=== PATIENT | female | born 1945 | race Caucasian/White ===

== ENCOUNTER → 2019-07-01 | Outpatient (CLI) | payer MEDICARE, OTHER ==
--- NOTE | 2019-07-01 11:23 | Diagnostic Imaging Report ---
INDICATION: Injury to the left foot. TIME OF EXAM: 11:07 a.m. FINDINGS: Three views of the left foot were obtained. There is generalized demineralization noted. There are findings suspicious for fractures involving the distal second and third metatarsals. Clinical correlation to pain at this location is recommended. No displacement is seen. The phalanges appear to be intact. Midfoot and hindfoot are unremarkable. IMPRESSION: Generalized demineralization. There are questionable fractures involving the distal second and third metatarsals. Clinical correlation of pain at this location is recommended. No other abnormality is seen. Dictated by: Dictated on workstation # [id number]
== END ==
LOC: RAD FS 11:00
PROVIDERS: ATTEND Family Medicine
DX: M81.0 Age-related osteoporosis without current pathological fracture (principal); M79.672 Pain in left foot
CPT/HCPCS: 73630

== ENCOUNTER 2019-07-21 12:18 | Outpatient (CLI) | payer MEDICARE, OTHER ==
[~2019-07-21] VITALS: Ht 149.9 cm; Wt 61.9 kg
[2019-07-21 12:31] VITALS: BP 118/66
[2019-07-21] MEDS ORDERED: FEXO-46 PO (13:29)
[2019-07-21] MEDS ORDERED: BUME2TAB7 PO (13:29)
[2019-07-21] MEDS ORDERED: OMEP40CA36 PO (13:29)
[2019-07-21] MEDS ORDERED: CYAN25008 SL (13:29)
[2019-07-21] MEDS ORDERED: ALEN70TA5 PO (13:29)
[2019-07-21] MEDS ORDERED: CHOL4PAC16 PO (13:29)
[2019-07-21] MEDS ORDERED: POTA-51 PO (13:29)
[2019-07-21] MEDS ORDERED: GABA-488 PO (13:29)
[2019-07-21] MEDS ORDERED: ASPI-586 PO (13:29)
[2019-07-21] MEDS ORDERED: CHOL200014 PO (13:29)
[2019-07-21] MEDS ORDERED: SIMV10TA3 PO (13:29)
[2019-07-21] MEDS ORDERED: CHOL500049 PO (13:29)
[2019-07-22] MEDS ORDERED: HYDR-3816 PO (13:21)
== END 2019-07-21 12:45 | disposition home or self-care (01) ==
LOC: PREOP 12:18
PROVIDERS: ATTEND Orthopaedic Surgery
DX: Z01.818 Encounter for other preprocedural examination (principal)
CPT/HCPCS: 87081

== ENCOUNTER 2019-07-22 08:10 | Day surgery (SDC) | payer MEDICARE, OTHER ==
--- NOTE | 2019-07-21 07:38 | HISTORY AND PHYSICAL ---
DATE OF SERVICE: 07/22/2019 This will be for outpatient surgery on 07/22/2019 for open reduction and internal fixation of the left distal radius. HISTORY OF PRESENT ILLNESS: The patient is a 74-year-old female, who tripped 3 days ago landing on her left upper extremity. She was found to have a comminuted intraarticular displaced left distal radius fracture. She denies any antecedent pain. Radiographs reveal an intra-articular shortened displaced distal radius fracture. REVIEW OF SYSTEMS: No chest pain, no shortness of breath, no dysuria. PAST MEDICAL HISTORY: Right hip fracture, vitamin D deficiency, anemia, allergic rhinitis, neuralgia, osteoarthritis, hyperlipidemia, osteoporosis. PAST SURGICAL HISTORY: Right total hip arthroplasty, colonoscopy, tonsillectomy, cholecystectomy. FAMILY HISTORY: Noncontributory. PRIMARY CARE PROVIDER: Dr. Edwards. MEDICATIONS: Fosamax, aspirin, Bumex, calcium, vitamin D, Deborah, gabapentin, omeprazole, Zocor, Lomotil, alendronate, Aleve, Deborah, Neurontin, Questran, vitamin D. ALLERGIES: PENICILLIN, SULFA, ADHESIVE TAPE, STREPTOMYCIN, SULFADIAZINE, SOCIAL HISTORY: The patient denies alcohol and tobacco use. PHYSICAL EXAMINATION: GENERAL: The patient is well developed, well nourished, in no acute distress. HEENT: Normocephalic, atraumatic. Pupils are equal, round, reactive to light. Lateral pharynx is clear. NECK: Supple, no lymphadenopathy. LUNGS: Clear to auscultation bilaterally. HEART: Regular rate and rhythm. ABDOMEN: Soft, nontender, nondistended. EXTREMITIES: The left wrist demonstrates mild swelling. There is tenderness over distal radius. She has intact sensation in radial, ulnar and median distribution. She has intact MCP extension, finger abduction, thumb IP flexion and extension. IMPRESSION: Intra-articular displaced left distal radius fracture. PLAN: Open reduction and internal fixation, left distal radius. The risks, benefits, options, ramifications and recovery were discussed at length with the patient. She understands and wishes to proceed. Job ID: [id number] DocumentID: [id number] Dictated Date: 07/16/2019 14:28:19 Pin Or Clip Fastener Date: 07/16/2019 14:43:34 Dictated By: JORGE HERNANDEZ MD
[~2019-07-22] VITALS: Ht 148 cm; Wt 61.9 kg
[2019-07-22] VITALS (11 sets, daily range): BP systolic 108–129; BP diastolic 51–83
[~2019-07-22 08:10] MED LIST: ALEN70TA5 PO; ASPI-586 PO; BUME2TAB7 PO; CHOL200014 PO; CHOL4PAC16 PO; CHOL500049 PO; CYAN25008 SL; FEXO-46 PO; GABA-488 PO; OMEP40CA36 PO; POTA-51 PO; SIMV10TA3 PO
[2019-07-22] MEDS ORDERED: LACTATED RINGERS 1,000 ML IV PRN (08:19)
[2019-07-22] MEDS ORDERED: ceFAZolin INJECTION 1,000 MG in WATER (STERILE) FOR INJECTION 10 ML IV ONE (08:30)
--- NOTE | 2019-07-22 09:17 | Progress Note-Pre Operative ---
Pre-Operative Progress Note H&P Reviewed The H&P was reviewed, patient examined and no changes noted. Date Seen by Provider: Jul 22, 2019 Time Seen by Provider: 09:15 Date H&P Reviewed: Jul 22, 2019 Time H&P Reviewed: 09:15 Pre-Operative Diagnosis: left distal radius fracture closed, displaced JORGE HERNANDEZ MD Jul 22, 2019 09:17 POS
--- NOTE | 2019-07-22 09:18 | Progress Note-Post Operative ---
Post-Operative Progess Note Surgeon (s)/Printing Plate Maker (s) Surgeon JORGE HERNANDEZ MD Printing Plate Maker: Graeme Alcala Pre-Operative Diagnosis left distal radius fracture closed, displaced Post-Operative Diagnosis left distal radius fracture closed, displaced Procedure & Operative Findings Date of Procedure 07/22/19 Procedure Performed/Findings open reduction and internal fixation of the left distal radius Anesthesia Type GETA Estimated Blood Loss Estimated blood loss (mL): minimal Specimens/Packing Specimens Removed none Packing: none JORGE HERNANDEZ MD Jul 22, 2019 09:18 POS
[2019-07-22] MEDS ORDERED: fentaNYL INJECTION 100 MCG/2 ML AMP ONE (10:22)
[2019-07-22] MEDS ORDERED: ONDANSETRON 4 MG/2 ML (SDV) Z0FRAN ONE (10:22)
[2019-07-22] MEDS ORDERED: SEVOFLURANE (ULTANE) 15 ML INHAL SOLN ONE ×3 (10:22→12:01)
[2019-07-22] MEDS ORDERED: DEXAMETHASONE 10 MG/ML (DECADRON) 1 ML VIAL ONE (10:22)
[2019-07-22] MEDS ORDERED: LIDOCAINE PF 2% 5 ML (XYLOCAINE) VIAL ONE (10:22)
[2019-07-22] MEDS ORDERED: proPOfol 200 MG/20 ML (DIPRIVAN) VIAL IV ONE (10:22)
[2019-07-22] MEDS ORDERED: GLYCOPYRROLATE 0.2 MG/ML (ROBINUL) 2 ML VIAL ONE (12:00)
[2019-07-22] MEDS ORDERED: BUPIVACAINE 0.5% 30 ML (SENSORCAINE) VIAL ONE ×2 (12:00→12:02)
[2019-07-22] MEDS ORDERED: ONDANSETRON 4 MG/2 ML (SDV) Z0FRAN IVP PRN (12:30)
[2019-07-22] MEDS ORDERED: fentaNYL INJECTION 100 MCG/2 ML AMP IVP ONE (12:30)
[2019-07-22] MEDS ORDERED: HYDROcodone/APAP 7.5 MG/325 MG (LORTAB, LORCET PLUS) TABLET PO PRN (12:30)
--- NOTE | 2019-07-22 13:06 | Diagnostic Imaging Report ---
INDICATION: Distal radius ORIF. COMPARISON: None. TOTAL FLUOROSCOPY TIME: 30.2 seconds. TOTAL NUMBER OF FLUOROSCOPIC IMAGES SAVED: 2 FINDINGS: Multiple intraoperative image intensifier views of the left wrist were obtained during ORIF. Images provided show presence of orthopedic side plate and screws along the distal ventral portions of the radius. Fracture of the distal radius is noted, but suboptimally evaluated on these fluoroscopic images. Please note, interpreting radiologist was not present during the procedure. IMPRESSION: 1. Fluoroscopic guidance provided during wrist ORIF. Dictated by: Dictated on workstation # [id number]
[2019-07-22] MEDS ORDERED: HYDR-3816 PO (13:21)
--- NOTE | 2019-07-22 13:47 | Anesthesia-General Post-Op ---
General Patient Condition Mental Status/LOC: Same as Preop Cardiovascular: Satisfactory Nausea/Vomiting: Absent Respiratory: Satisfactory Pain: Controlled Complications: Absent Post Op Complications Complications None Follow Up Care/Instructions Patient Instructions None needed. Anesthesia/Patient Condition Patient Condition Patient is doing well, no complaints, stable vital signs, no apparent adverse anesthesia problems. No complications reported per nursing. BELÉN KRAFT CRNA Jul 22, 2019 13:47 POS
--- NOTE | 2019-07-22 15:46 | OPERATIVE REPORT ---
DATE OF SERVICE: 07/22/2019 PREOPERATIVE DIAGNOSIS: Closed displaced left distal radius fracture (Colles type). POSTOPERATIVE DIAGNOSIS: Closed displaced left distal radius fracture (Colles type). PROCEDURE: Open reduction and internal fixation, left distal radius. SURGEON: Bernard Hernandez MD MANAGER PEOPLE: ARIANA Hernadez, who assisted throughout the procedure and closed the incision. ANESTHESIA: General endotracheal by Rossy Jones CRNA. TOURNIQUET TIME: 32 minutes at 250 mmHg. ESTIMATED BLOOD LOSS: Minimal. DRAINS: None. COMPLICATIONS: None. POSTOPERATIVE PLAN: Immobilization for four to six weeks. The patient was transferred to the recovery room awake and in stable condition. STATEMENT OF MEDICAL NECESSITY: The patient is a 74-year-old right hand dominant female who fell on her left hip fell on her outstretched left upper extremity. She was found to have a closed displaced left distal radius fracture. The patient has very poor bone quality and was counseled that this could collapse even with operative fixation. She understood this. DESCRIPTION OF PROCEDURE: After risks and benefits of procedure were discussed and questions were answered, informed consent was signed and placed on chart, the operative site was confirmed in the preoperative holding area initialed by the surgeon. The patient was transferred to the operating room. After adequate levels of general endotracheal anesthetic were obtained, a timeout was called, confirming the operative site. Left upper extremity was prepped and draped in the usual sterile fashion with arm elevated, tourniquet was inflated to 250 mmHg. Longitudinal incision was made over the flexor carpi radialis. Flexor carpi radialis sheath was then incised and the tendon was retracted ulnarly. Subperiosteal dissection was then carried out on the distal radius. Retractors were placed directly on the bony surface. A Synthes distal radius plate was placed. The glide screw was placed in the shaft and fluoroscopy revealed well reduced fracture. A 4 distal locking screws were placed, all with good purchase. The proximal most screw and the plate was placed as well with good purchase. Fluoroscopy in AP, lateral and oblique planes revealed well reduced fracture. Live time fluoroscopy revealed the fracture was stable. The plate and screws were felt to be in good position. The wound was copiously irrigated. The tourniquet was deflated for a total time of 32 minutes. Pressure was used for hemostasis, 4-0 Vicryl was used to reapproximate subcutaneous tissue and skin was closed with 4-0 nylon vertical mattress interrupted fashion. Incision was infiltrated with plain Marcaine. A soft dressing and a volar splint were applied. The patient was transferred to the recovery room awake and in stable condition. Job ID: [id number] DocumentID: [id number] Dictated Date: 07/22/2019 12:10:29 Freight Brakeman Date: 07/22/2019 15:45:18 Dictated By: BERNARD HERNANDEZ MD
== END 2019-07-22 14:45 | disposition home or self-care (01) ==
LOC: SDC 08:10
PROVIDERS: ATTEND Orthopaedic Surgery
DX: S52.532A Colles' fracture of left radius, initial encounter for closed fracture (principal); M19.90 Unspecified osteoarthritis, unspecified site; E55.9 Vitamin D deficiency, unspecified; E78.5 Hyperlipidemia, unspecified; M81.0 Age-related osteoporosis without current pathological fracture; J30.9 Allergic rhinitis, unspecified; K21.9 Gastro-esophageal reflux disease without esophagitis; W01.0XXA Fall on same level from slipping, tripping and stumbling without subsequent striking against object, initial encounter; Z88.1 Allergy status to other antibiotic agents; Z88.0 Allergy status to penicillin; Z88.2 Allergy status to sulfonamides; Z91.018 Allergy to other foods; Z90.89 Acquired absence of other organs; Z90.49 Acquired absence of other specified parts of digestive tract; Z96.641 Presence of right artificial hip joint; Z91.048 Other nonmedicinal substance allergy status; Z79.891 Long term (current) use of opiate analgesic

== ENCOUNTER → 2019-07-27 | Outpatient (CLI) | payer MEDICARE, OTHER ==
[~2019-07-27] MED LIST changes: +HYDR-3816 PO
--- NOTE | 2019-07-27 13:09 | Diagnostic Imaging Report ---
INDICATION: Fracture follow-up. COMPARISON: 07/01/2019. FINDINGS: Three views of the left foot were obtained and again show generalized advanced demineralization. There has been interval development of sclerosis involving the distal portions of the second and third metatarsals. Findings are likely on the basis of partial interval healing of previously described fractures. There is some extraosseous calcification as well, suggestive of callus formation. No new acute fracture or dislocation of the left foot is identified. Joint spaces are maintained. No unexpected radiopaque foreign bodies are seen. IMPRESSION: 1. Findings consistent with healing fractures of the second and third metatarsals as described above. 2. Redemonstration of generalized demineralization of the left foot. Correlation with DEXA scan is recommended. Dictated by: Dictated on workstation # [id number]
== END ==
LOC: RAD FS 12:49
PROVIDERS: ATTEND Nurse Practitioner
DX: S92.335D Nondisplaced fracture of third metatarsal bone, left foot, subsequent encounter for fracture with routine healing (principal)
CPT/HCPCS: 73630

== ENCOUNTER → 2019-07-31 | Outpatient (CLI) | payer MEDICARE, OTHER ==
--- NOTE | 2019-07-31 13:43 | Diagnostic Imaging Report ---
Patient History: COUGH. Technique: Two views of the chest. Comparison: None. FINDINGS: The lung volumes are normal. No focal consolidation is seen. No large pleural effusion or pneumothorax is seen. The cardiomediastinal silhouette is normal in size and contour. No acute osseous abnormality is seen. IMPRESSION: No acute pulmonary abnormality seen. Dictated by: Dictated on workstation # [id number]
== END ==
LOC: RAD FS 13:21
PROVIDERS: ATTEND Nurse Practitioner
DX: R05 Cough (principal)
CPT/HCPCS: 71046

== ENCOUNTER → 2019-08-18 | Outpatient (CLI) | payer MEDICARE, OTHER ==
--- NOTE | 2019-08-18 14:34 | Diagnostic Imaging Report ---
INDICATION: Follow-up left third metatarsal fracture. TIME OF EXAM: 12:57 p.m. COMPARISON: Comparison is made with prior radiographs from 07/27/2019. FINDINGS: Healing fractures of distal second and third metatarsals are again noted. Fracture lines remain partly visible. There is some callus formation. There is also sclerosis at the fourth and fifth metatarsal heads, which may represent some healing fractures. There is generalized demineralization. Midfoot and hindfoot are unremarkable. IMPRESSION: Healing metatarsal fractures, as described. Fracture lines remain partly visible. Dictated by: Dictated on workstation # [id number]
== END ==
LOC: RAD FS 12:51
PROVIDERS: ATTEND Nurse Practitioner
DX: S92.335D Nondisplaced fracture of third metatarsal bone, left foot, subsequent encounter for fracture with routine healing (principal)
CPT/HCPCS: 73630

== ENCOUNTER → 2020-06-07 | Outpatient (CLI) | payer MEDICARE, OTHER ==
[~2020-06-07] MED LIST changes: +HYDR-34 PO; -HYDR-3816 PO; +OMEP40CA27 PO; -OMEP40CA36 PO; +SIMV10TA26 PO; -SIMV10TA3 PO
--- NOTE | 2020-06-07 17:59 | Diagnostic Imaging Report ---
EXAMINATION: Right wrist radiographs, 3 views. Left wrist radiographs, 3 views. COMPARISON: None. HISTORY: 74-year-old female, fall. Bilateral wrist pain. FINDINGS: There are vascular calcifications. There is mild triscaphe degenerative change on the right. There is no identified chondrocalcinosis. There is a healed remote prior fracture of the distal radial metaphysis on the right. There is sideplate and screw fixation hardware at the level of the left distal radius. The hardware appears intact. There is no identified residual fracture line of the left distal radius. There is a well-corticated ossification in the region of the ulnar styloid on the left most likely relating to sequela of remote prior fracture of the ulnar styloid on the left. There is no identified acute fracture. There is no identified radiopaque foreign body. The bones appear potentially demineralized. IMPRESSION: 1. No identified acute bony abnormality of the right or left wrist. 2. Healed remote prior fracture deformity of the right distal radial metaphysis. 3. Intact sideplate and screw fixation hardware at the level of the left distal radius with healed remote prior left distal radius fracture. 4. Remote prior fracture of the left ulnar styloid. 5. The bones appear potentially demineralized. Dictated by: Dictated on workstation # [id number]
== END ==
LOC: RAD FS 13:49
PROVIDERS: ATTEND Nurse Practitioner
DX: M19.041 Primary osteoarthritis, right hand (principal); M25.532 Pain in left wrist; Z87.81 Personal history of (healed) traumatic fracture; W19.XXXD Unspecified fall, subsequent encounter

== ENCOUNTER → 2020-07-07 | Outpatient (CLI) | payer OTHER | LOC: LABNPT 12:31 | PROVIDERS: ATTEND Nurse Practitioner Family | DX: Z20.828 Contact with and (suspected) exposure to other viral communicable diseases (principal) | CPT/HCPCS: 87635 ==

== ENCOUNTER 2020-08-26 05:34 | Outpatient (RCR) | payer MEDICARE, OTHER ==
[~2020-08-26] VITALS: Ht 149 cm; Wt 61.8 kg
[~2020-08-26 05:34] MED LIST changes: -ALEN70TA5 PO; +ALEN70TA69 PO; +ASPI-999 PO; +ERGO400C PO; +FERR-84 PO; +GABA300C PO; +NAPR220T66 PO
== END 2020-08-26 09:32 | disposition home or self-care (01) ==
LOC: PREOP 05:34
PROVIDERS: ATTEND Surgery
DX: Z01.812 Encounter for preprocedural laboratory examination (principal); D64.9 Anemia, unspecified; K29.70 Gastritis, unspecified, without bleeding; K44.9 Diaphragmatic hernia without obstruction or gangrene; R13.10 Dysphagia, unspecified; Z20.828 Contact with and (suspected) exposure to other viral communicable diseases
CPT/HCPCS: 87635

== ENCOUNTER 2020-08-29 07:44 | Day surgery (SDC) | payer MEDICARE, OTHER ==
[~2020-08-29] VITALS: Ht 149.9 cm; Wt 59.0 kg
[2020-08-29] MEDS ORDERED: LACTATED RINGERS 1,000 ML IV ONE (07:50)
[2020-08-29] MEDS ORDERED: LACTATED RINGERS 1,000 ML IV STA (08:09)
[2020-08-29 08:29] VITALS: BP 121/87
[2020-08-29] MEDS ORDERED: proPOfol 200 MG/20 ML (DIPRIVAN) VIAL IV ONE (10:13)
--- NOTE | 2020-08-29 10:20 | Progress Note-Pre Operative ---
Pre-Operative Progress Note H&P Reviewed The H&P was reviewed, patient examined and no changes noted. Time Seen by Provider: 10:17 Date H&P Reviewed: Aug 29, 2020 Time H&P Reviewed: 10:14 Pre-Operative Diagnosis: Dysphagia and Gastritis KEVIN FELICIANO DO Aug 29, 2020 10:20
[2020-08-29 11:05] VITALS: BP 101/54
--- NOTE | 2020-08-29 11:05 | Progress Note-Post Operative ---
Post-Operative Progess Note Surgeon (s)/Shipsmith (s) Surgeon KEVIN FELICIANO DO Shipsmith: none Pre-Operative Diagnosis Dysphagia and Gastritis Post-Operative Diagnosis Gastric Ulcers Hiatal hernia Esophagitis Procedure & Operative Findings Date of Procedure 08/29/20 Procedure Performed/Findings EGD with bx Anesthesia Type IV sedation by JUNIOR PHP DEVELOPER Estimated Blood Loss Estimated blood loss (mL): scant Specimens/Packing Specimens Removed antral bx body of stomach bx GE jxn bx KEVIN FELICIANO DO Aug 29, 2020 11:05
[2020-08-29] MEDS ORDERED: SUCR1TAB36 PO (11:06)
--- NOTE | 2020-08-29 11:06 | Endoscopy Discharge Instruct ---
Endo Procedure/Findings Findings 1.: Gastric Ulcer 2.: Hiatal Hernia Discharge Instructions - Activity: You might feel a little sleepy until tomorrow. This is due to the medicine you received to relax you. Until tomorrow, you should: NOT drive a car, operate machinery or power tools. NOT drink any alcoholic beverages. NOT make any important decisions or sign importortant papers. Do not return to work until tomorrow, unless otherwise instructed. Resume previous activities tomorrow. Diet: Start by taking liquids. If you tolerate liquids, advance to solid food. 1.: EGD in 6-8 weeks Notify Physician - If you experience excessive bleeding, unusual abdominal pain, fever, or chest pain, contact your doctor immediately. KEVIN FELICIANO DO Aug 29, 2020 11:06
[2020-08-29 11:10] VITALS: BP 96/55
[2020-08-29 11:35] VITALS: BP 112/62
--- NOTE | 2020-08-29 12:34 | Anesthesia-General Post-Op ---
MAC Patient Condition Mental Status/LOC: Same as Preop Cardiovascular: Satisfactory Nausea/Vomiting: Absent Respiratory: Satisfactory Pain: Controlled Complications: Absent Post Op Complications Complications None Follow Up Care/Instructions Patient Instructions None needed. Anesthesiology Discharge Order Discharge Order Patient is doing well, no complaints, stable vital signs, no apparent adverse anesthesia problems. No complications reported per nursing. RYAN WARE CRNA Aug 29, 2020 12:34
[2020-08-29 13:32] VITALS: BP 112/62
--- NOTE | 2020-08-29 22:30 | OPERATIVE REPORT ---
DATE OF SERVICE: 08/29/2020 PREOPERATIVE DIAGNOSES: Dysphagia, gastritis. POSTOPERATIVE DIAGNOSES: Gastric ulcer, esophagitis, hiatal hernia. PROCEDURE: EGD with biopsy. SURGEON: Rock Reddy DO PROPERTY CLAIMS ADJUSTER: None. ANESTHESIA: IV sedation by the FORGING DIES FINAL FINISHER. SPECIMEN: Biopsy from the antrum, biopsy of body of stomach, biopsy from the GE junction. BLOOD LOSS: Scant. FLUIDS: Per anesthesia. POSTOPERATIVE CONDITION: Stable. INDICATION FOR PROCEDURE: The patient is a 75-year-old female who has been complaining of dysphagia, felt like it was getting stuck in her stomach and gastritis with GERD symptoms, needed a workup. FINDINGS: The patient had a normal esophagus, but she did appear to have small gastric ulcers all healed. nothing bleeding in the stomach. She had some mild esophagitis and she had a small hiatal hernia, may be 1 cm from the scope. PROCEDURE NOTE: After informed consent was obtained, the patient was brought to the endoscopy suite, placed in bed in left lateral decubitus position. She was administered IV sedation by the FORGING DIES FINAL FINISHER who then monitored her vitals the entire time, heart rate, blood pressure and pulse ox. Inserted the scope down the mouth through the esophagus on the way down through the esophagus, took pictures. It looked fine. There are no strictures, took a picture of the GE junction, then pushed in past the stomach, into the duodenum, took a picture, duodenum looked fine. Pulled back and noted some mild inflammation of the antrum, took a picture. Retroflexed the scope, saw small hiatal hernia and then while retroflexing, noted little ulcers, did a biopsy of one of these ulcers. Pulled the scope into the GE junction and did a biopsy of the GE junction, then pushed the scope back into the stomach, took some more pictures of ulcers and then suctioned all the air out of the stomach and then pulled the scope up the esophagus and out the mouth. The patient tolerated the procedure. She was recovered in endoscopy suite. Job ID: [id number] DocumentID: [id number] Dictated Date: 08/29/2020 15:48:35 Opener Verifier Packer [employer] Date: 08/29/2020 22:28:55 Dictated By: ROCK REDDY DO
== END 2020-08-29 11:47 | disposition home or self-care (01) ==
LOC: ENDO 07:44
PROVIDERS: ATTEND Surgery
DX: K44.9 Diaphragmatic hernia without obstruction or gangrene (principal); K29.50 Unspecified chronic gastritis without bleeding; K25.9 Gastric ulcer, unspecified as acute or chronic, without hemorrhage or perforation; D64.9 Anemia, unspecified; J45.909 Unspecified asthma, uncomplicated; K21.00 Gastro-esophageal reflux disease with esophagitis, without bleeding; M19.90 Unspecified osteoarthritis, unspecified site; Z79.899 Other long term (current) drug therapy; Z79.82 Long term (current) use of aspirin; Z88.0 Allergy status to penicillin; Z88.2 Allergy status to sulfonamides; Z91.018 Allergy to other foods; Z91.048 Other nonmedicinal substance allergy status; Z80.9 Family history of malignant neoplasm, unspecified
CPT/HCPCS: 88305; 88342

== ENCOUNTER 2020-10-21 05:30 | Outpatient (RCR) | payer MEDICARE, OTHER ==
[~2020-10-21] VITALS: Ht 149.9 cm; Wt 59.0 kg
[~2020-10-21 05:30] MED LIST changes: -ALEN70TA69 PO; +ALEN70TA80 PO; +GBPN600T PO; +SUCR1TAB36 PO
== END 2020-10-21 13:35 | disposition home or self-care (01) ==
LOC: PREOP 05:30
PROVIDERS: ATTEND Surgery
DX: Z01.812 Encounter for preprocedural laboratory examination (principal); K29.70 Gastritis, unspecified, without bleeding; K25.9 Gastric ulcer, unspecified as acute or chronic, without hemorrhage or perforation; Z20.822 Contact with and (suspected) exposure to COVID-19
CPT/HCPCS: 87635

== ENCOUNTER 2020-10-24 06:31 | Day surgery (SDC) | payer MEDICARE, OTHER ==
[~2020-10-24] VITALS: Ht 149.9 cm; Wt 59.0 kg
[2020-10-24] MEDS ORDERED: LACTATED RINGERS 1,000 ML IV STA (07:10)
[2020-10-24] MEDS ORDERED: HURRICAINE EXT TUBE (BENZOCAINE) XX PRN (07:15)
[2020-10-24] MEDS ORDERED: LACTATED RINGERS 1,000 ML IV ONE (07:17)
[2020-10-24] MEDS ORDERED: PROPOFOL INJECTION 50 ML IV ONE (07:19)
[2020-10-24 07:28] VITALS: BP 129/77
[2020-10-24] MEDS ORDERED: HURRICAINE EXT TUBE (BENZOCAINE) ONE (08:01)
--- NOTE | 2020-10-24 08:31 | Progress Note-Pre Operative ---
Pre-Operative Progress Note H&P Reviewed The H&P was reviewed, patient examined and no changes noted. Time Seen by Provider: 08:21 Date H&P Reviewed: Oct 24, 2020 Time H&P Reviewed: 08:22 Pre-Operative Diagnosis: Gastric Ulcer, Gastritis KEVIN FELICIANO DO Oct 24, 2020 08:31
[2020-10-24 08:40] VITALS: BP 98/52
[2020-10-24 08:45] VITALS: BP 92/58
[2020-10-24 08:50] VITALS: BP_SYST 105; BP_SYST 106; BP_DIAS 64
[2020-10-24 09:15] VITALS: BP 119/72
--- NOTE | 2020-10-24 09:39 | Progress Note-Post Operative ---
Post-Operative Progess Note Surgeon (s)/Clip Loading Machine Feeder (s) Surgeon KEVIN FELICIANO DO Clip Loading Machine Feeder: none Pre-Operative Diagnosis Gastric Ulcer, Gastritis Post-Operative Diagnosis Gastritis ?ulcer Hiatal Hernia Procedure & Operative Findings Date of Procedure 10/24/20 Procedure Performed/Findings EGD with bx Anesthesia Type IV sedation by BUNDLE PACKER Estimated Blood Loss Estimated blood loss (mL): scant Specimens/Packing Specimens Removed antral bx cardia bx GE jxn bx KEVIN FELICIANO DO Oct 24, 2020 09:39
--- NOTE | 2020-10-24 09:40 | Anesthesia-General Post-Op ---
MAC Patient Condition Mental Status/LOC: Same as Preop Cardiovascular: Satisfactory Nausea/Vomiting: Absent Respiratory: Satisfactory Pain: Controlled Complications: Absent Post Op Complications Complications None Follow Up Care/Instructions Patient Instructions None needed. Anesthesiology Discharge Order Discharge Order Patient is doing well, no complaints, stable vital signs, no apparent adverse anesthesia problems. No complications reported per nursing. ALFRED LLAMAS CRNA Oct 24, 2020 09:40
--- NOTE | 2020-10-24 09:40 | Endoscopy Discharge Instruct ---
Endo Procedure/Findings Findings 1.: Gastric Ulcer 2.: Gastritis 3.: Hiatal Hernia Discharge Instructions - Activity: You might feel a little sleepy until tomorrow. This is due to the medicine you received to relax you. Until tomorrow, you should: NOT drive a car, operate machinery or power tools. NOT drink any alcoholic beverages. NOT make any important decisions or sign importortant papers. Do not return to work until tomorrow, unless otherwise instructed. Resume previous activities tomorrow. Diet: Start by taking liquids. If you tolerate liquids, advance to solid food. 1.: EGD in 1 year Notify Physician - If you experience excessive bleeding, unusual abdominal pain, fever, or chest pain, contact your doctor immediately. KEVIN FELICIANO DO Oct 24, 2020 09:40
[2020-10-24 09:50] VITALS: BP 119/72
--- NOTE | 2020-10-24 19:38 | OPERATIVE REPORT ---
DATE OF SERVICE: 10/24/2020 PREOPERATIVE DIAGNOSES: History of chronic gastritis and gastric ulcer. POSTOPERATIVE DIAGNOSES: Gastritis, questionable ulcer and hiatal hernia. PROCEDURE: EGD with biopsy. SURGEON: Rock Reddy DO SALES CLERK FOOD: None. ANESTHESIA: IV sedation by the FOOT CASTER. SPECIMEN: Biopsy of the antrum, biopsy of the cardia of the stomach, biopsy of the GE junction. BLOOD LOSS: Scant. FLUIDS: Per anesthesia. POSTOPERATIVE CONDITION: Stable. INDICATION FOR PROCEDURE: The patient is a 75-year-old female who has a history of gastric ulcer and needed a repeat EGD. FINDINGS: The patient had what looked like possibly a healed ulcer up in the cardia, she had some mild gastritis and she had a hiatal hernia. PROCEDURE NOTE: After informed consent was obtained, the patient was brought to the endoscopy suite, placed in bed in left lateral decubitus position. She was administered IV sedation by the FOOT CASTER who then monitored her vitals the entire time, heart rate, blood pressure and pulse ox. The scope was inserted down the mouth through the esophagus into the stomach. In the antrum, saw what looked like some erythema and gastritis, took a picture and then did a biopsy here, pushed into the duodenum. Duodenum looked fine. Pulled back, retroflexed the scope, saw small hiatal hernia, took a picture of this and then up in the cardia, saw what looked like possibly an old ulcer, did a biopsy of this and then pulled the scope into the GE junction and did a biopsy here, then pushed the scope back into the stomach, suctioned all the air out of the stomach and then pulled the scope up the esophagus, out of the mouth. The patient tolerated the procedure, recovered in endoscopy suite. Job ID: [id number] DocumentID: [id number] Dictated Date: 10/24/2020 16:15:54 Cover Seamer Date: 10/24/2020 19:38:09 Dictated By: ROCK REDDY DO
== END 2020-10-24 09:50 | disposition home or self-care (01) ==
LOC: ENDO 06:31
PROVIDERS: ATTEND Surgery
DX: K20.90 Esophagitis, unspecified without bleeding (principal); K44.9 Diaphragmatic hernia without obstruction or gangrene; K21.9 Gastro-esophageal reflux disease without esophagitis; D64.9 Anemia, unspecified; M19.90 Unspecified osteoarthritis, unspecified site; Z79.899 Other long term (current) drug therapy; Z79.82 Long term (current) use of aspirin; Z88.0 Allergy status to penicillin; Z91.018 Allergy to other foods; Z88.2 Allergy status to sulfonamides; Z91.048 Other nonmedicinal substance allergy status; Z80.9 Family history of malignant neoplasm, unspecified
CPT/HCPCS: 88305; 88342

== ENCOUNTER → 2020-11-17 | Outpatient (CLI) | payer MEDICARE, OTHER ==
--- NOTE | 2020-11-17 15:15 | Diagnostic Imaging Report ---
Indication: Left knee pain. Comparison: None. Findings: 3 views of the left knee demonstrate diffuse osteopenia. There is no fracture or dislocation. Mild degenerative changes are present. There is no joint effusion. Impression: Degenerative joint disease, osteopenia. No fracture or dislocation. Dictated by: Dictated on workstation # [id number]
== END ==
LOC: RAD FS 14:29
PROVIDERS: ATTEND Nurse Practitioner
DX: M17.12 Unilateral primary osteoarthritis, left knee (principal); M85.88 Other specified disorders of bone density and structure, other site
CPT/HCPCS: 73562

== ENCOUNTER 2021-01-21 14:29 | Emergency (ER) | payer MEDICARE, OTHER ==
--- NOTE | 2021-01-21 14:56 | ED General ---
General Chief Complaint: Trauma-Non Activation Stated Complaint: FALL BACK/CHEST INJ History of Present Illness Date Seen by Provider: January 21, 2021 Time Seen by Provider: 14:45 Initial Comments 75-year-old female presents with right sided chest and rib pain. States she was sitting in a chair yesterday afternoon outdoors and she fell out of bed landing on the ground on her right chest. Since then having pain with movement, pain with breathing. Denies any extremity pain, head neck or vertebral pain. Admits to breaking multiple ribs over in the past. Allergies and Home Medications Allergies Coded Allergies: Penicillins (Verified Allergy, Mild, Hives, 08/24/20) Sulfa (Sulfonamide Antibiotics) (Verified Allergy, Mild, Hives, 08/24/20) adhesive tape (Verified Allergy, Mild, Hives, 08/24/20) barley (Verified Allergy, Unknown, 08/24/20) gluten (Verified Allergy, Unknown, 08/24/20) oats (Verified Allergy, Unknown, 08/24/20) streptomycin (Verified Allergy, Unknown, non effective, 08/24/20) sulfadiazine (Verified Allergy, Unknown, non effective, 08/24/20) wheat (Verified Allergy, Unknown, 08/24/20) Home Medications Alendronate Sodium 70 Mg Tablet, 70 MG PO WEEK, (Reported) Bumetanide 2 Mg Tablet, 2 MG PO DAILY, (Reported) Cholecalciferol (Vitamin D3) 10 Mcg Capsule, 10 MCG PO DAILY, (Reported) Ferrous Sulfate 325 Mg Tablet, 325 MG PO DAILY, (Reported) Fexofenadine HCl 180 Mg Tablet, 180 MG PO DAILY, (Reported) Gabapentin 600 Mg Tablet, 600 MG PO TID, (Reported) Hydrocodone/Acetaminophen 1 Each Tablet, 1 EACH PO Q4H Prescribed by: ANNIA PERSON on 01/21/21 1538 Naproxen Sodium 220 Mg Tablet, 220 MG PO PRN, (Reported) Omeprazole 40 Mg Capsule.dr, 40 MG PO DAILY, (Reported) Simvastatin 10 Mg Tablet, 10 MG PO HS, (Reported) Sucralfate 1 Gm Tablet, 1 GM PO QID Prescribed by: KEVIN FELICIANO on 08/29/20 1106 Patient Home Medication List Home Medication List Reviewed: Yes Review of Systems Review of Systems Constitutional: No fever, No malaise, No weakness EENTM: no symptoms reported Respiratory: No cough, No hemoptysis, No short of breath, No stridor, No wheezing; other (pain w breathing deep) Cardiovascular: see HPI, chest pain (R sided chest wall- 2 to fall); No palpitations, No syncope Gastrointestinal: No abdominal pain, No nausea, No vomiting Musculoskeletal: back pain (Right upper back ? rib); No muscle pain, No muscle stiffness, No neck pain Past Lyopetj-Baveav-Mfigyj Hx Past Med/Social Hx: Reviewed Nursing Past Med/Soc Hx Patient Social History Alcohol Use: Denies Use Smoking Status: Never a Smoker 2nd Hand Smoke Exposure: No Recent Hopitalizations: No (JUL 07-L FX HIP) Immunizations Up To Date Tetanus Booster (TDap): Unknown Date of Pneumonia Vaccine: Jul 21, 2018 Date of Influenza Vaccine: Jul 07, 2020 Seasonal Allergies Seasonal Allergies: Yes Past Medical History Surgeries: Yes (R total hip, hiatal hernia, L HIP FX, WRIST FX, CTR) Gallbladder, Tonsillectomy Respiratory: Yes (allergy induced asthma) Currently Using CPAP: No Currently Using BIPAP: No Cardiac: Yes High Cholesterol Neurological: No Sexually Transmitted Disease: No HIV/AIDS: No Genitourinary: No Gastrointestinal: Yes (gluten allergy) Gastroesophageal Reflux Musculoskeletal: Yes Osteoporosis, Arthritis, Fractures Endocrine: No HEENT: Yes (cataracts removed, dentures) Cataract Cancer: No Psychosocial: No Integumentary: No Blood Disorders: Yes (anemia-PT STATES SHE IS "ALLERIGIC") Adverse Reaction/Blood Tranf: Yes (ELEVATED TEMP, CARDIAC ARREST) Physical Exam Vital Signs Vital Signs - First Documented 01/21/21 14:30 Temp 36.8 Pulse 76 Resp 17 B/P (MAP) 125/70 (88) Pulse Ox 97 O2 Delivery Room Air Capillary Refill : Height, Weight, BMI Height: '" Weight: lbs. oz. kg; 26.25 BMI Method: General Appearance: No Apparent Distress, WD/WN Neck: Full Range of Motion, Non Tender Respiratory: Lungs Clear, Normal Breath Sounds, No Accessory Muscle Use, No Respiratory Distress, Other (TTP along ribs (4-6) on R, from ant to Post) Cardiovascular: Regular Rate, Rhythm, No JVD Gastrointestinal: Non Tender, Soft Back: Normal Inspection, No CVA Tenderness Extremity: Non Tender, Swelling (LE depend edema) Neurologic/Psychiatric: Alert, Oriented x3, No Motor/Sensory Deficits Skin: Normal Color, Warm/Dry Progress/Results/Core Measures Suspected Sepsis SIRS Temperature: Pulse: Respiratory Rate: Blood Pressure / Mean: Results/Orders My Orders Orders - ANNIA PERSON DO Ribs 2-3 View Right (01/21/21 14:49) Hydrocodone/Apap 5/325 Tablet (Lortab 5 (01/21/21 15:45) Medications Given in ED Current Medications Medications Dose Ordered Sig/Lucas Route Start Time Stop Time Status Last Admin Dose Admin Acetaminophen/ Hydrocodone Bitart 1 ea ONCE ONCE PO 01/21/21 15:45 01/21/21 15:46 DC 01/21/21 16:07 1 EA Vital Signs/I&O 01/21/21 01/21/21 14:30 16:07 Temp 36.8 36.8 Pulse 76 76 Resp 17 17 B/P (MAP) 125/70 (88) 125/70 (88) Pulse Ox 97 97 O2 Delivery Room Air Capillary Refill : Progress Note : Progress Note Clinical exam and history consistent with rib fracture. No significant radiologic evidence for this, however suspect occult fracture. Patient treated accordingly, explained bruised ribs hurt as bad as broken ribs. Discussed analgesia and patient in agreement with pain medication. Will follow up with her PCP in 1 week, sooner if worse. She does have incentive spirometry at home from prior rib injury and this was discussed that she use it every 2 hours during the day. Diagnostic Imaging Diagonstic Imaging: Xray Plain Films/CT/US/NM/MRI: chest Comments Date of Exam:01/21/21 RIBS 2-3 VIEW RIGHT CLINICAL HISTORY: Fall. Right-sided rib pain. COMPARISON: 07/31/2019. TECHNIQUE: 3 views of the right ribs. FINDINGS: No acute displaced right-sided rib fracture is seen. No pleural effusion or pneumothorax. IMPRESSION: No acute displaced right-sided rib fracture. Dictated by: Dictated on workstation # [id number] Dict: 01/21/21 1529 Trans: 01/21/21 1530 [facility] [id number] Interpreted by: SOURAV KENNEDY DO Electronically signed by: SOURAV KENNEDY DO 01/21/21 1530 Departure Impression Primary Impression: Rib fracture Qualified Codes: S22.31XA - Fracture of one rib, right side, initial encounter for closed fracture Disposition: 01 HOME, SELF-CARE Condition: Stable Departure-Patient Inst. Decision time for Depature: 15:36 Referrals: LÓPEZ SPRAGUE MD (PCP/Family) Primary Care Physician Patient Instructions: Rib Fracture or Bruised Rib ED Scripts Hydrocodone/Acetaminophen (Hydrocodone-Acetamin 5-325 mg) 1 Each Tablet 1 EACH PO Q4H for Abdominal Pain, #30 TAB Prov: ANNIA PERSON DO 01/21/21 ANNIA PERSON DO January 21, 2021 14:56
--- NOTE | 2021-01-21 15:32 | Diagnostic Imaging Report ---
CLINICAL HISTORY: Fall. Right-sided rib pain. COMPARISON: 07/31/2019. TECHNIQUE: 3 views of the right ribs. FINDINGS: No acute displaced right-sided rib fracture is seen. No pleural effusion or pneumothorax. IMPRESSION: No acute displaced right-sided rib fracture. Dictated by: Dictated on workstation # [id number]
[2021-01-21] MEDS ORDERED: ACHD5005 PO (15:37)
[2021-01-21] MEDS ORDERED: HYDROcodone/APAP 5 MG/325 MG (LORTAB) TAB PO ONE (15:45)
[2021-01-21 16:07] VITALS: BP 125/70
== END 2021-01-21 16:07 | disposition home or self-care (01) ==
LOC: EDUNIT# 14:29 → ER FS 14:31
DX: S22.31XA Fracture of one rib, right side, initial encounter for closed fracture (principal); E78.00 Pure hypercholesterolemia, unspecified; K21.9 Gastro-esophageal reflux disease without esophagitis; Z88.0 Allergy status to penicillin; Z88.2 Allergy status to sulfonamides; Z88.8 Allergy status to other drugs, medicaments and biological substances; Z79.899 Other long term (current) drug therapy; W06.XXXA Fall from bed, initial encounter
CPT/HCPCS: 71100

== ENCOUNTER → 2021-02-08 | Outpatient (CLI) | payer MEDICARE, OTHER ==
[~2021-02-08] MED LIST changes: +ACHD5005 PO
--- NOTE | 2021-02-08 13:19 | Diagnostic Imaging Report ---
INDICATION: Foot pain. Fall. COMPARISON: None. FINDINGS: 3 views of the right foot demonstrate no acute fracture or dislocation. There are no focal osseous lesions. There is no soft tissue swelling. Joint spaces are well maintained. No radiopaque foreign bodies are seen. Note is made of generalized diminished bone mineral density. IMPRESSION: 1. No acute fractures or dislocations of the right foot. 2. Generalized diminished bone mineral density. Correlation with DEXA scan is recommended. Dictated by: Dictated on workstation # [id number]
== END ==
LOC: RAD FS 11:34
PROVIDERS: ATTEND Family Medicine
DX: M79.671 Pain in right foot (principal); W19.XXXA Unspecified fall, initial encounter
CPT/HCPCS: 73630

== ENCOUNTER 2021-04-17 08:06 | Emergency (ER) | payer MEDICARE, OTHER ==
[~2021-04-17] VITALS: Ht 149.9 cm; Wt 58.5 kg
[~2021-04-17 08:06] MED LIST changes: -OMEP40CA27 PO; +OMEP40CA6 PO
[2021-04-17 08:10] VITALS: BP 98/70
--- NOTE | 2021-04-17 08:14 | ED Neurological Problem ---
General Stated Complaint: POSS. STROKE History of Present Illness Date Seen by Provider: Apr 17, 2021 Time Seen by Provider: 08:09 Initial Comments 75-year-old female presents with some right sided weakness. Patient reports that she "cannot move her right side" that started around 7 AM this morning. However patient's able to move her right arm with no difficulty, does have some mild right lower extremity weakness. She denies any confusion. Patient reports that she had a similar episode of this back in November after receiving her second Covid shot. Patient was not seen at that time. Patient denies any fevers chills nausea or vomiting. Allergies and Home Medications Allergies Coded Allergies: Penicillins (Verified Allergy, Mild, Hives, 08/24/20) Sulfa (Sulfonamide Antibiotics) (Verified Allergy, Mild, Hives, 08/24/20) adhesive tape (Verified Allergy, Mild, Hives, 08/24/20) barley (Verified Allergy, Unknown, 08/24/20) gluten (Verified Allergy, Unknown, 08/24/20) oats (Verified Allergy, Unknown, 08/24/20) streptomycin (Verified Allergy, Unknown, non effective, 08/24/20) sulfadiazine (Verified Allergy, Unknown, non effective, 08/24/20) wheat (Verified Allergy, Unknown, 08/24/20) Home Medications Alendronate Sodium 70 Mg Tablet, 70 MG PO WEEK, (Reported) Bumetanide 2 Mg Tablet, 2 MG PO DAILY, (Reported) Cholecalciferol (Vitamin D3) 10 Mcg Capsule, 10 MCG PO DAILY, (Reported) Ferrous Sulfate 325 Mg Tablet, 325 MG PO DAILY, (Reported) Fexofenadine HCl 180 Mg Tablet, 180 MG PO DAILY, (Reported) Gabapentin 600 Mg Tablet, 600 MG PO TID, (Reported) Hydrocodone/Acetaminophen 1 Each Tablet, 1 EACH PO Q4H Prescribed by: ANNIA PERSON on 01/21/21 1538 Naproxen Sodium 220 Mg Tablet, 220 MG PO PRN, (Reported) Omeprazole 40 Mg Capsule.dr, 40 MG PO DAILY, (Reported) Simvastatin 10 Mg Tablet, 10 MG PO HS, (Reported) Sucralfate 1 Gm Tablet, 1 GM PO QID Prescribed by: KEVIN FELICIANO on 08/29/20 1106 Patient Home Medication List Home Medication List Reviewed: Yes Review of Systems Review of Systems Constitutional: No chills, No fever Respiratory: no symptoms reported; No cough, No short of breath Cardiovascular: No chest pain, No palpitations Gastrointestinal: No abdominal pain, No nausea, No vomiting Musculoskeletal: no symptoms reported Skin: no symptoms reported Psychiatric/Neurological: See HPI Endocrine: No Symptoms Reported Hematologic/Lymphatic: No Symptoms Reported Past Xvriutx-Elzwkr-Xisrqi Hx Immunizations Up To Date Tetanus Booster (TDap): Unknown Seasonal Allergies Seasonal Allergies: Yes Past Medical History Surgeries: Yes (R total hip, hiatal hernia, L HIP FX, WRIST FX, CTR) Gallbladder, Tonsillectomy Respiratory: Yes (allergy induced asthma) Currently Using CPAP: No Currently Using BIPAP: No Cardiac: Yes High Cholesterol Neurological: No Sexually Transmitted Disease: No HIV/AIDS: No Genitourinary: No Gastrointestinal: Yes (gluten allergy) Gastroesophageal Reflux Musculoskeletal: Yes Osteoporosis, Arthritis, Fractures Endocrine: No HEENT: Yes (cataracts removed, dentures) Cataract Cancer: No Psychosocial: No Integumentary: No Blood Disorders: Yes (anemia-PT STATES SHE IS "ALLERIGIC") Adverse Reaction/Blood Tranf: Yes (ELEVATED TEMP, CARDIAC ARREST) Physical Exam Vital Signs Vital Signs - First Documented Capillary Refill : Height, Weight, BMI Height: '" Weight: lbs. oz. kg; 26.25 BMI Method: General Appearance: no apparent distress HEENT: PERRL/EOMI, normal ENT inspection Neck: full range of motion, supple Respiratory: lungs clear, normal breath sounds Cardiovascular: normal peripheral pulses, regular rate, rhythm Gastrointestinal: normal bowel sounds, non tender Back: normal inspection Extremities: normal capillary refill, other (mild decreased strength right lower leg) Neurologic/Psychiatric: alert, normal mood/affect, oriented x 3, other Crainal Nerves: normal hearing, normal speech, PERRL, facial droop (Mild right- sided) Motor/Sensory: weak motor strength RLE Skin: normal color, warm/dry Stroke Onset of Symptoms Date of Onset of Symptoms: Apr 17, 2021 Time of Symptom Onset: 07:00 Onset of Symptoms: Yes NIH Stroke Scale Assessment Select: Initial Level of Consciousness: 0=Alert (0), Level of Consciousness- Questions: 0=Answers both month/age (0), LOC Commands: 0=Performs both tasks (0), Gaze: Normal (0), Visual Chow: 0=No visual loss (0), Facial Movement (Facial Paresis): 1=Minor paralysis (1), Motor Function-Arms Right: 0=No drift (0), Motor Function-Arms Left: 0=No drift (0), Motor Function-Legs Right: 2=Some effort/gravity (2), Motor Function-Legs Left: 0=No drift (0), Limb Ataxia: 0=Absent (0), Sensory: 0=Normal:no loss (0), Best Language: 0=No aphasia (0), Dysarthria: 0=Normal (0), Extinction & Inattention: 0=No abnormality (0), Total: 3 Progress/Results/Core Measures Results/Orders Lab Results Laboratory Tests Test 04/17/21 08:14 04/17/21 08:16 04/17/21 08:45 04/17/21 09:10 Range/Units Prothrombin Time 20.5 H 12.2-14.7 SEC INR Comment 1.7 H 0.8-1.4 Activated Partial Thromboplast Time 34 24-35 SEC D-Dimer 0.64 H 0.00-0.49 UG/ML Sodium Level 135 135-145 MMOL/L Potassium Level 3.8 3.6-5.0 MMOL/L Chloride Level 104 98-107 MMOL/L Carbon Dioxide Level 21 21-32 MMOL/L Anion Gap 10 5-14 MMOL/L Blood Urea Nitrogen 13 7-18 MG/DL Creatinine 0.62 0.60-1.30 MG/DL Estimat Glomerular Filtration Rate 94 BUN/Creatinine Ratio 21 Glucose Level 91 70-105 MG/DL Calcium Level 7.1 L 8.5-10.1 MG/DL Corrected Calcium 8.8 8.5-10.1 MG/DL Total Bilirubin 0.2 0.1-1.0 MG/DL Aspartate Amino Transf (AST/SGOT) 54 H 5-34 U/L Alanine Aminotransferase (ALT/SGPT) 38 0-55 U/L Alkaline Phosphatase 138 H 40-136 U/L Troponin I < 0.30 <0.30 NG/ML Total Protein 5.6 L 6.4-8.2 GM/DL Albumin 1.9 L 3.2-4.5 GM/DL SARS-CoV-2 RNA (RT-PCR) Not Detected Not Detecte Glucometer 53 *L 70-110 MG/DL Urine Color PALE YELLOW Urine Clarity CLEAR Urine pH 5.0 5-9 Urine Specific [place] 1.010 L 1.016-1.022 Urine Protein NEGATIVE NEGATIVE Urine Glucose (UA) NEGATIVE NEGATIVE Urine Ketones NEGATIVE NEGATIVE Urine Nitrite NEGATIVE NEGATIVE Urine Bilirubin NEGATIVE NEGATIVE Urine Urobilinogen 0.2 < = 1.0 MG/DL Urine Leukocyte Esterase NEGATIVE NEGATIVE Urine RBC (Auto) NEGATIVE NEGATIVE Urine RBC NONE /HPF Urine WBC 2-5 /HPF Urine Squamous Epithelial Cells NONE /HPF Urine Crystals NONE /LPF Urine Bacteria TRACE /HPF Urine Casts NONE /LPF Urine Mucus NEGATIVE /LPF Urine Culture Indicated NO Test 04/17/21 10:21 Range/Units White Blood Count 8.7 4.3-11.0 10^3/uL Red Blood Count 3.89 L 4.35-5.85 10^6/uL Hemoglobin 12.9 11.5-16.0 G/DL Hematocrit 37 35-52 % Mean Corpuscular Volume 96 80-99 FL Mean Corpuscular Hemoglobin 33 25-34 PG Mean Corpuscular Hemoglobin Concent 35 32-36 G/DL Red Cell Distribution Width 14.3 10.0-14.5 % Platelet Count 375 130-400 10^3/uL Mean Platelet Volume 10.2 7.4-10.4 FL Immature Granulocyte % (Auto) 0 % Neutrophils (%) (Auto) 57 42-75 % Lymphocytes (%) (Auto) 28 12-44 % Monocytes (%) (Auto) 9 0-12 % Eosinophils (%) (Auto) 5 0-10 % Basophils (%) (Auto) 1 0-10 % Neutrophils # (Auto) 5.0 1.8-7.8 X 10^3 Lymphocytes # (Auto) 2.4 1.0-4.0 X 10^3 Monocytes # (Auto) 0.8 0.0-1.0 X 10^3 Eosinophils # (Auto) 0.4 H 0.0-0.3 10^3/uL Basophils # (Auto) 0.1 0.0-0.1 10^3/uL Immature Granulocyte # (Auto) 0.0 0.0-0.1 10^3/uL My Orders Orders - BRADFORD,CHRISTOPHE L DO Cbc With Automated Diff (04/17/21 08:14) Protime With Inr (04/17/21 08:14) Partial Thromboplastin Time (04/17/21 08:14) Comprehensive Metabolic Panel (04/17/21 08:14) Fibrin Degradation Products (04/17/21 08:14) Troponin I Fs (04/17/21 08:14) Ua Culture If Indicated (04/17/21 08:14) Chest 1 View Ap/Pa Only (04/17/21 08:14) Ekg Tracing (04/17/21 08:14) Nothing By Mouth (04/17/21 Breakfast) Accucheck Stat ONCE (04/17/21 08:14) Ed Iv/Invasive Line Start (04/17/21 08:14) Vital Signs Stroke Patient Q15M (04/17/21 08:14) Ct Head Wo-R/O Stroke (04/17/21 08:14) O2 (04/17/21 08:14) Intake & Output 06,14,22 (04/17/21 08:14) Monitor-Rhythm Ecg Trace Only (04/17/21 08:14) Dysphagia Screening Tool (04/17/21 08:14) Covid 19 Inhouse Test (04/17/21 08:14) Vital Signs/I&O 04/17/21 04/17/21 04/17/21 08:10 08:10 11:50 Temp 36.3 Pulse 83 83 70 Resp 15 15 16 B/P (MAP) 98/70 (79) 98/70 96/56 Pulse Ox 96 96 98 O2 Delivery Room Air Room Air Progress Progress Note : Progress Note Patient symptoms had rapidly resolved prior to arrival. Patient with some minimal leg weakness but still able to ambulate. Patient with a likely TIA. Discussed hospitalization versus outpatient follow-up. Due to very limited bed availability in our area and patient able to have follow-up at 2 PM tomorrow it was decided that she would follow-up with Dr. Edwards tomorrow for further outpatient evaluation, MRI and medication management. She should return to the ER if symptoms return. Patient was stable upon discharge Initial ECG Impression Date: Apr 17, 2021 Initial ECG Impression Time: 08:50 Initial ECG Rate: 77 Initial ECG Rhythm: Normal Sinus Initial ECG Intervals nonspecific changes Initial ECG Impression: Nonspecific Changes Comment no acute changes, non specific ekg changes, sinus rhythm Diagnostic Imaging Diagonstic Imaging: CT Plain Films/CT/US/NM/MRI: head Comments CT HEAD WO-R/O STROKE PROCEDURE: CT head wo r/o stroke. TECHNIQUE: Multiple contiguous axial images were obtained through the brain without the use of intravenous contrast. Auto Exposure Controls were utilized during the CT exam to meet ALARA standards for radiation dose reduction. INDICATION: Stroke alert. Right-sided weakness. COMPARISON: None available. FINDINGS: BRAIN: There is no parenchymal hemorrhage, midline shift, or mass effect. There is ill-defined low attenuation in the monico (image 8 series 3). Saeed-white matter differentiation is otherwise adequately preserved. Mild prominence of the ventricles and sulci is compatible with cortical and cerebellar parenchymal volume loss, commensurate with age. EXTRA-AXIAL SPACES: No subdural or epidural collections. ORBITS AND PARANASAL SINUSES: Visualized orbits and globes are intact. Visualized paranasal sinuses and mastoid air cells are clear. CALVARIUM AND SOFT TISSUES: The calvarium is intact. No fractures or suspicious bony lesions. The extracranial soft tissues are unremarkable. IMPRESSION: There is low attenuation in the monico, a nonspecific finding which is age indeterminate without priors for comparison. Although this may be a chronic finding or artifactual in nature secondary to beam hardening artifact related to the base of the skull, other etiologies such as pontine infarct or osmotic demyelination syndrome are also considerations for this finding. Brain MRI would be helpful in more definitive characterization. The above findings were discussed with Dr. Bradford on 04/17/2021 0845 hours. Reviewed: Reviewed by Me, Reviewed/Discussed Diagonstic Imaging: Xray Plain Films/CT/US/NM/MRI: chest Comments Date of Exam:04/17/21 CHEST 1 VIEW AP/PA ONLY EXAM: CHEST, 1 VIEW AP/PA ONLY. INDICATION: Right-sided weakness. COMPARISON: None. FINDINGS: Normal heart size and central pulmonary vascularity. Low lung volumes. No focal pulmonary opacity. No pleural effusion or pneumothorax. No acute osseous findings. IMPRESSION: No acute cardiopulmonary findings. Reviewed: Reviewed by Me, Reviewed/Discussed Departure Impression Primary Impression: TIA (transient ischemic attack) Disposition: 01 HOME, SELF-CARE Condition: Stable Departure-Patient Inst. Referrals: LÓPEZ EDWARDS MD (PCP/Family) Primary Care Physician Patient Instructions: Medicines After an Ischemic Stroke, Transient Ischemic Attack Add. Discharge Instructions: Follow-up with Dr. Edwards tomorrow at 2 PM Return to the ER as needed or if symptoms return CHRISTOPHE BRADFORD DO Apr 17, 2021 08:14
--- NOTE | 2021-04-17 08:47 | Diagnostic Imaging Report ---
EXAM: CHEST, 1 VIEW AP/PA ONLY. INDICATION: Right-sided weakness. COMPARISON: None. FINDINGS: Normal heart size and central pulmonary vascularity. Low lung volumes. No focal pulmonary opacity. No pleural effusion or pneumothorax. No acute osseous findings. IMPRESSION: No acute cardiopulmonary findings. Dictated by: Dictated on workstation # [id number]
--- NOTE | 2021-04-17 08:48 | Diagnostic Imaging Report ---
PROCEDURE: CT head wo r/o stroke. TECHNIQUE: Multiple contiguous axial images were obtained through the brain without the use of intravenous contrast. Auto Exposure Controls were utilized during the CT exam to meet ALARA standards for radiation dose reduction. INDICATION: Stroke alert. Right-sided weakness. COMPARISON: None available. FINDINGS: BRAIN: There is no parenchymal hemorrhage, midline shift, or mass effect. There is ill-defined low attenuation in the monico (image 8 series 3). Saeed-white matter differentiation is otherwise adequately preserved. Mild prominence of the ventricles and sulci is compatible with cortical and cerebellar parenchymal volume loss, commensurate with age. The basilar cisterns are patent. EXTRA-AXIAL SPACES: No subdural or epidural collections. ORBITS AND PARANASAL SINUSES: Visualized orbits and globes are intact. Visualized paranasal sinuses and mastoid air cells are clear. CALVARIUM AND SOFT TISSUES: The calvarium is intact. No fractures or suspicious bony lesions. The extracranial soft tissues are unremarkable. IMPRESSION: There is low attenuation in the monico, a nonspecific finding which is age indeterminate without priors for comparison. Although this may be a chronic finding or artifactual in nature secondary to beam hardening artifact related to the base of the skull, other etiologies such as pontine infarct or osmotic demyelination syndrome are also considerations for this finding. Brain MRI would be helpful in more definitive characterization, as clinically indicated. The above findings were discussed with Dr. Bradford on 04/17/2021 0845 hours. Dictated by: Dictated on workstation # [id number]
[2021-04-17 10:36] LABS: CLARITY,URINE CLEAR; COLOR,URINE PALE YELLOW
[2021-04-17 10:37] LABS: BACTERIA,URINE TRACE /HPF; BILIRUBIN,URINE NEGATIVE (NEGATIVE); GLUCOSE, URINE (UA) NEGATIVE (NEGATIVE); KETONES,URINE NEGATIVE (NEGATIVE); LEUKOCYTE ESTERASE ,URINE NEGATIVE (NEGATIVE); NITRITE,URINE NEGATIVE (NEGATIVE); PROTEIN,URINE NEGATIVE (NEGATIVE)
[2021-04-17 10:41] LABS: HEMATOCRIT 37 % (35-52); HEMOGLOBIN 12.9 G/DL (11.5-16.0); MEAN CORPUSCULAR HEMOGLOBIN 33 PG (25-34); WHITE BLOOD COUNT 8.7 10^3/uL (4.3-11.0)
[2021-04-17 10:42] LABS: BASOPHILS % (AUTO) 1 % (0-10); EOSINOPHILS # (AUTO) 0.4 10^3/uL (0.0-0.3); EOSINOPHILS % (AUTO) 5 % (0-10); LYMPHOCYTES # (AUTO) 2.4 X 10^3 (1.0-4.0); LYMPHOCYTES % (AUTO) 28 % (12-44); MEAN CORPUSCULAR HGB CONC 35 G/DL (32-36); MEAN CORPUSCULAR VOLUME 96 FL (80-99); MEAN PLATELET VOLUME 10.2 FL (7.4-10.4); MONOCYTES # (AUTO) 0.8 X 10^3 (0.0-1.0); MONOCYTES % (AUTO) 9 % (0-12); NEUTROPHILS % (AUTO) 57 % (42-75); PLATELET COUNT 375 10^3/uL (130-400)
[2021-04-17 10:43] LABS: BASOPHILS # (AUTO) 0.1 10^3/uL (0.0-0.1)
[2021-04-17 11:23] LABS: ALANINE AMINOTRANSFERASE 38 U/L (0-55); BILIRUBIN,TOTAL 0.2 MG/DL (0.1-1.0); BUN/CREATININE RATIO 21; CALCIUM 7.1 MG/DL (8.5-10.1); CARBON DIOXIDE 21 MMOL/L (21-32); CHLORIDE 104 MMOL/L (98-107); CREATININE SERUM 0.62 MG/DL (0.60-1.30); GFR ESTIMATED 94; GLUCOSE 91 MG/DL (70-105); POTASSIUM 3.8 MMOL/L (3.6-5.0); SODIUM 135 MMOL/L (135-145); TOTAL PROTEIN 5.6 GM/DL (6.4-8.2)
[2021-04-17 11:24] LABS: ALBUMIN 1.9 GM/DL (3.2-4.5); INR 1.7 (0.8-1.4); PROTHROMBIN TIME PATIENT 20.5 SEC (12.2-14.7)
[2021-04-17 11:25] LABS: FIBRIN DEGRADATION PRODUCTS 0.64 UG/ML (0.00-0.49)
[2021-04-17 11:28] LABS: ALKALINE PHOSPHATASE 138 U/L (40-136)
[2021-04-17 11:50] VITALS: BP 96/56
== END 2021-04-17 11:46 | disposition home or self-care (01) ==
LOC: EDUNIT# 08:06 → ER FS 08:07
DX: G45.9 Transient cerebral ischemic attack, unspecified (principal); E78.00 Pure hypercholesterolemia, unspecified; K21.9 Gastro-esophageal reflux disease without esophagitis; Z20.822 Contact with and (suspected) exposure to COVID-19; Z79.899 Other long term (current) drug therapy
CPT/HCPCS: 36415; 70450; 71045; 80053; 81000; 82947; 84484; 85025; 85379; 85610; 85730; 87636; 93005; 93041

== ENCOUNTER → 2021-04-21 | Outpatient (CLI) | payer MEDICARE, OTHER ==
--- NOTE | 2021-04-21 14:16 | Diagnostic Imaging Report ---
PROCEDURE: US carotid duplex, bilateral. TECHNIQUE: Multiple real-time grayscale images were obtained over the carotid arteries in various projections, bilaterally. Additional spectral analysis and color Doppler duplex images were also obtained. INDICATION: TIA, weakness Grayscale images show atherosclerotic plaque. The velocities and waveforms appear normal. Both vertebral arteries are patent with antegrade flow. IMPRESSION: Negative carotid Doppler Parameters based on the consensus panel Saeed-Scale and Doppler ultrasound criteria published July 2003, Radiology, Volume 229. DOPPLER (peak systolic velocity M/S Right Left CCA .45 .48 ICA Proximal .20 .41 ICA Mid .17 .63 ICA Distal .23 .58 RATIO .49 1.3 ECA .49 .43 VERT .59 .40 Dictated by: Dictated on workstation # [id number]
== END ==
LOC: RAD 12:30
PROVIDERS: ATTEND Family Medicine
DX: G45.9 Transient cerebral ischemic attack, unspecified (principal); E78.2 Mixed hyperlipidemia
CPT/HCPCS: 93306; 93880

== ENCOUNTER → 2021-06-26 | Outpatient (CLI) | payer MEDICARE, OTHER | LOC: WOUNDCARE 09:10 | PROVIDERS: ATTEND Surgery | DX: I89.0 Lymphedema, not elsewhere classified (principal); I70.242 Atherosclerosis of native arteries of left leg with ulceration of calf; L97.222 Non-pressure chronic ulcer of left calf with fat layer exposed; L03.116 Cellulitis of left lower limb | CPT/HCPCS: A6260; G0463; 99214 ==

== ENCOUNTER 2021-07-05 14:03 | Emergency (ER) | payer MEDICARE, OTHER ==
[~2021-07-05] VITALS: Ht 149.8 cm; Wt 57.7 kg
--- OUTSIDE RECORDS SUMMARY | 2021-07-05 14:11 | XMS REPORT | Encounter Summary ---
Author Author [facility] Organization [facility] Address Unknown Phone Unavailable Care Team Providers Care Lithographer Apprentice Name Role Phone Jerry, Tomasz BREEN PCP Reason for Visit * Reason Onset Date Comments General Question 05/31/2021 Encounter Details Care Team Description Date Type Department Eber العلي MD [address] [place] [address] General Question 05/31/2021 Telephone Orthopedics and Spo rts Medicine: [facility], [address] [place] [address] Social History Date Tobacco Use Types Packs/Day Years Used Never Smoker Smokeless Tobacco: Never Used Comments Alcohol Use Standard Drinks/Week Not Currently 0 (1 standard drink = 0.6 o z pure alcohol) Sex Assigned at Date Recorded Not on file Date Recorded COVID-19 Exposure Response 05/31/2021 8:52 AM CDT In the last month, have you been in contact with No / Unsure someone who was confirmed or suspected to have Coronavirus / COVID-19? documented as of this encounter Functional Status Date of Assessment Functional Status Response 05/11/2021 Does the patient have a hearing impairment: No 05/11/2021 Does the patient have a visual impairment: Yes 05/11/2021 Does the patient have impaired ambulation: Yes 05/11/2021 Does the patient have an activity of daily living Ye s (ADL) impairment: 05/11/2021 Does the patient have an instrumental activity of Ye s daily living (IADL) impairment: Date of Assessment Cognitive Status Response 05/11/2021 Does the patient have a cognitive impairment: No documented as of this encounter Miscellaneous Notes * Telephone Encounter - Jada Cody RN - 05/31/2021 3:33 PM CDT I received VM from WANDA Buck at [facility] requesting call back. I have returned her call and have confirmed WB status and upcoming appt. All questions are answered and she verbalized understanding. documented in this encounter Plan of Treatment Not on filedocumented as of this encounter Goals Goal Patient Associated Recent Progress Patient-Stat Aut hor Goal Type Problems ed? GOAL General On track (05/08/2021 No Flores coleman, 11:29 AM CDT) WANDA Dunaway Note: Get well documented as of this encounter Visit Diagnoses Not on filedocumented in this encounter Additional Health Concerns Assessment Noted Time A fall risk assessment has been completed for the pat ient 05/11/2021 8:22 AM CDT documented as of this encounter
--- OUTSIDE RECORDS SUMMARY | 2021-07-05 14:11 | XMS REPORT | Encounter Summary ---
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 * Auth/Cert Referred By Contact Referred To Contact Status Reason Specialty Diagnoses / Procedures Diagnoses Trauma fall Encounter Details Care Team Description Date Type Department Eber العلي MD [address] [place] [address] OPEN TREATMENT SUPRACONDYLAR/ TRANSCONDY LAR FEMORAL FRACTURE WITH INTERNAL FIXATION 05/06/2021 Surgery Operating Room: [facility], [address] [place] [address] Surgery Details Trauma Case? Date/Time Status Location OR Service Patient Class Case Class Case Type 05/06/21 Posted 2 OR OR 36 Orthopedic Inpatient Urgent - 3:45 PM s Life or limb threatenin g if interventi on does not occur within 8 hrs or IP LOS will be prolonged Panel 1 Procedure LRB Anes Op Region Wound Class Com ments OPEN TREATMENT Right Defer to Leg Upper Clean SUPRACONDYLAR/ Anesthesia TRANSCONDYLAR FEMORAL FRACTURE WITH INTERNAL FIXATION Panel Surgeon Surgeon Role Service 1 Feliberto Bianchi MD Resident - Assisting Orthopedics 1 Eber العلي MD Primary Orthopedics 1 Rashid Jo MD Resident - Assisting Orthopedics Social History Date Tobacco Use Types Packs/Day Years Used Never Smoker Smokeless Tobacco: Never Used Comments Alcohol Use Standard Drinks/Week Not Currently 0 (1 standard drink = 0.6 o z pure alcohol) Sex Assigned at Date Recorded Not on file Date Recorded COVID-19 Exposure Response 05/05/2021 4:07 PM CDT In the last month, have you been in contact with Navya ble to assess someone who was confirmed or suspected to have Coronavirus / COVID-19? documented as of this encounter Last Filed Vital Signs Reading Time Taken Comments Vital Sign 121/83 05/06/2021 7:00 PM CDT Blood Pressure 80 05/06/2021 7:00 PM CDT Pulse 36.7 C (98.1 F) 05/06/2021 7:00 PM CDT Temperature - - Respiratory Rate 97% 05/06/2021 7:00 PM CDT Oxygen Saturation - - Inhaled Oxygen Concentration 60.9 kg (134 lb 4.2 oz) 05/05/2021 10:26 PM CDT Weight 149.9 cm (4' 11") 05/05/2021 10:26 PM CDT Height 27.12 05/05/2021 10:26 PM CDT Body Mass Index documented in this encounter Functional Status Date of Assessment [...] impairment: No documented as of this encounter Discharge Summaries * December - 05/11/2021 7:38 AM CDT Physician Discharge Summary Name: Tere Sahu Date Of : 1945 Age: 75 years Admit date: 05/05/2021 Discharge date: 05/11/2021 9:27 AM Attending Physician: Sudhakar Hawkins MD Service: Surgery-Trauma Physician Summary completed by: SHITAL Sapp Reason for hospitalization: fall; Trauma Significant PMH: Medical History: Diagnosis Date GERD (gastroesophageal reflux disease) Hyperlipidemia Hypertension Osteoporosis TIA (transient ischemic attack) Allergies: Barley, Oat flour, Pcn [penicillins], and Wheat flour Admission Physical Exam notable for: Primary survey: Airway patent to voice, trachea midline Breath sounds equal bilaterally, equal chest rise Carotid, femoral palpable bilaterally, heart sounds clear GCS 15, 5/5 strength/sensation in bilateral upper and lower extremities Fast scan negative X 4 quadrants Secondary survey: HEENT: PERRLA at 3mm bilat, no skull/maxillofacial bony deformities or TTP, no s calp lacs/abrasions, no otorrhea/rhinorrhea CHEST: no clavicular, sternal or thoracic TTP/bony deformities, bilateral axilla e clear ABD: s/nt/nd BACK: no C,T,L,S spine TTP or step-off deformities, bilateral flanks clear PELVIS: no obvious instability, perineum clear, normal rectal tone with no gross blood EXT: no obvious long bone deformities, abrasions or lacs to bilateral upper and lower extremities, palpable radial/pedal pulses Admission Lab/Radiology studies notable for: US DOPPLER VENOUS W EXTRM LEFT Final Result No deep vein thrombus in the left upper extremity. By my electronic signature, I attest that I have personally reviewed the images for this examination and formulated the interpretations and opinions expressed i n this report Finalized by Farida Maher M.D. on 05/08/2021 4:33 PM. Dictated by Pk Rahman M.D. on 05/08/2021 4:19 PM. FLUORO MOBILE IN OR Final Result KNEE 1 OR 2 VIEWS RIGHT Final Result 1. Comminuted fracture of the distal femur. There is a transverse fracture of t he metadiaphysis with posterior displacement of the femoral condyles. There is a longitudinal fracture of the distal diaphysis and metadiaphysis extending to th e medial condyle. There is an oblique fracture line from the medial condyle to t he intra-articular notch with offset of the medial femoral condyle cortex. Addit ional disruption of the lateral femoral condyle cortex. This is better demonstra alyssa on CT scan. 2. There is soft tissue swelling. Finalized by Abelardo Brock M.D. on 05/06/2021 8:39 AM. Dictated by Maura Ahumada on 05/06/2021 8:[address] LOWER EXTREM WO CONT RIGHT Final Result 1. Comminuted distal femoral fracture as described with mild displacement, intra -articular extension, mild impaction, and mild posterior angulation and posterio r displacement of the distal fracture fragments containing the femoral condyles. 2. Mild infiltrating hemorrhage and mild deep soft tissue edema adjacent to the distal femur. Additional moderate subcutaneous edema about the visualized lower extremity. 3. Marked diffuse bony demineralization. Finalized by Carlos Abraham M.D. on 05/05/2021 8:47 PM. Dictated by Carlos smart M.D. on 05/05/2021 8:[address] CHEST WO CONTRAST Final Result Abnormal Addendum 1 of 1 Finalized by Carlos Abraham M.D. on 05/05/2021 7:43 PM. Dictated by Storm Taylor D.O. on 05/05/2021 7:05 PM.Addendum: Final CHEST: 1. No acute traumatic injury of the chest. 2. Subacute, healing right anterolateral rib fractures and several old left ant erolateral rib fractures. 3. Very mild areas of bilateral atelectasis and scarring. 4. Mild coronary artery calcifications. ABDOMEN AND PELVIS: 1. No major acute injury of the abdomen or pelvis. 2. Small hiatal hernia without bowel obstruction, inflammatory mass, ascites, o r free air. 3. Mild to moderate body wall edema. 4. Diffuse hepatic steatosis. By my electronic signature, I attest that I have personally reviewed the images for this examination and formulated the interpretations and opinions expressed i n this report Additional CT chest impression: 5. Tiny 2 mm nodule at the lateral right middle lobe. This is most likely a sarah gn etiology such as a noncalcified granuloma given the presence of a calcified g ranuloma. A malignant nodule is felt unlikely and this requires no further follo w-up per Fleischner Society guidelines in a low risk patient. If the patient is considered high risk for malignancy, a follow-up CT chest in one year would be o ptional per Fleischner Society guidelines. #FOLLOW Finalized by Carlos Abraham M.D. on 05/05/2021 8:10 PM. Dictated by Carlos smart M.D. on 05/05/2021 8:[address] ABD/PELV WO CONTRAST Final Result Abnormal Addendum 1 of 1 Finalized by Carlos Abraham M.D. on 05/05/2021 7:43 PM. Dictated by Storm Taylor D.O. on 05/05/2021 7:05 PM.Addendum: Final CHEST: 1. No acute traumatic injury of the chest. 2. Subacute, healing right anterolateral rib fractures and several old left ant erolateral rib fractures. 3. Very mild areas of bilateral atelectasis and scarring. 4. Mild coronary artery calcifications. ABDOMEN AND PELVIS: 1. No major acute injury of the abdomen or pelvis. 2. Small hiatal hernia without bowel obstruction, inflammatory mass, ascites, o r free air. 3. Mild to moderate body wall edema. 4. Diffuse hepatic steatosis. By my electronic signature, I attest that I have personally reviewed the images for this examination and formulated the interpretations and opinions expressed i n this report Additional CT chest impression: 5. Tiny 2 mm nodule at the lateral right middle lobe. This is most likely a sarah gn etiology such as a noncalcified granuloma given the presence of a calcified g ranuloma. A malignant nodule is felt unlikely and this requires no further follo w-up per Fleischner Society guidelines in a low risk patient. If the patient is considered high risk for malignancy, a follow-up CT chest in one year would be o ptional per Fleischner Society guidelines. #FOLLOW Finalized by Carlos Abraham M.D. on 05/05/2021 8:10 PM. Dictated by Carlos smart M.D. on 05/05/2021 8:[address] HEAD WO CONTRAST Final Result Head: 1. No acute intracranial hemorrhage or calvarial fracture. 2. Mild cerebral volume loss and nonspecific white matter disease, likely secon moisés to chronic microvascular ischemia. Maxillofacial: 1. Linear lucency along the nasal bridge and subtle depression of the nasal bon es and frontal processes of the maxilla, more pronounced on the left, without as sociated fracture lines. No significant paranasal soft tissue swelling. These fi ndings are suggestive of age-indeterminate fracture deformities, although, appar ent depression of the frontal processes could also be in part developmental. Cor relate for point tenderness. 2. No evidence of additional acute facial fracture or orbital hemorrhage. Cervical Spine: 1. No evidence of acute cervical spine fracture or traumatic subluxation. Trace anterolisthesis at C5-C6 and C6-C7 is likely degenerative. 2. Cervical spondylosis as described. 3. Mild interlobular septal thickening in the lung apices which can be seen wit h mild interstitial edema. Refer to CT chest for further discussion of thoracic findings. By my electronic signature, I attest that I have personally reviewed the images for this examination and formulated the interpretations and opinions expressed i n this report Finalized by German Downey M.D. on 05/05/2021 7:22 PM. Dictated by Storm Taylor D.O. on 05/05/2021 6:[address] MAXIFACIAL/SINUS WO CONTRAST Final Result Head: 1. No acute intracranial hemorrhage or calvarial fracture. 2. Mild cerebral volume loss and nonspecific white matter disease, likely secon moisés to chronic microvascular ischemia. Maxillofacial: 1. Linear lucency along the nasal bridge and subtle depression of the nasal bon es and frontal processes of the maxilla, more pronounced on the left, without as sociated fracture lines. No significant paranasal soft tissue swelling. These fi ndings are suggestive of age-indeterminate fracture deformities, although, appar ent depression of the frontal processes could also be in part developmental. Cor relate for point tenderness. 2. No evidence of additional acute facial fracture or orbital hemorrhage. Cervical Spine: 1. No evidence of acute cervical spine fracture or traumatic subluxation. Trace anterolisthesis at C5-C6 and C6-C7 is likely degenerative. 2. Cervical spondylosis as described. 3. Mild interlobular septal thickening in the lung apices which can be seen wit h mild interstitial edema. Refer to CT chest for further discussion of thoracic findings. By my electronic signature, I attest that I have personally reviewed the images for this examination and formulated the interpretations and opinions expressed i n this report Finalized by German Downey M.D. on 05/05/2021 7:22 PM. Dictated by Storm Taylor D.O. on 05/05/2021 6:[address] SPINE CERVICAL WO CONTRAST Final Result Head: 1. No acute intracranial hemorrhage or calvarial fracture. 2. Mild cerebral volume loss and nonspecific white matter disease, likely secon moisés to chronic microvascular ischemia. Maxillofacial: 1. Linear lucency along the nasal bridge and subtle depression of the nasal bon es and frontal processes of the maxilla, more pronounced on the left, without as sociated fracture lines. No significant paranasal soft tissue swelling. These fi ndings are suggestive of age-indeterminate fracture deformities, although, appar ent depression of the frontal processes could also be in part developmental. Cor relate for point tenderness. 2. No evidence of additional acute facial fracture or orbital hemorrhage. Cervical Spine: 1. No evidence of acute cervical spine fracture or traumatic subluxation. Trace anterolisthesis at C5-C6 and C6-C7 is likely degenerative. 2. Cervical spondylosis as described. 3. Mild interlobular septal thickening in the lung apices which can be seen wit h mild interstitial edema. Refer to CT chest for further discussion of thoracic findings. By my electronic signature, I attest that I have personally reviewed the images for this examination and formulated the interpretations and opinions expressed i n this report Finalized by German Downey M.D. on 05/05/2021 7:22 PM. Dictated by Storm Taylor D.O. on 05/05/2021 6:54 PM. CHEST SINGLE VIEW Final Result No acute cardiopulmonary abnormality. Finalized by Arnaldo Najera M.D. on 05/05/2021 8:11 PM. Dictated by Gianna Skaggs on 05/05/2021 8:10 PM. GENERAL RAD CHEST EXTERNAL IMAGING Final Result GENERAL RAD LOWER EXT EXTERNAL IMAGING Final Result GENERAL RAD LOWER EXT EXTERNAL IMAGING Final Result GENERAL RAD LOWER EXT EXTERNAL IMAGING Final Result POC TRAUMA ACTIVATION FAST EXAM (Results Pending) Brief Hospital Course: The patient was admitted and the following issues were a ddressed during this hospitalization: (with pertinent details). Tere Sahu is a 75 y.o. 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 Pt reports she tripped over the door frame and fell la nding on her right knee. Denies any presyncopal sx. + head strike, no LOC. Denie s blood thinner use. Pt found to have a R distal femur fx; ortho consulted and t ook pt to the OR on 05/06 for ORIF. IM was consulted in the setting of geriatric trauma. PT and OT was initiated and she was restarted on a diet and any indicated home m edications. Oral pain medicine that was titrated to her needs. Labs were routine ly followed and electrolytes were replaced as indicated. Prior to discharge she was cleared by PT/OT, had adequate pain control, and return of bowel function. A ppropriate follow-up was scheduled. Discussed hospital visit with patient, answered all questions, and reviewed the plan for discharge to home and to follow up as an outpatient. The patient was ve rbally instructed to return to the ED immediately for further evaluation if ther e are any new or concerning symptoms, or worsening of current symptoms. The zuleika ent acknowledged understanding of these instructions. Written discharge instruct ions were also given to supplement this information. Condition at Discharge: Stable Discharge Diagnoses: Hospital Problems Active Problems * (Principal) Fall Trauma Acute pain due to trauma Osteoporosis Closed fracture of right distal femur (HCC) Impaired mobility and ADLs Acute blood loss anemia Hypocalcemia Hypomagnesemia Hyponatremia Surgical Procedures: Procedure(s) (LRB): OPEN TREATMENT SUPRACONDYLAR/ TRANSCONDYLAR FEMORAL FRACTURE WITH INTERNAL FIXAT ION (Right) Significant Diagnostic Studies and Procedures: noted in brief hospital course Consults: CONSULT ORTHOPEDIC SURGERY PHYSICIAN CONSULT INTERNAL MEDICINE PHYSICIAN CONSULT WOUND/OSTOMY TEAM NURSE Patient Disposition: [facility]sp Facility Patient instructions/medications: Scheduled appointments: Recommend follow up with your PCP within 1-2 weeks following hospital discharge . Closely monitor sodium, phosphorus and magnesium levels. All 3 electrolytes we re replenished during hospitalization. The following incidental finding was noted on your trauma imaging: tiny 2 mm nod ule at the lateral right middle lobe. This is most likely a benign etiology such as a noncalcified granuloma given the presence of a calcified granuloma. A harshad gnant nodule is felt unlikely and this requires no further follow-up per Fleisch ner Society guidelines in a low risk patient. If the patient is considered high risk for malignancy, a follow-up CT chest in one year would be optional. Regular Diet You have no dietary restriction. Please continue with a healthy balanced diet. Fluid Restrictions Limit the amount of your daily water to 1000ml (milliliters). This is equal to about 4 cups a day.. If you have questions about your diet after you go home, you can call a dietitia n at [phone]. Report These Signs and Symptoms Please contact your doctor if you have any of the following symptoms: temperatu re higher than 100.4 degrees F, uncontrolled pain, persistent nausea and/or vomi ting, difficulty breathing, chest pain, severe abdominal pain, headache, unable to urinate, unable to have bowel movement, or drainage with a foul odor Questions About Your Stay For questions or concerns regarding your hospital stay, call [phone]. Discharging attending physician: SUDHAKAR HAWKINS [[id number]] Activity as Tolerated It is important to keep increasing your activity level after you leave the hosp ital. Moving around can help prevent blood clots, lung infection (pneumonia) an d other problems. Gradually increasing the number of times you are up moving ar ound will help you return to your normal activity level more quickly. Continue to increase the number of times you are up to the chair and walking daily to ret urn to your normal activity level. Begin to work toward your normal activity lev el at discharge Driving Restrictions No driving while taking pain medication and until physician approval at follow- up appointment. Return Appointment You may follow-up in the Trauma Surgery Clinic on an as needed basis. Please chava lepe if you would like to schedule an appointment or with any quest ions or concerns. Provider TRAUMA, SURGERY [[id number]] Location Surgery Clinic Opioid (Narcotic) Safety Information OPIOID (NARCOTIC) PAIN MEDICATION SAFETY We care about your comfort, and believe you need opioid medications at this time to treat your pain. An opioid is a strong pain medication. It is only availab le by prescription for moderate to severe pain. Usually these medications are u sed for only a short time to treat pain, but sometimes will be prescribed for lo nger. Talk with your doctor or nurse about how long they expect you to need thi s medication. When used the right way, opioids are safe and effective medications to treat you r pain, even when used for a long time. Yet, when used in the wrong way, opioid s can be dangerous for you or others. Opioids do not work for everyone. Most p atients do not get full relief of their pain from opioid medication; full relief of your pain may not be possible. For your safety, we ask you to follow these instructions: *Only take your opioid medication as prescribed. If your pain is not controlled with the prescribed dose, or the medication is not lasting long enough, call yo ur doctor. *Do not break or crush your opioid medication unless your doctor or pharmacist s ays you can. With certain medications, this can be dangerous, and may cause teresa th. *Never share your medications with others, even if they appear to have a good re ason. Never take someone else's pain medication-this is dangerous, and illegal (a crime). Overdoses and deaths have occurred. *Keep your opioid medications safe, as you would with ambrocio, in a lock box or sim ilar container. *Make sure your opioids are going to be secure, especially if you are around chi ldren or teens. *Talk with your doctor or pharmacist before you take other medications. *Avoid driving, operating machinery, or drinking alcohol while taking opioid ronaldo n medication. This may be unsafe. Pain medications can cause constipation. Constipation is bowel movements that ar e less often than normal. Stools often become very hard and difficult to pass. T his may lead to stomach pain and bloating. It may also cause pain when trying to use the bathroom. Constipation may be treated with suppositories, laxatives or stool softeners. A diet high in fiber with plenty of fluids helps to maintain re gular, soft bowel movements. Naloxone Nasal [place] Instructions Naloxone nasal spray Brand Name: Olamide What is this medicine? NALOXONE (nal OX one) is a narcotic marta. It is used to treat narcotic drug o verdose. What are the signs of narcotic drug overdose? The person does not wake up after shaking their shoulders, shouting their name o r firmly rubbing the middle of their chest; very slow breathing or no breaths at all; center black part of the eye (pupil) is very small or pinpoint. How should I use this medicine? This medicine is for use in the nose. Lay the person on their back. Support thei r neck with your hand and allow the head to tilt back before giving the medicine . The nasal spray should be given into 1 nostril. After giving the medicine, mov e the person onto their side. Do not remove or test the nasal spray until ready to use. If the person is not awake after 2-3 minutes, give a second dose in the other nostril. Get emergency medical help right away after giving the first dose of this medici ne, even if the person wakes up. You should be familiar with how to recognize th e signs and symptoms of a narcotic overdose. Talk to your stem maker regarding the use of this medicine in children. While this drug may be prescribed for chi ldren as young as newborns for selected conditions, precautions do apply. What side effects may I notice from receiving this medicine? Side effects that you should report to your doctor or health career development associate a s soon as possible: allergic reactions like skin rash, itching or hives, swelling of the face, li ps, or tongue breathing problems fast, irregular heartbeat high blood pressure pain that was controlled by narcotic pain medicine seizures Side effects that usually do not require medical attention (report to your docto r or health career development associate if they continue or are bothersome): anxious chills diarrhea fever headache muscle pain nausea, vomiting nose irritation like dryness, congestion, and swelling sweating What may interact with this medicine? This medicine is only used during an emergency. No interactions are expected dur ing emergency use. What if I miss a dose? This does not apply. Where should I keep my medicine? Keep out of the reach of children. Store between 4 and 40 degrees C (39 and 104 degrees F). Do not freeze. Throw aw ay any unused medicine after the expiration date. Keep in original box until jesus dy to use. What should I tell my health care provider before I take this medicine? They need to know if you have any of these conditions: drug abuse or addiction heart disease an unusual or allergic reaction to naloxone, other medicines, foods, dyes, or preservatives or trying to get breast-feeding What should I watch for while using this medicine? Keep this medicine ready for use in the case of a narcotic overdose. Make sure t hat you have the phone number of your doctor or health career development associate and loc al hospital ready. You may need to have additional doses of this medicine. Each nasal spray contains a single dose. Some emergencies may require additional dose s. After use, bring the treated person to the nearest hospital or call 911. Make brush re the treating health career development associate knows that the person has received an i njection of this medicine. You will receive additional instructions on what to d o during and after use of this medicine before an emergency occurs. NOTE:This sheet is a summary. It may not cover all possible information. If you have questions about this medicine, talk to your doctor, pharmacist, or health c are provider. Additional Discharge Instructions Please routinely follow patient's BMP and Mag given low levels of Ca, Mag and N a while hospitalized. Recommend biweekly lab draws and adjust free water restric tion as needed based on sodium levels. Incision Care Keep your surgical dressings clean, dry, intact until follow up. If soiled or s aturated remove and replace with dry gauze, tape, daylin for swelling. Report drain age, redness, fevers, or increased pain to our office. Restrictions for Right Leg Non-weight bearing: Keep leg completely off the ground at all times. Do not pl daylin any weight on your leg. Continue these restrictions until follow up appointment. Return Appointment You will need to follow up with Dr العلي in 2-3 weeks. Please call [phone] to schedule that follow up appointment or [phone] upon discharge.Should you have a question or concern regarding your orthopedic care or injuries please ca ll our nurse's line at [phone]. Our clinic is located on the 2nd floor of the Orthopedic Building on [facility], across from the [employer]. T he clinic address is [address] [place] [address] Provider EBER العلي T [[id number]] Location Orthopedic Clinic Complete if patient is going to a [facility] Facility PT/OT/GAS ADJUSTER eval and treat. I certify that the patient requires skilled care Yes The patient's stay is expected to be less than 30 days Yes I will be in charge of patient in [facility] No Current Discharge Medication List CONTINUE these medications which have NOT CHANGED Details acetaminophen (TYLENOL) 325 mg tablet Take 325 mg by mouth every 4 hours as need ed for Pain. PRESCRIPTION TYPE: Historical Med alendronate (FOSAMAX) 70 mg tablet Take 70 mg by mouth every 7 days. Take at sar[address] st 30 minutes before breakfast with plain water. Do not lie down for 30 minutes. PRESCRIPTION TYPE: Historical Med aspirin 81 mg chewable tablet Chew 81 mg by mouth daily. Take with food. PRESCRIPTION TYPE: Historical Med bumetanide (BUMEX) 2 mg tablet Take 2 mg by mouth daily. PRESCRIPTION TYPE: Historical Med calcium carbonate/vitamin D-3 (OSCAL-500+D) 1250 mg/200 unit tablet Take 1 table t by mouth daily. Calcium Carb 1250mg delivers 500mg elemental Ca PRESCRIPTION TYPE: Historical Med cholecalciferol (VITAMIN D-3) 1,000 units tablet Take 1,000 Units by mouth daily . PRESCRIPTION TYPE: Historical Med !! gabapentin (NEURONTIN) 100 mg capsule Take 200 mg by mouth at bedtime daily. PRESCRIPTION TYPE: Historical Med !! gabapentin (NEURONTIN) 100 mg capsule Take 1 capsule by mouth every morning a nd 1 in the afternoon then take 2 capsules at bedtime. PRESCRIPTION TYPE: Historical Med omeprazole DR (PRILOSEC) 40 mg capsule Take 40 mg by mouth twice daily. PRESCRIPTION TYPE: Historical Med pantoprazole DR (PROTONIX) 40 mg tablet Take 40 mg by mouth daily. PRESCRIPTION TYPE: Historical Med potassium chloride SR (K-DUR) 20 mEq tablet Take 1 tablet by mouth daily. Take w ith a meal and a full glass of water. PRESCRIPTION TYPE: Historical Med simvastatin (ZOCOR) 10 mg tablet Take 10 mg by mouth at bedtime daily. PRESCRIPTION TYPE: Historical Med vitamins, multi w/minerals 9 mg iron-400 mcg tab Take 1 tablet by mouth daily. PRESCRIPTION TYPE: Historical Med !! - Potential duplicate medications found. Please discuss with provider. Pending items needing follow up: None Signed: SHITAL Sapp 05/11/2021 cc: Primary Care Physician: Tomasz Edwards Referring physicians: Additional provider(s): documented in this encounter Discharge Instructions * Appointments* Charis Santos APRN-NP - 05/10/2021 4:30 PM CDT Recommend follow up with your PCP within 1-2 weeks following hospital discharge. Closely monitor sodium, phosphorus and magnesium levels. All 3 electrolytes wer e replenished during hospitalization. The following incidental finding was noted on your trauma imaging: tiny 2 mm nod ule at the lateral right middle lobe. This is most likely a benign etiology such as a noncalcified granuloma given the presence of a calcified granuloma. A harshad gnant nodule is felt unlikely and this requires no further follow-up per Fleisch ner Society guidelines in a low risk patient. If the patient is considered high risk for malignancy, a follow-up CT chest in one year would be optional. documented in this encounter Medications at Time of Discharge Start Date End Date Medication Sig Dispensed Refills 05/11/2021 acetaminophen (TYLENOL Take two 0 EXTRA STRENGTH) 500 mg tablets by tablet mouth every 6 hours as needed for Pain. Max of 4,000 mg of acetaminophen in 24 hours. alendronate (FOSAMAX) 70 Take 70 mg by 0 mg tablet mouth every 7 days. Take at least 30 minutes before breakfast with plain water. Do not lie down for 30 minutes. bumetanide (BUMEX) 2 mg Take 2 mg by 0 tablet mouth daily. calcium carbonate/vitamin Take 1 tablet 0 D-3 (OSCAL-500+D) 1250 by mouth mg/200 unit tablet daily. Calcium Carb 1250mg delivers 500mg elemental Ca 05/11/2021 calcium citrate Take two 100 tablet 0 (CALCITRATE) 950 mg tablets by tablet mouth every morning. 05/11/2021 celecoxib (CELEBREX) 200 Take one 90 capsule 0 mg capsuleIndications: capsule by postoperative acute pain mouth daily. Indications: acute pain following an operation cholecalciferol (VITAMIN Take 1,000 0 D-3) 1,000 units tablet Units by mouth daily. gabapentin (NEURONTIN) Take 1 0 100 mg capsule capsule by mouth every morning and 1 in the afternoon then take 2 capsules at bedtime. 05/11/2021 magnesium oxide (MAGOX) Take one 180 tablet 0 400 mg (241.3 mg tablet by magnesium) tablet mouth twice daily. 05/11/2021 methocarbamoL (ROBAXIN) Take one 0 500 mg tablet tablet by mouth twice daily. 05/11/2021 naloxone (NARCAN) 4 Insert one 2 each 0 mg/actuation nasal spray spray into nose as directed as Needed. 05/11/2021 oxyCODONE (ROXICODONE) 5 Take one 30 tablet 0 mg tablet tablet to three tablets by mouth every 4 hours as needed pantoprazole DR Take 40 mg by 0 (PROTONIX) 40 mg tablet mouth daily. 05/11/2021 polyethylene glycol 3350 Take two 12 each 0 (MIRALAX) 17 g packet packets by mouth daily. potassium chloride SR Take 1 tablet 0 (K-DUR) 20 mEq tablet by mouth daily. Take with a meal and a full glass of water. 05/11/2021 senna/docusate Take two 90 tablet 0 (SENOKOT-S) 8.6/50 mg tablets by tablet mouth twice daily. simvastatin (ZOCOR) 10 mg Take 10 mg by 0 tablet mouth at bedtime daily. vitamins, multi Take 1 tablet 0 w/minerals 9 mg iron-400 by mouth mcg tab daily. 05/11/2021 06/08/2021 aspirin EC 81 mg tablet Take one 90 tablet 0 tablet by mouth twice daily for 28 days. Take with food. documented as of this encounter Ordered Prescriptions Start Date End Date Prescription Sig Dispensed Refills 05/11/2021 naloxone (NARCAN) 4 Insert one 2 each 0 mg/actuation nasal spray spray into nose as directed as Needed. 05/11/2021 senna/docusate Take two 90 tablet 0 (SENOKOT-S) 8.6/50 mg tablets by tablet mouth twice daily. 05/11/2021 polyethylene glycol 3350 Take two 12 each 0 (MIRALAX) 17 g packet packets by mouth daily. 05/11/2021 oxyCODONE (ROXICODONE) 5 Take one 30 tablet 0 mg tablet tablet to three tablets by mouth every 4 hours as needed 05/11/2021 methocarbamoL (ROBAXIN) Take one 0 500 mg tablet tablet by mouth twice daily. 05/11/2021 magnesium oxide (MAGOX) Take one 180 tablet 0 400 mg (241.3 mg tablet by magnesium) tablet mouth twice daily. 05/11/2021 celecoxib (CELEBREX) 200 Take one 90 capsule 0 mg capsuleIndications: capsule by postoperative acute pain mouth daily. Indications: acute pain following an operation 05/11/2021 calcium citrate Take two 100 tablet 0 (CALCITRATE) 950 mg tablets by tablet mouth every morning. 05/11/2021 acetaminophen (TYLENOL Take two 0 EXTRA STRENGTH) 500 mg tablets by tablet mouth every 6 hours as needed for Pain. Max of 4,000 mg of acetaminophen in 24 hours. 05/11/2021 06/08/2021 aspirin EC 81 mg tablet Take one 90 tablet 0 tablet by mouth twice daily for 28 days. Take with food. documented in this encounter Discharge Disposition Code Departure Means Destination Disposition Ambulance [facility] Facility documented in this encounter Progress Notes * Africa Obregon RN - 05/11/2021 8:16 AM CDT Tere Adelina discharged on 05/11/2021. Equipment Removed: Telepack. Discharge instructions reviewed with patient. Valuables returned: Personal Items / Valuables: Valuables/Belongings sent home with family/friends Denture Type: Full upper, Full lower Where Are Valuables Stored?: with pt in room. Home medications: . Functional assessment at discharge complete: Yes . 0816: RN gave report to WANDA Salazar at [facility]. Scheduled transport at 0900. Skin: R hip surgical incision - clean, dry and intact. Xerogorm, gauze, softroll intac t. Surrounding skin has trace edema but otherwise CDI. Stage 1 on coccyx is open to air. Placed barrier cream. Skin is warm and pink. N o drainage. R arm skin tear. [place] and moist. Surrounding skin is dry and intact. Wound adhes kermit bandage placed. Bandage is CDI. Groin MASD. [place] and moist. Placed barrier cream. Surrounding skin is CDI. * Amparo Matias RN - 05/11/2021 4:13 AM CDT I have reviewed the notes, assessment, and/or procedures performed by Edith riley RN and concur with her/his documentation unless otherwise noted. * Therese De - 05/10/2021 10:44 AM CDT PHYSICAL THERAPY PROGRESS NOTE Name: Tere Sahu : 1945 Age: 75 y.o. Admission Date: 05/05/2021 LOS: 5 days Mobility Patient Turn/Position: Supine Progressive Mobility Level: Sit on edge of bed Level of Assistance: Assist X2 Assistive Device: Hand Held Time Tolerated: 11-30 minutes Activity Limited By: Weakness;Patient request to stop Subjective Significant hospital events: Pt fell at home. R distal femur fracture s/p ORIF 05/06. 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 Mental / Cognitive Status: Alert;Cooperative;Follows Commands Persons Present: RehabTechnician;Nursing Staff Pain: Patient complains of pain;Patient does not rate pain Pain Location: Right;Leg Pain Interventions: Patient agrees to participate in therapy;Patient pre-medicat ed;Patient assisted into position of comfort;Treatment altered to patient's pain tolerance;Elevation of extremity R LE Precautions: RLE Non-Weight Bearing Ambulation Assist: Independent Mobility at Household Level with Device;Primary W heelchair User Patient Owned Equipment: Roller Walker;Single Point Cane;Manual Wheelchair;Hospi stefanie Bed Home Situation: Lives with Family Type of Home: House Entry Stairs: Ramp Bed Mobility/Transfer Bed Mobility: Supine to Sit: Maximum Assist;x2 People;Assist with Trunk;Assist w ith B LE;Head of Bed Elevated;Use of Rail;Verbal Cues;Requires Extra Time Bed Mobility: Sit to Supine: Dependent Assist;x2 People;Assist with Trunk;Assist with B LE End Of Activity Status: In Bed;Nursing Notified;Instructed Patient to Request As sist with Mobility;Instructed Patient to Use Call Light Comments: Messaged Ortho service to see if pt is ok to use a brijesh lift with dis stefanie femur fx. I have not heard back yet. Activity/Exercise Sit Edge Of Bed: 3 minutes Sit Edge Of Bed Assist: Variable;Minimal Assist;Stand By Assist Exercise: Supine;RLE;Assisted ROM Exercise Repetitions: 6 Assessment/Progress Impaired Mobility Due To: Pain;Decreased Strength;Post Surgical Changes;Medical Status Limitation;Post Surgical Precautions AM-PAC 6 Clicks Basic Mobility Inpatient Turning from your back to your side while in a flat bed without using bed rails: Total Moving from lying on your back to sitting on the side of a flatbed without using bedrails : Total Moving to and from a bed to a chair (including a wheelchair): Total Standing up from a chair using your arms (e.g. wheelchair, or bedside chair): To stefanie To walk in hospital room: Total Climbing 3-5 steps with a railing: Total Raw Score: 6 Standardized (T-scale) Score: 16.59 Basic Mobility CMS 0-100%: 100 CMS G Code Modifier for Basic Mobility: CN Goals Goal Formulation: With Patient Time For Goal Achievement: 7 days Patient Will Go Supine To/From Sit: w/ Minimal Assist Patient Will Transfer Bed/Chair: w/ Moderate Assist Patient Will Sit Edge Of Bed: 6-10 Minutes, w/ Stand By Assist Patient Will Propel Wheelchair: 10-50 Feet, w/ Stand By Assist Plan Treatment Interventions: Mobility Training Plan Frequency: 3-5 Days per Week PT Plan for Next Visit: Progress RLE ROM, bed mobility, sitting balance. Follow up with Ortho to see if pt is ok to use a brijesh lift with distal femur fx. If not, pt may benefit from a cardiac chair to progress OOB. PT Discharge Recommendations Recommendation: Inpatient setting Patient Currently Requires Physical Assist With: All mobility Therapist: Therese De Date: 05/10/2021 * Patricia Alfaro APRN-NP - 05/10/2021 9:28 AM CDT Orthopedic Ortho Trauma Progress Note A: Tere Sahu is a 75 y.o. female R distal femur fracture s/p ORIF 05/06. P: - PT/OT - WB status: NWB RLE, ROMAT - Abx: ancef 24 hrs post op - Pain control per primary team - Keep your surgical dressings clean, dry, intact until follow up. If soiled or saturated remove and replace with dry gauze, tape, daylin for swelling. Report drjesse nage, redness, fevers, or increased pain to our office. - Call ortho with questions - Recommend endocrine consult-for further osteoporosis management and optimizati on of her bone health in order to optimize healing. - DVT Ppx: recommend lovenox inpatient, asa 81 mg bid x28 days upon discharge - No current future plans for OR. Will continue to follow while inpatient - Patient needs to follow up with Dr العلي in 2-3 weeks. Should you have a questi on or concern regarding your orthopedic care or injuries please call our nurse's line at [phone]. Our clinic is located on the 2nd floor of the Orthopedic Building on [facility], across from the [employer] [address]. The clinic addr ess is [address] [facility] [place] [address] She needs to call [phone] to schedule that follow up appointment or [phone] upon discharge. DISPO: per primary Patricia Alfaro APRN-TIFFANIE Orthopedic Surgery [id number] S: No acute events. Pain controlled. Tolerating diet. Denies fevers, chills, n ausea, vomiting. O: Blood pressure 101/60, pulse 66, temperature 36.5 C (97.7 F), height 149.9 c m (59"), weight 60.9 kg (134 lb 4.2 oz), last menstrual period 09/16/1984, SpO2 97 %. Body mass index is 27.12 kg/m. Overweight (25 to <30) Exam: GEN: Alert. NAD CV: Normal rate, regular rhythm PULM: Non-labored ABD: Soft, non-distended Pressure Injury: No pressure injury EXTREM: Extremities: right lower extremity compartments soft, wiggles toes , + ankle pf df, SILT, distal cap refill < 2 sec Dressings: Dressings soiled with urine proximally, removed, HV removed, dry gauz e tegaderm applied, existing xeroform left in place as is clean and dry, sof rol and daylin from toes to proximal thigh. Active Wounds Wounds 08/20/21 2148 Abrasion Left Eye (Active) 05/05/212147 Eye Wound Type: Abrasion Pressure Injury Stages: Pressure Injury Present On Inpatient Admission: Wound/Pressure Injury Orientation: Left Wound Location Comments: Wound Description (Comments): Wound Type:: Wound Dressing Status Open to air 05/09/212099 Wound Drainage Amount None 05/09/212099 Wound Base Assessment Clean;Dry;Intact 05/09/212099 Surrounding Skin Assessment Bruised;Dry;Intact 05/09/212099 Wound Site Closure Open to Air 05/09/212099 Number of days: 5 Wounds 05/06/21 1754 Surgical incision Leg (Active) 05/06/21 1754 Leg Wound Type: Surgical incision Pressure Injury Stages: Pressure Injury Present On Inpatient Admission: Wound/Pressure Injury Orientation: Wound Location Comments: Wound Description (Comments): Wound Type:: Agree With My Assessment? Yes 05/06/211825 Wound Dressing Status Intact 05/09/212099 Wound Dressing and / or Treatment Xeroform gauze;Gauze;Soft roll 05/09/212099 Wound Securement / Protective Device Daylin wrap 05/09/212099 Wound Drainage Amount None 05/09/212099 Wound Base Assessment Dressing intact, base not assessed 05/09/212099 Surrounding Skin Assessment Dry;Intact 05/09/212099 Wound Site Closure Wound Adhesive Bandage 05/09/212099 Number of days: 4 Wounds 05/06/21 1903 Pressure injury Coccyx (Active) 05/06/21 190 Coccyx Wound Type: Pressure injury Pressure Injury Stages: Stage 1 Pressure Injury Present On Inpatient Admission: N Wound/Pressure Injury Orientation: Wound Location Comments: Wound Description (Comments): Wound Type:: Wound Dressing Status Open to air 05/09/212099 Wound Dressing and / or Treatment Barrier cream 05/09/212099 Wound Drainage Description Serous 05/09/21 0930 Wound Drainage Amount None 05/09/212099 Wound Base Assessment Clean;Dry;Red 05/09/212099 Surrounding Skin Assessment Dry;Flaky;[place];Excoriated 05/09/212099 Wound Site Closure Open to Air 05/09/212099 Number of days: 4 Wounds 05/07/21 0237 Skin tear Right Arm (Active) 05/07/21 0237 Arm Wound Type: Skin tear Pressure Injury Stages: Pressure Injury Present On Inpatient Admission: Wound/Pressure Injury Orientation: Right Wound Location Comments: Wound Description (Comments): Wound Type:: Wound Dressing Status Intact 05/09/212099 Wound Dressing and / or Treatment [place] 05/09/212099 Wound Drainage Description Serosanguineous 05/08/21 1001 Wound Drainage Amount None 05/09/212099 Wound Base Assessment Dressing intact, base not assessed 05/09/212099 Surrounding Skin Assessment Dry;Intact 05/09/212099 Wound Site Closure Wound Adhesive Bandage 05/09/212099 Number of days: 3 Wounds 05/09/21 1450 Moisture associated skin damage Left;Right Groin (Active) 05/09/21 1450 Groin Wound Type: Moisture associated skin damage Pressure Injury Stages: Pressure Injury Present On Inpatient Admission: Wound/Pressure Injury Orientation: Left;Right Wound Location Comments: groin skin folds/creases Wound Description (Comments): Wound Type:: Wound Dressing Status Intact 05/09/212099 Wound Dressing and / or Treatment Zinc oxide cream 05/09/212099 Wound Drainage Amount None 05/09/212099 Wound Base Assessment Clean;Moist;[place] 05/09/212099 Surrounding Skin Assessment Intact;[place];Red 05/09/212099 Wound Site Closure None 05/09/212099 Wound Status (Wound Team Only) Being Treated 05/09/21 1450 Number of days: 1 Resulted Micro Last 72 Hrs No results found Output by Drain (mL) 05/05/21 0701 - 05/05/21 1900 05/05/21 1901 - 05/06/21 0700 05/06/21 0701 - 05/06/21 1900 05/06/21 1901 - 05/07/21 0700 05/07/21 0701 - 0750 Hemovac Drain 05/06/21 1803 Right Leg 160 Procedure: Drain Removal The drain was removed with gentle traction and inspected and found to be intact. The site was covered with dry gauze tegaderm. Drain Location: right distal thigh Removal date: 05/10/2021 Complications: none Removal Reason: Clinically Indicated Complete Blood Counts Recent Labs 05/08/21 0655 05/09/21 1143 05/10/21 0633 HGB 8.6* 8.8* 8.2* HCT 25.3* 24.7* 24.5* WBC 7.6 6.4 6.0 PLTCT 243 320 292 Chemistry Panel Recent Labs 05/08/21 0655 05/09/21 0613 05/10/21 0633 NA 128* 130* 129* K 5.0 4.5 4.3 CL 105 104 103 CO2 21 21 22 BUN 14 20 21 CR 0.97 0.90 0.89 GLU 87 69* 68* MG 2.0 2.1 2.0 CA 6.4* 6.7* 6.5* PO4 3.1 3.1 3.1 Coagulation Studies No results for input(s): PTT, INR in the last 72 hours. Renal Function: Normal Electrolyte Abnormalities: Potassium: Normal Sodium: Hyponatremia present Anemia: acute blood loss Patient Active Problem List Diagnosis (Hosp) Fall (Hosp) Acute pain due to trauma (Hosp) Osteoporosis (Hosp) Closed fracture of right distal femur (HCC) (Hosp) Impaired mobility and ADLs (Hosp) Acute blood loss anemia (Hosp) Hypocalcemia (Hosp) Hypomagnesemia (Hosp) Hyponatremia (Hosp) Trauma * Charis Santos APRN-NP - 05/10/2021 8:03 AM CDT Trauma Surgery Progress Note Today's Date: 05/10/2021 Hospital Day: Hospital Day: 6 History of Present Illness: Tere Sahu is a 75 y.o. 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 Pt reports she tripped over the door frame and fell priscila ding on her right knee. Denies any presyncopal sx. + head strike, no LOC. Denies blood thinner use. Pt found to have a R distal femur fx; ortho consulted and to ok pt to the OR on 05/06 for ORIF. IM was consulted in the setting of geriatric t rauma. Assessment & Plan: Method of injury: GLF Patient Active Problem List Diagnosis Date Noted Acute pain due to trauma 05/07/2021 Osteoporosis 05/07/2021 Closed fracture of right distal femur (HCC) 05/07/2021 Impaired mobility and ADLs 05/07/2021 Acute blood loss anemia 05/07/2021 Hypocalcemia 05/07/2021 Hypomagnesemia 05/07/2021 Hyponatremia 05/07/2021 Fall 05/05/2021 Trauma 05/05/2021 Neurologic Acute pain due to trauma, chronic neuropathy --Tylenol 1gm q6hr --robaxin 500mg BID --oxycodone 5-15mg q4hr PRN --INGOT HEADER Celebrex --INGOT HEADER gabapentin 100mg BID; 200mg QHS Cardiovascular HTN, HLD --INGOT HEADER simvastatin --holding INGOT HEADER bumex Hemodynamically stable See vital signs summary below Continue to monitor Pulmonary Stable on RA Pulmonary hygiene as needed Encourage use of IS Gastrointestinal / Fluids / Electrolytes / Nutrition Hypomagnesemia --2.0 (2.1) --Mag oxide daily Hypocalcemia --6.5 (6.7) --calcium citrate daily --1g calcium gluconate IV today Hyponatremia --129 (130) --FWR 1000cc/24hr; decreased from 1500cc Bowel regimen ordered Last bowel movement: 05/09 Regular diet IV saline lock in place Zofran PRN nausea Monitor and replace electrolytes PRN Genitourinary Voiding without difficultly Adequate UOP Creatinine stable Hematology / Infectious Disease Acute blood loss anemia --Hgb 8.2 (8.8); no clinical signs of overt bleeding. Continue to trend serially . Optimize fluid balance. Monitor stools for signs of occult GI bleeding. --WBC 6.0(6.4); afebrile Endocrine Osteoporosis --INGOT HEADER Fosamax states she takes on Wednesdays Musculoskelatal R distal femur fx s/p ORIF 05/06 --ortho following --NWB RLE --HV removed today --Recommend endocrine consult --Recommend lovenox inpatient, asa 81 mg bid x28 days upon discharge --f/u w/ Dr العلي in 2-3 weeks Impaired mobility and activities of daily living --PT/OT consulted Prophylaxis VTE: Pharmacological prophylaxis; Enoxaparin and Mechanical prophylaxis; Sequent ial compression device Disposition Continue floor care; PT/OT and pain control. Medically stable for placement. SW/ CM following for discharge planning needs; anticipate d/c tomorrow. Patient discussed with Dr. Hawkins during rounds. Incidental finding on chest CT: tiny 2 mm nodule at the lateral right middle lob e. This is most likely a benign etiology such as a noncalcified granuloma given the presence of a calcified granuloma. A malignant nodule is felt unlikely and t his requires no further follow-up per Fleischner Society guidelines in a low ris k patient. If the patient is considered high risk for malignancy, a follow-up CT chest in one year would be optional. Subjective Overnight Events: No acute events reported overnight. Patient resting comfortably in bed doing a w ord search. Overall, in good spirits. No complaints or concerns today. Anxious f or d/c. Endorses tolerating diet and slept well overnight; pain controlled on cu rrent regimen. Patient denies headache, dizziness, chest pain, shortness of prasanna th, abdominal pain, nausea, vomiting, diarrhea, constipation. Treatment plan and goals of care discussed with pt; v/u and in agreement. Questions answered. Objective Physical Exam: General Appearance: In no apparent distress. Alert. Pleasant and cooperative. Fr ail elderly Head/Ears/Eyes/Nose/Throat: Pupils equal round and reactive to light. EOMs gross ly intact. Atraumatic. Respiratory: Lung sounds clear and equal to auscultation bilaterally. Respiratio ns even and unlabored. Cardiovascular: Regular rate and rhythm. Abdomen: Soft, round, non-tender, non-distended, bowel sounds present x 4. Extremities: Warm and well perfused; RLE DAYLIN in place, c/d/i, SILT/wiggles toes/ pulses intact/compartments soft. Moves LLE and BUE spontaneously and without com plication Neuro: Oriented to time, place, self, situation. No focal deficits. Skin: Warm, dry, intact. Scattered ecchymosis to BUE Musculoskelatal: Active range of motion and appropriate bilateral strength excep t RLE d/t injury Vital Signs (24 hours) BP: (89-111)/(45-72) Temp: [36.4 C (97.6 F)-36.8 C (98.3 F)] Pulse: [65-78] Respirations: [16 PER MINUTE-18 PER MINUTE] SpO2: [94 %-98 %] Medications Scheduled Meds:acetaminophen (TYLENOL EXTRA STRENGTH) tablet 1,000 mg, 1,000 mg, Oral, Q6H* alendronate (FOSAMAX) tablet 70 mg, 70 mg, Oral, Q7 Days calcium citrate (CALCITRATE) tablet 1,900 mg, 1,900 mg, Oral, QAM8 celecoxib (CeleBREX) capsule 200 mg, 200 mg, Oral, QDAY enoxaparin (LOVENOX) syringe 30 mg, 30 mg, Subcutaneous, BID gabapentin (NEURONTIN) capsule 100 mg, 100 mg, Oral, BID gabapentin (NEURONTIN) capsule 200 mg, 200 mg, Oral, QHS magnesium oxide (MAGOX) tablet 400 mg, 400 mg, Oral, BID methocarbamoL (ROBAXIN) tablet 500 mg, 500 mg, Oral, BID pantoprazole DR (PROTONIX) tablet 40 mg, 40 mg, Oral, QDAY(21) polyethylene glycol 3350 (MIRALAX) packet 34 g, 2 packet, Oral, QDAY senna/docusate (SENOKOT-S) tablet 2 tablet, 2 tablet, Oral, BID simvastatin (ZOCOR) tablet 10 mg, 10 mg, Oral, QHS Continuous Infusions: PRN and Respiratory Meds:ondansetron (ZOFRAN) IV Q6H PRN, oxyCODONE Q4H PRN I have reviewed pertinent labs, medications, radiology, and diagnostic procedure s including: active problem list, medication list, allergies, family history, so cial history, health maintenance, notes from last encounter, lab results, abhijit Santos APRN-TIFFANIE Trauma Team Pager: [phone] * Tl Rhoades - 05/09/2021 12:49 PM CDT 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 Sahu stated she is looking forward to getting well and getting out of the hospital, but don't want to leave until her body is ready. Worries/Concerns/Struggles: Mrs. Sahu was concerned with getting an IV because she is a hard stick. Mrs. Sahu is concerned with having to leave the hospital before she is well en ough to leave. Method(s) of Coping: Mrs. Sahu stated she is coping by taking things one day a t a time. And she is praying and trusting in the Man up there. Support System: Mrs. Sahu is supported by her family. Interventions/Plan: I was able to manager icu to Mrs. Sahu by being present and l istening to her share about her health, being afraid to get an IV, and her karthik rns with leaving the hospital to soon. I shared words of encouragement and praye d for Mrs. Sahu and the IV team. The spiritual care team is available as needed, 08/04, through the [facility] [facility] ([phone]). For a response within 24 hours, please submit an order in O2 fo r a plate preparer consult. * Edyta Francis RN - 05/09/2021 11:47 AM CDT IVT to bedside for ultrasound lab attempt in right AC, arterial only. Bedside RN to correct requisition to reflect ABG draw. Labeled at bedside. * Marlyn Holcomb OT - 05/09/2021 11:36 AM CDT OCCUPATIONAL THERAPY NOTE Name: Tere Sahu : 1945 Age: 75 y.o. Admission Date: 05/05/2021 LOS: 4 days Attempted to see patient at scheduled time with director of rehabilitation. Patient with another discipline for extended period of time and IV team arrives to room. OT will con tinue to follow. Therapist: VALENTINE Jackson/Miri [id number] Date: 05/09/2021 * Demario Eason PA-C - 05/09/2021 7:18 AM CDT Trauma Surgery Progress Note Today's Date: 05/09/2021 Hospital Day: Hospital Day: 5 History of Present Illness: Tere Sahu is a 75 y.o. 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 Pt reports she tripped over the door frame and fell priscila ding on her right knee. Denies any presyncopal sx. + head strike, no LOC. Denies blood thinner use. Pt found to have a R distal femur fx; ortho consulted and to ok pt to the OR on 05/06 for ORIF. IM was consulted in the setting of geriatric t rauma. Assessment & Plan: Method of injury: GLF Patient Active Problem List Diagnosis Date Noted Acute pain due to trauma 05/07/2021 Osteoporosis 05/07/2021 Closed fracture of right distal femur (HCC) 05/07/2021 Impaired mobility and ADLs 05/07/2021 Acute blood loss anemia 05/07/2021 Hypocalcemia 05/07/2021 Hypomagnesemia 05/07/2021 Hyponatremia 05/07/2021 Fall 05/05/2021 Trauma 05/05/2021 Neurologic Acute pain due to trauma, chronic neuropathy --Tylenol 1gm q6hr --robaxin 500mg BID --oxycodone 5-15mg q4hr PRN --INGOT HEADER Celebrex --INGOT HEADER gabapentin 100mg BID; 200mg QHS Cardiovascular HTN, HLD --INGOT HEADER simvastatin --holding INGOT HEADER bumex Hemodynamically stable See vital signs summary below Continue to monitor Pulmonary Stable on RA Pulmonary hygiene as needed Encourage use of IS Gastrointestinal / Fluids / Electrolytes / Nutrition Hypomagnesemia --2.1(2.0) --Mag oxide daily Hypocalcemia --6.7(6.4) --calcium citrate daily Bowel regimen ordered Last bowel movement: 05/07 Regular diet IV saline lock in place Zofran PRN nausea Monitor and replace electrolytes PRN Genitourinary Spontaneous UOP Creatinine 0.90(0.97) Hematology / Infectious Disease Acute blood loss anemia --Hgb 8.8(8.6); no clinical signs of overt bleeding. Continue to trend serially. Optimize fluid balance. Monitor stools for signs of occult GI bleeding. --WBC 6.4(7.6); afebrile. No signs of infection Endocrine Osteoporosis --INGOT HEADER Fosamax states she takes on Wednesdays Hyperglycemia; likely reactive (Decadron given in OR) -- 69(87); monitor Hyponatremia -Na 130(128)-FWR 1.5L/day Musculoskelatal R distal femur fx s/p ORIF 05/06 --ortho following --NWB RLE --maintain HV; output 160cc/24hr --Recommend endocrine consult --Recommend lovenox inpatient, asa 81 mg bid x28 days upon discharge -- f/u w/ Dr العلي in 2-3 weeks Impaired mobility and activities of daily living --PT/OT consulted Prophylaxis VTE: Pharmacological prophylaxis; Enoxaparin and Mechanical prophylaxis; Sequent ial compression device Disposition Continue floor care; PT/OT and pain control. Medically stable. SW/CM following f or discharge planning needs; anticipate placement needs at time of discharge. Patient discussed with Dr. Hawkins during rounds. Incidental finding on chest CT: tiny 2 mm nodule at the lateral right middle lob e. This is most likely a benign etiology such as a noncalcified granuloma given the presence of a calcified granuloma. A malignant nodule is felt unlikely and t his requires no further follow-up per Fleischner Society guidelines in a low ris k patient. If the patient is considered high risk for malignancy, a follow-up CT chest in one year would be optional. Subjective Overnight Events: No acute events overnight. States hasn't worked with PT today yet. Eager to get well. I discussed with her that the US of her L arm was neg for DVT yesterday. D enies SOB, CP, N/V/D, abdominal pain, or fever. Objective Physical Exam: General Appearance: In no apparent distress. Alert. Pleasant and cooperative. Fr ail Head/Ears/Eyes/Nose/Throat: Pupils equal round and reactive to light. EOMs gross ly intact. Atraumatic. Respiratory: Lung sounds clear and equal to auscultation bilaterally. Respiratio ns even and unlabored. Cardiovascular: Regular rate and rhythm. Abdomen: Soft, round, non-tender, non-distended, bowel sounds present x 4. Extremities: Warm and well perfused; RLE DAYLIN in place, c/d/i, SILT/wiggles toes/ pulses intact/compartments soft. Moves LLE and BUE spontaneously and without com plication. Hemovac in place Neuro: Oriented to time, place, self, situation. No focal deficits. Skin: Warm, dry, intact. Scattered ecchymosis to BUE Musculoskelatal: Active range of motion and appropriate bilateral strength excep t RLE d/t injury Vital Signs (24 hours) BP: (90-128)/(43-73) Temp: [36.3 C (97.3 F)-36.9 C (98.5 F)] Pulse: [67-84] Respirations: [16 PER MINUTE-18 PER MINUTE] SpO2: [93 %-98 %] Medications Scheduled Meds:acetaminophen (TYLENOL EXTRA STRENGTH) tablet 1,000 mg, 1,000 mg, Oral, Q6H* [START ON 05/10/2021] alendronate (FOSAMAX) tablet 70 mg, 70 mg, Oral, Q7 Days calcium citrate (CALCITRATE) tablet 1,900 mg, 1,900 mg, Oral, QAM8 celecoxib (CeleBREX) capsule 200 mg, 200 mg, Oral, QDAY enoxaparin (LOVENOX) syringe 30 mg, 30 mg, Subcutaneous, BID gabapentin (NEURONTIN) capsule 100 mg, 100 mg, Oral, BID gabapentin (NEURONTIN) capsule 200 mg, 200 mg, Oral, QHS magnesium oxide (MAGOX) tablet 400 mg, 400 mg, Oral, BID methocarbamoL (ROBAXIN) tablet 500 mg, 500 mg, Oral, BID pantoprazole DR (PROTONIX) tablet 40 mg, 40 mg, Oral, QDAY(21) polyethylene glycol 3350 (MIRALAX) packet 34 g, 2 packet, Oral, QDAY senna/docusate (SENOKOT-S) tablet 2 tablet, 2 tablet, Oral, BID simvastatin (ZOCOR) tablet 10 mg, 10 mg, Oral, QHS Continuous Infusions: PRN and Respiratory Meds:ondansetron (ZOFRAN) IV Q6H PRN, oxyCODONE Q4H PRN I have reviewed pertinent labs, medications, radiology, and diagnostic procedure s including: active problem list, medication list, allergies, family history, so cial history, health maintenance, notes from last encounter, lab results, abhijit Eason PA-C [id number] Trauma Team Pager: [phone] * Karen Winkler, PT - 05/08/2021 11:31 AM CDT PHYSICAL THERAPY PROGRESS NOTE Name: Tere Sahu : 1945 Age: 75 y.o. Admission Date: 05/05/2021 LOS: 3 days Mobility Patient Turn/Position: Right Progressive Mobility Level: Sit on edge of bed Level of Assistance: Assist X2 Assistive Device: None Time Tolerated: 11-30 minutes Activity Limited By: Pain;Weakness Subjective Significant hospital events: R distal femur fracture s/p ORIF 05/06. 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 Mental / Cognitive Status: Alert;Cooperative;Follows Commands Persons Present: Occupational Therapist Pain: Patient complains of pain;During activity;Patient does not rate pain Pain Location: Right;Leg Pain Description: Aching Pain Interventions: Patient agrees to participate in therapy;Patient pre-medicat ed;Patient assisted into position of comfort Comments: Hemovac drain R LE Precautions: RLE Non-Weight Bearing Comments: Per Ortho-surgery, patient ok to brijesh Ambulation Assist: Independent Mobility at Household Level with Device;Primary W heelchair User Patient Owned Equipment: Roller Walker;Single Point Cane;Manual Wheelchair;Hospi stefanie Bed Home Situation: Lives with Family Type of Home: House Entry Stairs: Ramp Bed Mobility/Transfer Bed Mobility: Supine to Sit: Maximum Assist;x2 People;Requires Extra Time;Safety Considerations;Assist with Trunk;Assist with R LE Bed Mobility: Sit to Supine: Maximum Assist;x2 People;Requires Extra Time;Safety Considerations;Assist with R LE;Assist with Trunk Comments: Attempted to scoot EOB. Patient unable to scoot. End Of Activity Status: In Bed;Nursing Notified;Instructed Patient to Request As sist with Mobility;Instructed Patient to Use Call Light Balance Sitting Balance: Static Sitting Balance;No UE Support;Standby Assist Activity/Exercise Sit Edge Of Bed: 5 minutes Sit Edge Of Bed Assist: Stand By Assist Assessment/Progress Impaired Mobility Due To: Pain;Decreased Strength;Post Surgical Changes;Medical Status Limitation;Post Surgical Precautions Assessment/Progress: Should Improve w/ Continued PT Comments: Patient with improved pain this date and tolerates EOB. AM-PAC 6 Clicks Basic Mobility Inpatient Turning from your back to your side while in a flat bed without using bed rails: Total Moving from lying on your back to sitting on the side of a flatbed without using bedrails : Total Moving to and from a bed to a chair (including a wheelchair): Total Standing up from a chair using your arms (e.g. wheelchair, or bedside chair): To stefanie To walk in hospital room: Total Climbing 3-5 steps with a railing: Total Raw Score: 6 Standardized (T-scale) Score: 16.59 Basic Mobility CMS 0-100%: 100 CMS G Code Modifier for Basic Mobility: CN Goals Goal Formulation: With Patient Time For Goal Achievement: 7 days Patient Will Go Supine To/From Sit: w/ Minimal Assist Patient Will Transfer Bed/Chair: w/ Moderate Assist Patient Will Sit Edge Of Bed: 6-10 Minutes, w/ Stand By Assist Patient Will Propel Wheelchair: 10-50 Feet, w/ Stand By Assist Plan Treatment Interventions: Mobility Training Plan Frequency: 3-5 Days per Week PT Plan for Next Visit: progress EOB, brijesh to chair PT Discharge Recommendations Recommendation: Inpatient setting Patient Currently Requires Physical Assist With: All mobility Therapist: Karen Winkler, PT Date: 05/08/2021 * Marlyn Holcomb, OT - 05/08/2021 11:30 AM CDT OCCUPATIONAL THERAPY PROGRESS NOTE Name: Tere Sahu : 1945 Age: 75 y.o. Admission Date: 05/05/2021 LOS: 3 days Mobility Patient Turn/Position: Right Progressive Mobility Level: Sit on edge of bed Level of Assistance: Assist X2 Assistive Device: None Time Tolerated: 11-30 minutes Activity Limited By: Pain;Weakness Subjective Pertinent Dx per Physician: 75 y.o. female R distal femur fracture s/p ORIF 05/06 . Precautions: Falls R LE Precautions: RLE Non-Weight Bearing Pain / Complaints: Patient agrees to participate in therapy;Patient premedicated Pain Location: Right;Leg Comments: OK to Brijesh per ortho (05/08) Objective Psychosocial Status: Willing and Cooperative to Participate Persons Present: Physical Therapist Home Living Type of Home: House Home Layout: One Level;Ramped Entrance Bathroom Toilet: Standard Home Equipment: Walker;Wheelchair-manual (hospital bed) Prior Function Level Of Hemph[place]: Independent with ADLs and functional transfers;Independen t with homemaking w/ ambulation Lives With: Spouse Other Function Comments: Patient somewhat of a poor historian. Reports she is ma inly wheelchair bound but does some walking, does not clarify how much. She repo rts she has to do everything herself, including all the housework, and spouse do es not help. She has been spongebathing in her wheelchair at the sink. Vision Current Vision: Wears Glasses All of the Time ADL's Where Assessed: Edge of Bed Eating Assist: Independent Eating Deficits: No Assist Needed LE Dressing Assist: Total Assist LE Dressing Deficits: Don/Doff R Sock;Don/Doff L Sock Comment: Sits EOB ~5 minutes. Educated on scooting techniques, pt hesitant about leaning forward and unable to progress hips along bed. ADL Mobility Bed Mobility: Supine to Sit: Maximum assist;x2 people Bed Mobility: Sit to Supine: Maximum assist;x2 people End of Activity Status: In bed;Instructed patient to request assist with mobilit y;Instructed patient to use call light;Nursing notified Sitting Balance: Standby assist;No UE support Activity Tolerance Endurance: 2/5 Tolerates 10-20 Minutes Exercise w/Multiple Rests Cognition Overall Cognitive Status: WFL to Adequately Complete Self Care Tasks Safely UE Strength / Tone Comment: generalized weakness Assessment Assessment: Decreased ADL Status;Decreased Endurance;Decreased Self-Care Trans;D ecreased High-Level ADLs Prognosis: Good;w/Cont OT s/p Acute Discharge Goal Formulation: Patient AM-PAC 6 Clicks Daily Activity Inpatient Putting on and taking off regular lower body clothes?: Total Bathing (Including washing, rinsing, drying): Total Toileting, which includes using toilet, bedpan, or urinal: Total Putting on and taking off regular upper body clothing: A Lot Taking care of personal grooming such as brushing teeth: A Lot Eating meals?: A Lot Daily Activity Raw Score: 9 Standardized (t-scale) score: 25.33 CMS 0-100% Score: 79.59 CMS G Code Modifier: CL Plan OT Frequency: 2-3x/week OT Plan for Next Visit: brijesh to chair for grooming/meals; scooting EOB ADL Goals Patient Will Perform Grooming: at Edge of Bed;in Chair;w/ Stand By Assist Patient Will Perform Toileting: w/ Maximum Assist;w/ Bedside Commode Functional Transfer Goals Pt Will Transfer To Bedside Commode: w/ Maximum Assist OT Discharge Recommendations Recommendation: Inpatient setting Therapist: VALENTINE Jackson/Miri [id number] Date: 05/08/2021 * Patricia Alfaro APRN-NP - 05/08/2021 9:31 AM CDT OT inquiring if brijesh is ok. Brijesh is fine from an orthopedic perspective. T Dominic INSTRUMENT ADJUSTER-C [facility] * Dana Tineo RT - 05/08/2021 9:17 AM CDT RT Adult Assessment Note NAME:Tere Sahu :1945 AGE: 75 y.o. ADMISSION DATE: 05/05/2021 DAYS ADMITTED: LOS: 3 days RT Treatment Plan: Protocol Plan: Procedures PAP: Place a nursing order for "IS Q1h While Awake" for any of Lung Expansion in dicators Additional Comments: Impressions of the patient: Alert, oriented, stable on RA sats 93% Intervention(s)/outcome(s): Completed Adult RT re-evaluation protocol Patient education that was completed: N/A Recommendations to the care team: N/A Vital Signs: Pulse: 75 RR: 16 PER MINUTE SpO2: 93 % O2 Device: Standby Liter Flow: O2%: Breath Sounds: Clear (Implies normal);Decreased Respiratory Effort: Non-Labored * Demario Eason PA-C - 05/08/2021 8:08 AM CDT Trauma Surgery Progress Note Today's Date: 05/08/2021 Hospital Day: Hospital Day: 4 History of Present Illness: Tere Sahu is a 75 y.o. 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 Pt reports she tripped over the door frame and fell priscila ding on her right knee. Denies any presyncopal sx. + head strike, no LOC. Denies blood thinner use. Pt found to have a R distal femur fx; ortho consulted and to ok pt to the OR on 05/06 for ORIF. IM was consulted in the setting of geriatric t rauma. Assessment & Plan: Method of injury: GLF Patient Active Problem List Diagnosis Date Noted Acute pain due to trauma 05/07/2021 Osteoporosis 05/07/2021 Closed fracture of right distal femur (HCC) 05/07/2021 Impaired mobility and ADLs 05/07/2021 Acute blood loss anemia 05/07/2021 Hypocalcemia 05/07/2021 Hypomagnesemia 05/07/2021 Hyponatremia 05/07/2021 Fall 05/05/2021 Trauma 05/05/2021 Neurologic Acute pain due to trauma, chronic neuropathy --Tylenol 1gm q6hr --robaxin 500mg BID --oxycodone 5-15mg q4hr PRN --INGOT HEADER Celebrex --INGOT HEADER gabapentin 100mg BID; 200mg QHS Cardiovascular HTN, HLD --INGOT HEADER simvastatin --holding INGOT HEADER bumex Hemodynamically stable See vital signs summary below Continue to monitor Pulmonary Stable on RA Pulmonary hygiene as needed Encourage use of IS Gastrointestinal / Fluids / Electrolytes / Nutrition Hypomagnesemia --2.0 (2.0) --Mag oxide daily Hypocalcemia --6.4(6.7) --calcium citrate daily Bowel regimen ordered Last bowel movement: 05/07 Regular diet IV saline lock in place Zofran PRN nausea Monitor and replace electrolytes PRN Genitourinary Longoria removed 05/07 Spontaneous UOP Creatinine 0.97 (0.67) Hematology / Infectious Disease Acute blood loss anemia --Hgb 8.6(9.0); no clinical signs of overt bleeding. Continue to trend serially. Optimize fluid balance. Monitor stools for signs of occult GI bleeding. --WBC 7.6(8.2); afebrile. No signs of infection Endocrine Osteoporosis --INGOT HEADER Fosamax states she takes on Wednesdays Hyperglycemia; likely reactive (Decadron given in OR) -- 87(151); monitor Hyponatremia -Na128 (135)-IVF and FWR 1.5L/day Musculoskelatal R distal femur fx s/p ORIF 05/06 --ortho following --NWB RLE --maintain HV; output 160cc/24hr --Recommend endocrine consult --Recommend lovenox inpatient, asa 81 mg bid x28 days upon discharge -- f/u w/ Dr العلي in 2-3 weeks Impaired mobility and activities of daily living --PT/OT consulted Prophylaxis VTE: Pharmacological prophylaxis; Enoxaparin and Mechanical prophylaxis; Sequent ial compression device Disposition Continue floor care; PT/OT and pain control. Medically stable. SW/CM following f or discharge planning needs; anticipate placement needs at time of discharge. Patient discussed with Dr. Hawkins during rounds. Incidental finding on chest CT: tiny 2 mm nodule at the lateral right middle lob e. This is most likely a benign etiology such as a noncalcified granuloma given the presence of a calcified granuloma. A malignant nodule is felt unlikely and t his requires no further follow-up per Fleischner Society guidelines in a low ris k patient. If the patient is considered high risk for malignancy, a follow-up CT chest in one year would be optional. Subjective Overnight Events: No acute events overnight. States doing well and pain well controlled. Pt son in room during interview. Resting comfortably in bed. I discussed her Na being low and that we will attempt to correct it with a fluid restriction. Denies SOB, CP, N/V/D, abdominal pain, or fever. Objective Physical Exam: General Appearance: In no apparent distress. Alert. Pleasant and cooperative. Fr ail Head/Ears/Eyes/Nose/Throat: Pupils equal round and reactive to light. EOMs gross ly intact. Atraumatic. Respiratory: Lung sounds clear and equal to auscultation bilaterally. Respiratio ns even and unlabored. Cardiovascular: Regular rate and rhythm. Abdomen: Soft, round, non-tender, non-distended, bowel sounds present x 4. Extremities: Warm and well perfused; RLE DAYLIN in place, c/d/i, SILT/wiggles toes/ pulses intact/compartments soft. Moves LLE and BUE spontaneously and without com plication. Hemovac in place Neuro: Oriented to time, place, self, situation. No focal deficits. Skin: Warm, dry, intact. Scattered ecchymosis to BUE Musculoskelatal: Active range of motion and appropriate bilateral strength excep t RLE d/t injury Vital Signs (24 hours) BP: (79-93)/(42-55) Temp: [36.4 C (97.5 F)-36.8 C (98.3 F)] Pulse: [78-97] Respirations: [16 PER MINUTE-17 PER MINUTE] SpO2: [92 %-95 %] Medications Scheduled Meds:acetaminophen (TYLENOL EXTRA STRENGTH) tablet 1,000 mg, 1,000 mg, Oral, Q6H* [START ON 05/10/2021] alendronate (FOSAMAX) tablet 70 mg, 70 mg, Oral, Q7 Days calcium citrate (CALCITRATE) tablet 1,900 mg, 1,900 mg, Oral, QAM8 celecoxib (CeleBREX) capsule 200 mg, 200 mg, Oral, QDAY enoxaparin (LOVENOX) syringe 30 mg, 30 mg, Subcutaneous, BID gabapentin (NEURONTIN) capsule 100 mg, 100 mg, Oral, BID gabapentin (NEURONTIN) capsule 200 mg, 200 mg, Oral, QHS magnesium oxide (MAGOX) tablet 400 mg, 400 mg, Oral, BID methocarbamoL (ROBAXIN) tablet 500 mg, 500 mg, Oral, BID pantoprazole DR (PROTONIX) tablet 40 mg, 40 mg, Oral, QDAY(21) polyethylene glycol 3350 (MIRALAX) packet 34 g, 2 packet, Oral, QDAY senna/docusate (SENOKOT-S) tablet 2 tablet, 2 tablet, Oral, BID simvastatin (ZOCOR) tablet 10 mg, 10 mg, Oral, QHS Continuous Infusions: lactated ringers infusion 1,000 mL (05/08/21 0427) PRN and Respiratory Meds:ondansetron (ZOFRAN) IV Q6H PRN, oxyCODONE Q4H PRN I have reviewed pertinent labs, medications, radiology, and diagnostic procedure s including: active problem list, medication list, allergies, family history, so cial history, health maintenance, notes from last encounter, lab results, abhijit Eason PA-C [id number] Trauma Team Pager: [phone] * Annemarie Francis, PT - 05/07/2021 10:36 AM CDT PHYSICAL THERAPY ASSESSMENT Name: Tree Sahu : 1945 Age: 75 y.o. Admission Date: 05/05/2021 LOS: 2 days Mobility Patient Turn/Position: Supine Progressive Mobility Level: Active bed level mobility Level of Assistance: Assist X2 Assistive Device: None Time Tolerated: 11-30 minutes Activity Limited By: Pain (incontinence) Subjective Significant hospital events: R distal femur fracture s/p ORIF 05/06. Mental / Cognitive Status: Alert;Cooperative;Inconsistent with Command Following Persons Present: Occupational Therapist;Nursing Staff Pain: Patient complains of pain;During activity;Patient does not rate pain Pain Location: Right;Leg Pain Description: Aching Pain Interventions: Patient pre-medicated;Patient agrees to participate in thera py with modifications to session;Treatment altered to patient's pain tolerance;P atient assisted into position of comfort Comments: 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 Comments: Hemovac drain R LE Precautions: RLE Non-Weight Bearing Ambulation Assist: Independent Mobility at Household Level with Device;Primary W heelchair User Patient Owned Equipment: Roller Walker;Single Point Cane;Manual Wheelchair;Hospi stefanie Bed Home Situation: Lives with Family Type of Home: House Entry Stairs: Ramp Comments: Patient somewhat of a poor historian. Reports she is mainly wheelchair bound but does some walking, does not clarify how much. She reports she has to do everything herself, including all the housework, and spouse does not help. S he has been spongebathing in her wheelchair at the sink. ROM LE ROM: Bilateral;Limited Strength Overall Strength: Generalized Weakness Bed Mobility/Transfer Bed Mobility: Rolling: Maximum Assist;x2 People Comments: Pt incontinent at start of session, rolls with maximal assist to roll for clean up. Pt does not tolerate rolling well, likely could have assisted more but did not partipate. Commode ordered per pt request, however do not anticipate she could safely transfer at this time. Defers sitting EOB after clean up. Daylin wrapping significantly soiled, RN aware. End Of Activity Status: In Bed;Nursing Notified;Instructed Patient to Request As sist with Mobility;Instructed Patient to Use Call Light Education Persons Educated: Patient Patient Barriers To Learning: Cognitive Deficits;Pain Interventions: Repetition of Instructions Teaching Methods: Verbal Instruction;Demonstration Patient Response: Verbalized Understanding;More Instruction Required Topics: Plan/Goals of PT Interventions;Safety Awareness;Up with Assist Only;Impo rtance of Increasing Activity Assessment/Progress Impaired Mobility Due To: Pain;Decreased Strength;Post Surgical Changes;Medical Status Limitation;Post Surgical Precautions Assessment/Progress: Should Improve w/ Continued PT Comments: Patient limited by pain and incontinence this date. Patient resistive to mobility. AM-PAC 6 Clicks Basic Mobility Inpatient Turning from your back to your side while in a flat bed without using bed rails: Total Moving from lying on your back to sitting on the side of a flatbed without using bedrails : Total Moving to and from a bed to a chair (including a wheelchair): Total Standing up from a chair using your arms (e.g. wheelchair, or bedside chair): To stefanie To walk in hospital room: Total Climbing 3-5 steps with a railing: Total Raw Score: 6 Standardized (T-scale) Score: 16.59 Basic Mobility CMS 0-100%: 100 CMS G Code Modifier for Basic Mobility: CN Goals Goal Formulation: With Patient Time For Goal Achievement: 7 days Patient Will Go Supine To/From Sit: w/ Minimal Assist Patient Will Transfer Bed/Chair: w/ Moderate Assist Patient Will Sit Edge Of Bed: 6-10 Minutes, w/ Stand By Assist Patient Will Propel Wheelchair: 10-50 Feet, w/ Stand By Assist Plan Treatment Interventions: Mobility Training Plan Frequency: 5 Days per Week PT Plan for Next Visit: trial edge of bed, clarify brijesh clearance, trial stand as able. PT Discharge Recommendations Recommendation: Inpatient setting Patient Currently Requires Physical Assist With: All mobility Therapist Annemarie Francis, PT Date 05/07/2021 * Marlyn Holcomb, OT - 05/07/2021 10:09 AM CDT OCCUPATIONAL THERAPY ASSESSMENT NOTE Name: Tere Sahu : 1945 Age: 75 y.o. Admission Date: 05/05/2021 LOS: 2 days Mobility Patient Turn/Position: Right Progressive Mobility Level: Active bed level mobility Level of Assistance: Assist X2 Assistive Device: None Time Tolerated: 11-30 minutes Activity Limited By: Pain (incontinence) Subjective Pertinent Dx per Physician: 75 y.o. female R distal femur fracture s/p ORIF 05/06 . Precautions: Falls R LE Precautions: RLE Non-Weight Bearing Pain / Complaints: Patient agrees to participate in therapy;Patient premedicated Pain Location: Right;Leg Pain Level Current: 10 Worst possible pain Objective Psychosocial Status: Participates in Therapy with Encouragement Persons Present: Physical Therapist Home Living Type of Home: House Home Layout: One Level;Ramped Entrance Bathroom Toilet: Standard Home Equipment: Walker;Wheelchair-manual (hospital bed) Prior Function Level Of [place]: Independent with ADLs and functional transfers;Independen t with homemaking w/ ambulation Lives With: Spouse Other Function Comments: Patient somewhat of a poor historian. Reports she is ma inly wheelchair bound but does some walking, does not clarify how much. She repo rts she has to do everything herself, including all the housework, and spouse do es not help. She has been spongebathing in her wheelchair at the sink. ADL's Where Assessed: Supine, Bed LE Dressing Assist: Total Assist LE Dressing Deficits: Don/Doff R Sock;Don/Doff L Sock Toileting Assist: Total Assist Toileting Deficits: Perineal Hygiene Comment: Pt incontinent at start of session, rolls with maximal assist to roll f or clean up. Pt does not tolerate rolling well, likely could have assisted more but did not partipate. Commode ordered per pt request, however do not anticipate she could safely transfer at this time. Defers sitting EOB after clean up. Daylin wrapping significantly soiled, RN aware. ADL Mobility Bed Mobility Comments: Maximal assist for rolling. Pt requires encouragement to assist with her upper body. End of Activity Status: In bed;Instructed patient to request assist with mobilit y;Instructed patient to use call light;Nursing notified Activity Tolerance Endurance: 2/5 Tolerates 10-20 Minutes Exercise w/Multiple Rests Cognition Overall Cognitive Status: WFL to Adequately Complete Self Care Tasks Safely UE Strength / Tone Overall Strength / Tone: WFL Able to Perform ADL Tasks Education Persons Educated: Patient Topics: Role of OT, Goals for Therapy Assessment Assessment: Decreased ADL Status;Decreased Endurance;Decreased Self-Care Trans;D ecreased High-Level ADLs Prognosis: Good;w/Cont OT s/p Acute Discharge Goal Formulation: Patient AM-PAC 6 Clicks Daily Activity Inpatient Putting on and taking off regular lower body clothes?: Total Bathing (Including washing, rinsing, drying): Total Toileting, which includes using toilet, bedpan, or urinal: Total Putting on and taking off regular upper body clothing: A Lot Taking care of personal grooming such as brushing teeth: A Lot Eating meals?: A Lot Daily Activity Raw Score: 9 Standardized (t-scale) score: 25.33 CMS 0-100% Score: 79.59 CMS G Code Modifier: CL Plan OT Frequency: 5x/week OT Plan for Next Visit: ADLs EOB, will likely be slideboard transfer; reduce alea quency if tolerance doesn't improve ADL Goals Patient Will Perform Grooming: at Edge of Bed;w/ Stand By Assist Patient Will Perform Toileting: w/ Maximum Assist;w/ Bedside Commode Functional Transfer Goals Pt Will Transfer To Bedside Commode: w/ Maximum Assist OT Discharge Recommendations Recommendation: Inpatient setting Therapist: VALENTINE Jackson/Miri [id number] Date: 05/07/2021 * Lon Calderón MD - 05/07/2021 8:34 AM CDT General Progress Note Name: Tere Sahu Today's Date: 05/07/2021 Admission Date: 05/05/2021 LOS: 2 days Assessment/Plan: Principal Problem: Fall Active Problems: Trauma Acute pain due to trauma Osteoporosis Closed fracture of right distal femur (HCC) Impaired mobility and ADLs Acute blood loss anemia Hypocalcemia Hypomagnesemia Hyponatremia 75yoF w/ PMH of HLD, HTN, GERD, 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 Changes made to today's assessment and plan are indicated in bold. R femoral fracture - ortho has been consulted and pt is now s/p ORIF - NWB RLE per ortho - Vit D in process - pain control per primary - PT and OT consults Chronic neuropathy - cont INGOT HEADER gabapentin HLD - cont INGOT HEADER simvastatin Noted hyperglycemia this am - likely a result of the 4mg of decadron given in the OR yesterday, but if it pe rsists would check an A1c and treat accordingly FEN: no IVF, replace lytes PRN, regular diet Ppx: lovenox Code: Full Dispo: medicine consults will sign off at this time, but please feel free to con tact us with any questions or concerns. Subjective Tere Sahu is a 75 y.o. female. Patient w/o acute events overnight. She de nies pain. She does report feeling short of breath since being upset early toda y. Her breakfast tray arrived w/ bread and she states she can't eat bread, barl ey, or oats. She remains upset about this. ROS: neg for fevers, chills, chest pain, N/V; + for dyspnea Medications Scheduled Meds:acetaminophen (TYLENOL EXTRA STRENGTH) tablet 1,000 mg, 1,000 mg, Oral, Q6H* [START ON 05/08/2021] alendronate (FOSAMAX) tablet 70 mg, 70 mg, Oral, Q7 Days calcium citrate (CALCITRATE) tablet 1,900 mg, 1,900 mg, Oral, QAM8 calcium gluconate 1 g in sodium chloride 0.9% (NS) 110 mL IVPB (MB+), 1 g, Intra venous, ONCE ceFAZolin (ANCEF) IVP 2 g, 2 g, Intravenous, Q8H* celecoxib (CeleBREX) capsule 200 mg, 200 mg, Oral, QDAY enoxaparin (LOVENOX) syringe 30 mg, 30 mg, Subcutaneous, BID gabapentin (NEURONTIN) capsule 100 mg, 100 mg, Oral, BID gabapentin (NEURONTIN) capsule 200 mg, 200 mg, Oral, QHS magnesium oxide (MAGOX) tablet 400 mg, 400 mg, Oral, BID methocarbamoL (ROBAXIN) tablet 500 mg, 500 mg, Oral, BID pantoprazole DR (PROTONIX) tablet 40 mg, 40 mg, Oral, QDAY(21) polyethylene glycol 3350 (MIRALAX) packet 17 g, 17 g, Oral, QDAY senna/docusate (SENOKOT-S) tablet 1 tablet, 1 tablet, Oral, BID simvastatin (ZOCOR) tablet 10 mg, 10 mg, Oral, QHS Continuous Infusions: lactated ringers infusion 20 mL/hr at 05/06/21 1335 lactated ringers infusion 75 mL/hr at 05/06/21 1209 PRN and Respiratory Meds:ondansetron (ZOFRAN) IV Q6H PRN, oxyCODONE Q4H PRN Objective Vital Signs: Last Filed Vital Signs: 24 [place] r Range BP: 99/56 (05/07 07) Temp: 36.4 C (97.6 F) (05/07 07) Pulse: 80 (05/06 1900) Respirations: 17 PER MINUTE (05/07 07) SpO2: 95 % (05/07 07) SpO2 Pulse: 69 (05/06 1826) BP: (86-121)/(52-83) Temp: [36.4 C (97.6 F)-37 C (98.6 F)] Pulse: [67-92] Respirations: [10 PER MINUTE-21 PER MINUTE] SpO2: [92 %-98 %] Intensity Pain Scale (Self Report): 9 (05/06/21 1335) Vitals: 05/05/21 2226 Weight: 60.9 kg (134 lb 4.2 oz) Intake/Output Summary: (Last 24 hours) Intake/Output Summary (Last 24 hours) at 05/07/2021 0834 Last data filed at 05/07/2021 0510 Gross per 24 hour Intake 1350 ml Output 800 ml Net 550 ml Stool Occurrence: 0 Physical Exam General: Alert, cooperative, no distress, appears stated age. Psych: normal mood and affect Head: Normocephalic, without obvious abnormality, atraumatic. Neck: - JVD Eyes: Conjunctivae/corneas clear. Lungs: CTAB, no rales, no wheezing. Heart: Regular rate and rhythm, no MRG. Abdomen: Soft, non-tender. Bowel sounds normal. Extremities: No cyanosis, clubbing, nor edema. RLE in DAYLIN. Pulses: 2+ radial pulses b/l Skin: Skin color, texture, turgor normal. No rashes or lesions. Lab Review Hematology: Lab Results Component Value Date HGB 9.0 05/07/2021 HCT 26.3 05/07/2021 PLTCT 255 05/07/2021 WBC 8.2 05/07/2021 MCV 97.8 05/07/2021 MCHC 34.4 05/07/2021 MPV 8.1 05/07/2021 RDW 13.9 05/07/2021 , Coagulation: No results found for: PT, PTT, INR, General Chemistry: Lab Results Component Value Date NA 135 05/07/2021 K 4.4 05/07/2021 CL 105 05/07/2021 GAP 7 05/07/2021 BUN 9 05/07/2021 CR 0.67 05/07/2021 GLU 151 05/07/2021 CA 6.7 05/07/2021 MG 2.0 05/07/2021 and Enzymes: No results found for: AST, ALT, ALKPHOS Point of Care Testing (Last 24 hours) Glucose: (!) 151 (05/07/21 0336) Radiology and other Diagnostics Review: No new radiology. Lon Calderón MD, FACP Clinical Assistant Grocery Store Manager Internal Medicine, [facility] Medicine Pager: [phone] * Ignacio Aguilar MD - 05/07/2021 7:50 AM CDT Orthopedic Ortho Trauma Progress Note A: Tere Sahu is a 75 y.o. female R distal femur fracture s/p ORIF 05/06. P: - PT/OT - WB status: NWB RLE - Abx: ancef 24 hrs post op - Pain control per primary team - Ortho to maintain dressings - Call ortho with questions - Recommend endocrine consult - DVT Ppx: recommend lovenox inpatient, asa 81 mg bid x28 days upon discharge - No current future plans for OR. Will continue to follow while inpatient - Patient needs to follow up with Dr العلي in 2-3 weeks. She needs to call to schedule that follow up appointment upon discharge. DISPO: Continue inpatient. Ignacio Aguilar MD [id number] S: No acute events. Pain controlled. Tolerating diet. Denies fevers, chills, n ausea, vomiting. O: Blood pressure 99/56, pulse 80, temperature 36.4 C (97.6 F), height 149.9 cm (59"), weight 60.9 kg (134 lb 4.2 oz), last menstrual period 09/16/1984, SpO2 95 %. Body mass index is 27.12 kg/m. Overweight (25 to <30) Exam: GEN: Alert. NAD CV: Normal rate, regular rhythm PULM: Non-labored ABD: Soft, non-distended Pressure Injury: No pressure injury EXTREM: Extremities: right lower extremity compartments soft, wiggles toes , + ankle pf df, SILT, distal cap refill < 2 sec Dressings: Dressings clean, dry, and intact. Active Wounds Wounds 05/05/212147 Abrasion Left Eye (Active) 05/05/212147 Eye Wound Type: Abrasion Pressure Injury Stages: Pressure Injury Present On Inpatient Admission: Wound/Pressure Injury Orientation: Left Wound Location Comments: Wound Description (Comments): Wound Type:: Wound Dressing Status None;Open to air 05/06/212199 Wound Drainage Amount None 05/06/212199 Wound Base Assessment Clean;Dry;Intact;Purple;Red 05/06/212199 Surrounding Skin Assessment Bruised;Dry;Intact 05/06/212199 Wound Site Closure Open to Air 05/06/212199 Number of days: 2 Wounds 05/06/211753 Surgical incision Leg (Active) 05/06/211753 Leg Wound Type: Surgical incision Pressure Injury Stages: Pressure Injury Present On Inpatient Admission: Wound/Pressure Injury Orientation: Wound Location Comments: Wound Description (Comments): Wound Type:: Agree With My Assessment? Yes 05/06/211825 Wound Dressing Status Intact 05/06/212199 Wound Dressing and / or Treatment Xeroform gauze;Gauze;Transparent (i.e. Tegader m);Soft roll 05/06/212199 Wound Securement / Protective Device Daylin wrap;Tape 05/06/212199 Wound Drainage Amount None 05/06/212199 Wound Base Assessment Dressing intact, base not assessed 05/06/212199 Surrounding Skin Assessment Dry;Intact 05/06/212199 Wound Site Closure Wound Adhesive Bandage 05/06/212199 Number of days: 1 Wounds 05/06/211902 Pressure injury Coccyx (Active) 05/06/211902 Coccyx Wound Type: Pressure injury Pressure Injury Stages: Stage 1 Pressure Injury Present On Inpatient Admission: N Wound/Pressure Injury Orientation: Wound Location Comments: Wound Description (Comments): Wound Type:: Wound Dressing Status Open to air 05/06/212199 Wound Dressing and / or Treatment Barrier cream 05/06/212199 Wound Drainage Amount None 05/06/212199 Wound Base Assessment Clean;Dry;Intact;[place] 05/06/212199 Surrounding Skin Assessment Dry;Intact 05/06/212199 Number of days: 1 Wounds 05/07/21236 Skin tear Right Arm (Active) 05/07/21236 Arm Wound Type: Skin tear Pressure Injury Stages: Pressure Injury Present On Inpatient Admission: Wound/Pressure Injury Orientation: Right Wound Location Comments: Wound Description (Comments): Wound Type:: Wound Dressing Status Changed;Intact 05/06/212199 Wound Dressing and / or Treatment [place] 05/06/212199 Wound Drainage Description Serosanguineous 05/06/212199 Wound Drainage Amount Scant 05/06/212199 Wound Base Assessment Bleeding;Clean;Dry;[place] 05/06/212199 Surrounding Skin Assessment Dry;Intact 05/06/212199 Wound Site Closure Wound Adhesive Bandage 05/06/212199 Number of days: 0 Resulted Micro Last 72 Hrs No results found Output by Drain (mL) 05/05/21 0701 - 05/05/21 1900 05/05/21 1901 - 05/06/21 0700 05/06/21 0701 - 05/06/21 1900 05/06/21 1901 - 05/07/21 0700 05/07/21 0701 - 0750 Hemovac Drain 05/06/21 1803 Right Leg 160 Complete Blood Counts Recent Labs 05/05/21 1826 05/06/21 0654 05/07/21 0336 HGB 11.8* 10.2* 9.0* HCT 35.1* 29.5* 26.3* WBC 11.5* 7.4 8.2 PLTCT 351 302 255 Chemistry Panel Recent Labs 05/06/21 0654 05/07/21 0336 NA 134* 135* K 3.6 4.4 CL 104 105 CO2 23 23 BUN 9 9 CR 0.57 0.67 GLU 75 151* MG 0.9* 2.0 CA 5.7* 6.7* PO4 3.7 4.2 Coagulation Studies No results for input(s): PTT, INR in the last 72 hours. Renal Function: Normal Electrolyte Abnormalities: Potassium: Normal Sodium: Normal Malnutrition Details: Anemia: acute blood loss Patient Active Problem List Diagnosis (Hosp) Fall (Hosp) Acute pain due to trauma (Hosp) Osteoporosis (Hosp) Closed fracture of right distal femur (HCC) (Hosp) Impaired mobility and ADLs (Hosp) Acute blood loss anemia (Hosp) Hypocalcemia (Hosp) Hypomagnesemia (Hosp) Hyponatremia (Hosp) Trauma * Danielle Charis Maura, INSPECTOR AND CLERK-INSTRUMENT ADJUSTER - 05/07/2021 7:18 AM CDT Trauma Surgery Progress Note Today's Date: 05/07/2021 Hospital Day: Hospital Day: 3 History of Present Illness: Tere Sahu is a 75 y.o. 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 Pt reports she tripped over the door frame and fell priscila ding on her right knee. Denies any presyncopal sx. + head strike, no LOC. Denies blood thinner use. Pt found to have a R distal femur fx; ortho consulted and to ok pt to the OR on 05/06 for ORIF. IM was consulted in the setting of geriatric t rauma. Assessment & Plan: Method of injury: GLF Patient Active Problem List Diagnosis Date Noted Acute pain due to trauma 05/07/2021 Osteoporosis 05/07/2021 Closed fracture of right distal femur (HCC) 05/07/2021 Impaired mobility and ADLs 05/07/2021 Acute blood loss anemia 05/07/2021 Hypocalcemia 05/07/2021 Hypomagnesemia 05/07/2021 Hyponatremia 05/07/2021 Fall 05/05/2021 Trauma 05/05/2021 Neurologic Acute pain due to trauma, chronic neuropathy --Tylenol 1gm q6hr --robaxin 500mg BID --oxycodone 5-15mg q4hr PRN --INGOT HEADER Celebrex --INGOT HEADER gabapentin 100mg BID; 200mg QHS Cardiovascular HTN, HLD --INGOT HEADER simvastatin --holding INGOT HEADER bumex Hemodynamically stable See vital signs summary below Continue to monitor Pulmonary Stable on RA Pulmonary hygiene as needed Encourage use of IS Gastrointestinal / Fluids / Electrolytes / Nutrition Hypomagnesemia --2.0 (0.9) --Mag oxide daily Hypocalcemia --6.7 (5.7) --1g calcium gluconate IVPB today --calcium citrate daily Hyponatremia --135 (134); monitor Bowel regimen ordered Last bowel movement: 05/07 Regular diet IV saline lock in place Zofran PRN nausea Monitor and replace electrolytes PRN Genitourinary [place] removed 05/07 Urine Output 440mL/24hr Creatinine stable Hematology / Infectious Disease Acute blood loss anemia --Hgb 9.0 (10.2); no clinical signs of overt bleeding. Continue to trend seriall y. Optimize fluid balance. Monitor stools for signs of occult GI bleeding. --WBC 8.2; afebrile. No signs of infection Endocrine Osteoporosis --INGOT HEADER Fosamax states she takes on Wednesdays Hyperglycemia; likely reactive (Decadron given in OR) -- 151 (75); monitor Musculoskelatal R distal femur fx s/p ORIF 05/06 --ortho following --NWB RLE --maintain HV; output 160cc/24hr --Recommend endocrine consult --Recommend lovenox inpatient, asa 81 mg bid x28 days upon discharge -- f/u w/ Dr العلي in 2-3 weeks Impaired mobility and activities of daily living --PT/OT consulted Prophylaxis VTE: Pharmacological prophylaxis; Enoxaparin and Mechanical prophylaxis; Sequent ial compression device Disposition Continue floor care; PT/OT and pain control. Medically stable. SW/CM following f or discharge planning needs; anticipate placement needs at time of discharge. Patient discussed with Dr. Barragan during rounds. Incidental finding on chest CT: tiny 2 mm nodule at the lateral right middle lob e. This is most likely a benign etiology such as a noncalcified granuloma given the presence of a calcified granuloma. A malignant nodule is felt unlikely and t his requires no further follow-up per Fleischner Society guidelines in a low ris k patient. If the patient is considered high risk for malignancy, a follow-up CT chest in one year would be optional. Subjective Overnight Events: No acute events reported overnight. Patient resting comfortably in bed talking o n phone to her son. States she feels good today and has no complaints or concern s. Endorses tolerating diet and slept well overnight; pain controlled on current regimen. Patient denies headache, dizziness, chest pain, shortness of breath, a bdominal pain, nausea, vomiting, diarrhea, constipation. Treatment plan and goal s of care discussed with pt; v/u and in agreement. Questions answered. Objective Physical Exam: General Appearance: In no apparent distress. Alert. Pleasant and cooperative Head/Ears/Eyes/Nose/Throat: Pupils equal round and reactive to light. EOMs gross ly intact. Atraumatic. Respiratory: Lung sounds clear and equal to auscultation bilaterally. Respiratio ns even and unlabored. Cardiovascular: Regular rate and rhythm. Abdomen: Soft, round, non-tender, non-distended, bowel sounds present x 4. Extremities: Warm and well perfused; RLE DAYLIN in place, c/d/i, SILT/wiggles toes/ pulses intact/compartments soft. Moves LLE and BUE spontaneously and without com plication Neuro: Oriented to time, place, self, situation. No focal deficits. Skin: Warm, dry, intact. Scattered ecchymosis to BUE Musculoskelatal: Active range of motion and appropriate bilateral strength excep t RLE d/t injury Vital Signs (24 hours) BP: (86-121)/(52-83) Temp: [36.4 C (97.6 F)-37 C (98.6 F)] Pulse: [67-92] Respirations: [10 PER MINUTE-21 PER MINUTE] SpO2: [92 %-98 %] Medications Scheduled Meds:acetaminophen (TYLENOL EXTRA STRENGTH) tablet 1,000 mg, 1,000 mg, Oral, Q6H* calcium citrate (CALCITRATE) tablet 1,900 mg, 1,900 mg, Oral, QAM8 calcium gluconate 1 g in sodium chloride 0.9% (NS) 110 mL IVPB (MB+), 1 g, Intra venous, ONCE ceFAZolin (ANCEF) IVP 2 g, 2 g, Intravenous, Q8H* celecoxib (CeleBREX) capsule 200 mg, 200 mg, Oral, QDAY enoxaparin (LOVENOX) syringe 30 mg, 30 mg, Subcutaneous, BID gabapentin (NEURONTIN) capsule 100 mg, 100 mg, Oral, BID gabapentin (NEURONTIN) capsule 200 mg, 200 mg, Oral, QHS magnesium oxide (MAGOX) tablet 400 mg, 400 mg, Oral, BID methocarbamoL (ROBAXIN) tablet 500 mg, 500 mg, Oral, BID pantoprazole DR (PROTONIX) tablet 40 mg, 40 mg, Oral, QDAY(21) polyethylene glycol 3350 (MIRALAX) packet 17 g, 17 g, Oral, QDAY senna/docusate (SENOKOT-S) tablet 1 tablet, 1 tablet, Oral, BID Continuous Infusions: lactated ringers infusion 20 mL/hr at 05/06/21 1335 lactated ringers infusion 75 mL/hr at 05/06/21 1209 PRN and Respiratory Meds:ondansetron (ZOFRAN) IV Q6H PRN, oxyCODONE Q4H PRN I have reviewed pertinent labs, medications, radiology, and diagnostic procedure s including: active problem list, medication list, allergies, family history, so cial history, health maintenance, notes from last encounter, lab results, abhijit Santos APRN, [facility]- [id number] Trauma Team Pager: [phone] * Feliberto Bianchi MD - 05/06/2021 5:52 PM CDT Ortho Update Note: Post-Op Recommendations - PT/OT - WB status: NWB RLE - Abx: ancef 24 hrs post op - Pain control per primary team - Ortho to maintain dressings - Call ortho with questions - Recommend endocrine consult - DVT Ppx: recommend lovenox inpatient, asa 81 mg bid x28 days upon discharge - No current future plans for OR. Will continue to follow while inpatient - Patient needs to follow up with Dr العلي in 2-3 weeks. She needs to call to schedule that follow up appointment upon discharge. Feliberto Bianchi MD #[id number] * Charis Santos APRN-INSTRUMENT ADJUSTER - 05/06/2021 8:56 AM CDT Trauma Surgery Progress Note Today's Date: 05/06/2021 Hospital Day: Hospital Day: 2 History of Present Illness: Tere Sahu is a 75 y.o. female with a PMHx of osteoporosis and recent stroke who was a trauma transfer s/p mechanical, GLF while cooking dinner. Pt reports she tripped over the door frame and fell landing on her right knee. Denies any p resyncopal sx. + head strike, no LOC. Denies blood thinner use. Pt found to have a R distal femur fx; ortho consulted and took pt to the OR on 05/06 for definiti ve fixation. Subjective Overnight Events: No acute events reported overnight. Patient resting comfortably in bed; notes in creased muscle spasms in RLE but otherwise pain is controlled. Slept okay overni ght, has been NPO since admission for OR. No further complaints or concerns toda y. Patient denies headache, dizziness, chest pain, shortness of breath, abdomina l pain, nausea, vomiting, diarrhea, constipation. Reports pain is well controll ed. Objective: Physical Exam: General Appearance: In no apparent distress. Alert. Pleasant and cooperative Head/Ears/Eyes/Nose/Throat: Pupils equal round and reactive to light. EOMs gross ly intact. Atraumatic. Respiratory: Lung sounds clear and equal to auscultation bilaterally. Respiratio ns even and unlabored. Cardiovascular: Regular rate and rhythm. Abdomen: Soft, round, non-tender, non-distended, bowel sounds present x 4. Extremities: Warm and well perfused; RLE w/ knee immobilizer in place, c/d/i, SI LT/wiggles toes/pulses intact/compartments soft w/ moderate edema to R knee. Mov es LLE and BUE spontaneously and without complication Neuro: Oriented to time, place, self, situation. No focal deficits. Skin: Warm, dry, intact. Musculoskelatal: Active range of motion and appropriate bilateral strength excep t RLE d/t injury Assessment & Plan: --Pain control --DVT PPX --Bowel regimen --Monitor electrolytes/creat/ WBC/ HGB; calcium and magnesium replinished today --Monitor I/O --continue tele --Regular diet --PT/OT post operatively Disposition: Continue floor care; PT/OT and pain control post operatively. SW and CM followin g for discharge planning needs; anticipate placement needs at time of d/c. Patient discussed with Dr. Swenson during rounds. I have reviewed pertinent labs, medications, radiology, and diagnostic procedure s including: active problem list, medication list, allergies, family history, so cial history, health maintenance, notes from last encounter, lab results, abhijit Santos APRN-INSTRUMENT ADJUSTER Trauma Team Pager: [phone] * Carmelita Cordova, PT - 05/06/2021 7:25 AM CDT PHYSICAL THERAPY NOTE Name: Tere Sahu : 1945 Age: 75 y.o. Admission Date: 05/05/2021 LOS: 1 day PT/OT orders received, chart reviewed. Patient to OR this date with orthopedics; will follow-up post-operatively to evaluate/treat as indicated. Therapist: Carmelita Cordova, PT Date: 05/06/2021 * Raul Francis - 05/06/2021 7:12 AM CDT Vascular Access Team consulted to obtain lab specimen. Ultrasound Used: Yes How Many Attempts: 1 Location of Unsuccessful Attempts: na At 0654 approximately 7 ml of blood obtained from Right AC. Patient tolerated t he procedure well. Specimen labeled and sent to lab. * Ignacio Aguilar MD - 05/06/2021 6:21 AM CDT Brief Ortho Note OR today for surgical stabilization of right femur. Please keep NPO Posted, needs consent Ignacio Aguilar MD P [id number] * Jessica Banegas RT - 05/05/2021 10:27 PM CDT RT Adult Assessment Note NAME:Tere Sahu :1945 AGE: 75 y.o. ADMISSION DATE: 05/05/2021 DAYS ADMITTED: LOS: 0 days RT Treatment Plan: Protocol Plan: Procedures PAP: Place a nursing order for "IS Q1h While Awake" for any of Lung Expansion in dicators Additional Comments: Impressions of the patient: resting comfortably Intervention(s)/outcome(s): see above Patient education that was completed: none Recommendations to the care team: none Vital Signs: Pulse: 67 RR: 18 PER MINUTE SpO2: 100 % O2 Device: Liter Flow: O2%: Breath Sounds: Clear (Implies normal) Respiratory Effort: Non-Labored * Ivelisse Heck RN - 05/05/2021 7:51 PM CDT came to room and Iv already started * Liat Young MD - 05/05/2021 7:44 PM CDT Cervical Spine Clearance Radiology reviewed personally. Patient alert, oriented, and cooperative No gross motor or sensory deficits in bilateral upper and lower extremities No cervical spine tenderness to palpation Collar removed, and there was no cervical spine pain with active range of motion C-spine cleared clinically Liat Young MD Pager: [phone] * Kelsey Richardson - 05/05/2021 7:07 PM CDT Trauma Activation Type: Ad. Type 2 Trauma - Fall Patient's Name: Tere Sahu Date of (): 1945 Patient/Family Encounter: Observed patient while she was in the [facility] [place]. Quaker Preference: Unknown. Intervention/Plan: Observed patient but did not have opportunity to speak with h er directly. ED staff will contact for Molding Machine Tender support when family arrives if t hey require pastoral care. The spiritual care team is available as needed, 08/04, through the [facility] [place] ([phone]). For a response within 24 hours, please submit an order in O2 fo r a plate preparer consult. documented in this encounter H&P Notes * Charis Santos APRN-INSTRUMENT ADJUSTER - 05/07/2021 4:13 PM CDT Tertiary Trauma Survey (TTS) Date of TTS: 05/07/2021 Admission Date: 05/05/2021 Trauma Activation Type: HPI: Tere Sahu is a 75 y.o. 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 Pt reports she tripped over the door frame and fe ll landing on her right knee. Denies any presyncopal sx. + head strike, no LOC. Denies blood thinner use. Pt found to have a R distal femur fx; ortho consulted and took pt to the OR on 05/06 for ORIF. IM was consulted in the setting of geria tric trauma. PMHx: Medical History: Diagnosis Date GERD (gastroesophageal reflux disease) Hyperlipidemia Hypertension Osteoporosis TIA (transient ischemic attack) PSHx: No past surgical history on file. Social Hx: Social History Socioeconomic History Marital status: Life Partner Spouse name: Not on file Number of children: Not on file Years of education: Not on file Highest education level: Not on file Occupational History Not on file Tobacco Use Smoking status: Never Smoker Smokeless tobacco: Never Used Vaping Use Vaping Use: Never used Substance and Sexual Activity Alcohol use: Not Currently Drug use: Never Sexual activity: Not on file Other Topics Concern Not on file Social History Narrative Not on file Allergies: Allergies Allergen Reactions Pcn [Penicillins] UNKNOWN PHYSICAL ASSESSMENT General Appearance:In no apparent distress. Alert. Pleasant and cooperative Head/Ears/Eyes/Nose/Throat: Pupils equal round and reactive to light. EOMs gross ly intact. Atraumatic. Respiratory: Lung sounds clear and equal to auscultation bilaterally. Respiratio ns even and unlabored. Cardiovascular:Regular rate and rhythm. Abdomen:Soft, round, non-tender, non-distended, bowel sounds present x 4. Extremities:Warm and well perfused; RLE DAYLIN in place, c/d/i, SILT/wiggles toes /pulses intact/compartments soft. Moves LLE and BUE spontaneously and without co mplication Neuro:Oriented to time, place, self, situation. No focal deficits. Skin:Warm, dry, intact. Scattered ecchymosis to BUE Musculoskelatal:Active range of motion and appropriate bilateral strength exce pt RLE d/t injury List Injuries Identified to Date: R distal femur fx LIST OPERATIVE & Interventional RADIOLOGICAL Procedures: Procedure(s) (LRB): OPEN TREATMENT SUPRACONDYLAR/ TRANSCONDYLAR FEMORAL FRACTURE WITH INTERNAL FIXAT ION (Right) FLUORO MOBILE IN OR Final Result KNEE 1 OR 2 VIEWS RIGHT Final Result 1. Comminuted fracture of the distal femur. There is a transverse fracture of t he metadiaphysis with posterior displacement of the femoral condyles. There is a longitudinal fracture of the distal diaphysis and metadiaphysis extending to th e medial condyle. There is an oblique fracture line from the medial condyle to t he intra-articular notch with offset of the medial femoral condyle cortex. Addit ional disruption of the lateral femoral condyle cortex. This is better demonstra alyssa on CT scan. 2. There is soft tissue swelling. Finalized by Abelardo Brock M.D. on 05/06/2021 8:39 AM. Dictated by Maura Ahumada on 05/06/2021 8:[address] LOWER EXTREM WO CONT RIGHT Final Result 1. Comminuted distal femoral fracture as described with mild displacement, intra -articular extension, mild impaction, and mild posterior angulation and posterio r displacement of the distal fracture fragments containing the femoral condyles. 2. Mild infiltrating hemorrhage and mild deep soft tissue edema adjacent to the distal femur. Additional moderate subcutaneous edema about the visualized lower extremity. 3. Marked diffuse bony demineralization. Finalized by Carlos Abraham M.D. on 05/05/2021 8:47 PM. Dictated by Carlos smart M.D. on 05/05/2021 8:[address] CHEST WO CONTRAST Final Result Abnormal Addendum 1 of 1 Finalized by Carlos Abraham M.D. on 05/05/2021 7:43 PM. Dictated by Storm Taylor D.O. on 05/05/2021 7:05 PM.Addendum: Final CHEST: 1. No acute traumatic injury of the chest. 2. Subacute, healing right anterolateral rib fractures and several old left ant erolateral rib fractures. 3. Very mild areas of bilateral atelectasis and scarring. 4. Mild coronary artery calcifications. ABDOMEN AND PELVIS: 1. No major acute injury of the abdomen or pelvis. 2. Small hiatal hernia without bowel obstruction, inflammatory mass, ascites, o r free air. 3. Mild to moderate body wall edema. 4. Diffuse hepatic steatosis. By my electronic signature, I attest that I have personally reviewed the images for this examination and formulated the interpretations and opinions expressed i n this report Additional CT chest impression: 5. Tiny 2 mm nodule at the lateral right middle lobe. This is most likely a sarah gn etiology such as a noncalcified granuloma given the presence of a calcified g ranuloma. A malignant nodule is felt unlikely and this requires no further follo w-up per Fleischner Society guidelines in a low risk patient. If the patient is considered high risk for malignancy, a follow-up CT chest in one year would be o ptional per Fleischner Society guidelines. #FOLLOW Finalized by Carlos Abraham M.D. on 05/05/2021 8:10 PM. Dictated by Carlos smart M.D. on 05/05/2021 8:[address] ABD/PELV WO CONTRAST Final Result Abnormal Addendum 1 of 1 Finalized by Carlos Abraham M.D. on 05/05/2021 7:43 PM. Dictated by Storm Taylor D.O. on 05/05/2021 7:05 PM.Addendum: Final CHEST: 1. No acute traumatic injury of the chest. 2. Subacute, healing right anterolateral rib fractures and several old left ant erolateral rib fractures. 3. Very mild areas of bilateral atelectasis and scarring. 4. Mild coronary artery calcifications. ABDOMEN AND PELVIS: 1. No major acute injury of the abdomen or pelvis. 2. Small hiatal hernia without bowel obstruction, inflammatory mass, ascites, o r free air. 3. Mild to moderate body wall edema. 4. Diffuse hepatic steatosis. By my electronic signature, I attest that I have personally reviewed the images for this examination and formulated the interpretations and opinions expressed i n this report Additional CT chest impression: 5. Tiny 2 mm nodule at the lateral right middle lobe. This is most likely a sarah gn etiology such as a noncalcified granuloma given the presence of a calcified g ranuloma. A malignant nodule is felt unlikely and this requires no further follo w-up per Fleischner Society guidelines in a low risk patient. If the patient is considered high risk for malignancy, a follow-up CT chest in one year would be o ptional per Fleischner Society guidelines. #FOLLOW Finalized by Carlos Abraham M.D. on 05/05/2021 8:10 PM. Dictated by Carlos smart M.D. on 05/05/2021 8:[address] HEAD WO CONTRAST Final Result Head: 1. No acute intracranial hemorrhage or calvarial fracture. 2. Mild cerebral volume loss and nonspecific white matter disease, likely secon mois[place] to chronic microvascular ischemia. Maxillofacial: 1. Linear lucency along the nasal bridge and subtle depression of the nasal bon es and frontal processes of the maxilla, more pronounced on the left, without as sociated fracture lines. No significant paranasal soft tissue swelling. These fi ndings are suggestive of age-indeterminate fracture deformities, although, appar ent depression of the frontal processes could also be in part developmental. Cor relate for point tenderness. 2. No evidence of additional acute facial fracture or orbital hemorrhage. Cervical Spine: 1. No evidence of acute cervical spine fracture or traumatic subluxation. Trace anterolisthesis at C5-C6 and C6-C7 is likely degenerative. 2. Cervical spondylosis as described. 3. Mild interlobular septal thickening in the lung apices which can be seen wit h mild interstitial edema. Refer to CT chest for further discussion of thoracic findings. By my electronic signature, I attest that I have personally reviewed the images for this examination and formulated the interpretations and opinions expressed i n this report Finalized by German Downey M.D. on 05/05/2021 7:22 PM. Dictated by Storm Taylor D.O. on 05/05/2021 6:[address] MAXIFACIAL/SINUS WO CONTRAST Final Result Head: 1. No acute intracranial hemorrhage or calvarial fracture. 2. Mild cerebral volume loss and nonspecific white matter disease, likely secon mois[place] to chronic microvascular ischemia. Maxillofacial: 1. Linear lucency along the nasal bridge and subtle depression of the nasal bon es and frontal processes of the maxilla, more pronounced on the left, without as sociated fracture lines. No significant paranasal soft tissue swelling. These fi ndings are suggestive of age-indeterminate fracture deformities, although, appar ent depression of the frontal processes could also be in part developmental. Cor relate for point tenderness. 2. No evidence of additional acute facial fracture or orbital hemorrhage. Cervical Spine: 1. No evidence of acute cervical spine fracture or traumatic subluxation. Trace anterolisthesis at C5-C6 and C6-C7 is likely degenerative. 2. Cervical spondylosis as described. 3. Mild interlobular septal thickening in the lung apices which can be seen wit h mild interstitial edema. Refer to CT chest for further discussion of thoracic findings. By my electronic signature, I attest that I have personally reviewed the images for this examination and formulated the interpretations and opinions expressed i n this report Finalized by German Downey M.D. on 05/05/2021 7:22 PM. Dictated by Storm Taylor D.O. on 05/05/2021 6:[address] SPINE CERVICAL WO CONTRAST Final Result Head: 1. No acute intracranial hemorrhage or calvarial fracture. 2. Mild cerebral volume loss and nonspecific white matter disease, likely secon mois[place] to chronic microvascular ischemia. Maxillofacial: 1. Linear lucency along the nasal bridge and subtle depression of the nasal bon es and frontal processes of the maxilla, more pronounced on the left, without as sociated fracture lines. No significant paranasal soft tissue swelling. These fi ndings are suggestive of age-indeterminate fracture deformities, although, appar ent depression of the frontal processes could also be in part developmental. Cor relate for point tenderness. 2. No evidence of additional acute facial fracture or orbital hemorrhage. Cervical Spine: 1. No evidence of acute cervical spine fracture or traumatic subluxation. Trace anterolisthesis at C5-C6 and C6-C7 is likely degenerative. 2. Cervical spondylosis as described. 3. Mild interlobular septal thickening in the lung apices which can be seen wit h mild interstitial edema. Refer to CT chest for further discussion of thoracic findings. By my electronic signature, I attest that I have personally reviewed the images for this examination and formulated the interpretations and opinions expressed i n this report Finalized by German Downey M.D. on 05/05/2021 7:22 PM. Dictated by Storm Taylor D.O. on 05/05/2021 6:54 PM. CHEST SINGLE VIEW Final Result No acute cardiopulmonary abnormality. Finalized by Arnaldo Najera M.D. on 05/05/2021 8:11 PM. Dictated by Gianna Skaggs on 05/05/2021 8:10 PM. GENERAL RAD CHEST EXTERNAL IMAGING Final Result GENERAL RAD LOWER EXT EXTERNAL IMAGING Final Result GENERAL RAD LOWER EXT EXTERNAL IMAGING Final Result GENERAL RAD LOWER EXT EXTERNAL IMAGING Final Result POC TRAUMA ACTIVATION FAST EXAM (Results Pending) TTS completed and radiology reviewed. No additional injuries or concerns noted. Incidental finding on chest CT: tiny 2 mm nodule at the lateral right middle lob e. This is most likely a benign etiology such as a noncalcified granuloma given the presence of a calcified granuloma. A malignant nodule is felt unlikely and t his requires no further follow-up per Fleischner Society guidelines in a low ris k patient. If the patient is considered high risk for malignancy, a follow-up CT chest in one year would be optional. Charis Santos APRN-INSTRUMENT ADJUSTER * Meghan Lopez MD - 05/05/2021 6:49 PM CDT Trauma History and Physical Examination 05/05/2021 Tere Sahu [id number] Admission Date: 05/05/2021 __ HPI: Tere Sahu is a 75 y.o. year old female activated as a Type [address] sustaining a mechanical fall onto her head earlier today. She was initially evaluated at a hospital in [place], [place] where she received CXR and plain films of her R tib-fib, hip, and pelvis and was found to have a R distal femoral fract ure. She was neurologically intact and is not taking anticoagulants. Her RLE was placed in an DAYLIN wrap and she was transferred to for higher level of care. H er initial vitals were normal and were normal en route per EMS. She was trauma a ctivated upon arrival to ED for further evaluation of other injuries. PMH: HLD, Osteoporosis, GERD, peripheral edema. PSH: R hip arthroplasty; ORIF left hip; cholecystectomy Meds: --Vitamin D Qdaily --Lomotil Q8hr PRN --Aspirin 81mg Qdaily --Deborah 180mg Qdaily PRN --Aleve arthritis 220mg BID PRN --Alendronate Sod 70mg weekly --Zocor 10mg at bedtime --Omeprazole 40mg Qdaily --Gabapentin 200mg at bedtime --Gabapentin 100mg BID --Bumetanide 2mg Qdaily --Plysacc Iron 150mg Qdily Allergies: --Penicillin --streptomycin SH: Lives at home with . Does not smoke tobacco, drink alcohol or use recreat ional drugs. FH: Reviewed, non contributory ROS: A comprehensive 12 point ROS was obtained and was negative except for as st ated in HPI Objective: There were no vitals taken for this visit. No results for input(s): HGB, HCT, WBC, PLTCT, NA, K, CL, CO2, BUN, CR, GFR, GLU , CA, MG, PO4, ALBUMIN, TOTPROT, TOTBILI, AST, ALT, ALKPHOS, INR, PT, PTT, CRP, ALCOHOL in the last 72 hours. PE: Primary survey: Airway patent to voice, trachea midline Breath sounds equal bilaterally, equal chest rise Carotid, femoral palpable bilaterally, heart sounds clear GCS 15, 5/5 strength/sensation in bilateral upper and lower extremities Fast scan negative X 4 quadrants Secondary survey: HEENT: PERRLA at 3mm bilat, no skull/maxillofacial bony deformities or TTP, no s calp lacs/abrasions, no otorrhea/rhinorrhea CHEST: no clavicular, sternal or thoracic TTP/bony deformities, bilateral axilla e clear ABD: s/nt/nd BACK: no C,T,L,S spine TTP or step-off deformities, bilateral flanks clear PELVIS: no obvious instability, perineum clear, normal rectal tone with no gross blood EXT: no obvious long bone deformities, abrasions or lacs to bilateral upper and lower extremities, palpable radial/pedal pulses A/P: Tere Sahu is a 75 y.o. year old female activated as a Type [address] sustaining a mechanical fall onto her head earlier today, found to have a R distal femoral fracture on OSH imaging. -Obtain labs -Xray Chest -CT Head, C-Spine, Chest, Abdomen, Pelvis -Dispo pending imaging -Trauma Attending On-Call, Dr. Paige, present during the care of this patient . Meghan Lopez MD Pager: [phone] Associated attestation - Demond Paige MD - 05/05/2021 9:37 PM CDT ATTESTATION I personally performed the ram portions of the E/M visit, discussed case with re sident and concur with resident documentation of history, physical exam, assessm ent, and treatment plan unless otherwise noted. Right femur fracture - admit, orthopedics consultation, pain control, periop PT/ OT. Staff name: Demond Paige MD Date: 05/05/2021 documented in this encounter Consult Notes * Aleksandra Ponce RN - 05/09/2021 2:52 PM CDT Associated Order(s): CONSULT WOUND/OSTOMY TEAM NURSE Wound Ostomy Nursing Consult Service NAME:Tere Sahu :1945 AGE: 75 y.o. ADMISSION DATE: 05/05/2021 DAYS ADMITTED: LOS: 4 days Reason for Consult: wound not pressure - order entered by bedside RN "perineal a jesus - Skin is opening in creases of hips on the front. Pt is continent and uses the bedpan" Assessment/Plan: Principal Problem: Fall Active Problems: Trauma Acute pain due to trauma Osteoporosis Closed fracture of right distal femur (HCC) Impaired mobility and ADLs Acute blood loss anemia Hypocalcemia Hypomagnesemia Hyponatremia Per primary team notes: PMHx of osteoporosis, HTN, HLD, chronic neuropathy 2/2 p rior VZV infection who was a trauma transfers/p mechanical, GLF while cooking dinner. Pt reports she tripped over the door frame and fell landing on her right knee. Denies any presyncopal sx. + head strike, no LOC. Denies blood thinner us e. Pt found to have a R distal femur fx; ortho consulted and took pt to the OR o n 05/06 for ORIF. Pt resting in bed; RLE with surgical dressing and DAYLIN wrap. Bilateral lower extr emities with edema, right > left. Bilateral groin creases with pink/red blanchable discoloration with areas of superficial tissue loss r/t moisture trapping within skin fold. Pt is able to move left lower extremity to create space between legs. Nursing staff reports pt is continent and uses bedpan; pt reports hx of urine incontinence and wears brief and/or incontinence pad for management at home. PT notes indicate goals for therapy currently are to progress to edge of bed wit h brijesh lifts to chair. Discussed treatment plan - see below. Pt's RN not available; charge nurse notifi ed of recommendations. PLAN: Bilateral groin creases and perineum + gluteal cleft/buttocks - - Gently wash with warm soapy water and washcloth. Dry skin folds well. Apply th in layer of Z-paste barrier cream to skin fold 2x/day. If incontinence episode o ccurs, clean soiled layer of ointment, however, wiping skin completely bare of o intment is before applying new layer is not necessary. This actually can lead to further skin breakdown due to friction of wiping and defeats purpose of barrier ointment itself. - Given pt's limited mobility due to recent RLE surgery and reports of redness o n coccyx/sacrum, recommend upgrading pt's mattress to Envision surface. - Apply barrier cream 3x/day and more often if needed to protect skin from urine /stool. Additional layer is not necessary if residue from last application is st ill visible. - Promote air flow to groin/perineum by limiting linens and helping pt position left leg to increase distance from right leg. - Implement q2 hr turning schedule with yellow foam wedge support x 2; place one wedge at lower back/upper buttocks, second wedge at lower buttocks/upper thighs to "cradle" coccyx and offload from mattress surface - Avoid briefs when possible. Use only one underpad at a time underneath patient (do not stack/layer pads) to prevent heat/moisture trapping against skin. - Head of bed no greater than 30 degrees, unless contraindicated, to reduce fric tion/shear over sacrum/coccyx --Wound care and maintenance orders placed per skin integrity protocol. Bedside RN is responsible for wound care with patient. Supplies, if not already on unit supply cart, can be requested from [employer] [id number].-- Wounds 05/09/21 145 Moisture associated skin damage Left;Right Groin (Active) 05/09/211449 Groin Wound Type: Moisture associated skin damage Pressure Injury Stages: Pressure Injury Present On Inpatient Admission: Wound/Pressure Injury Orientation: Left;Right Wound Location Comments: groin skin folds/creases Wound Description (Comments): Wound Type:: Wound Dressing Status Removed for assessment;Changed 05/09/211449 Wound Dressing and / or Treatment Zinc oxide cream 05/09/211449 Wound Drainage Amount None 05/09/211449 Wound Base Assessment Moist;[place] 05/09/211449 Surrounding Skin Assessment Intact;[place];Red 05/09/211449 Wound Site Closure None 05/09/211449 Wound Status (Wound Team Only) Being Treated 05/09/211449 Number of days: 0 Our service will sign off at this time. 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 R femoral fracture - ortho has been consulted - will check Vit D (ordered) - she carries a 0.4% risk of RI or cardiac arrest intraop and post op per the [employer] canal boat captain perioperative risk calculator - EKG ordered - pain control per primary - PT and OT Chronic neuropathy - would cont INGOT HEADER gabapentin HLD - would resume INGOT HEADER statin Hypocalcemia, hypomag - replacement ordered by primary History of Present Illness: Tere Sahu is a 75 y.o. female who presents afte r having a fall yesterday at home. Fell in the kitchen and hit her head. Went to the local hospital where she was found to have R femoral fracture. Pt report s she has a WC, 2 walkers, and a cane. She primarily uses the cane for ambulati on which she admits she was using yesterday, but should have been using her walk er. She is able to do light yard work, but denies the ability to walk a flight of stairs. Of note she reports being seen in her local ED 1 week ago d/t R sided weakness. She reports CT and MRI head being negative and that her "vessels" were checked and were found to be normal. Medical History: Diagnosis Date Hyperlipidemia No past surgical history on file. Social History Socioeconomic History Marital status: Not on file Spouse name: Not on file Number of children: Not on file Years of education: Not on file Highest education level: Not on file Occupational History Not on file Tobacco Use Smoking status: Never Smoker Smokeless tobacco: Never Used Vaping Use Vaping Use: Never used Substance and Sexual Activity Alcohol use: Not Currently Drug use: Never Sexual activity: Not on file Other Topics Concern Not on file Social History Narrative Not on file Social Determinants of Health Financial Resource Strain: Difficulty of Paying Living Expenses: Food Insecurity: Worried About Running Out of Food in the Last Year: Ran Out of Food in the Last Year: Transportation Needs: Lack of Transportation (Medical): Lack of Transportation (Non-Medical): Physical Activity: Days of Exercise per Week: Minutes of Exercise per Session: Stress: Feeling of Stress : Social Connections: Frequency of Communication with Friends and Family: Frequency of Social Gatherings with Friends and Family: Attends [employer] Services: Active Member of Clubs or Organizations: Attends Club or Organization Meetings: Marital Status: Intimate Partner Violence: Fear of Current or Ex-Partner: Emotionally Abused: Physically Abused: Sexually Abused: Vaping/E-liquid Use Vaping Use Never User CBD Product Type Oil No family history on file. Allergies: Pcn [penicillins] Scheduled Meds:calcium carbonate (OS-RANDAL) tablet 1,250 mg, 1,250 mg, Oral, QDAY celecoxib (CeleBREX) capsule 200 mg, 200 mg, Oral, QDAY enoxaparin (LOVENOX) syringe 30 mg, 30 mg, Subcutaneous, BID gabapentin (NEURONTIN) capsule 100 mg, 100 mg, Oral, BID gabapentin (NEURONTIN) capsule 200 mg, 200 mg, Oral, QHS magnesium oxide (MAGOX) tablet 400 mg, 400 mg, Oral, BID magnesium sulfate 1 g/D5W 100 mL IVPB, 1 g, Intravenous, Q4H* Followed by magnesium sulfate 1 g/D5W 100 mL IVPB, 1 g, Intravenous, Q4H* Followed by magnesium sulfate 1 g/D5W 100 mL IVPB, 1 g, Intravenous, Q4H* Followed by magnesium sulfate 1 g/D5W 100 mL IVPB, 1 g, Intravenous, Q4H* pantoprazole DR (PROTONIX) tablet 40 mg, 40 mg, Oral, QDAY(21) polyethylene glycol 3350 (MIRALAX) packet 17 g, 17 g, Oral, QDAY potassium chloride SR (K-DUR) tablet 40 mEq, 40 mEq, Oral, ONCE senna/docusate (SENOKOT-S) tablet 1 tablet, 1 tablet, Oral, BID Continuous Infusions: lactated ringers infusion 75 mL/hr at 05/05/21 2301 PRN and Respiratory Meds:acetaminophen Q4H PRN, fentaNYL citrate PF Q1H PRN, ond ansetron (ZOFRAN) IV Q6H PRN, oxyCODONE Q4H PRN Review of Systems: A comprehensive 14 point review of systems was negative except for which is kaity alyssa below: Musculoskeletal:positive for bone pain Vital Signs: Last Filed in 24 hours Vital Signs: 24 hour Range BP: 96/58 (05/06 518) Temp: 36.7 C (98.1 F) (05/06 518) Pulse: 79 (05/06 518) Respirations: 18 PER MINUTE (05/06 518) SpO2: 97 % (05/06 518) SpO2 Pulse: 79 (05/05 2000) Height: 149.9 cm (59") (05/05 2226) BP: (96-106)/(54-64) Temp: [36.4 C (97.5 F)-36.7 C (98.1 F)] Pulse: [59-79] Respirations: [18 PER MINUTE] SpO2: [96 %-100 %] Physical Exam: General: Alert, cooperative, no distress, appears stated age Head: Bruising on left forehead Eyes: Conjunctivae/corneas clear. Nose: Nares normal. Septum midline. Mucosa normal. No sinus drainage. Throat: Lips, mucosa and tongue normal. Teeth and gums normal Neck: Supple, symmetrical, trachea midline, and no JVD Lungs: Clear to auscultation bilaterally Heart: Regular rate and rhythm, S1, S2 normal, no murmur, click rub or gallop Abdomen: Soft, non-tender. Bowel sounds normal. No masses. No organomegaly. Extremities: Extremities normal, atraumatic, no cyanosis or edema. RLE in brace Pulses: 2+ and symmetric in b/l radials Skin: Skin color, texture, turgor normal. No rashes or lesions Neurologic: CNII - XII grossly intact. Lab/Radiology/Other Diagnostic Tests: 24-hour labs: Results for orders placed or performed during the hospital encounter of 05/05/21 (from the past 24 hour(s)) CBC Collection Time: 05/05/21 6:26 PM Result Value Ref Range White Blood Cells 11.5 (H) 4.5 - 11.0 K/UL RBC 3.55 (L) 4.0 - 5.0 M/UL Hemoglobin 11.8 (L) 12.0 - 15.0 GM/DL Hematocrit 35.1 (L) 36 - 45 % MCV 98.9 80 - 100 FL MCH 33.2 26 - 34 PG MCHC 33.5 32.0 - 36.0 G/DL RDW 13.7 11 - 15 % Platelet Count 351 150 - 400 K/UL MPV 8.5 7 - 11 FL TYPE & CROSSMATCH Collection Time: 05/05/21 6:26 PM Result Value Ref Range Units Ordered 2 Crossmatch Expires 05/08/2021,2359 Record Check 2ND TYPE REQUIRED ABO/RH(D) A POS Antibody Screen NEG CBC Collection Time: 05/06/21 6:54 AM Result Value Ref Range White Blood Cells 7.4 4.5 - 11.0 K/UL RBC 3.08 (L) 4.0 - 5.0 M/UL Hemoglobin 10.2 (L) 12.0 - 15.0 GM/DL Hematocrit 29.5 (L) 36 - 45 % MCV 95.8 80 - 100 FL MCH 33.2 26 - 34 PG MCHC 34.6 32.0 - 36.0 G/DL RDW 13.7 11 - 15 % Platelet Count 302 150 - 400 K/UL MPV 8.5 7 - 11 FL BASIC METABOLIC PANEL Collection Time: 05/06/21 6:54 AM Result Value Ref Range Sodium 134 (L) 137 - 147 MMOL/L Potassium 3.6 3.5 - 5.1 MMOL/L Chloride 104 98 - 110 MMOL/L CO2 23 21 - 30 MMOL/L Anion Gap 7 3 - 12 Glucose 75 70 - 100 MG/DL Blood Urea Nitrogen 9 7 - 25 MG/DL Creatinine 0.57 0.4 - 1.00 MG/DL Calcium 5.7 (LL) 8.5 - 10.6 MG/DL eGFR Non >60 >60 mL/min eGFR >60 >60 mL/min ALCOHOL LEVEL Collection Time: 05/06/21 6:54 AM Result Value Ref Range Alcohol <10 MG/DL BETA-HCG Collection Time: 05/06/21 6:54 AM Result Value Ref Range Beta-HCG,Serum 2 <5 U/L CREATINE KINASE-CPK Collection Time: 05/06/21 6:54 AM Result Value Ref Range Creatine Kinase 115 21 - 215 U/L MAGNESIUM Collection Time: 05/06/21 6:54 AM Result Value Ref Range Magnesium 0.9 (LL) 1.6 - 2.6 mg/dL PHOSPHORUS Collection Time: 05/06/21 6:54 AM Result Value Ref Range Phosphorus 3.7 2.0 - 4.5 MG/DL Pertinent radiology reviewed. Lon Calderón MD Pager * Hiren Rodriguez MD - 05/05/2021 9:08 PM CDT Associated Order(s): CONSULT ORTHOPEDIC SURGERY PHYSICIAN Orthopedic Consult Note Admission Date: 05/05/2021 Chief Complaint/Reason for Consult: R distal femur fracture Assessment/Plan Tere Sahu is a 75 y.o. female with a R distal femur fracture after a ground level fall -Surgical intervention: Plan to proceed to OR tomorrow 05/06 for surgical stabili zation of R femur. Posted, will obtain consent -WB Status - NWB RLE, in knee immobilizer -Agree with medicine consult for evaluation of medical co-morbidities -2uPRBC held for OR -Diet: Okay for diet now from orthopedic perspective. Please keep NPO midnight -Pain control/medical management per primary -Imaging: RLE CT scan and knee films ordered Patient discussed with staff surgeon Dr. العلي who directed plan of care. During normal business hours, please contact Patricia Alfaro, Yuridia Aparicio or Maura Bianchi . At all other times, contact the orthopedic surgery resident partition notcher for any questions or concerns. Hiren Rodriguez MD [id number] History of Present Illness: Tere Sahu is a 75 y.o. female with a past medic al history significant for osteoporosis and recent stroke who was transferred to as a trauma transfer after sustaining a ground-level fall while cooking dinn er this evening. The patient states that she tripped over the door frame and fe ll landing on her right knee. She endorses hitting her head and giving herself a bloody nose. She reports multiple previous fractures including of her right h ip in 2018 for which she underwent hemiarthroplasty. Currently she endorses sev ere right knee pain. She denies pain elsewhere and denies any changes in sensat ion. The patient does not think she is currently taking blood thinners and stat es she is being treated for osteoporosis, however this history is a bit unreliab le. Medical History: Diagnosis Date Hyperlipidemia No past surgical history on file. Social History Tobacco Use Smoking status: Never Smoker Smokeless tobacco: Never Used Substance Use Topics Alcohol use: Not Currently Drug use: Never Family Hx: Reviewed and non-contributory Allergies: Pcn [penicillins] No current outpatient medications on file as of 05/05/2021. Review of Systems: Positive: R knee pain Negative: numbness, tingling in RLE Otherwise, 10 point ROS was negative except the pertinent information included i n the HPI Vital Signs: Last Filed in 24 hours BP: 105/64 (05/05 2000) Pulse: 77 (05/05 2000) Respirations: 18 PER MINUTE (05/05 2000) SpO2 Pulse: 79 (05/05 2000) Physical Exam: Constitutional: A&O, NAD HEENT: EOMI, normocephalic. Ecchymosis present above the L orbit Respiratory: Unlabored respirations Cardiovascular: Regular rate Skin: No open fractures, rashes, lacerations about the RLE. Swelling present abo ut the R knee/distal thigh Musculoskeletal: right lower extremity: TTP about the distal thigh. TA/EHL/FHL/P T function intact, states SILT throughout foot. Foot warm, well perfused with b risk cap refill, palpable DP pulses bilaterally. Edema present below the knee bi laterally. Lab/Radiology/Other Diagnostic Tests: Radiology: Reviewed CBC w/Diff Lab Results Component Value Date/Time WBC 11.5 (H) 05/05/2021 06:26 PM HGB 11.8 (L) 05/05/2021 06:26 PM HCT 35.1 (L) 05/05/2021 06:26 PM PLTCT 351 05/05/2021 06:26 PM Basic Metabolic Profile No results found for: NA, K, CL, CO2, GAP, BUN, CR, GLU Coagulation Studies No results found for: PT, PTT, INR Associated attestation - Eber العلي MD - 05/08/2021 10:52 PM CDT I saw and evaluated the patient. Discussed with resident and agree with zacharyn t's findings and plan as documented in the resident's note. Eber العلي MD Orthopaedic Trauma Attending documented in this encounter ED Notes * Aris Sullivan, - 05/05/2021 6:51 PM CDT Tere Sahu is a 75 y.o. female. Chief Complaint: Chief Complaint Patient presents with Fall transfer from [facility]. History of Present Illness: This is a 75-year-old female presenting as a type II trauma activation transfer from outside facility with report of fall, tibial fracture. Trauma activation t rauma activation per trauma service. Patient arrived, GCS = 15, in minimal dist ress. Review of Systems: Review of Systems Constitutional: Positive for fatigue. Negative for chills and fever. HENT: Negative for sore throat. Eyes: Negative for visual disturbance. Respiratory: Negative for shortness of breath. Cardiovascular: Negative for chest pain. Gastrointestinal: Negative for abdominal pain. Genitourinary: Negative for dysuria. Musculoskeletal: Positive for arthralgias. Negative for back pain. Skin: Positive for wound. Negative for rash. Neurological: Positive for weakness. Negative for dizziness, numbness and headac hes. Psychiatric/Behavioral: Negative for agitation and confusion. Allergies: Pcn [penicillins] Past Medical History: Medical History: Diagnosis Date Hyperlipidemia Past Surgical History: No past surgical history on file. Pertinent medical and surgical history reviewed Social History: Social History Tobacco Use Smoking status: Never Smoker Smokeless tobacco: Never Used Vaping Use Vaping Use: Never used Substance Use Topics Alcohol use: Not Currently Drug use: Never Social History Substance and Sexual Activity Drug Use Never CBD Product Type Oil Family History: No family history on file. Vitals: ED Vitals Date and Time T BP P RR SPO2P SPO2 User 05/05/211999 -- 105/64 77 18 PER MINUTE 79 -- SB Physical Exam: Physical Exam Vitals and nursing note reviewed. Constitutional: Appearance: Normal appearance. She is normal weight. She is not ill-appearing or diaphoretic. HENT: Head: Normocephalic. Comments: Abrasion of the left eye/forehead. Nose: Nose normal. No congestion. Mouth/Throat: Mouth: Mucous membranes are moist. Pharynx: Oropharynx is clear. Eyes: General: No scleral icterus. Extraocular Movements: Extraocular movements intact. Conjunctiva/sclera: Conjunctivae normal. Cardiovascular: Rate and Rhythm: Normal rate and regular rhythm. Pulses: Normal pulses. Heart sounds: Normal heart sounds. No murmur heard. Pulmonary: Effort: Pulmonary effort is normal. Breath sounds: Normal breath sounds. No wheezing, rhonchi or rales. Chest: Chest wall: No tenderness. Abdominal: General: Bowel sounds are normal. There is no distension. Palpations: Abdomen is soft. Tenderness: There is no abdominal tenderness. There is no guarding or rebound . Musculoskeletal: General: Tenderness, deformity and signs of injury present. Normal range of m otion. Cervical back: Neck supple. Right lower leg: No edema. Left lower leg: No edema. Comments: injury to the right lower extremity Skin: General: Skin is warm and dry. Capillary Refill: Capillary refill takes less than 2 seconds. Neurological: Mental Status: She is oriented to person, place, and time. Psychiatric: Mood and Affect: Mood normal. Behavior: Behavior normal. Laboratory Results: Labs Reviewed CBC - Abnormal Result Value Ref Range Status White Blood Cells 11.5 (*) 4.5 - 11.0 K/UL Final RBC 3.55 (*) 4.0 - 5.0 M/UL Final Hemoglobin 11.8 (*) 12.0 - 15.0 GM/DL Final Hematocrit 35.1 (*) 36 - 45 % Final MCV 98.9 80 - 100 FL Final MCH 33.2 26 - 34 PG Final MCHC 33.5 32.0 - 36.0 G/DL Final RDW 13.7 11 - 15 % Final Platelet Count 351 150 - 400 K/UL Final MPV 8.5 7 - 11 FL Final LACTIC ACID (BG - RAPID LACTATE) ALCOHOL LEVEL BETA-HCG BASIC METABOLIC PANEL CREATINE KINASE-CPK POC URINE DIPSTICK BLOOD TYPE & CROSSMATCH Units Ordered 2 Final Crossmatch Expires 05/08/2021,2359 Final Record Check 2ND TYPE REQUIRED Final ABO/RH(D) A POS Final Antibody Screen NEG Final BLOOD TYPE CONFIRMATION - ORDER ONLY IF REQUESTED BY LAB BLOOD TYPE CONFIRMATION - ORDER ONLY IF REQUESTED BY LAB PREPARE RBC'S Radiology Interpretation: KNEE 1 OR 2 VIEWS RIGHT Final Result 1. Comminuted fracture of the distal femur. There is a transverse fracture of t he metadiaphysis with posterior displacement of the femoral condyles. There is a longitudinal fracture of the distal diaphysis and metadiaphysis extending to th e medial condyle. There is an oblique fracture line from the medial condyle to t he intra-articular notch with offset of the medial femoral condyle cortex. Addit ional disruption of the lateral femoral condyle cortex. This is better demonstra alyssa on CT scan. 2. There is soft tissue swelling. Finalized by Abelardo Brock M.D. on 05/06/2021 8:39 AM. Dictated by Maura Ahumada on 05/06/2021 8:[address] LOWER EXTREM WO CONT RIGHT Final Result 1. Comminuted distal femoral fracture as described with mild displacement, intra -articular extension, mild impaction, and mild posterior angulation and posterio r displacement of the distal fracture fragments containing the femoral condyles. 2. Mild infiltrating hemorrhage and mild deep soft tissue edema adjacent to the distal femur. Additional moderate subcutaneous edema about the visualized lower extremity. 3. Marked diffuse bony demineralization. Finalized by Carlos Abraham M.D. on 05/05/2021 8:47 PM. Dictated by Carlos smart M.D. on 05/05/2021 8:[address] CHEST WO CONTRAST Final Result Abnormal Addendum 1 of 1 Finalized by Carlos Abraham M.D. on 05/05/2021 7:43 PM. Dictated by Storm Taylor D.O. on 05/05/2021 7:05 PM.Addendum: Final CHEST: 1. No acute traumatic injury of the chest. 2. Subacute, healing right anterolateral rib fractures and several old left ant erolateral rib fractures. 3. Very mild areas of bilateral atelectasis and scarring. 4. Mild coronary artery calcifications. ABDOMEN AND PELVIS: 1. No major acute injury of the abdomen or pelvis. 2. Small hiatal hernia without bowel obstruction, inflammatory mass, ascites, o r free air. 3. Mild to moderate body wall edema. 4. Diffuse hepatic steatosis. By my electronic signature, I attest that I have personally reviewed the images for this examination and formulated the interpretations and opinions expressed i n this report Additional CT chest impression: 5. Tiny 2 mm nodule at the lateral right middle lobe. This is most likely a sarah gn etiology such as a noncalcified granuloma given the presence of a calcified g ranuloma. A malignant nodule is felt unlikely and this requires no further follo w-up per Fleischner Society guidelines in a low risk patient. If the patient is considered high risk for malignancy, a follow-up CT chest in one year would be o ptional per Fleischner Society guidelines. #FOLLOW Finalized by Carlos Abraham M.D. on 05/05/2021 8:10 PM. Dictated by Carlos smart M.D. on 05/05/2021 8:[address] ABD/PELV WO CONTRAST Final Result Abnormal Addendum 1 of 1 Finalized by Carlos Abraham M.D. on 05/05/2021 7:43 PM. Dictated by Storm Taylor D.O. on 05/05/2021 7:05 PM.Addendum: Final CHEST: 1. No acute traumatic injury of the chest. 2. Subacute, healing right anterolateral rib fractures and several old left ant erolateral rib fractures. 3. Very mild areas of bilateral atelectasis and scarring. 4. Mild coronary artery calcifications. ABDOMEN AND PELVIS: 1. No major acute injury of the abdomen or pelvis. 2. Small hiatal hernia without bowel obstruction, inflammatory mass, ascites, o r free air. 3. Mild to moderate body wall edema. 4. Diffuse hepatic steatosis. By my electronic signature, I attest that I have personally reviewed the images for this examination and formulated the interpretations and opinions expressed i n this report Additional CT chest impression: 5. Tiny 2 mm nodule at the lateral right middle lobe. This is most likely a sarah gn etiology such as a noncalcified granuloma given the presence of a calcified g ranuloma. A malignant nodule is felt unlikely and this requires no further follo w-up per Fleischner Society guidelines in a low risk patient. If the patient is considered high risk for malignancy, a follow-up CT chest in one year would be o ptional per Fleischner Society guidelines. #FOLLOW Finalized by Carlos Abraham M.D. on 05/05/2021 8:10 PM. Dictated by Carlos smart M.D. on 05/05/2021 8:[address] HEAD WO CONTRAST Final Result Head: 1. No acute intracranial hemorrhage or calvarial fracture. 2. Mild cerebral volume loss and nonspecific white matter disease, likely secon moisés to chronic microvascular ischemia. Maxillofacial: 1. Linear lucency along the nasal bridge and subtle depression of the nasal bon es and frontal processes of the maxilla, more pronounced on the left, without as sociated fracture lines. No significant paranasal soft tissue swelling. These fi ndings are suggestive of age-indeterminate fracture deformities, although, appar ent depression of the frontal processes could also be in part developmental. Cor relate for point tenderness. 2. No evidence of additional acute facial fracture or orbital hemorrhage. Cervical Spine: 1. No evidence of acute cervical spine fracture or traumatic subluxation. Trace anterolisthesis at C5-C6 and C6-C7 is likely degenerative. 2. Cervical spondylosis as described. 3. Mild interlobular septal thickening in the lung apices which can be seen wit h mild interstitial edema. Refer to CT chest for further discussion of thoracic findings. By my electronic signature, I attest that I have personally reviewed the images for this examination and formulated the interpretations and opinions expressed i n this report Finalized by German Downey M.D. on 05/05/2021 7:22 PM. Dictated by Storm Taylor D.O. on 05/05/2021 6:[address] MAXIFACIAL/SINUS WO CONTRAST Final Result Head: 1. No acute intracranial hemorrhage or calvarial fracture. 2. Mild cerebral volume loss and nonspecific white matter disease, likely secon moiéss to chronic microvascular ischemia. Maxillofacial: 1. Linear lucency along the nasal bridge and subtle depression of the nasal bon es and frontal processes of the maxilla, more pronounced on the left, without as sociated fracture lines. No significant paranasal soft tissue swelling. These fi ndings are suggestive of age-indeterminate fracture deformities, although, appar ent depression of the frontal processes could also be in part developmental. Cor relate for point tenderness. 2. No evidence of additional acute facial fracture or orbital hemorrhage. Cervical Spine: 1. No evidence of acute cervical spine fracture or traumatic subluxation. Trace anterolisthesis at C5-C6 and C6-C7 is likely degenerative. 2. Cervical spondylosis as described. 3. Mild interlobular septal thickening in the lung apices which can be seen wit h mild interstitial edema. Refer to CT chest for further discussion of thoracic findings. By my electronic signature, I attest that I have personally reviewed the images for this examination and formulated the interpretations and opinions expressed i n this report Finalized by German Downey M.D. on 05/05/2021 7:22 PM. Dictated by Storm Taylor D.O. on 05/05/2021 6:[address] SPINE CERVICAL WO CONTRAST Final Result Head: 1. No acute intracranial hemorrhage or calvarial fracture. 2. Mild cerebral volume loss and nonspecific white matter disease, likely secon moisés to chronic microvascular ischemia. Maxillofacial: 1. Linear lucency along the nasal bridge and subtle depression of the nasal bon es and frontal processes of the maxilla, more pronounced on the left, without as sociated fracture lines. No significant paranasal soft tissue swelling. These fi ndings are suggestive of age-indeterminate fracture deformities, although, appar ent depression of the frontal processes could also be in part developmental. Cor relate for point tenderness. 2. No evidence of additional acute facial fracture or orbital hemorrhage. Cervical Spine: 1. No evidence of acute cervical spine fracture or traumatic subluxation. Trace anterolisthesis at C5-C6 and C6-C7 is likely degenerative. 2. Cervical spondylosis as described. 3. Mild interlobular septal thickening in the lung apices which can be seen wit h mild interstitial edema. Refer to CT chest for further discussion of thoracic findings. By my electronic signature, I attest that I have personally reviewed the images for this examination and formulated the interpretations and opinions expressed i n this report Finalized by German Downey M.D. on 05/05/2021 7:22 PM. Dictated by Storm Taylor D.O. on 05/05/2021 6:54 PM. CHEST SINGLE VIEW Final Result No acute cardiopulmonary abnormality. Finalized by Arnaldo Najera M.D. on 05/05/2021 8:11 PM. Dictated by Gianna Skaggs on 05/05/2021 8:10 PM. POC TRAUMA ACTIVATION FAST EXAM (Results Pending) ED Course: Pt seen and evaluated immediately upon arrival as a Trauma Activation. ATLS protocol followed. IV access was established. Pt placed on oxygen prn. Pt placed on cardiac and pulse oximetry monitors. Initial labs and imaging tests were ordered by nursing via protocol/order set. Emergency medicine team available to evaluate the airway and to address any acut e airway needs/issues. None required C-collar exchanged by EM resident and staff physician. Available labs and imaging reviewed and noted as above. Pt care discussed with the trauma team. Labs and imaging ordered by the trauma team and to be followed by the trauma tea m. Unless otherwise noted, all further labs, radiology orders, interventions, proce dures, consultations and disposition decisions were done at the discretion of [facility] trauma team/attending. Pt care transferred to the trauma team and attending upon leaving the trauma bay . Disposition per the trauma team. ED Scoring: MDM Reviewed: previous chart, nursing note and vitals Reviewed previous: ECG and labs Interpretation: labs, ECG and x-ray Consults: Admitting Provider and Trauma Facility Administered Meds: Medications gabapentin (NEURONTIN) capsule 200 mg (has no administration in time range) gabapentin (NEURONTIN) capsule 100 mg (has no administration in time range) pantoprazole DR (PROTONIX) tablet 40 mg (has no administration in time range) fentaNYL citrate PF (SUBLIMAZE) injection 25-50 mcg (50 mcg Intravenous Given 2106) fentaNYL citrate PF (SUBLIMAZE) injection 50 mcg (50 mcg Intravenous Given 1945) Clinical Impression: Clinical Impression Trauma Disposition/Follow up ED Disposition None No follow-up provider specified. Medications: Current Discharge Medication List Procedure Notes: Procedures Attestation / Supervision: Momo Blackmon MD Department of Emergency Medicine Voalte preferred | Callback [phone] ATTESTATION I personally observed the resident performing the E/M, discussed case with resid ent, and concur with resident documentation of history, physical assessment and treatment plan unless otherwise noted. Staff name: Aris Sullivan DO Date: 05/06/2021 documented in this encounter Miscellaneous Notes * Case Mgmt DC Plan - Farida Lindo - 05/11/2021 9:10 AM CDT Case Management Progress Note NAME:Tere Sahu :[birth year] AGE: 75 y.o. ADMISSION DATE: 05/05/2021 DAYS ADMITTED: LOS: 6 days Todays Date: 05/11/2021 Plan Dc to [facility] at 9am Interventions Support Info or Referral Discharge Planning Discharge Planning: [facility] SWATI confirmed pt is stable for dc. SWATI faxed dc orders to [facility]. Medication Needs Financial Legal Other Disposition Expected Discharge Date 05/11/2021 12:00 PM Transportation Does the Patient Need Case Management to Arrange Discharge Transport? (ex: faci lity, ambulance, wheelchair/stretcher, Medicaid, cab, other): Yes Type of Transport: Stretcher van Will the Patient Use Family Transport?: No Next Level of Care (Acute Psych discharges only) Discharge Disposition Selected Continued Care - Admitted Since 05/05/2021 Destination Coordination complete. Service Provider Selected Services Address Phone Fax Patient Preferred [facility] [facility] [address] [facility] [phone] * Care Plan - Kelvin Seymour RN - 05/10/2021 2:10 PM CDT Problem: Discharge Planning Goal: Participation in plan of care Outcome: Goal Ongoing Goal: Knowledge regarding plan of care Outcome: Goal Ongoing Goal: Prepared for discharge Outcome: Goal Ongoing Problem: Infection, Risk of, Urinary Catheter-Associated Urinary Tract Infection Goal: Absence of urinary catheter-associated infection Outcome: Goal Ongoing Problem: Respiratory Impairment (Non-Ventilated Patient) Goal: Effective gas exchange Outcome: Goal Ongoing Problem: Skin Integrity Goal: Skin integrity intact Outcome: Goal Ongoing Goal: Healing of skin (Wound & Incision) Outcome: Goal Ongoing Problem: High Fall Risk Goal: High Fall Risk Outcome: Goal Ongoing Problem: Pain Goal: Management of pain Outcome: Goal Ongoing Goal: Knowledge of pain management Outcome: Goal Ongoing Goal: Progress Toward Pain Management Goals Outcome: Goal Ongoing Problem: Self-Care Deficit Goal: Maximize ADL functioning Outcome: Goal Ongoing Problem: Mobility/Activity Intolerance Goal: Maximize functional ADL's and mobility outcomes Outcome: Goal Ongoing * Case Mgmt DC Plan - Mayra Roman - 05/10/2021 11:42 AM CDT MANAGER COMBINATION Note: Arranged stretcher transport with [facility] for pt to DC to [facility] on 05/11 at 9am per the request from MIRACLE Saucedo. [place] to pay. Notified Nurse and [facility]. Mayra Roman Architectural Associate For additional assistance please contact [facility] *[phone] * Case Mgmt DC Plan - Farida Lindo - 05/10/2021 9:34 AM CDT Case Management Progress Note NAME:Tere Sahu :[birth year] AGE: 75 y.o. ADMISSION DATE: 05/05/2021 DAYS ADMITTED: LOS: 5 days Todays Date: 05/10/2021 Plan Dc to [facility] at 9am tomorrow via [employer]. Interventions Support Info or Referral Discharge Planning Discharge Planning: [facility] SW reached out to [facility], they confirmed having pt's referral and are curre ntly checking pt's financials. UPDATE SW updated by [facility], they are able to accept pt and can have pt transfer t omorrow. SW tasked MANAGER COMBINATION to arrange transport (stretcher). SW updated medical team and pt's SO ([place]). Pt is not safe to ride in a personal vehicle and unable to sit safely in a wheel chair. Facility is unable to transport pt due to distance and family is unable t o afford transport. To avoid a delay in dc, SW had transport arranged. Medication Needs Financial Legal Other Disposition Expected Discharge Date 05/09/2021 12:00 PM Transportation Does the Patient Need Case Management to Arrange Discharge Transport? (ex: faci lity, ambulance, wheelchair/stretcher, Medicaid, cab, other): Yes Type of Transport: Stretcher van Will the Patient Use Family Transport?: No Next Level of Care (Acute Psych discharges only) Discharge Disposition Selected Continued Care - Admitted Since 05/05/2021 No services have been selected for the patient. * Care Plan - Teodora Luque RN - 05/10/2021 2:49 AM CDT Problem: Discharge Planning Goal: Participation in plan of care Outcome: Goal Ongoing Participation in Plan of Care: Involve patient/caregiver in care planning zaidi on making Goal: Knowledge regarding plan of care Outcome: Goal Ongoing Knowledge regarding plan of care: Provide admission education to parent/caregiver Provide fall prevention education Provide plan of care education Provide infection prevention education Provide medication management education Provide procedural and treatment education Goal: Prepared for discharge Outcome: Goal Ongoing Prepared for discharge: Complete ADL ability assessment Provide safe use medical equipment education Provide discharge activity restrictions education Collaborate with multidisciplinary team for hospital discharge coordination Provide discharge materials appropriate to patient condition Provide diet and oral health education Problem: Skin Integrity Goal: Skin integrity intact Outcome: Goal Ongoing Skin integrity intact: Assess nutrition Promote nutrition Assure position change Monitor skin integrity Reduce skin shear, friction and tissue load Consider consult for skin integrity Provide skin self-assessment education Provide incontinence management interventions Provide skin care interventions Goal: Healing of skin (Wound & Incision) Outcome: Goal Ongoing Healing of wound (wounds and Incisions): Assess for signs and symptoms of wound infection Assess wound site healing Implement wound/incision care as ordered Provide wound/incision care as ordered Problem: High Fall Risk Goal: High Fall Risk Outcome: Goal Ongoing High Fall Risk: All patients will receive: High fall risk sign, yellow wristband, yellow socks, gait belt, and shower shoes Stay with the patient while toileting/showering Move patient near RN station if confused (if possible) Maximize bed functionality (optimize bed height, firm/flat surface) Assess need for bedside commode with drop arm to be available in room Assess need for: quick release belt, PSM (video monitoring), assist x2 using cl inical staff/equipment Use safe patient handling equipment as appropriate PT/OT consult for fall prevention assessment if scoring in Unsteady Gait or Vis ual or Auditory impairment Educate patient to use call-light if tethered Remove excess equipment/supplies Engage bed alarm - middle setting Engage chair alarm Use shower shoes Problem: Pain Goal: Management of pain Outcome: Goal Ongoing Management of pain: Complete pain assessment scale according to age, condition and ability to under stand. Assess opioid analgesia side-effects. In the patient who can fully report pain, assess pain characteristics. Manage pain. Assess pain control barriers. Goal: Knowledge of pain management Outcome: Goal Ongoing Knowledge of pain management: Provide pain scale education Provide pain management methods education Provide pharmacological pain management education Goal: Progress Toward Pain Management Goals Outcome: Goal Ongoing Progress toward pain management goals: Progress toward pain management goals Assess progress toward pain management goals Problem: Self-Care Deficit Goal: Maximize ADL functioning Outcome: Goal Ongoing Problem: Mobility/Activity Intolerance Goal: Maximize functional ADL's and mobility outcomes Outcome: Goal Ongoing Maximize functional ADLs and mobility outcomes: Administer oxygen to maintain SpO2 at approprate levels Manage environmental safety Manage energy conservation for mobility/activity intolerance Maintain body position Consider consult for mobility/activity intolerance Physical thrapy evaluation and treatment * Case Mgmt DC Plan - Janina Abbott - 05/09/2021 5:21 PM CDT MANAGER COMBINATION Note: Delivered a Medicare SNF list to Pt, explained the list. Pt looked at list and r equested that I send a referral to the facility listed below., updated [facility], Lisa kyle Cleary that referral was sent [facility] [address], [place] [address] Janina Abbott Architectural Associate * Case Mgmt DC Plan - Mayra Roman - 05/09/2021 10:28 AM CDT MANAGER COMBINATION Note: Called [facility] in [place], [place] to follow up on the SNF referral per the reque st from MIRACLE Dobbs. MANAGER COMBINATION spoke to Do and was informed that she spoke t o [facility] this morning stating that they will have to decline the referral due t o transportation issues due to pt needing several follow up appts in and not enough staff to provide the transportation. Mayra Roman Architectural Associate * Case Mgmt DC Raul - Fay Cleary LMSW - 05/09/2021 9:32 AM CDT Case Management Progress Note NAME:Tere Sahu :[birth year] AGE: 75 y.o. ADMISSION DATE: 05/05/2021 DAYS ADMITTED: LOS: 4 days Todays Date: 05/09/2021 Plan Discharge to inpatient setting pending facility acceptance. Interventions Support Info or Referral Discharge Planning Discharge Planning: [facility] SW tasked MANAGER COMBINATION to follow up on SNF referral with [facility] in [place], [place]. MANAGER COMBINATION reports [facility] is not able to accept due to pt needing follow up ap pointments in [place] and not being able to provide transportation to [facility] this. SWATI spoke with pt to provide update. She is agreeable to reviewing list of add itional facilities. SW tasked MANAGER COMBINATION to deliver SNF list from Medicare with quality measure ratings. SW will plan to follow up with pt tomorrow morning and will send out additional referrals. Medication Needs Financial Legal Other Disposition Expected Discharge Date 05/09/2021 12:00 PM Transportation Does the Patient Need Case Management to Arrange Discharge Transport? (ex: faci lity, ambulance, wheelchair/stretcher, Medicaid, cab, other): Yes Type of Transport: Stretcher van Will the Patient Use Family Transport?: No Next Level of Care (Acute Psych discharges only) Discharge Disposition Selected Continued Care - Admitted Since 05/05/2021 No services have been selected for the patient. Fay Cleary LMSW [facility] General Manager Desk: [phone] Pager: [phone] * Care Plan - Teodora Luque RN - 05/08/2021 11:53 PM CDT Problem: Discharge Planning Goal: Participation in plan of care Outcome: Goal Ongoing Participation in Plan of Care: Involve patient/caregiver in care planning decisi on making Goal: Knowledge regarding plan of care Outcome: Goal Ongoing Knowledge regarding plan of care: Provide admission education to parent/caregiver Provide fall prevention education Provide plan of care education Provide infection prevention education Provide medication management education Provide procedural and treatment education Goal: Prepared for discharge Outcome: Goal Ongoing Prepared for discharge: Complete ADL ability assessment Provide safe use medical equipment education Provide discharge activity restrictions education Collaborate with multidisciplinary team for hospital discharge coordination Provide discharge materials appropriate to patient condition Provide diet and oral health education Problem: Respiratory Impairment (Non-Ventilated Patient) Goal: Effective gas exchange Outcome: Goal Ongoing Effective Gas Exchange: Promote incentive spirometry Assess oxygen/gas administration Monitor pulse oximetry Administer pharmacological therapies as ordered Problem: Skin Integrity Goal: Skin integrity intact Outcome: Goal Ongoing Skin integrity intact: Assess nutrition Promote nutrition Assure position change Monitor skin integrity Reduce skin shear, friction and tissue load Consider consult for skin integrity Provide skin self-assessment education Provide incontinence management interventions Provide skin care interventions Goal: Healing of skin (Wound & Incision) Outcome: Goal Ongoing Healing of wound (wounds and Incisions): Assess for signs and symptoms of wound infection Assess wound site healing Implement wound/incision care as ordered Provide wound/incision care as ordered Problem: High Fall Risk Goal: High Fall Risk Outcome: Goal Ongoing High Fall Risk: All patients will receive: High fall risk sign, yellow wristband, yellow socks, gait belt, and shower shoes Stay with the patient while toileting/showering Move patient near RN station if confused (if possible) Maximize bed functionality (optimize bed height, firm/flat surface) Assess need for bedside commode with drop arm to be available in room Assess need for: quick release belt, PSM (video monitoring), assist x2 using cl inical staff/equipment Use safe patient handling equipment as appropriate PT/OT consult for fall prevention assessment if scoring in Unsteady Gait or Vis ual or Auditory impairment Educate patient to use call-light if tethered Remove excess equipment/supplies Engage bed alarm - middle setting Engage chair alarm Use shower shoes Problem: Pain Goal: Management of pain Outcome: Goal Ongoing Management of pain: Complete pain assessment scale according to age, condition and ability to under stand. Assess opioid analgesia side-effects. In the patient who can fully report pain, assess pain characteristics. Manage pain. Assess pain control barriers. Goal: Knowledge of pain management Outcome: Goal Ongoing Knowledge of pain management: Provide pain scale education Provide pain management methods education Provide pharmacological pain management education Goal: Progress Toward Pain Management Goals Outcome: Goal Ongoing Progress toward pain management goals: Progress toward pain management goals Assess progress toward pain management goals Problem: Self-Care Deficit Goal: Maximize ADL functioning Outcome: Goal Ongoing Problem: Mobility/Activity Intolerance Goal: Maximize functional ADL's and mobility outcomes Outcome: Goal Ongoing Maximize functional ADLs and mobility outcomes: Administer oxygen to maintain SpO2 at approprate levels Manage environmental safety Manage energy conservation for mobility/activity intolerance Maintain body position Consider consult for mobility/activity intolerance Physical thrapy evaluation and treatment * Case Mgmt DC Raul - Mayra Roman - 05/08/2021 1:34 PM CDT MANAGER COMBINATION Note: Faxed pt's initial SNF referral to [facility] in [facility] per the request fro maura Cleary LMSW. Mayra Roman Architectural Associate * Case Mgmt DC Plan - Fay Cleary LMSW - 05/08/2021 10:59 AM CDT Case Management Progress Note NAME:Tere Sahu :[birth year] AGE: 75 y.o. ADMISSION DATE: 05/05/2021 DAYS ADMITTED: LOS: 3 days Todays Date: 05/08/2021 Plan Discharge to inpatient setting pending facility acceptance. Interventions Support Info or Referral Discharge Planning Discharge Planning: [facility] SW reviewed EMR. Pt requiring AX2 for transfers. PT/OT recommending inpatient setting. Per EMR pt has had prior stay at [facility] ([place], [place]). SW tasked MANAGER COMBINATION to send initial referral to SNF. SW appreciates MANAGER COMBINATION assistance. Medication Needs Financial Legal Other Disposition Expected Discharge Date 05/12/2021 Transportation Does the Patient Need Case Management to Arrange Discharge Transport? (ex: faci lity, ambulance, wheelchair/stretcher, Medicaid, cab, other): Yes Type of Transport: Stretcher van Will the Patient Use Family Transport?: No Next Level of Care (Acute Psych discharges only) Discharge Disposition Selected Continued Care - Admitted Since 05/05/2021 No services have been selected for the patient. Fay Cleary LMSW [facility] General Manager Desk: [phone] Pager: [phone] * Care Plan - Teodora Luque RN - 05/08/2021 1:03 AM CDT Problem: Discharge Planning Goal: Participation in plan of care Outcome: Goal Ongoing Participation in Plan of Care: Involve patient/caregiver in care planning decisi on making Goal: Knowledge regarding plan of care Outcome: Goal Ongoing Knowledge regarding plan of care: Provide admission education to parent/caregiver Provide fall prevention education Provide plan of care education Provide infection prevention education Provide medication management education Provide procedural and treatment education Goal: Prepared for discharge Outcome: Goal Ongoing Prepared for discharge: Complete ADL ability assessment Provide safe use medical equipment education Provide discharge activity restrictions education Collaborate with multidisciplinary team for hospital discharge coordination Provide discharge materials appropriate to patient condition Provide diet and oral health education Problem: Infection, Risk of, Urinary Catheter-Associated Urinary Tract Infection Goal: Absence of urinary catheter-associated infection Outcome: Goal Ongoing Absence of urinary catheter-associated infections: Manage urinary catheter Collect urinne specimens appropriately Provide patient/family education on CAUTI prevention Provide urinary catheter home care education Assess for signs and sypmtoms of catheter-associated urinary tract infection Problem: Respiratory Impairment (Non-Ventilated Patient) Goal: Effective gas exchange Outcome: Goal Ongoing Effective Gas Exchange: Promote incentive spirometry Assess oxygen/gas administration Monitor pulse oximetry Administer pharmacological therapies as ordered Problem: Skin Integrity Goal: Skin integrity intact Outcome: Goal Ongoing Skin integrity intact: Assess nutrition Promote nutrition Assure position change Monitor skin integrity Reduce skin shear, friction and tissue load Consider consult for skin integrity Provide skin self-assessment education Provide incontinence management interventions Provide skin care interventions Goal: Healing of skin (Wound & Incision) Outcome: Goal Ongoing Healing of wound (wounds and Incisions): Assess for signs and symptoms of wound infection Assess wound site healing Implement wound/incision care as ordered Provide wound/incision care as ordered Problem: High Fall Risk Goal: High Fall Risk Outcome: Goal Ongoing High Fall Risk: All patients will receive: High fall risk sign, yellow wristband, yellow socks, gait belt, and shower shoes Stay with the patient while toileting/showering Move patient near RN station if confused (if possible) Maximize bed functionality (optimize bed height, firm/flat surface) Assess need for bedside commode with drop arm to be available in room Assess need for: quick release belt, PSM (video monitoring), assist x2 using cl inical staff/equipment Use safe patient handling equipment as appropriate PT/OT consult for fall prevention assessment if scoring in Unsteady Gait or Vis ual or Auditory impairment Educate patient to use call-light if tethered Remove excess equipment/supplies Engage bed alarm - middle setting Engage chair alarm Use shower shoes Problem: Pain Goal: Management of pain Outcome: Goal Ongoing Management of pain: Complete pain assessment scale according to age, condition and ability to under stand. Assess opioid analgesia side-effects. In the patient who can fully report pain, assess pain characteristics. Manage pain. Assess pain control barriers. Goal: Knowledge of pain management Outcome: Goal Ongoing Knowledge of pain management: Provide pain scale education Provide pain management methods education Provide pharmacological pain management education Goal: Progress Toward Pain Management Goals Outcome: Goal Ongoing Progress toward pain management goals: Progress toward pain management goals Assess progress toward pain management goals Problem: Self-Care Deficit Goal: Maximize ADL functioning Outcome: Goal Ongoing Problem: Mobility/Activity Intolerance Goal: Maximize functional ADL's and mobility outcomes Outcome: Goal Ongoing Maximize functional ADLs and mobility outcomes: Administer oxygen to maintain SpO2 at approprate levels Manage environmental safety Manage energy conservation for mobility/activity intolerance Maintain body position Consider consult for mobility/activity intolerance Physical thrapy evaluation and treatment * Procedures (Immed Post or Bedside) - Feliberto Bianchi MD - 05/06/2021 5:51 PM CDT Brief Operative Note Name: Tere Sahu is a 75 y.o. female : 1945 MRN#: [id number] DATE OF OPERATION: 05/06/2021 Date: 05/06/2021 Preoperative Dx: Trauma [T14.90XA] Post-op Diagnosis * Trauma [T14.90XA] Procedure(s) (LRB): OPEN TREATMENT SUPRACONDYLAR/ TRANSCONDYLAR FEMORAL FRACTURE WITH INTERNAL FIXAT ION (Right) Surgeon(s) and Role: * Eber العلي MD - Primary * Rashid Jo MD - Resident - Assisting * Feliberto Bianchi MD - Resident - Assisting Findings: Right distal femur fracture Estimated Blood Loss: No blood loss documented. Specimen(s) Removed/Disposition: * No specimens in log * Complications: None Implants: Implant Name Type Inv. Item Serial No. Operations And Maintenance Specialist Lot No. [id number] No. Used Action PLATE CURVE 301MM STAINLESS ST 4.5MM SCR 14 HL RT - [id number] PLATE CURVE [address] 4.5MM SCR 14 HL RT DEPUY SYNTHES CO X Right 1 Implant ed SCREW BONE 5MM 10MM LCP STAINLESS STEEL T25 CONDYLE VARIABLE - [id number] SCRE W BONE 5MM 10MM LCP STAINLESS STEEL T25 CONDYLE VARIABLE 02.010 DEPUY SYNTHE S CO X Right 2 Implanted SCREW BONE 5MM 12MM LCP STAINLESS STEEL T25 CONDYLE VARIABLE - [id number] SCRE W BONE 5MM 12MM LCP STAINLESS STEEL T25 CONDYLE VARIABLE 02.231.012 DEPUY SYNTHE S CO X Right 1 Implanted SCREW BONE 5MM 60MM VA-LCP STAINLESS STEEL 3.5MM [place] - [id number] SCREW HATTIE NE 5MM 60MM VA-LCP STAINLESS STEEL 3.5MM [place] 02.231.660 DEPUY SYNTHES CO X R ight 2 Implanted SCREW BONE 5MM 3.5MM 65MM LCP STAINLESS STEEL CONDYLAR - [id number] SCREW BONE 5MM 3.5MM 65MM LCP STAINLESS STEEL CONDYLAR 02.231.665 DEPUY SYNTHES CO X Right 3 Implanted SCREW BONE 5MM 3.5MM 70MM LCP STAINLESS STEEL CONDYLAR - [id number] SCREW BONE 5MM 3.5MM 70MM LCP STAINLESS STEEL CONDYLAR 02.231.670 DEPUY SYNTHES CO X Right 1 Implanted SCREW BONE 4.5MM 8MM 30MM LCP STAINLESS STEEL PERIARTICULAR - [id number] SCREW HATTIE NE 4.5MM 8MM 30MM LCP STAINLESS STEEL PERIARTICULAR 214.830 DEPUY SYNTHES CO X R ight 3 Implanted SCREW BONE 4.5MM 8MM 36MM LCP STAINLESS STEEL PERIARTICULAR - [id number] SCREW HATTIE NE 4.5MM 8MM 36MM LCP STAINLESS STEEL PERIARTICULAR 214.836 DEPUY SYNTHES CO X R ight 1 Implanted Drains: 1 HV drain Disposition: PACU - stable Feliberto Bianchi MD Pager [phone] Associated attestation - Eber العلي MD - 05/08/2021 10:49 PM CDT I saw and evaluated the patient. Discussed with resident and agree with darshana t's findings and plan as documented in the resident's note. Eber العلي MD Orthopaedic Trauma Attending * Care Plan - Humberto Guillen RN - 05/06/2021 4:24 PM CDT Problem: Discharge Planning Goal: Participation in plan of care Outcome: Goal Ongoing Goal: Knowledge regarding plan of care Outcome: Goal Ongoing Goal: Prepared for discharge Outcome: Goal Ongoing Problem: Infection, Risk of, Urinary Catheter-Associated Urinary Tract Infection Goal: Absence of urinary catheter-associated infection Outcome: Goal Ongoing Flowsheets (Taken 05/06/2021 1623) Absence of urinary catheter-associated infections: Manage urinary catheter Collect urinne specimens appropriately Provide patient/family education on CAUTI prevention Provide urinary catheter home care education Assess for signs and sypmtoms of catheter-associated urinary tract infection Problem: Respiratory Impairment (Non-Ventilated Patient) Goal: Effective gas exchange Outcome: Goal Ongoing Problem: Skin Integrity Goal: Skin integrity intact Outcome: Goal Ongoing Flowsheets (Taken 05/06/2021 1623) Skin integrity intact: Assess nutrition Promote nutrition Assure position change Monitor skin integrity Reduce skin shear, friction and tissue load Consider consult for skin integrity Provide skin self-assessment education Provide incontinence management interventions Provide skin care interventions Goal: Healing of skin (Wound & Incision) Outcome: Goal Ongoing Goal: Healing of skin (Pressure Injury) Outcome: Goal Achieved Problem: High Fall Risk Goal: High Fall Risk Outcome: Goal Ongoing High Fall Risk: All patients will receive: High fall risk sign, yellow wristband, yellow socks, gait belt, and shower shoes Stay with the patient while toileting/showering Move patient near RN station if confused (if possible) Maximize bed functionality (optimize bed height, firm/flat surface) Assess need for bedside commode with drop arm to be available in room Assess need for: quick release belt, PSM (video monitoring), assist x2 using cl inical staff/equipment Use safe patient handling equipment as appropriate PT/OT consult for fall prevention assessment if scoring in Unsteady Gait or Vis ual or Auditory impairment Educate patient to use call-light if tethered Remove excess equipment/supplies Engage bed alarm - middle setting Engage chair alarm Use shower shoes Problem: Pain Goal: Management of pain Outcome: Goal Ongoing Flowsheets (Taken 05/06/2021 1623) Management of pain: Complete pain assessment scale according to age, condition and ability to under stand. Assess opioid analgesia side-effects. In the patient who can fully report pain, assess pain characteristics. Manage pain. Assess pain control barriers. Goal: Knowledge of pain management Outcome: Goal Ongoing Flowsheets (Taken 05/06/2021 1623) Knowledge of pain management: Provide pain scale education Provide pain management methods education Provide pharmacological pain management education Goal: Progress Toward Pain Management Goals Outcome: Goal Ongoing Flowsheets (Taken 05/06/2021 1623) Progress toward pain management goals: Progress toward pain management goals Assess progress toward pain management goals * Operative Report (Direct Entry) - Eber العلي MD - 05/06/2021 4:04 PM CDT OPERATIVE REPORT PATIENT: Tere Sahu SEX: Female : 1945 AGE: 75 y.o. SERVICE: ORTHOPEDICS DATE OF PROCEDURE: 05/06/21 * * * * * * * * * * * * * * * * * * * * * * * * * * * * * * * * DATE OF PROCEDURE: 05/06/21 PREOPERATIVE DIAGNOSIS: 1. Left supraacondylar distal femur fracture with intercondylar extension 2. Osteoporosis POSTOPERATIVE DIAGNOSES: 1. Left supraacondylar distal femur fracture with intercondylar extension 2. Osteoporosis OPERATIVE PROCEDURE: 1. Open reduction and internal fixation of supraacondylar distal femur fracture without intercondylar extension CPT: 21534 ATTENDING SURGEON: Eber العلي MD RESIDENT SURGEON: Rashid Jo ESTIMATED BLOOD LOSS: 100 mL. DRAINS: hemovac REPLACEMENT: IV fluids, see anesthesia log, crystalloid only. SPECIMENS: None. IMPLANT: Synthes INDICATIONS: This is a 75 y.o. patient who who previously had a right hip hemia rthroplasty and now sustained a ground-level fall resulting in a anterior articu lar distal femoral fracture. Given this she was indicated for the above procedu res when she was cleared from an overall trauma and medical perspective. The ri sk benefits alternatives of the procedure were discussed at length with the zuleika ent and informed consent was obtained. No guarantees were given. TECHNIQUE: The patient was brought to the operating room where general anesthes ia was induced. Following induction the patient was placed supine on a radioluc ent fracture table. The right lower extremity was prepped and draped in a stand joshua fashion. An appropriate timeout was conducted in accordance with establishe d protocol. The patient received 2 g Ancef within 1 hour of the incision and ap propriate radiographs were displayed. We began the procedure vice versa positioning the right lower extremity over a r adiolucent triangle with a well-positioned bump in order to help further our red uction of the distal femoral fracture. We did place a proximal tibial traction pin utilizing a 2.0 mm K wire placed just distal to the tibial tubercle in a bic ortical fashion in the proximal tibia. To this we attached approximately 20 la nds of weight which we hung off the end of the bed in order to help pull the fra cture out to length and 8 oh reduction. Following this we made an approximately 10 cm incision along the distal lateral aspect of the thigh curving towards the tibial tubercle. We came down sharply through the skin and subcutaneous tissue . We then made a lateral parapatellar arthrotomy and extended this deep dissect ion proximally in line with the fibers of the IT band. We elevated the vastus l ateralis off the lateral aspect of the femur ensuring that we ligated any perfor ating vessels. We excised the infrapatellar fat pad and some periarticular fat in order to fully visualize the articular surface of the distal femur. With ful l visualization of the distal femur intercondylar fracture I we removed any inte rposing soft tissue or hematoma. We then reduced the intra-articular fracture u tilizing manual manipulation and bone reduction clamps. Once the fracture was r educed anatomically and clamped we provisionally placed K wires across the fract ure. At this point we then further manipulated the distal metaphyseal fracture in order to get the appropriate length alignment and rotation. We provisionally held the overall reduction with 2 3.2 mm guidewires placed medially and lateral ly across the fracture into the femoral shaft in order to hold the reduction. W e then placed a long Synthes 4.5 mm distal femoral locking plate in a submuscula r fashion onto the lateral aspect of the femur. We pinned it into the appropria te position after confirming this with fluoroscopy. We then placed a nonlocking screw proximally through a small stab incision in order to bring the plate down to bone. Once this was done we sequentially placed locking screws across the a rticular surface in order to hold the reduction of the articular surface in the distal segment of the fracture. We then placed 3 more nonlocking screws proxima lly distal to the femoral stem with a hemiarthroplasty in order to secure fixati on of the shaft. We then bypassed the stem for at least 2 cortical diameters an d placed unicortical locking screws adjacent to this in order to bring the plate down to bone and stabilize our fixation. Once this was done we took a final ra diographs confirm appropriate reduction and hardware positioning. We copiously irrigated the wound with normal saline solution. We placed a gram of vancomycin powder deep within the wound. We placed a Hemovac drain deep within the wound. We closed the lateral parapatellar arthrotomy in the IT band with a 0 PDS sutu re. The skin was closed in multiple layers consisting of 2-0 PDS and geovany. Sterile dressings were then applied and the patient was fully awakened from anes thesia having tolerated the procedure well without complication. POSTOPERATIVE PLAN: Should be nonweightbearing on the right lower extremity. S he can range the right lower extremity as tolerated. We will maintain the Hemov ac drain until the output is negligible. She will receive 24 hours of periopera tive antibiotics. Should she she should be on Lovenox for DVT prophylaxis while in house and will be discharged on aspirin 81 mg p.o. twice daily for 1 month. We will obtain an endocrine consult for further osteoporosis management and opt imization of her bone health in order to optimize healing. She will follow-up w hao chun in 2 to 3 weeks for wound check suture removal and further postoperative evaluation management. Eber العلي MD I was present for and participated in the entire procedure. Eber العلي MD ATTENDING * Advanced Care Planning/Resuscitation Status - Charis Santos APRN-NP - 05/06/2021 11:38 AM CDT Advance Care Planning/Resuscitation Status Conversation Individuals present for advance care planning conversation: advanced practice pr ovider and patient Pertinent details of conversation (including direct quotes from patient or surro gate): "I would want them to do everything medically necessary to save my life." Outcome of conversation: Full Code Documents completed as a result of this conversation: None Other documents present, which outline patient/surrogate wishes: None Attestation? I have spent a total of more than 16 minutes in [id number] discus eduardo of patient condition, prognosis, treatment goals, and/or advance care plann ing with the patient and/or surrogate decision makers. SHITAL Sapp * Case Mgmt DC Plan - Nazanin Taylor RN - 05/06/2021 11:01 AM CDT Case Management Admission Assessment NAME:Tere Sahu :1945 AGE: 75 y.o. ADMISSION DATE: 05/05/2021 DAYS ADMITTED: LOS: 1 day Todays Date: 05/06/2021 Source of Information: Patient Chief Complaint: Patient is a 75 y/o female who was a Type II trauma a ctivation / trauma transfer to [facility] after falling at her home. Patient states she was cooking dinner and tripped over the door frame and fell landing on her right knee. Patient reports multiple previous fracture s including of her right hip in 2018 for which she underwent hemiarthroplasty. P resently complaining of significant right knee pain. Patient diagnosed with righ t femur fracture. Presently in knee immobilizer. Ortho consult; patient going to the OR on 05/06/2021 for surgical stabilization of right femur. Pain control. PT/OT. Internal Medicine (geriatric) consult. Enco urage us of IS. Plan: Case Management Assessment, Discharge Planning for Post-Acute Facility, As sist PRN with /NCM Services Patient believes she will likely need to discharge to a facility before returning home. She is interested in [facility] in [place], [place] where she has stayed before. Patient has DME (ramp, wheelchair, walker, ho spital bed). Patient Address/Phone Tere Sahu 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 No Healthcare Directive Healthcare Directive: No, patient does not have a healthcare directive Would patient like to fill out a (a new) Healthcare Directive?: Yes, referral to Social Work Transportation Does the Patient Need Case Management to Arrange Discharge Transport? (ex: facil ity, ambulance, wheelchair/stretcher, Medicaid, cab, other): Yes Will the Patient Use Family Transport?: No Expected Discharge Date 05/09/2021 Living Situation Prior to Admission Living Arrangements Type of Residence: Home, independent Living Arrangements: Spouse/significant other How many levels in the residence?: 1 Can patient live on one level if needed?: Yes Does residence have entry and/or side stairs?: (Ramp in front of home) Assistance needed prior to admit or anticipated on discharge: Yes Who provides assistance or could if needed?: Patient reports her is in p oor health Are they in good health?: No Can support system provide 08/04 care if needed?: No Tub bath which patient states is hard to get in and out of Level of Function Prior level of function: Independent (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 She has one adult child who lives in . She drives mSpokei onally. Ambulates with RW.) Cognitive Abilities Cognitive Abilities: Alert and Oriented, Participates in decision making, Unders tands nature of health condition Financial Resources Coverage Primary Insurance: Medicare (SSN: [id number]) Additional Coverage: RX Source of Income Source Of Income: SSI, Employed Financial Assistance Needed? No Psychosocial Needs Mental Health Mental Health History: No Substance Use History Substance Use History Screen: No Audit C = 0 Cage Aid = 0 Current/Previous Services PCP Tomasz Edwards MD at Pharmacy No Pharmacies Listed Durable Medical Equipment Durable Medical Equipment at home: Hospital Bed, Roller Walker, Wheelchair ([facility]) Home Health Receiving home health: No Hemodialysis or Peritoneal Dialysis Undergoing hemodialysis or peritoneal dialysis: No Tube/Enteral Feeds Receive tube/enteral feeds: No Infusion Receive infusions: No Private Duty Private duty help used: No Home and Community Based Services Home and community based services: No Tenzin White Tenzin White: No Hospice Hospice: No Outpatient Therapy PT: Yes When did patient receive care?: Following hip surgery; facility was in [place], [place] Would patient return for future services?: Yes OT: No GAS ADJUSTER: No [facility]sp Facility/[facility] SNF: Yes When did patient receive care?: 2007 (?) Patient [facility] [place] [place]. Has also stayed at a swing bed in [facility]. Her f irst choice would be to return to [facility] Would patient return for future services?: Yes Inpatient Rehab IPR: Yes When did patient receive care?: Had rehab while at [facility] Would patient return for future services?: Yes Long-Term Acute Care Hospital LTACH: No Acute Hospital Stay Acute Hospital Stay: No Trauma Specific Frailty Index (TSFI) score Comobidities Cancer history Yes 1 No 0 Coronary heart disease Myocardial infarction 1 Coronary Artery bypass grafting 0.75 Percutaneous coronary intervention 0.5 Medication 0.25 No medication 0 Dementia Severe 1 Moderate 0.5 Mild 0.25 None 0 Daily Activities Help with Grooming Yes 1 No 0 Help with Managing Money Yes 1 No 0 Help doing household work Yes 1 No 0 Help toileting Yes 1 No 0 Help walking Wheelchair 1 Walker 0.75 Cane 0.5 None 0 Health attitude Feel less useful Most time 1 Sometimes 0.5 Never 0 Feel sad Most time 1 Sometimes 0.5 Never 0 Feel effort to do everything Most time 1 Sometimes 0.5 Never 0 Falls Most time 1 Sometimes 0.5 Never 0 Feel lonely Most time 1 Sometimes 0.5 Never 0 Function, sexually active Yes 0 No 1 Nutrition, albumin <3 1 >3 0 Total score: .28 (Index score of > 0.27 indicates frailty) Will continue to follow for discharge planning and support, Nazanin Taylor RN, BSN Trauma & Burn Civil Rights Attorney Pager: [phone] * Care Plan - Sammy Stroud RN - 05/06/2021 12:16 AM CDT Problem: Discharge Planning Goal: Participation in plan of care Outcome: Goal Ongoing Goal: Knowledge regarding plan of care Outcome: Goal Ongoing Goal: Prepared for discharge Outcome: Goal Ongoing Problem: Infection, Risk of, Urinary Catheter-Associated Urinary Tract Infection Goal: Absence of urinary catheter-associated infection Outcome: Goal Ongoing Problem: Respiratory Impairment (Non-Ventilated Patient) Goal: Effective gas exchange Outcome: Goal Ongoing Problem: Skin Integrity Goal: Skin integrity intact Outcome: Goal Ongoing Flowsheets (Taken 05/06/2021 0016) Skin integrity intact: Assess nutrition Promote nutrition Assure position change Monitor skin integrity Reduce skin shear, friction and tissue load Provide skin care interventions Provide incontinence management interventions Provide skin self-assessment education Consider consult for skin integrity Goal: Healing of skin (Wound & Incision) Outcome: Goal Ongoing Flowsheets (Taken 05/06/202115) Healing of wound (wounds and Incisions): Assess for signs and symptoms of wound infection Assess wound site healing Implement wound/incision care as ordered Provide wound/incision care as ordered Goal: Healing of skin (Pressure Injury) Outcome: Goal Ongoing Flowsheets (Taken 05/06/202115) Healing of skin (Pressure Injury): Assess for signs and symptoms of pressure injury infection Assess pressure injury Implement pressure injury care as ordered Provide pressure injury care education as ordered Implement pressure relieving device/specialty mattress Use the National Pressure Injury Advisory Panel Staging System for grading pres sure injuries Promote ambulation Problem: High Fall Risk Goal: High Fall Risk Outcome: Goal Ongoing Flowsheets (Taken 05/06/202115) High Fall Risk: All patients will receive: High fall risk sign, yellow wristband, yellow socks, gait belt, and shower shoes Stay with the patient while toileting/showering Move patient near RN station if confused (if possible) Maximize bed functionality (optimize bed height, firm/flat surface) Assess need for bedside commode with drop arm to be available in room Assess need for: quick release belt, PSM (video monitoring), assist x2 using cl inical staff/equipment Use safe patient handling equipment as appropriate PT/OT consult for fall prevention assessment if scoring in Unsteady Gait or Vis ual or Auditory impairment Educate patient to use call-light if tethered Remove excess equipment/supplies Engage bed alarm - middle setting Engage chair alarm Use shower shoes Problem: Pain Goal: Management of pain Outcome: Goal Ongoing Flowsheets (Taken 05/06/202115) Management of pain: Complete pain assessment scale according to age, condition and ability to under stand. Assess opioid analgesia side-effects. Assess pain control barriers. Manage pain. In the patient who can fully report pain, assess pain characteristics. Goal: Knowledge of pain management Outcome: Goal Ongoing Flowsheets (Taken 05/06/202115) Knowledge of pain management: Provide pain scale education Provide pain management methods education Provide pharmacological pain management education Goal: Progress Toward Pain Management Goals Outcome: Goal Ongoing Flowsheets (Taken 05/06/202115) Progress toward pain management goals: Progress toward pain management goals Assess progress toward pain management goals * Advanced Care Planning/Resuscitation Status - Liat Young MD - 05/05/2021 7:44 PM CDT Advance Care Planning/Resuscitation Status Conversation Individuals present for advance care planning conversation: resident/fellow phys ician Pertinent details of conversation (including direct quotes from patient or surro gate): Patient would like all life saving measures preformed if she were to CODE . She states she "is not ready to yet". Outcome of conversation: Full Code Documents completed as a result of this conversation: None Other documents present, which outline patient/surrogate wishes: None Liat Young MD Team Pager: [phone] * Procedures (Immed Post or Bedside) - Meghan Lopez MD - 05/05/2021 7:01 PM CDT 05/05/2021 Tere Sahu [id number] Attending of Record: Dr. Paige Performing Provider: Dr. Patel and Dr. Lopez Procedure: Limited Abdominal Ultrasound (Trauma FAST exam) Areas viewed: Right Lateral window, Left Lateral window, Sub-xyphoid/pericardial window and Pelvic window Indication for Procedure: blunt abdominal trauma Findings: Negative Fast Exam. Plan from Findings: Proceed to CT Scanner. Meghan Lopez MD Associated attestation - Demond Paige MD - 05/05/2021 9:38 PM CDT ATTESTATION I was present during the entire procedure performed by a resident Staff name: Demond Paige MD Date: 05/05/2021 documented in this encounter Plan of Treatment Date/Time Name Type Priority Associated Diag noses 05/05/2021 6:26 PM CDT POC TRAUMA ACTIVATION Imaging STAT FAST EXAM Order Schedule Name Type Priority Associated Diag noses ONE TIME for 1 Occurrences starting 04/17 until 05/06/2021 ECG 12-LEAD ECG Routine documented as of this encounter Goals Goal Patient Associated Recent Progress Patient-Stat Aut hor Goal Type Problems ed? GOAL General On track (05/08/2021 No Flores w, 11:29 AM CDT) WANDA Dunaway Note: Get well documented as of this encounter Procedures Comments Procedure Name Priority Date/Time Associated Diag nosis POC GLUCOSE 05/10/2021 5:30 PM CDT POC GLUCOSE 05/10/2021 11:35 AM CDT HC CBC,AUTOMATED Routine 05/10/2021 6:33 AM CDT HC PHOSPHOROUS, SERUM Routine 05/10/2021 6:33 AM CDT HC MAGNESIUM Routine 05/10/2021 6:33 AM CDT HC BASIC METABOLIC PANEL Routine 05/10/2021 6:33 AM CDT HC CBC,AUTOMATED 05/09/2021 11:43 AM CDT HC BLOOD Routine 05/09/2021 GASES;(CALCULATED 02) 11:43 AM CDT CONSULT IV THERAPY TEAM Routine 05/09/2021 11:27 AM CDT HC PHOSPHOROUS, SERUM Routine 05/09/2021 6:13 AM CDT HC MAGNESIUM Routine 05/09/2021 6:13 AM CDT HC BASIC METABOLIC PANEL Routine 05/09/2021 6:13 AM CDT US DOPPLER VENOUS W EXTRM Routine 05/08/2021 LEFT 4:22 PM CDT HC CBC,AUTOMATED Routine 05/08/2021 6:55 AM CDT HC PHOSPHOROUS, SERUM Routine 05/08/2021 6:55 AM CDT HC MAGNESIUM Routine 05/08/2021 6:55 AM CDT HC BASIC METABOLIC PANEL Routine 05/08/2021 6:55 AM CDT HC CBC,AUTOMATED Routine 05/07/2021 3:36 AM CDT HC PHOSPHOROUS, SERUM Routine 05/07/2021 3:36 AM CDT HC MAGNESIUM Routine 05/07/2021 3:36 AM CDT HC BASIC METABOLIC PANEL Routine 05/07/2021 3:36 AM CDT CONSULT IV THERAPY TEAM Routine 05/07/2021 2:07 AM CDT FLUORO MOBILE IN OR Routine 05/06/2021 5:38 PM CDT OPEN TREATMENT 05/06/2021 Trauma SUPRACONDYLAR/ 3:24 PM CDT TRANSCONDYLAR FEMORAL FRACTURE WITHOUT INTERCONDYLAR EXTENSION WITH/WITHOUT INTERNAL FIXATION HC CBC,AUTOMATED Routine 05/06/2021 6:54 AM CDT HC BETA-HCG; QUANT 05/06/2021 6:54 AM CDT HC PHOSPHOROUS, SERUM 05/06/2021 6:54 AM CDT HC MAGNESIUM 05/06/2021 6:54 AM CDT HC CK(CPK OR CREATINE 05/06/2021 KINASE) 6:54 AM CDT HC ALCOHOL 05/06/2021 6:54 AM CDT HC BASIC METABOLIC PANEL Routine 05/06/2021 6:54 AM CDT CONSULT IV THERAPY TEAM Routine 05/06/2021 6:33 AM CDT KNEE 1 OR 2 VIEWS RIGHT STAT 05/05/2021 10:[address] LOWER EXTREM WO CONT STAT 05/05/2021 RIGHT 8:35 PM CDT CONSULT IV THERAPY TEAM STAT 05/05/2021 7:[address] ABD/PELV WO CONTRAST STAT 05/05/2021 7:[address] CHEST WO CONTRAST STAT 05/05/2021 7:[address] SPINE CERVICAL WO STAT 05/05/2021 CONTRAST 6:[address] HEAD WO CONTRAST STAT 05/05/2021 6:[address] MAXIFACIAL/SINUS WO STAT 05/05/2021 CONTRAST 6:56 PM CDT CHEST SINGLE VIEW STAT 05/05/2021 6:40 PM CDT HC CBC,AUTOMATED STAT 05/05/2021 6:26 PM CDT TYPE & CROSSMATCH STAT 05/05/2021 6:26 PM CDT GENERAL RAD CHEST Routine 05/05/2021 EXTERNAL IMAGING 12:15 AM CDT GENERAL RAD LOWER EXT Routine 05/05/2021 EXTERNAL IMAGING 12:10 AM CDT GENERAL RAD LOWER EXT Routine 05/05/2021 EXTERNAL IMAGING 12:05 AM CDT GENERAL RAD LOWER EXT Routine 05/05/2021 EXTERNAL IMAGING 12:00 AM CDT TELEMETRY STRIPS-SCAN 05/05/2021 12:00 AM CDT TELEMETRY STRIPS-SCAN 05/05/2021 12:00 AM CDT TELEMETRY STRIPS-SCAN 05/05/2021 12:00 AM CDT TELEMETRY STRIPS-SCAN 05/05/2021 12:00 AM CDT TELEMETRY STRIPS-SCAN 05/05/2021 12:00 AM CDT TELEMETRY STRIPS-SCAN 05/05/2021 12:00 AM CDT TELEMETRY STRIPS-SCAN 05/05/2021 12:00 AM CDT TELEMETRY STRIPS-SCAN 05/05/2021 12:00 AM CDT TELEMETRY STRIPS-SCAN 05/05/2021 12:00 AM CDT TELEMETRY STRIPS-SCAN 05/05/2021 12:00 AM CDT TELEMETRY STRIPS-SCAN 05/05/2021 12:00 AM CDT TELEMETRY STRIPS-SCAN 05/05/2021 12:00 AM CDT TELEMETRY STRIPS-SCAN 05/05/2021 12:00 AM CDT TELEMETRY STRIPS-SCAN 05/05/2021 12:00 AM CDT TELEMETRY STRIPS-SCAN 05/05/2021 12:00 AM CDT TELEMETRY STRIPS-SCAN 05/05/2021 12:00 AM CDT TELEMETRY STRIPS-SCAN 05/05/2021 12:00 AM CDT TELEMETRY STRIPS-SCAN 05/05/2021 12:00 AM CDT TELEMETRY STRIPS-SCAN 05/05/2021 12:00 AM CDT TELEMETRY STRIPS-SCAN 05/05/2021 12:00 AM CDT TELEMETRY STRIPS-SCAN 05/05/2021 12:00 AM CDT TELEMETRY STRIPS-SCAN 05/05/2021 12:00 AM CDT documented in this encounter Results * POC GLUCOSE (05/10/2021 5:30 PM CDT) Glucose, POC 90 70 - 100 MG/DL [facility] Specimen Performing Organization Address City/State/ZIP Code P juliet Number MAIN [facility] [address] [place] [address] * POC GLUCOSE (05/10/2021 11:35 AM CDT) Glucose, POC 96 70 - 100 MG/DL [facility] Specimen Performing Organization Address [facility] Code P juliet Number [facility] [address] [id number] * PHOSPHORUS (05/10/2021 6:33 AM CDT) Phosphorus 3.1 2.0 - 4.5 MG/DL [facility] Specimen Blood Performing Organization Address [facility] P juliet Number [facility] [address] [phone] * MAGNESIUM (05/10/2021 6:33 AM CDT) Magnesium 2.0 1.6 - 2.6 mg/dL MAIN LAB Specimen Blood Performing Organization Address [facility] P juliet Number [facility] MAIN [facility] [address] [place] [address] * CBC (05/10/2021 6:33 AM CDT) Pathologist [facility] White Blood 6.0 4.5 - 11.0 K/UL [facility] MAIN [facility] Cells RBC 2.49 (L) 4.0 - 5.0 M/UL [facility] Hemoglobin 8.2 (L) 12.0 - 15.0 GM/DL [facility]IN [facility] Hematocrit 24.5 (L) 36 - 45 % [facility]IN [facility] MCV 98.4 80 - 100 FL MAIN LAB MCH 33.0 26 - 34 PG MAIN LAB MCHC 33.6 32.0 - 36.0 G/DL MAIN LAB RDW 13.8 11 - 15 % [facility] MAIN [facility] Platelet Count 292 150 - 400 K/UL [facility] MPV 7.7 7 - 11 FL [facility] MAIN [facility] Specimen Performing Organization Address [facility] P juliet Number [facility] MAIN [facility] [address] [place] [phone] * BASIC METABOLIC PANEL (05/10/2021 6:33 AM CDT) Pathologist [facility] Sodium 129 (L) 137 - 147 MMOL/L [facility]IN [facility] Potassium 4.3 3.5 - 5.1 MMOL/L [facility] Chloride 103 98 - 110 MMOL/L [facility] CO2 22 21 - 30 MMOL/L [facility] Anion Gap 4 3 - 12 [facility] Glucose 68 (L) 70 - 100 MG/DL [facility] Blood Urea 21 7 - 25 MG/DL [facility] Nitrogen Creatinine 0.89 0.4 - 1.00 MG/DL [facility] Calcium 6.5 (L) 8.5 - 10.6 MG/DL [facility]IN [facility] eGFR Non >60 >60 mL/min [facility] Comment: [place] The eGFR is not validated f or use in drug dosing adjustments. Continue to use estimated creatinine clearance per dosing reference text. Please contact the Clinical Pharmacist for questions. eGFR >60 >60 mL/min [facility] [place] Comment: The eGFR is not validated for use in drug dosing adjustments. Continue to use estimated creatinine clearance per dosing reference text. Please contact the Clinical Pharmacist for questions. Specimen Performing Organization Address City/State/ZIP Code P juliet Number [facility] [address] [place] [address] * BLOOD GASES, ARTERIAL (05/09/2021 11:43 AM CDT) pH-Arterial 7.45 7.35 - 7.45 [facility] MAIN [facility] pCO2-Arterial 33 (L) 35 - 45 MMHG [facility]IN [facility] pO2-Arterial 83 80 - 100 MMHG [facility] Base 0.7 MMOL/L [facility] Deficit-Arteria l O2 Sat-Arterial 94.4 (L) 95 - 99 % [facility] Bicarbonate-ART 23.8 21 - 28 MMOL/L [facility]IN [facility] -Randal Specimen Blood, arterial - Blood Performing Organization Address City/[facility] P juliet Number [facility] [address] [place] [address] * CBC (05/09/2021 11:43 AM CDT) White Blood 6.4 4.5 - 11.0 K/UL [facility] MAIN [facility] Cells RBC 2.59 (L) 4.0 - 5.0 M/UL [facility] Hemoglobin 8.8 (L) 12.0 - 15.0 GM/DL [facility] Hematocrit 24.7 (L) 36 - 45 % [facility] MCV 95.5 80 - 100 FL [facility]IN [facility] MCH 34.0 26 - 34 PG [facility] MAIN [facility] MCHC 35.6 32.0 - 36.0 G/DL [facility]IN [facility] RDW 13.9 11 - 15 % [facility] Platelet Count 320 150 - 400 K/UL [facility] MPV 8.9 7 - 11 FL [facility]IN [facility] Specimen Performing Organization Address City/State/ZIP Code P juliet Number [facility] [address] [place] [address] * PHOSPHORUS (05/09/2021 6:13 AM CDT) Phosphorus 3.1 2.0 - 4.5 MG/DL [facility] MAIN [facility] Specimen Blood Performing Organization Address City/[facility]/ZIP Code P juliet Number [facility] [address] [place] [phone] * MAGNESIUM (05/09/2021 6:13 AM CDT) Magnesium 2.1 1.6 - 2.6 mg/dL [facility]IN [facility] Specimen Blood Performing Organization Address City/[facility] Code P juliet Number [facility] [address] [place] [address] * BASIC METABOLIC PANEL (05/09/2021 6:13 AM CDT) Sodium 130 (L) 137 - 147 MMOL/L [facility] Potassium 4.5 3.5 - 5.1 MMOL/L [facility] Chloride 104 98 - 110 MMOL/L [facility] CO2 21 21 - 30 MMOL/L [facility] Anion Gap 5 3 - 12 [facility] Glucose 69 (L) 70 - 100 MG/DL [facility] Blood Urea 20 7 - 25 MG/DL [facility] Nitrogen Creatinine 0.90 0.4 - 1.00 MG/DL [facility] Calcium 6.7 (L) 8.5 - 10.6 MG/DL [facility] eGFR Non >60 >60 mL/min [facility] Comment: [place] The eGFR is not validated f or use in drug dosing adjustments. Continue to use estimated creatinine clearance per dosing reference text. Please contact the Clinical Pharmacist for questions. eGFR >60 >60 mL/min [facility] [place] Comment: The eGFR is not validated for use in drug dosing adjustments. Continue to use estimated creatinine clearance per dosing reference text. Please contact the Clinical Pharmacist for questions. Specimen Performing Organization Address City/[facility]/ZIP Code P juliet Number [facility] [address] [place] [phone] * US DOPPLER VENOUS W EXTRM LEFT (05/08/2021 4:22 PM CDT) Specimen Left Impressions Performed At No deep vein thrombus in the left upper extremity. K [facility] RAD RESULTS By my electronic signature, I attest th at I have personally reviewed the images for this examination and formulated the interpretations and opinions expressed in this report Finalized by Farida Maher M.D. on 4:33 PM. Dictated by Pk Rahman M.D. on 05/08/2021 4:19 PM. Narrative Performed At LEFT UPPER EXTREMITY VENOUS DOPPLER ULTRASOUND K[facility] RA D RESULTS CLINICAL INDICATION: Left upper extremi ty swelling/erythema TECHNIQUE: Multiple grayscale, color Do ppler and spectral Doppler ultrasound images were obtained of the left upper extremity for evaluation of peripheral veins. COMPARISON: None FINDINGS: The left internal jugular vein is paten t and fully compressible, with normal transmitted cardiac pulsatility. The in nominate and subclavian veins are patent without filling defect. The axillary an d brachial veins are patent and fully compressible without filling defect. The left basilic and cephalic veins are patent and fully compressible. No soft tissue masses or fluid collecti ons are identified in visualized portions of the arm. Procedure Note Interface, Radiant Results - 05/08/2021 4:36 PM CDT LEFT UPPER EXTREMITY VENOUS DOPPLER ULTRASOUND CLINICAL INDICATION: Left upper extremity swelling/erythema TECHNIQUE: Multiple grayscale, color Doppler and spectral Doppler ultrasound images were obtained of the left upper extremity for evaluation of peripheral veins. COMPARISON: None FINDINGS: The left internal jugular vein is patent and fully compressible, with normal transmitted cardiac pulsatility. The innominate and subclavian veins are patent without filling defect. The axillary and brachial veins are patent and fully compressible without filling defect. The left basilic and cephalic veins are patent and fully compressible. No soft tissue masses or fluid collections are identified in visualized portions of the arm. IMPRESSION No deep vein thrombus in the left upper extremity. By my electronic signature, I attest that I have personally reviewed the images for this examination and formulated the interpretations and opinions expressed in this report Finalized by Farida Maher M.D. on 05/08/2021 4:33 PM. Dictated by Pk Rahman M.D. on 05/08/2021 4:19 PM. Performing Organization Address City/State/ZIP Code P juliet Number K[facility] RAD RESULTS * PHOSPHORUS (05/08/2021 6:55 AM CDT) Phosphorus 3.1 2.0 - 4.5 MG/DL [facility] MAIN [facility] Specimen Blood Performing Organization Address City/[facility]/ZIP Code P juliet Number [facility] [address] [place] [address] * MAGNESIUM (05/08/2021 6:55 AM CDT) Magnesium 2.0 1.6 - 2.6 mg/dL [facility] MAIN [facility] Specimen Blood Performing Organization Address City/[facility] Code P juliet Number [facility] [address] [place] [phone] * CBC (05/08/2021 6:55 AM CDT) White Blood 7.6 4.5 - 11.0 K/UL [facility] MAIN [facility] Cells RBC 2.58 (L) 4.0 - 5.0 M/UL [facility] Hemoglobin 8.6 (L) 12.0 - 15.0 GM/DL [facility] Hematocrit 25.3 (L) 36 - 45 % [facility] MCV 97.8 80 - 100 FL [facility]IN [facility] MCH 33.1 26 - 34 PG [facility]IN [facility] MCHC 33.9 32.0 - 36.0 G/DL [facility]IN [facility] RDW 14.0 11 - 15 % [facility] Platelet Count 243 150 - 400 K/UL [facility] MPV 8.3 7 - 11 FL [facility]IN [facility] Specimen Performing Organization Address [facility] P juliet Number [facility] [address] [place] [phone] * BASIC METABOLIC PANEL (05/08/2021 6:55 AM CDT) Sodium 128 (L) 137 - 147 MMOL/L [facility] Potassium 5.0 3.5 - 5.1 MMOL/L [facility] Chloride 105 98 - 110 MMOL/L [facility] CO2 21 21 - 30 MMOL/L [facility] Anion Gap 2 (L) 3 - 12 [facility] Glucose 87 70 - 100 MG/DL [facility] Blood Urea 14 7 - 25 MG/DL [facility] Nitrogen Creatinine 0.97 0.4 - 1.00 MG/DL [facility] Calcium 6.4 (L) 8.5 - 10.6 MG/DL [facility] eGFR Non 56 (L) >60 mL/min [facility] Comment: [place] The eGFR is not validated f or use in drug dosing adjustments. Continue to use estimated creatinine clearance per dosing reference text. Please contact the Clinical Pharmacist for questions. eGFR >60 >60 mL/min [facility] [place] Comment: The eGFR is not validated for use in drug dosing adjustments. Continue to use estimated creatinine clearance per dosing reference text. Please contact the Clinical Pharmacist for questions. Specimen Performing Organization Address City/[facility]/ZIP Code P juliet Number [facility] [address] [place] [address] * PHOSPHORUS (05/07/2021 3:36 AM CDT) Phosphorus 4.2 2.0 - 4.5 MG/DL [facility]IN [facility] Specimen Blood Performing Organization Address City/[facility] Code P juliet Number [facility] [address] [place] [address] * MAGNESIUM (05/07/2021 3:36 AM CDT) Magnesium 2.0 1.6 - 2.6 mg/dL [facility]IN [facility] Specimen Blood Performing Organization Address [facility] P juliet Number [facility] [address] [place] [address] * CBC (05/07/2021 3:36 AM CDT) White Blood 8.2 4.5 - 11.0 K/UL [facility] MAIN [facility] Cells RBC 2.69 (L) 4.0 - 5.0 M/UL [facility] Hemoglobin 9.0 (L) 12.0 - 15.0 GM/DL [facility] Hematocrit 26.3 (L) 36 - 45 % [facility] MCV 97.8 80 - 100 FL [facility]IN [facility] MCH 33.7 26 - 34 PG [facility] MAIN [facility] MCHC 34.4 32.0 - 36.0 G/DL MAIN LAB RDW 13.9 11 - 15 % [facility]IN [facility] Platelet Count 255 150 - 400 K/UL [facility] MPV 8.1 7 - 11 FL [facility] Specimen Performing Organization Address City/[facility] P juliet Number [facility] [address] [place] [address] * BASIC METABOLIC PANEL (05/07/2021 3:36 AM CDT) Sodium 135 (L) 137 - 147 MMOL/L [facility] Potassium 4.4 3.5 - 5.1 MMOL/L [facility] Chloride 105 98 - 110 MMOL/L [facility] CO2 23 21 - 30 MMOL/L [facility] Anion Gap 7 3 - 12 [facility] Glucose 151 (H) 70 - 100 MG/DL [facility] Blood Urea 9 7 - 25 MG/DL [facility] Nitrogen Creatinine 0.67 0.4 - 1.00 MG/DL [facility] Calcium 6.7 (L) 8.5 - 10.6 MG/DL MAIN LAB eGFR Non >60 >60 mL/min [facility] Comment: [place] The eGFR is not validated f or use in drug dosing adjustments. Continue to use estimated creatinine clearance per dosing reference text. Please contact the Clinical Pharmacist for questions. eGFR >60 >60 mL/min [facility] [place] Comment: The eGFR is not validated for use in drug dosing adjustments. Continue to use estimated creatinine clearance per dosing reference text. Please contact the Clinical Pharmacist for questions. Specimen Performing Organization Address City/[facility]/ZIP Code P juliet Number MAIN LAB [address] [place] [phone] * FLUORO MOBILE IN OR (05/06/2021 5:38 PM CDT) Specimen Narrative Performed At This order has been auto finalized and does not conta in a result. DARRIUS PEDERSON Performing Organization Address City/[facility]/ZIP Code P juliet Number DARRIUS RAD * PHOSPHORUS (05/06/2021 6:54 AM CDT) Phosphorus 3.7 2.0 - 4.5 MG/DL MAIN LAB Specimen Performing Organization Address City/[facility]/ZIP Code P juliet Number MAIN LAB [address] [place] [address] * MAGNESIUM (05/06/2021 6:54 AM CDT) Magnesium 0.9 (LL) 1.6 - 2.6 mg/dL MAIN LAB Comment: CRITICAL VALUE CALLED TO AND READ BACK BY/TIME/TECH WANDA GUILLEN at 05/06/2021 08:32:18 by [id number] Specimen Performing Organization Address City/[facility]/ZIP Code P juliet Number MAIN LAB [address] [place] [address] * CREATINE KINASE-CPK (05/06/2021 6:54 AM CDT) Creatine Kinase 115 21 - 215 U/L [facility]IN [facility] Specimen Performing Organization Address [facility] Code P juliet Number [facility] [address] [place] [address] * BETA-HCG (05/06/2021 6:54 AM CDT) Beta-HCG,Serum 2 <5 U/L [facility]IN [facility] Specimen Performing Organization Address [facility] P juliet Number [facility] [address] [place] [address] * ALCOHOL LEVEL (05/06/2021 6:54 AM CDT) Alcohol <10 MG/DL [facility]IN [facility] Specimen Performing Organization Address [facility] P juliet Number [facility] [address] [place] [address] * CBC (05/06/2021 6:54 AM CDT) White Blood 7.4 4.5 - 11.0 K/UL [facility] MAIN [facility] Cells RBC 3.08 (L) 4.0 - 5.0 M/UL [facility] Hemoglobin 10.2 (L) 12.0 - 15.0 GM/DL [facility] MAIN [facility] Hematocrit 29.5 (L) 36 - 45 % [facility] MCV 95.8 80 - 100 FL [facility]IN [facility] MCH 33.2 26 - 34 PG [facility]IN [facility] MCHC 34.6 32.0 - 36.0 G/DL [facility]IN [facility] RDW 13.7 11 - 15 % [facility]IN [facility] Platelet Count 302 150 - 400 K/UL [facility] MPV 8.5 7 - 11 FL [facility]IN [facility] Specimen Performing Organization Address [facility] P juliet Number [facility] [address] [place] [address] * BASIC METABOLIC PANEL (05/06/2021 6:54 AM CDT) Sodium 134 (L) 137 - 147 MMOL/L [facility] Potassium 3.6 3.5 - 5.1 MMOL/L [facility] Chloride 104 98 - 110 MMOL/L [facility] CO2 23 21 - 30 MMOL/L [facility] Anion Gap 7 3 - 12 [facility] Glucose 75 70 - 100 MG/DL [facility] Blood Urea 9 7 - 25 MG/DL [facility] Nitrogen Creatinine 0.57 0.4 - 1.00 MG/DL [facility] Calcium 5.7 (LL) 8.5 - 10.6 MG/DL [facility] Comment: CRITICAL VALUE CALLED TO AND READ BACK BY/TIME/TECH WANDA GUILLEN at 05/06/2021 08:32:18 by [id number] eGFR Non >60 >60 mL/min [facility] Comment: [place] The eGFR is not validated f or use in drug dosing adjustments. Continue to use estimated creatinine clearance per dosing reference text. Please contact the Clinical Pharmacist for questions. eGFR >60 >60 mL/min [facility] [place] Comment: The eGFR is not validated for use in drug dosing adjustments. Continue to use estimated creatinine clearance per dosing reference text. Please contact the Clinical Pharmacist for questions. Specimen Performing Organization Address City/State/ZIP Code P juliet Number [facility] [address] [place] [address] * KNEE 1 OR 2 VIEWS RIGHT (05/05/2021 10:55 PM CDT) Specimen Right Impressions Performed At 1. Comminuted fracture of the distal femur. There is a transverse fracture of [facility] RAD RESULTS the metadiaphysis with posterior displa cement of the femoral condyles. There is a longitudinal fracture of the distal d iaphysis and metadiaphysis extending to the medial condyle. There is an oblique fracture line from the medial condyle to the intra-articular notch with offset o f the medial femoral condyle cortex. Additional disruption of the lateral fe moral condyle cortex. This is better demonstrated on CT scan. 2. There is soft tissue swelling. Finalized by Abelardo Brock M.D. on 2020 8:39 AM. Dictated by Abelardo Brock M.D. on 05/06/2021 8:35 AM. Narrative Performed At Exam: KNEE 1 OR 2 VIEWS RIGHT [facility] RAD RESULTS CLINICAL INDICATION: distal femur fx COMPARISON: CT right knee 05/05/2021. Procedure Note Interface, Radiant Results - 05/06/2021 8:42 AM CDT Exam: KNEE 1 OR 2 VIEWS RIGHT CLINICAL INDICATION: distal femur fx COMPARISON: CT right knee 05/05/2021. IMPRESSION 1. Comminuted fracture of the distal fe mur. There is a transverse fracture of the metadiaphysis with posterior displacement of the femoral condyles. There is a longitudinal fracture of the distal diaphysis and metadiaphysis extending to the medial condyle. There is an oblique fracture line from the medial condyle to the intra-articular notch with offset of the medial femoral condyle cortex. Additional disruption of the lateral femoral condyle cortex. This is better demonstrated on CT scan. 2. There is soft tissue swelling. Finalized by Abelardo Brock M.D. on 05/06/2021 8:39 AM. Dictated by Abelardo Brock M.D. on 05/06/2021 8:35 AM. Performing Organization Address City/State/ZIP Code P juliet Number K[facility] RAD RESULTS * CT LOWER EXTREM WO CONT RIGHT (05/05/2021 8:35 PM CDT) Specimen Right Impressions Performed At 1. Comminuted distal femoral fracture as described wi th mild displacement, [facility] RAD RESULTS intra-articular extension, mild impacti on, and mild posterior angulation and posterior displacement of the distal fr acture fragments containing the femoral condyles. 2. Mild infiltrating hemorrhage and mil d deep soft tissue edema adjacent to the distal femur. Additional moderate subcu taneous edema about the visualized lower extremity. 3. Marked diffuse bony demineralization . Finalized by Carlos Abraham M.D. on 05/05/2021 8:47 PM. Dictated by Carlos Abraham M.D. on 05/05/2021 8:39 PM . Narrative Performed At Exam: CT LOWER EXTREM WO CONT RIGHT [facility] RAD RESULTS Clinical history: distal femur fracture Technique: Multiple contiguous axial im ages were obtained from the level of the distal femoral shaft through the proxim al and mid tibial shaft without the administration of IV contrast. Coronal and sagittal multiplanar reformatted images are created from axial data. Comparison: [None] FINDINGS: Bones are markedly demineralized diffus yuliana. No destructive osseous lesion is seen. There is a comminuted fracture of the d istal femur, with a dominant transverse and mildly obliquely oriented comminute d fracture involving the upper aspect of the medial and lateral femoral condyles , with mild impaction at the supracondylar fracture site as well as mild posterior angulation and posterior displacement of the distal femoral frac ture fragments including the femoral condyles. A mildly displaced lower long itudinal oblique femoral fracture line extends to the intercondylar notch and the lateral aspect of the medial femoral condyle at the patellofemoral articular surface (series 2, image 46). Additional nondisplaced fracture line is noted wit hin the distal femoral shaft. No acute patellar, proximal tibial, pro ximal fibular fracture is identified. Mild lateralization of the patella with out dislocation. No significant knee effusion. There is some mild infiltrating hemorrh age and deep soft tissue edema noted adjacent to the distal femoral fracture . There is some moderate subcutaneous edema noted about the calf, knee and di stal thigh. No dominant measurable hematoma is seen. Mild to moderate calcified plaque withi n the visualized arteries, greatest involving the posterior tibial artery. Procedure Note Interface, Radiant Results - 05/05/2021 8:51 PM CDT Exam: CT LOWER EXTREM WO CONT RIGHT Clinical history: distal femur fracture Technique: Multiple contiguous axial images were obtained from the level of the distal femoral shaft through the proximal and mid tibial shaft without the administration of IV contrast. Coronal and sagittal multiplanar reformatted images are created from axial data. Comparison: [None] FINDINGS: Bones are markedly demineralized diffusely. No destructive osseous lesion is seen. There is a comminuted fracture of the distal femur, with a dominant transverse and mildly obliquely oriented comminuted fracture involving the upper aspect of the medial and lateral femoral condyles, with mild impaction at the supracondylar fracture site as well as mild posterior angulation and posterior displacement of the distal femoral fracture fragments including the femoral condyles. A mildly displaced lower longitudinal oblique femoral fracture line extends to the intercondylar notch and the lateral aspect of the medial femoral condyle at the patellofemoral articular surface (series 2, image 46). Additional nondisplaced fracture line is noted within the distal femoral shaft. No acute patellar, proximal tibial, proximal fibular fracture is identified. Mild lateralization of the patella without dislocation. No significant knee effusion. There is some mild infiltrating hemorrhage and deep soft tissue edema noted adjacent to the distal femoral fracture. There is some moderate subcutaneous edema noted about the calf, knee and distal thigh. No dominant measurable hematoma is seen. Mild to moderate calcified plaque within the visualized arteries, greatest involving the posterior tibial artery. IMPRESSION 1. Comminuted distal femoral fracture as described with mild displacement, intra-articular extension, mild impaction, and mild posterior angulation and posterior displacement of the distal fracture fragments containing the femoral condyles. 2. Mild infiltrating hemorrhage and mild deep soft tissue edema adjacent to the distal femur. Additional moderate subcutaneous edema about the visualized lower extremity. 3. Marked diffuse bony demineralization. Finalized by Carlos Abraham M.D. on 05/05/2021 8:47 PM. Dictated by Carlos Abraham M.D. on 05/05/2021 8:39 PM. Performing Organization Address City/State/ZIP Code P juliet Number K[facility] RAD RESULTS * CT ABD/PELV WO CONTRAST (05/05/2021 7:01 PM CDT) Specimen Addenda Addendum by Carlos Abraham MD on 05/05/2021 8:13 PM Finalized by Carlos Abraham M.D. on 05/05/2021 7:43 PM. Dictated by Storm Taylor D.O. on 05/05/2021 7:05 PM.Addendum: Impressions Performed At CHEST: [facility] RAD RESULTS 1. No acute traumatic injury of the c hest. 2. Subacute, healing right anterolate ral rib fractures and several old left anterolateral rib fractures. 3. Very mild areas of bilateral atele ctasis and scarring. 4. Mild coronary artery calcification s. ABDOMEN AND PELVIS: 1. No major acute injury of the abdom en or pelvis. 2. Small hiatal hernia without bowel obstruction, inflammatory mass, ascites, or free air. 3. Mild to moderate body wall edema. 4. Diffuse hepatic steatosis. By my electronic signature, I attest th at I have personally reviewed the images for this examination and formulated the interpretations and opinions expressed in this report Additional CT chest impression: 5. Tiny 2 mm nodule at the lateral righ t middle lobe. This is most likely a benign etiology such as a noncalcified granuloma given the presence of a calcified granuloma. A malignant nodule is felt unlikely and this requires no further follow-up per [employer] y guidelines in a low risk patient. If the patient is considered high risk for malignancy, a follow-up CT chest in one year would be optional per [employer] guidelines. #FOLLOW Finalized by Carlos Abraham M.D. on 05/05/2021 8:10 PM. Dictated by Carlos Abraham M.D. on 05/05/2021 8:09 PM . Narrative Performed At CT CHEST, ABDOMEN AND PELVIS [facility] RAD RESULTS Clinical Indication: Fall from standing height. Technique: Multiple contiguous axial im ages were obtained through the chest, abdomen and pelvis. Post processing cor onal and sagittal reconstruction images were made from the axial images. Bowel contrast: None Comparison: Outside pelvis, right femur , and right tib-fib radiographs. CHEST FINDINGS: Evaluation of the mediastinum and farzad, including the vasculature and for lymphadenopathy, is limited without the use of IV contrast. Lower Neck: Unremarkable Axilla, Mediastinum and Farzad: No thorac ic lymphadenopathy or mediastinal hematoma. Heart and Great Vessels: Heart size is normal with mild coronary artery calcification. Trace pericardial fluid, likely physiologic. The thoracic aorta and main pulmonary artery are normal ca liber. Mild aortic calcified plaque, greatest at the arch. Airway, Lungs and Pleura: The central a irways are patent. Very mild bilateral dependent atelectasis with mild linear atelectasis and/or pleural parenchymal scarring at the left lung base. No pneu mothorax, hemothorax, or consolidation. Tiny subpleural calcified granuloma pos terior right upper lobe. Tiny subpleural nodule the lateral right middle lobe me asuring 0.2 cm (series 301, image 118). Very mild biapical pleural-parenchymal scarring. Chest Wall and Osseous Structures: Diff use osseous demineralization. Healing right anterolateral third through sixth rib fracture deformities. Several old healed left anterior/anterolateral rib fracture deformities. No acute displaced rib fracture. No sternal fracture. No a cute thoracic spine fracture or subluxation. Mild exaggeration of the n ormal thoracic kyphosis. No destructive osseous lesion. ABDOMEN AND PELVIS FINDINGS: Limited evaluation without the use of I V contrast which includes the viscera and vasculature. Liver and Biliary system: The unopacifi ed liver is normal in size. Diffuse hepatic steatosis. No obvious hepatic l esion or laceration on limited evaluation. No biliary ductal dilation. Cholecystectomy. Spleen: Unremarkable other than some sc attered calcified granulomas. Adrenal Glands and Kidneys: The adrenal glands are unremarkable. No hydronephrosis or nephrolithiasis. Mild bilateral renal atrophy. No obvious renal laceration or perinephric hemorrh age. Pancreas and Retroperitoneum: Mild to m oderate diffuse atrophy of the pancreas, otherwise unremarkable. No retroperiton eal lymphadenopathy or hematoma. Aorta and Major Vessels: Normal caliber abdominal aorta with mild aortoiliac calcific atherosclerosis. Bowel, Mesentery and Peritoneal space: Small hiatal hernia with some linear high density material along the posterior as pect of the hiatal hernia which appears postsurgical. There also appears to be some high density linear postsurgical material noted about the anteromedial a spect of the diaphragmatic guido and the inferior aspect of the hiatal hernia. T he large and small bowel are normal caliber. No focal bowel wall hematoma. No mesenteric lymphadenopathy, ascites, hemoperitoneum, or free air. Pelvis: Limited evaluation of the lower pelvis due to a prior right total hip arthroplasty and metallic hardware with in the proximal left femur. The urinary bladder is decompressed around a Longoria catheter. No pelvic lymphadenopathy. Uterus appears atrophic without a domin ant uterine or adnexal mass appreciated. Abdominal wall and Osseous Structures: Diffuse osseous demineralization. Prior right total hip arthroplasty and plate and partially visualized fixation hardware within the left proximal femur , with mild proximal displacement of the lesser trochanter as part of old fractu re deformity. No acute lumbar fracture or subluxation. No acute pelvic fracture. No destructive osseous lesion. Mild to moderate bilateral body wall edema, gre atest in the lateral pelvis. No definite abdominal wall hematoma. Procedure Note Interface, Radiant Results - 05/05/2021 8:[address] CHEST, ABDOMEN AND PELVIS Clinical Indication: Fall from standing height. Technique: Multiple contiguous axial images were obtained through the chest, abdomen and pelvis. Post processing coronal and sagittal reconstruction images were made from the axial images. Bowel contrast: None Comparison: Outside pelvis, right femur, and right tib-fib radiographs. CHEST FINDINGS: Evaluation of the mediastinum and farzad, including the vasculature and for lymphadenopathy, is limited without the use of IV contrast. Lower Neck: Unremarkable Axilla, Mediastinum and Farzad: No thoracic lymphadenopathy or mediastinal hematoma. Heart and Great Vessels: Heart size is normal with mild coronary artery calcification. Trace pericardial fluid, likely physiologic. The thoracic aorta and main pulmonary artery are normal caliber. Mild aortic calcified plaque, greatest at the arch. Airway, Lungs and Pleura: The central airways are patent. Very mild bilateral dependent atelectasis with mild linear atelectasis and/or pleural parenchymal scarring at the left lung base. No pneumothorax, hemothorax, or consolidation. Tiny subpleural calcified granuloma posterior right upper lobe. Tiny subpleural nodule the lateral right middle lobe measuring 0.2 cm (series 301, image 118). Very mild biapical pleural-parenchymal scarring. Chest Wall and Osseous Structures: Diffuse osseous demineralization. Healing right anterolateral third through sixth rib fracture deformities. Several old healed left anterior/anterolateral rib fracture deformities. No acute displaced rib fracture. No sternal fracture. No acute thoracic spine fracture or subluxation. Mild exaggeration of the normal thoracic kyphosis. No destructive osseous lesion. ABDOMEN AND PELVIS FINDINGS: Limited evaluation without the use of IV contrast which includes the viscera and vasculature. Liver and Biliary system: The unopacified liver is normal in size. Diffuse hepatic steatosis. No obvious hepatic lesion or laceration on limited evaluation. No biliary ductal dilation. Cholecystectomy. Spleen: Unremarkable other than some scattered calcified granulomas. Adrenal Glands and Kidneys: The adrenal glands are unremarkable. No hydronephrosis or nephrolithiasis. Mild bilateral renal atrophy. No obvious renal laceration or perinephric hemorrhage. Pancreas and Retroperitoneum: Mild to moderate diffuse atrophy of the pancreas, otherwise unremarkable. No retroperitoneal lymphadenopathy or hematoma. Aorta and Major Vessels: Normal caliber abdominal aorta with mild aortoiliac calcific atherosclerosis. Bowel, Mesentery and Peritoneal space: Small hiatal hernia with some linear high density material along the posterior aspect of the hiatal hernia which appears postsurgical. There also appears to be some high density linear postsurgical material noted about the anteromedial aspect of the diaphragmatic guido and the inferior aspect of the hiatal hernia. The large and small bowel are normal caliber. No focal bowel wall hematoma. No mesenteric lymphadenopathy, ascites, hemoperitoneum, or free air. Pelvis: Limited evaluation of the lower pelvis due to a prior right total hip arthroplasty and metallic hardware within the proximal left femur. The urinary bladder is decompressed around a Longoria catheter. No pelvic lymphadenopathy. Uterus appears atrophic without a dominant uterine or adnexal mass appreciated. Abdominal wall and Osseous Structures: Diffuse osseous demineralization. Prior right total hip arthroplasty and plate and partially visualized fixation hardware within the left proximal femur, with mild proximal displacement of the lesser trochanter as part of old fracture deformity. No acute lumbar fracture or subluxation. No acute pelvic fracture. No destructive osseous lesion. Mild to moderate bilateral body wall edema, greatest in the lateral pelvis. No definite abdominal wall hematoma. IMPRESSION CHEST: 1. No acute traumatic injury of the [facility]. 2. Subacute, healing right anterolatera l rib fractures and several old left anterolateral rib fractures. 3. Very mild areas of bilateral atelect asis and scarring. 4. Mild coronary artery calcifications. ABDOMEN AND PELVIS: 1. No major acute injury of the abdomen or pelvis. 2. Small hiatal hernia without bowel ob struction, inflammatory mass, ascites, or free air. 3. Mild to moderate body wall edema. 4. Diffuse hepatic steatosis. By my electronic signature, I attest that I have personally reviewed the images for this examination and formulated the interpretations and opinions expressed in this report Additional CT chest impression: 5. Tiny 2 mm nodule at the lateral right middle lobe. This is most likely a benign etiology such as a noncalcified granuloma given the presence of a calcified granuloma. A malignant nodule is felt unlikely and this requires no further follow-up per Fleischner Society guidelines in a low risk patient. If the patient is considered high risk for malignancy, a follow-up CT chest in one year would be optional per Fleischner Society guidelines. #FOLLOW Finalized by Carlos Abraham M.D. on 05/05/2021 8:10 PM. Dictated by Carlos Abraham M.D. on 05/05/2021 8:09 PM. Performing Organization Address City/State/ZIP Code [place] Number [facility] * CT CHEST WO CONTRAST (05/05/2021 7:01 PM CDT) Specimen Addenda Addendum by Carlos Abraham MD on 05/05/2021 8:13 PM Finalized by Carlos Abraham M.D. on 05/05/2021 7:43 PM. Dictated by Storm Taylor D.O. on 05/05/2021 7:05 PM.Addendum: Impressions Performed At CHEST: [facility] 1. No acute traumatic injury of the c [facility]. 2. Subacute, healing right anterolate ral rib fractures and several old left anterolateral rib fractures. 3. Very mild areas of bilateral atele ctasis and scarring. 4. Mild coronary artery calcification s. ABDOMEN AND PELVIS: 1. No major acute injury of the abdom en or pelvis. 2. Small hiatal hernia without bowel obstruction, inflammatory mass, ascites, or free air. 3. Mild to moderate body wall edema. 4. Diffuse hepatic steatosis. By my electronic signature, I attest th at I have personally reviewed the images for this examination and formulated the interpretations and opinions expressed in this report Additional CT chest impression: 5. Tiny 2 mm nodule at the lateral righ t middle lobe. This is most likely a benign etiology such as a noncalcified granuloma given the presence of a calcified granuloma. A malignant nodule is felt unlikely and this requires no further follow-up per Fleischner Societ y guidelines in a low risk patient. If the patient is considered high risk for malignancy, a follow-up CT chest in one year would be optional per [employer] guidelines. #FOLLOW Finalized by Carlos Abraham M.D. on 05/05/2021 8:10 PM. Dictated by Carlos Abraham M.D. on 05/05/2021 8:09 PM . Narrative Performed At CT CHEST, ABDOMEN AND PELVIS [facility] Clinical Indication: Fall from standing height. Technique: Multiple contiguous axial im ages were obtained through the chest, abdomen and pelvis. Post processing cor onal and sagittal reconstruction images were made from the axial images. Bowel contrast: None Comparison: Outside pelvis, right femur , and right tib-fib radiographs. CHEST FINDINGS: Evaluation of the mediastinum and farzad, including the vasculature and for lymphadenopathy, is limited without the use of IV contrast. Lower Neck: Unremarkable Axilla, Mediastinum and Farzad: No thorac ic lymphadenopathy or mediastinal hematoma. Heart and Great Vessels: Heart size is normal with mild coronary artery calcification. Trace pericardial fluid, likely physiologic. The thoracic aorta and main pulmonary artery are normal ca liber. Mild aortic calcified plaque, greatest at the arch. Airway, Lungs and Pleura: The central a irways are patent. Very mild bilateral dependent atelectasis with mild linear atelectasis and/or pleural parenchymal scarring at the left lung base. No pneu mothorax, hemothorax, or consolidation. Tiny subpleural calcified granuloma pos terior right upper lobe. Tiny subpleural nodule the lateral right middle lobe me asuring 0.2 cm (series 301, image 118). Very mild biapical pleural-parenchymal scarring. Chest Wall and Osseous Structures: Diff use osseous demineralization. Healing right anterolateral third through sixth rib fracture deformities. Several old healed left anterior/anterolateral rib fracture deformities. No acute displaced rib fracture. No sternal fracture. No a cute thoracic spine fracture or subluxation. Mild exaggeration of the n ormal thoracic kyphosis. No destructive osseous lesion. ABDOMEN AND PELVIS FINDINGS: Limited evaluation without the use of I V contrast which includes the viscera and vasculature. Liver and Biliary system: The unopacifi ed liver is normal in size. Diffuse hepatic steatosis. No obvious hepatic l esion or laceration on limited evaluation. No biliary ductal dilation. Cholecystectomy. Spleen: Unremarkable other than some sc attered calcified granulomas. Adrenal Glands and Kidneys: The adrenal glands are unremarkable. No hydronephrosis or nephrolithiasis. Mild bilateral renal atrophy. No obvious renal laceration or perinephric hemorrh age. Pancreas and Retroperitoneum: Mild to m oderate diffuse atrophy of the pancreas, otherwise unremarkable. No retroperiton eal lymphadenopathy or hematoma. Aorta and Major Vessels: Normal caliber abdominal aorta with mild aortoiliac calcific atherosclerosis. Bowel, Mesentery and Peritoneal space: Small hiatal hernia with some linear high density material along the posterior as pect of the hiatal hernia which appears postsurgical. There also appears to be some high density linear postsurgical material noted about the anteromedial a spect of the diaphragmatic guido and the inferior aspect of the hiatal hernia. T he large and small bowel are normal caliber. No focal bowel wall hematoma. No mesenteric lymphadenopathy, ascites, hemoperitoneum, or free air. Pelvis: Limited evaluation of the lower pelvis due to a prior right total hip arthroplasty and metallic hardware with in the proximal left femur. The urinary bladder is decompressed around a Longoria catheter. No pelvic lymphadenopathy. Uterus appears atrophic without a domin ant uterine or adnexal mass appreciated. Abdominal wall and Osseous Structures: Diffuse osseous demineralization. Prior right total hip arthroplasty and plate and partially visualized fixation hardware within the left proximal femur , with mild proximal displacement of the lesser trochanter as part of old fractu re deformity. No acute lumbar fracture or subluxation. No acute pelvic fracture. No destructive osseous lesion. Mild to moderate bilateral body wall edema, gre atest in the lateral pelvis. No definite abdominal wall hematoma. Procedure Note Interface, Radiant Results - 05/05/2021 8:[address] CHEST, ABDOMEN AND PELVIS Clinical Indication: Fall from standing height. Technique: Multiple contiguous axial images were obtained through the chest, abdomen and pelvis. Post processing coronal and sagittal reconstruction images were made from the axial images. Bowel contrast: None Comparison: Outside pelvis, right femur, and right tib-fib radiographs. CHEST FINDINGS: Evaluation of the mediastinum and farzad, including the vasculature and for lymphadenopathy, is limited without the use of IV contrast. Lower Neck: Unremarkable Axilla, Mediastinum and Farzad: No thoracic lymphadenopathy or mediastinal hematoma. Heart and Great Vessels: Heart size is normal with mild coronary artery calcification. Trace pericardial fluid, likely physiologic. The thoracic aorta and main pulmonary artery are normal caliber. Mild aortic calcified plaque, greatest at the arch. Airway, Lungs and Pleura: The central airways are patent. Very mild bilateral dependent atelectasis with mild linear atelectasis and/or pleural parenchymal scarring at the left lung base. No pneumothorax, hemothorax, or consolidation. Tiny subpleural calcified granuloma posterior right upper lobe. Tiny subpleural nodule the lateral right middle lobe measuring 0.2 cm (series 301, image 118). Very mild biapical pleural-parenchymal scarring. Chest Wall and Osseous Structures: Diffuse osseous demineralization. Healing right anterolateral third through sixth rib fracture deformities. Several old healed left anterior/anterolateral rib fracture deformities. No acute displaced rib fracture. No sternal fracture. No acute thoracic spine fracture or subluxation. Mild exaggeration of the normal thoracic kyphosis. No destructive osseous lesion. ABDOMEN AND PELVIS FINDINGS: Limited evaluation without the use of IV contrast which includes the viscera and vasculature. Liver and Biliary system: The unopacified liver is normal in size. Diffuse hepatic steatosis. No obvious hepatic lesion or laceration on limited evaluation. No biliary ductal dilation. Cholecystectomy. Spleen: Unremarkable other than some scattered calcified granulomas. Adrenal Glands and Kidneys: The adrenal glands are unremarkable. No hydronephrosis or nephrolithiasis. Mild bilateral renal atrophy. No obvious renal laceration or perinephric hemorrhage. Pancreas and Retroperitoneum: Mild to moderate diffuse atrophy of the pancreas, otherwise unremarkable. No retroperitoneal lymphadenopathy or hematoma. Aorta and Major Vessels: Normal caliber abdominal aorta with mild aortoiliac calcific atherosclerosis. Bowel, Mesentery and Peritoneal space: Small hiatal hernia with some linear high density material along the posterior aspect of the hiatal hernia which appears postsurgical. There also appears to be some high density linear postsurgical material noted about the anteromedial aspect of the diaphragmatic guido and the inferior aspect of the hiatal hernia. The large and small bowel are normal caliber. No focal bowel wall hematoma. No mesenteric lymphadenopathy, ascites, hemoperitoneum, or free air. Pelvis: Limited evaluation of the lower pelvis due to a prior right total hip arthroplasty and metallic hardware within the proximal left femur. The urinary bladder is decompressed around a Longoria catheter. No pelvic lymphadenopathy. Uterus appears atrophic without a dominant uterine or adnexal mass appreciated. Abdominal wall and Osseous Structures: Diffuse osseous demineralization. Prior right total hip arthroplasty and plate and partially visualized fixation hardware within the left proximal femur, with mild proximal displacement of the lesser trochanter as part of old fracture deformity. No acute lumbar fracture or subluxation. No acute pelvic fracture. No destructive osseous lesion. Mild to moderate bilateral body wall edema, greatest in the lateral pelvis. No definite abdominal wall hematoma. IMPRESSION CHEST: 1. No acute traumatic injury of the [facility]. 2. Subacute, healing right anterolatera l rib fractures and several old left anterolateral rib fractures. 3. Very mild areas of bilateral atelect asis and scarring. 4. Mild coronary artery calcifications. ABDOMEN AND PELVIS: 1. No major acute injury of the abdomen or pelvis. 2. Small hiatal hernia without bowel ob struction, inflammatory mass, ascites, or free air. 3. Mild to moderate body wall edema. 4. Diffuse hepatic steatosis. By my electronic signature, I attest that I have personally reviewed the images for this examination and formulated the interpretations and opinions expressed in this report Additional CT chest impression: 5. Tiny 2 mm nodule at the lateral right middle lobe. This is most likely a benign etiology such as a noncalcified granuloma given the presence of a calcified granuloma. A malignant nodule is felt unlikely and this requires no further follow-up per Fleischner Society guidelines in a low risk patient. If the patient is considered high risk for malignancy, a follow-up CT chest in one year would be optional per Fleischner Society guidelines. #FOLLOW Finalized by Carlos Abraham M.D. on 05/05/2021 8:10 PM. Dictated by Carlos Abraham M.D. on 05/05/2021 8:09 PM. Performing Organization Address City/State/ZIP Code [place] Number [facility] * CT SPINE CERVICAL WO CONTRAST (05/05/2021 6:56 PM CDT) Specimen Impressions Performed At Head: [facility] 1. No acute intracranial hemorrhage o r calvarial fracture. 2. Mild cerebral volume loss and nons pecific white matter disease, likely secondary to chronic microvascular isch emia. Maxillofacial: 1. Linear lucency along the nasal charles dge and subtle depression of the nasal bones and frontal processes of the maxi lla, more pronounced on the left, without associated fracture lines. No significa nt paranasal soft tissue swelling. These findings are suggestive of age-indeterm inate fracture deformities, although, apparent depression of the frontal proc esses could also be in part developmental. Correlate for point tend erness. 2. No evidence of additional acute fa cial fracture or orbital hemorrhage. Cervical Spine: 1. No evidence of acute cervical spin e fracture or traumatic subluxation. Trace anterolisthesis at C5-C6 and C6-C 7 is likely degenerative. 2. Cervical spondylosis as described. 3. Mild interlobular septal thickenin g in the lung apices which can be seen with mild interstitial edema. Refer to CT chest for further discussion of thoracic findings. By my electronic signature, I attest th at I have personally reviewed the images for this examination and formulated the interpretations and opinions expressed in this report Finalized by German Downey M.D. on 2020 7:22 PM. Dictated by Storm Taylor D.O. on 05/05/2021 6:54 PM. Narrative Performed At EXAM: CT HEAD, MAXILLOFACIAL AND C-SPINE [facility] HISTORY: Fall from standing height. Str uck face TECHNIQUE: Multiple contiguous axial im ages were obtained of the brain, facial bones, and cervical spine without intra venous contrast. Sagittal and coronal reformations were obtained of the cervi randal spine and facial bones. Comparison: None FINDINGS: Head: Mild generalized cerebral volume loss w ith concordant prominence of the ventricles and subarachnoid spaces. Mil d patchy supratentorial white matter hypodensities. There is no midline shif t or mass effect. The jamil white matter interfaces are maintained. The basal ci sterns are patent. There is no evidence of acute intracranial hemorrhage or ext ra-axial fluid collection. The calvarium is intact. Maxillofacial: Diffuse osteopenia. Subtle linear lucency of the tip of the nasal bridge with subtle depression of the nasal bones and frontal processes o f the maxillae, more pronounced on the left, without associated discrete fract ure lines. No significant paranasal soft tissue swelling. No additional acute fa cial, mandibular, or orbital wall fracture is identified. The mastoid air cells and paranasal sin uses are well-aerated. The globes and orbits are unremarkable apart from bila teral ocular lens replacements without evidence of orbital hemorrhage. The ext raocular muscles are intact. Mild bilateral TMJ arthrosis. The patient is edentulous with dentures in place. C-Spine: Mild exaggeration of cervical lordosis which may be positional or degenerative. Trace anterolisthesis at C5-C6 and C6-C 7, likely degenerative. Otherwise normal cervical alignment. Moderate atlantoden stefanie arthrosis. The craniocervical junction is otherwise intact. The verte bral body heights are maintained. Diffuse osteopenia. No acute cervical spine fra cture or traumatic subluxation is identified. Posterior disc osteophyte complexes and ligamentum flavum thickening result in multilevel central spinal stenosis, gre atest and mild to moderate degree at C5-C6. Uncovertebral and facet hypertro phy result in multilevel neural foraminal stenosis, greatest and of moderate degr ee on the right at C3-C4 and C4-C5. The paraspinous soft tissues are unrema rkable. Mild interlobular septal thickening in the lung apices. Mild cande pical pleural parenchymal scarring. Procedure Note Interface, Radiant Results - 05/05/2021 7:26 PM CDT EXAM: CT HEAD, MAXILLOFACIAL AND C-SPINE HISTORY: Fall from standing height. Struck face TECHNIQUE: Multiple contiguous axial images were obtained of the brain, facial bones, and cervical spine without intravenous contrast. Sagittal and coronal reformations were obtained of the cervical spine and facial bones. Comparison: None FINDINGS: Head: Mild generalized cerebral volume loss with concordant prominence of the ventricles and subarachnoid spaces. Mild patchy supratentorial white matter hypodensities. There is no midline shift or mass effect. The jamil white matter interfaces are maintained. The basal cisterns are patent. There is no evidence of acute intracranial hemorrhage or extra-axial fluid collection. The calvarium is intact. Maxillofacial: Diffuse osteopenia. Subtle linear lucency of the tip of the nasal bridge with subtle depression of the nasal bones and frontal processes of the maxillae, more pronounced on the left, without associated discrete fracture lines. No significant paranasal soft tissue swelling. No additional acute facial, mandibular, or orbital wall fracture is identified. The mastoid air cells and paranasal sinuses are well-aerated. The globes and orbits are unremarkable apart from bilateral ocular lens replacements without evidence of orbital hemorrhage. The extraocular muscles are intact. Mild bilateral TMJ arthrosis. The patient is edentulous with dentures in place. C-Spine: Mild exaggeration of cervical lordosis which may be positional or degenerative. Trace anterolisthesis at C5-C6 and C6-C7, likely degenerative. Otherwise normal cervical alignment. Moderate atlantodental arthrosis. The craniocervical junction is otherwise intact. The vertebral body heights are maintained. Diffuse osteopenia. No acute cervical spine fracture or traumatic subluxation is identified. Posterior disc osteophyte complexes and ligamentum flavum thickening result in multilevel central spinal stenosis, greatest and mild to moderate degree at C5- C6. Uncovertebral and facet hypertrophy result in multilevel neural foraminal stenosis, greatest and of moderate degree on the right at C3-C4 and C4-C5. The paraspinous soft tissues are unremarkable. Mild interlobular septal thickening in the lung apices. Mild biapical pleural parenchymal scarring. IMPRESSION Head: 1. No acute intracranial hemorrhage or calvarial fracture. 2. Mild cerebral volume loss and nonspe cific white matter disease, likely secondary to chronic microvascular ischemia. Maxillofacial: 1. Linear lucency along the nasal bridg e and subtle depression of the nasal bones and frontal processes of the maxilla, more pronounced on the left, without associated fracture lines. No significant paranasal soft tissue swelling. These findings are suggestive of age-indeterminate fracture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 a full glass of water ONLY -Do not let patient lie down for at least 30 mi n after dose is taken 05/11/2021 8:22 AM CDT 1,900 mg calcium citrate (CALCITRATE) tablet Given 1,900 mg 1,900 mg, Oral, EVERY MORNING, First dose on Sat05/06/21 at 1030, Until Discontinued, Each tablet delivers 200m g elemental Calcium 1,900 mg Given 05/10/2021 8:28 AM CDT 1,900 mg Given 05/09/2021 9:30 AM CDT 1,900 mg Given 05/08/2021 10:04 AM CDT 1,900 mg Given 05/07/2021 9:57 AM CDT 1,900 mg Given 05/06/2021 9:43 AM CDT 05/11/2021 8:22 AM CDT 200 mg celecoxib (CeleBREX) capsule 200 mg Given 200 mg, Oral, DAILY, First dose on 05/06/21 at 0900, Until Discontinued 200 mg Given 05/10/2021 8:28 AM CDT 200 mg Given 05/09/2021 9:30 AM CDT 200 mg Given 05/08/2021 10:04 AM CDT 200 mg Given 05/07/2021 9:57 AM CDT 200 mg Given 05/06/2021 9:43 AM CDT 05/11/2021 8:22 AM CDT 30 mg Abdomen: LLQ enoxaparin (LOVENOX) syringe 30 mg Given 30 mg, Subcutaneous, TWICE DAILY, First dose on Sat05/05/21 at 2200, Until Discontinued, For patients undergoing surgery: Consult physician in advance - - enoxaparin is an anticoagulant and may need to be held for 12hr prior to surgery or invasive procedures. NOTE: This is a HIGH ALERT Medication. 30 mg Arm, Right Given 05/10/2021 9:11 PM CDT 30 mg Abdominal Tissue Given 05/10/2021 8:28 AM CDT 30 mg Abdominal Tissue Given 05/09/2021 9:07 PM CDT 30 mg Abdominal Tissue Given 05/08/2021 8:25 PM CDT 30 mg Arm, Right Given 05/08/2021 10:04 AM CDT 30 mg Abdomen:RLQ Given 05/07/2021 8:54 PM CDT 30 mg Abdominal Tissue Given 05/07/2021 9:58 AM CDT 30 mg Abdomen:RLQ Given 05/06/2021 10:47 PM CDT 05/11/2021 8:22 AM CDT 100 mg gabapentin (NEURONTIN) capsule 100 mg Given 100 mg, Oral, TWICE DAILY, First dose o n 05/06/21 at 0800, Until Discontinued 100 mg Given 05/10/2021 11:11 AM CDT 100 mg Given 05/10/2021 8:28 AM CDT 100 mg Given 05/09/2021 2:01 PM CDT 100 mg Given 05/09/2021 9:30 AM CDT 100 mg Given 05/08/2021 2:16 PM CDT 100 mg Given 05/08/2021 10:04 AM CDT 100 mg Given 05/07/2021 1:38 PM CDT 100 mg Given 05/07/2021 9:57 AM CDT 100 mg Given 05/06/2021 9:43 AM CDT 05/10/2021 9:10 PM CDT 200 mg gabapentin (NEURONTIN) capsule 200 mg Given 200 mg, Oral, AT BEDTIME DAILY, First dose on Sat05/05/21 at 2100, Until Discontinued 200 mg Given 05/09/2021 9:06 PM CDT 200 mg Given 05/08/2021 8:24 PM CDT 200 mg Given 05/07/2021 8:55 PM CDT 200 mg Given 05/06/2021 10:45 PM CDT 200 mg Given 05/05/2021 11:01 PM CDT 05/11/2021 8:22 AM CDT 400 mg magnesium oxide (MAGOX) tablet 400 mg Given 400 mg, Oral, TWICE DAILY, First dose o n 05/06/21 at 0945, Until Discontinued , Delivers 241.3mg elemental magnesium pe r tab 400 mg Given 05/10/2021 9:10 PM CDT 400 mg Given 05/10/2021 8:28 AM CDT 400 mg Given 05/09/2021 9:07 PM CDT 400 mg Given 05/09/2021 9:30 AM CDT 400 mg Given 05/08/2021 8:24 PM CDT 400 mg Given 05/08/2021 10:03 AM CDT 400 mg Given 05/07/2021 8:55 PM CDT 400 mg Given 05/07/2021 9:58 AM CDT 400 mg Given 05/06/2021 10:45 PM CDT 400 mg Given 05/06/2021 9:43 AM CDT 05/10/2021 9:11 PM CDT 500 mg methocarbamoL (ROBAXIN) tablet 500 mg Given 500 mg, Oral, TWICE DAILY, First dose o n 05/06/21 at 1245, Until Discontinued 500 mg Given 05/10/2021 8:28 AM CDT 500 mg Given 05/09/2021 9:06 PM CDT 500 mg Given 05/09/2021 9:30 AM CDT 500 mg Given 05/08/2021 8:24 PM CDT 500 mg Given 05/08/2021 10:03 AM CDT 500 mg Given 05/07/2021 8:55 PM CDT 500 mg Given 05/07/2021 9:57 AM CDT 500 mg Given 05/06/2021 10:45 PM CDT 500 mg Given 05/06/2021 1:43 PM CDT 05/10/2021 7:15 PM CDT 4 mg ondansetron (ZOFRAN) injection 4 mg Given 4 mg, Intravenous, EVERY 6 HOURS PRN, Starting on Sat05/09/21 at 1315, Until Sat05/11/21 at 1128, Nausea/Vomiting Injectable 4 mg Given 05/10/2021 11:10 AM CDT 05/11/2021 3:33 AM CDT 10 mg oxyCODONE (ROXICODONE) tablet 5-15 mg Given 5-15 mg, Oral, EVERY 4 HOURS PRN, Starting on Sat05/05/21 at 2146, Until Sat05/11/21 at 1128, Pain PO 15 mg Given 05/10/2021 8:04 AM CDT 15 mg Given 05/09/2021 9:18 PM CDT 5 mg Given 05/09/2021 3:50 PM CDT 10 mg Given 05/09/2021 9:33 AM CDT 10 mg Given 05/08/2021 10:05 AM CDT 10 mg Given 05/07/2021 1:39 PM CDT 10 mg Given 05/07/2021 9:57 AM CDT 10 mg Given 05/06/2021 11:00 PM CDT 15 mg Given 05/06/2021 10:57 AM CDT 15 mg Given 05/06/2021 5:21 AM CDT 15 mg Given 05/05/2021 11:01 PM CDT 05/10/2021 9:11 PM CDT [address] (PROTONIX) tablet 40 mg Given 40 mg, Oral, DAILY, First dose on Sat05/05/21 at 2100, Until Discontinued, Do not crush or chew tablet. 40 mg Given 05/09/2021 9:06 PM CDT 40 mg Given 05/08/2021 8:24 PM CDT 40 mg Given 05/07/2021 8:55 PM CDT 40 mg Given 05/06/2021 10:45 PM CDT 40 mg Given 05/05/2021 11:01 PM CDT 05/10/2021 8:27 AM CDT 34 g polyethylene glycol 3350 (MIRALAX) Given packet 34 g 34 g (2 packet), Oral, DAILY, First dos e (after last modification) on Mon 1 at 0900, Until Discontinued, 8.5 GRAMS = 0.5 PACKET 17 GRAMS = 1 PACKET 34 GRAMS = 2 PACKETS 05/10/2021 9:10 PM CDT 2 tablets senna/docusate (SENOKOT-S) tablet 2 Given tablet 2 tablet, Oral, TWICE DAILY, First dose (after last modification) on Sun at 2100, Until Discontinued, Hold for loose stools 2 tablets Given 05/10/2021 8:28 AM CDT 2 tablets Given 05/09/2021 9:06 PM CDT 2 tablets Given 05/09/2021 9:30 AM CDT 05/10/2021 9:10 PM CDT 10 mg simvastatin (ZOCOR) tablet 10 mg Given 10 mg, Oral, AT BEDTIME DAILY, First dose on 05/07/21 at 2100, Until Discontinued, NURSING: Please educate patient and document: Avoid taking grapefruit juice. 10 mg Given 05/09/2021 9:06 PM CDT 10 mg Given 05/08/2021 8:25 PM CDT 10 mg Given 05/07/2021 8:55 PM CDT 05/06/2021 5:20 PM CDT 1 g Leg, Rig ht vancomycin (VANCOCIN) injection Given INTRA-PROCEDURE MED, Starting on 05/06/21 at 1720, Until 05/06/21 at 1811, Intra-op documented in this encounter Discontinued Medications Start Date End Date Medication Sig Discontinue Reason 05/11/2021 aspirin 81 mg chewable Chew 81 mg tablet by mouth daily. Take with food. 05/11/2021 acetaminophen (TYLENOL) Take 325 mg 325 mg tablet by mouth every 4 hours as needed for Pain. 05/11/[address] (PRILOSEC) Take 40 mg Removed from 40 mg capsule by mouth [facility] Med List twice daily. 05/11/2021 gabapentin (NEURONTIN) Take 200 mg Removed from 100 mg capsule by mouth at [facility] Med List bedtime daily. documented as of this encounter Historical Medications * This list may reflect changes made after this encounter. Start Date End Date Medication Sig Dispensed Refills pantoprazole DR Take 40 mg by 0 (PROTONIX) 40 mg tablet mouth daily. potassium chloride SR Take 1 tablet 0 (K-DUR) 20 mEq tablet by mouth daily. Take with a meal and a full glass of water. vitamins, multi Take 1 tablet 0 w/minerals 9 mg iron-400 by mouth mcg tab daily. calcium carbonate/vitamin Take 1 tablet 0 D-3 (OSCAL-500+D) 1250 by mouth mg/200 unit tablet daily. Calcium Carb 1250mg delivers 500mg elemental Ca cholecalciferol (VITAMIN Take 1,000 0 D-3) 1,000 units tablet Units by mouth daily. bumetanide (BUMEX) 2 mg Take 2 mg by 0 tablet mouth daily. simvastatin (ZOCOR) 10 mg Take 10 mg by 0 tablet mouth at bedtime daily. alendronate (FOSAMAX) 70 Take 70 mg by 0 mg tablet mouth every 7 days. Take at least 30 minutes before breakfast with plain water. Do not lie down for 30 minutes. gabapentin (NEURONTIN) Take 1 0 100 mg capsule capsule by mouth every morning and 1 in the afternoon then take 2 capsules at bedtime. 05/11/2021 acetaminophen (TYLENOL) Take 325 mg 0 325 mg tablet by mouth every 4 hours as needed for Pain. 05/11/[address] (PRILOSEC) Take 40 mg by 0 40 mg capsule mouth twice daily. 05/11/2021 aspirin 81 mg chewable Chew 81 mg by 0 tablet mouth daily. Take with food. 05/11/2021 gabapentin (NEURONTIN) Take 200 mg 0 100 mg capsule by mouth at bedtime daily. added in this encounter Active and Recently Administered Medications Times are shown in CDT. 05/10/2021 05/11/2021 Medication Order 05/09/2021 0147 (Med Not Given - Provider: Teodora sales RN - Reason: Patient sleeping)0635 (Given - Provider: Teodora Luque RN)1308 (Given - Provider: Kelvin Seymour RN)1916 (Given - Provider: Amparo Matias RN) 0101 (Given - Provider: Yoselin Flores RN)0642 (Given - Provider: Yoselin Flores, WANDA) acetaminophen (TYLENOL EXTRA STRENGTH) 0111 (Med Not Given tablet 1,000 mg - Provider: Teodora 1,000 mg, Oral, EVERY 6 HOURS, First Rebel RN - [place] son: dose (after last modification) on Sat Patient 05/06/21 at 1600, Until Discontinued, sleeping)0929 ( Given TOTAL ACETAMINOPHEN DOSE NOT TO EXCEED - Provider: Prateek flores 4GM DAILY WANDA Dunham)1401 (Given - Provider: Carlene Dunham RN)2106 (Given - Provider: Teodora Luque RN) 0635 (Given - Provider: Teodora Luque RN) alendronate (FOSAMAX) tablet 70 mg 70 mg, Oral, EVERY 7 DAYS, First dose (after last modification) on Sat 1 at 0700, Until Discontinued, NURSING: Please educate patient and document: -Give drug 30 min prior to first food, medication, or beverage of the day -Giv e with a full glass of water ONLY -Do not let patient lie down for at least 30 mi n after dose is taken 0828 (Given - Provider: Kelvin Seymour RN) 08 (Given - Provider: Africa Obregon RN) calcium citrate (CALCITRATE) tablet 0930 (Given - 1,900 mg Provider: Carlene 1,900 mg, Oral, EVERY MORNING, First Charla RN) dose on Sat05/06/21 at 1030, Until Discontinued, Each tablet delivers 200m g elemental Calcium 0831 (Given - New Bag - Provider: Kelvin Seymour RN) calcium gluconate 1 g in sodium chlorid e 0.9% (NS) 110 mL IVPB (MB+) (COMPLETED) 1 g, Intravenous, 110 mL, Administer over 10 Minutes, ONCE, 1 dose, On Sat05/10/21 at 0900, Infuse each 1gm over 1 0 minutes -- Please adjust duration accordingly. 0828 (Given - Provider: Kelvin Seymour RN) 0822 (Given - Provider: Africa Obregon , WANDA) celecoxib (CeleBREX) capsule 200 mg 0930 (Given - 200 mg, Oral, DAILY, First dose on Sat Provider: Jordana ochoa 05/06/21 at 0900, Until Discontinued WANDA Dunham) 0828 (Given - Provider: Kelvin Seymour RN)2110 (Given - Provider: Yoselin Flores, WANDA) 08 (Given - Provider: Africa Obregon , RN) enoxaparin (LOVENOX) syringe 30 mg 1213 (Med Not Giv en 30 mg, Subcutaneous, TWICE DAILY, First - Provider: Carlene dose on Sat05/05/21 at 2200, Until WANDA Dunham - Discontinued, For patients undergoing Reason: Med no t surgery: Consult physician in advance -- available)2 107 enoxaparin is an anticoagulant and may (Given - Prov ider: need to be held for 12hr prior to Teodora Luque RN) surgery or invasive procedures. NOTE: This is a HIGH ALERT Medication. 08 (Given - Provider: Kelvin Seymour RN)1110 (Given - Provider: Kelvin Seymour RN) 08 (Given - Provider: Africa Obregon , WANDA) gabapentin (NEURONTIN) capsule 100 mg 30 (Given - 100 mg, Oral, TWICE DAILY, First dose on Provider: E sandra 05/06/21 at 0800, Until Discontinued WANDA Dunham) 140 (Given - Provider: Carlene Dunham RN) 2109 (Given - Provider: Yoselin Flores, WANDA) gabapentin (NEURONTIN) capsule 200 mg 2105 (Given - 200 mg, Oral, AT BEDTIME DAILY, First Provider: Salazar kelly dose on Sat05/05/21 at 2100, Until WANDA Luque) Discontinued lactated ringers infusion (COMPLETED) 1942 (Given - New 1,000 mL, 500 mL, Intravenous, at 500 Bag - Provider : mL/hr, BOLUS, 1 dose, On Sat05/09/21 at Carlene perez RN) 1900 0828 (Given - Provider: Kelvin Seymour RN)2109 (Given - Provider: Yoselin Flores, WANDA) 08 (Given - Provider: Africa Obregon , WANDA) magnesium oxide (MAGOX) tablet 400 mg 0930 (Given - 400 mg, Oral, TWICE DAILY, First dose on Provider: E sandra 05/06/21 at 0945, Until Discontinued, WANDA Dunham )2106 Delivers 241.3mg elemental magnesium per (Given - Pr ovider: damaris Luque RN) 0828 (Given - Provider: Kelvin Seymour RN)2110 (Given - Provider: Yoselin Flores RN) 09 (Due - Provider: Boni Torres inue) methocarbamoL (ROBAXIN) tablet 500 mg 929 (Given - 500 mg, Oral, TWICE DAILY, First dose on Provider: Prateek White 05/06/21 at 1245, Until Discontinued WANDA Dunham) 2105 (Given - Provider: Teodora Luque, WANDA) 2110 (Given - Provider: Yoselin Flores RN) pantoprazole DR (PROTONIX) tablet 40 mg 2105 (Given - 40 mg, Oral, DAILY, First dose on Sat Provider: Salazar kelly 05/05/21 at 2100, Until Discontinued, Do Rebel RN) not crush or chew tablet. 08 (Given - Provider: Kelvin Seymour RN) 0823 (Med Not Given - Provider: Africa middleton RN - Reason: Loose stools) polyethylene glycol 3350 (MIRALAX) 1022 (Med Not Giv en packet 34 g - Provider: Carlene 34 g (2 packet), Oral, DAILY, First dose WANDA Dunham - (after last modification) on 05/08/21 Reason: Loo se at 0900, Until Discontinued, 8.5 GRAMS = stools) 0.5 PACKET 17 GRAMS = 1 PACKET 34 GRAMS = 2 PACKETS 827 (Given - Provider: Kelvin Seymour RN)2109 (Given - Provider: Yoselin Flores RN) 0823 (Med Not Given - Provider: Africa middleton RN - Reason: Loose stools) senna/docusate (SENOKOT-S) tablet 2 929 (Given - tablet Provider: Carlene 2 tablet, Oral, TWICE DAILY, First dose WANDA Dunham) 2105 (after last modification) on 05/07/21 (Given - Pr ovider: at 2100, Until Discontinued, Hold for Teodora Luque RN ) loose stools 2109 (Given - Provider: Yoselin Flores RN) simvastatin (ZOCOR) tablet 10 mg 2105 (Given - 10 mg, Oral, AT BEDTIME DAILY, First Provider: Teodora dose on 05/07/21 at 2100, Until Luque, RN) Discontinued, NURSING: Please educate patient and document: Avoid taking grapefruit juice. 05/10/2021 05/11/2021 Medication Order 05/09/2021 1110 (Given - Provider: Kelvin Seymour RN)1915 (Given - Provider: Amparo Matias, WANDA) ondansetron (ZOFRAN) injection 4 mg 4 mg, Intravenous, EVERY 6 HOURS PRN, Starting on Sat05/09/21 at 1315, Until Letty 05/11/21 at 1128, Nausea/Vomiting Injectable 0804 (Given - Provider: Eliza Tenorio, WANDA) 0333 (Given - Provider: Yoselin Flores, WANDA) oxyCODONE (ROXICODONE) tablet 5-15 mg 0933 (Given - 5-15 mg, Oral, EVERY 4 HOURS PRN, Provider: Carlene Starting on Sat05/05/21 at 2146, Until WANDA Dunham)1 550 Letty 05/11/21 at 1128, Pain PO (Given - Provider: Carlene Dunham RN)2105 (Med Not Given - Provider: Teodora Luque RN - Reason: Patient Refused)2117 (Given - Provider: Teodora Luque RN) documented in this encounter Orders First Ordered Date Medications Ordered That Might Not Have Count Last Ordered Date Been Administered 05/06/2021 calcium gluconate 1 g in sodium chloride 3 05/10/2021 0.9% (NS) 110 mL IVPB (MB+) 05/05/2021 lactated ringers infusion 4 05/09/2021 05/06/2021 ondansetron (ZOFRAN) injection 4 mg 2 sodium chloride 0.9 % infusion 1 05/08 alendronate (FOSAMAX) tablet 70 mg 3 polyethylene glycol 3350 (MIRALAX) 1 packet 34 g senna/docusate (SENOKOT-S) tablet 2 1 tablet simvastatin (ZOCOR) tablet 10 mg 1 05/07 WATER FOR INJECTION, STERILE IJ SOLN 3 0 05/07/2021 (Cabinet Override) acetaminophen (TYLENOL EXTRA STRENGTH) 1 05/06/2021 tablet 1,000 mg 05/05/2021 acetaminophen (TYLENOL) tablet 650 mg 2 05/06/2021 calcium carbonate (OS-RANDAL) tablet 1,250 1 05/06/2021 mg calcium citrate (CALCITRATE) tablet 1 1,900 mg ceFAZolin (ANCEF) IVP 2 g 1 05/06/2021 05/05/2021 FENTANYL CITRATE (PF) 50 MCG/ML IJ SOLN 2 05/06/2021 (Cabinet Override) fentaNYL citrate PF (SUBLIMAZE) 1 2020 injection 25 mcg HYDROmorphone injection (DILAUDID) 0.5 1 05/06/2021 mg HYDROmorphone injection (DILAUDID) 1 mg 1 05/06/2021 magnesium oxide (MAGOX) tablet 400 mg 1 05/06/2021 magnesium sulfate 1 g/D5W 100 mL IVPB 4 05/06/2021 methocarbamoL (ROBAXIN) tablet 500 mg 1 05/06/2021 oxyCODONE (ROXICODONE) tablet 5-10 mg 1 05/06/2021 potassium chloride SR (K-DUR) tablet 40 1 05/06/2021 mEq celecoxib (CeleBREX) capsule 200 mg 1 enoxaparin (LOVENOX) syringe 30 mg 1 fentaNYL citrate PF (SUBLIMAZE) 1 2020 injection 25-50 mcg fentaNYL citrate PF (SUBLIMAZE) 1 2020 injection 50 mcg gabapentin (NEURONTIN) capsule 100 mg 1 05/05/2021 gabapentin (NEURONTIN) capsule 200 mg 1 05/05/2021 ondansetron (ZOFRAN) injection 4-8 mg 1 05/05/2021 oxyCODONE (ROXICODONE) tablet 5-15 mg 1 05/05/[address] (PROTONIX) tablet 40 mg 1 05/05/2021 polyethylene glycol 3350 (MIRALAX) 1 packet 17 g senna/docusate (SENOKOT-S) tablet 1 1 tablet First Ordered Date Procedures Count Last Ordered Date 05/05/2021 CONSULT IV THERAPY TEAM 4 05/09/2021 First Ordered Date Diet Count Last Ordered Date DISCHARGE DIET FLUID RESTRICTION 1 05/11 DISCHARGE DIET REGULAR 1 05/11/2021 First Ordered Date Nursing Count Last Ordered Date DISCHARGE ACTIVITY DRIVING 1 05/11/2021 DISCHARGE ACTIVITY NORMAL 1 05/11/2021 DISCHARGE ACTIVITY WT BEARING 1 05/11/20 DISCHARGE COMMENTS 1 05/11/2021 DISCHARGE CONTACT 1 05/11/2021 DISCHARGE EDUCATION 2 05/11/2021 DISCHARGE RETURN APPOINTMENT 2 DISCHARGE SIGNS/SYMPTOMS 1 05/11/2021 DISCHARGE WOUND CARE 1 05/11/2021 NURSE COMMUNICATION 1 05/05/2021 VITAL SIGNS FOR TRANSFUSION 1 05/05/2021 First Ordered Date Consult Count Last Ordered Date CONSULT WOUND/OSTOMY TEAM NURSE 1 2020 CONSULT INTERNAL MEDICINE PHYSICIAN 1 CONSULT ORTHOPEDIC SURGERY PHYSICIAN 1 0 05/05/2021 First Ordered Date OT Count Last Ordered Date OT CONSULT OCCUPATIONAL THERAPY 1 2020 First Ordered Date PT Count Last Ordered Date PT CONSULT PHYSICAL THERAPY 1 05/05/2021 First Ordered Date Admission Count Last Ordered Date ADMIT TO INPATIENT 1 05/05/2021 First Ordered Date Discharge Count Last Ordered Date DISCHARGE PATIENT NOW 1 05/11/2021 [facility] First Ordered Date Equipment Count Last Ordered Date COMPRESSION DEVICE, LEG 1 05/05/2021 PUMP IV CONTROL UNIT W/MODULES 1 021 First Ordered Date Activity Count Last Ordered Date MOBILITY 1 05/06/2021 First Ordered Date SPECIALITY EQUIPMENT Count Last Ordered Date 05/07/2021 COMMODE STANDARD 300LBS MAX 2 05/09/2021 First Ordered Date Intake & Output Count Last Ordered Date INTAKE AND OUTPUT 1 05/05/[address] & Maintain Count Last Ordered Date PLACE AND MAINTAIN SCD 1 05/05/2021 First Ordered Date Case Request Count Last Ordered Date CASE REQUEST 1 05/05/2021 First Ordered Date ADT Patient Update Count Last Ordered Date CHANGE SERVICE / LEVEL OF CARE (NO BED 1 05/06/2021 REQUEST) documented in this encounter Additional Health Concerns Assessment Noted Time A fall risk assessment has been completed for the pat ient 05/11/2021 8:22 AM CDT documented as of this encounter
--- OUTSIDE RECORDS SUMMARY | 2021-07-05 14:11 | XMS REPORT | Encounter Summary ---
Author Author [facility] Organization [facility] Address Unknown Phone Unavailable Care Team Providers Care Warehouse Processor Name Role Phone Self, Tomasz BREEN PCP Encounter Details Care Team Description Date Type Department 05/31/2021 Travel Social History Date Tobacco Use Types Packs/Day [...] impairment: No documented as of this encounter Plan of Treatment Not on [...]
--- OUTSIDE RECORDS SUMMARY | 2021-07-05 14:11 | XMS REPORT | Encounter Summary ---
Author [facility] Address Unknown Phone Unavailable Care Team Providers Care Label Coder Name Role Phone Tomasz Edwards MD PCP Reason for Visit * Radiology Services (Routine) Referred By Contact Referred To Contact Status Reason Specialty Diagnoses / Procedures Eber العلي MD [address] [place] [address] New Request Radiology Diagnoses S/P ORIF (open reduction internal fixation) fracture P rocedures FEMUR 2 VIEWS RIGHT FEMUR 2 VIEWS LEFT Encounter Details Care Team Description Date Type Department Eber العلي MD [address] [place], [place] [id number] 05/31/2021 Hospital Imaging: [facility], Encounter [facility] [address] [facility]. [address] [place] [address] Social History Date Tobacco Use [...] impairment: No documented as of this encounter Medications at Time of Discharge [...] with food. documented as of this encounter Discharge Disposition Code Departure Means Destination Disposition Home Home or Self Care documented in this encounter Plan of Treatment Not on filedocumented as of this encounter Goals Goal Patient Associated Recent Progress Patient-Stat Aut hor Goal Type Problems ed? GOAL General On track (05/08/2021 Puja coleman, 11:29 AM CDT) WANDA Dunaway Note: Get well documented as of this encounter Procedures Comments Procedure Name Priority Date/Time Associated Diag nosis KNEE 1 OR 2 VIEWS RIGHT Routine 05/31/2021 S/P OR IF (open reduction 9:35 AM CDT internal fixation) fracture FEMUR 2 VIEWS RIGHT Routine 05/31/2021 S/P ORIF ( open reduction 9:35 AM CDT internal fixation) fracture documented in this encounter Results * KNEE 1 OR 2 VIEWS RIGHT (05/31/2021 9:35 AM CDT) Specimen Impressions Performed At 1. Interval ORIF of the comminuted distal femur fra cture with good reduction [facility] RESULTS of the previously displaced femoral con dyles. 2. Joint effusion. 3. Proximal tibia and fibula appear i ntact. 4. Prior total right hip arthroplasty . Finalized by Lon Osman M.D. on 2020 10:37 AM. Dictated by Lon Osman M.D. on 05/31/2021 10:34 AM. Narrative Performed At Exam: FEMUR 2 VIEWS RIGHT, KNEE 1 OR 2 VIEWS RIGHT [facility] RESULTS CLINICAL INDICATION: 75 years Female. S /p ORIF distal femur fracture without intercondylar extension COMPARISON: Right knee radiograph Aug[facility] t 2020. Procedure Note Interface, Radiant Results - 05/31/2021 10:40 AM CDT Exam: FEMUR 2 VIEWS RIGHT, KNEE 1 OR 2 VIEWS RIGHT CLINICAL INDICATION: 75 years Female. S/p ORIF distal femur fracture without intercondylar extension COMPARISON: Right knee radiograph May 05, 2021. IMPRESSION 1. Interval ORIF of the comminuted dist al femur fracture with good reduction of the previously displaced femoral condyles. 2. Joint effusion. 3. Proximal tibia and fibula appear int act. 4. Prior total right hip arthroplasty. Finalized by Lon Osman M.D. on 05/31/2021 10:37 AM. Dictated by Lon Osman M.D. on 05/31/2021 10:34 AM. Performing Organization Address City/State/ZIP Code [place] Number [facility] RESULTS * FEMUR 2 VIEWS RIGHT (05/31/2021 9:35 AM CDT) Specimen Right Impressions Performed At 1. Interval ORIF of the comminuted distal femur fra cture with good reduction [facility] RESULTS of the previously displaced femoral con dyles. 2. Joint effusion. 3. Proximal tibia and fibula appear i ntact. 4. Prior total right hip arthroplasty . Finalized by Lon Osman M.D. on 2020 10:37 AM. Dictated by Lon Osman M.D. on 05/31/2021 10:34 AM. Narrative Performed At Exam: FEMUR 2 VIEWS RIGHT, KNEE 1 OR 2 VIEWS RIGHT [facility] RESULTS CLINICAL INDICATION: 75 years Female. S /p ORIF distal femur fracture without intercondylar extension COMPARISON: Right knee radiograph [facility] t 2020. Procedure Note Interface, Radiant Results - 05/31/2021 10:40 AM CDT Exam: FEMUR 2 VIEWS RIGHT, KNEE 1 OR 2 VIEWS RIGHT CLINICAL INDICATION: 75 years Female. S/p ORIF distal femur fracture without intercondylar extension COMPARISON: Right knee radiograph May 05, 2021. IMPRESSION 1. Interval ORIF of the comminuted dist al femur fracture with good reduction of the previously displaced femoral condyles. 2. Joint effusion. 3. Proximal tibia and fibula appear int act. 4. Prior total right hip arthroplasty. Finalized by Lon Osman M.D. on 05/31/2021 10:37 AM. Dictated by Lon Osman M.D. on 05/31/2021 10:34 AM. Performing Organization Address City/State/ZIP Code [place] Number [facility] RESULTS documented in this encounter Visit Diagnoses Diagnosis S/P ORIF (open reduction internal fixat ion) fracture Other postprocedural status documented in this encounter Additional Health Concerns Assessment Noted Time A fall risk assessment has been completed for the pat ient 05/11/2021 8:22 AM CDT documented as of this encounter
--- OUTSIDE RECORDS SUMMARY | 2021-07-05 14:11 | XMS REPORT | Encounter Summary ---
Author Author [facility] Organization [facility] Address Unknown Phone Unavailable Care Team Providers Care Bowling Alley Mechanic Name Role Phone Self, Tomasz BREEN PCP Reason for Visit * Reason Comments Post Operative Visit Encounter Details Care Team Description Date Type Department Yuridia Aparicio PA-C [address] [place] [address] S/P ORIF (open reduction internal fixati on) fracture (Primary Dx) 05/31/2021 Office Visit Orthopedics and Spo rts Medicine: [facility], [facility] [address] [facility]. [address] [place] [address] Social History Date Tobacco Use [...] Signs Reading Time Taken Comments Vital Sign - - Blood Pressure - - Pulse - - Temperature - - Respiratory Rate - - Oxygen Saturation - - Inhaled Oxygen Concentration 58.5 kg (129 lb) 05/31/2021 9:22 AM CDT Weight 149.9 cm (4' 11") 05/31/2021 9:22 AM CDT Height 26.05 05/31/2021 9:22 AM CDT Body Mass Index documented in this [...] impairment: No documented as of this encounter Patient Instructions * Patient Instructions* Jada Cody RN - 05/31/2021 9:20 AM CDT Please do not hesitate to contact my office with any questions. Dr. Eber العلي | Orthopedic Surgeon, Trauma [facility] | | [address] | [place], [place] [address] Irma Wang, RN, BSN | Ambulatory Clinic RN Human Resources Compensation Analyst | [facility] | | [email or web address] [address] | [place], [place] [address] documented in this encounter Progress Notes * Yuridia Aparicio PA-C - 05/31/2021 9:20 AM CDT S/p R distal femur ORIF 05/06 Doing well. No concerns or issues. Has been compliant with post op instructions. Denies any wound issues. No fevers, chills or sweats. denies numbness, tingling or paresthesias. PE: There were no vitals filed for this visit. RLE: incisions well healed, no erythema or drainage, minimal ttp, ROM limited 2/ 2 pain and stiffness. NVI distally XR: stable hardware and alignment, interval healing A/p: s/p R distal femur ORIF 05/06 -NWB RLE, ROMAT -Nelly removed from incision. Ok to shower. Do not submerge incisions. -Pain control -Follow up 4 weeks with xrays documented in this encounter Plan of Treatment Not on filedocumented as of this encounter Goals Goal Patient Associated Recent Progress Patient-Stat Aut hor Goal Type Problems ed? GOAL General On track (05/08/2021 No Flores coleman, 11:29 AM CDT) WANDA Dunaway Note: Get well documented as of this encounter Visit Diagnoses Diagnosis S/P ORIF (open reduction internal fixat ion) fracture - Primary Other postprocedural status documented in this encounter Additional Health Concerns Assessment Noted Time A fall risk assessment has been completed for the pat ient 05/11/2021 8:22 AM CDT documented as of this encounter
--- OUTSIDE RECORDS SUMMARY | 2021-07-05 14:11 | XMS REPORT | Encounter Summary ---
Author Author [facility] Organization [facility] Address Unknown Phone Unavailable Care Team Providers Care Database Tester Name Role Phone Self, Tomasz BREEN PCP Reason for Visit * Reason Comments Fall transfer from [facility]. * Auth/Cert Referred By Contact Referred To Contact Status Reason Specialty Diagnoses / Procedures Diagnoses Trauma fall Encounter Details Care Team Description Date Type Department Demond Paige MD [address] [place] [address] [phone] Aris Sullivan DO [address] [facility] [place] [address] Fall 05/05/2021 Hospital Patient Care Unit B H51: - Encounter [facility], [facility] 05/11/2021 Hospital [address] [facility] Level 5 [place] [address] Social History Date Tobacco Use Types Packs/Day Years Used Never Smoker Smokeless Tobacco: Never Used Comments Alcohol Use Standard Drinks/Week Not Currently 0 (1 standard drink = 0.6 o z pure alcohol) Sex Assigned at Date Recorded Not on file Date Recorded COVID-19 Exposure Response 05/05/2021 4:07 PM CDT In the last month, have you been in contact with [facility] to assess someone who was confirmed or suspected to have Coronavirus / COVID-19? documented as of this encounter Last Filed Vital Signs Reading Time Taken Comments Vital Sign 116/55 05/11/2021 6:43 AM CDT Blood Pressure 61 05/11/2021 6:43 AM CDT Pulse 36.5 C (97.7 F) 05/11/2021 6:43 AM CDT Temperature - - Respiratory Rate 99% 05/11/2021 6:43 AM CDT Oxygen Saturation - - Inhaled Oxygen [...] PHYSICIAN CONSULT WOUND/OSTOMY TEAM NURSE Patient Disposition: Custodial Facility Patient instructions/medications: Scheduled appointments: Recommend follow [...] you can call a dietitia n at [phone]. Report These Signs and Symptoms Please contact [...] or concerns regarding your hospital stay, call [phone]. Discharging attending physician: SUDHAKAR HAWKINS [[id number]] Activity as Tolerated It is important to [...] quest ions or concerns. Provider TRAUMA, SURGERY [[id number]] Location Surgery Clinic Opioid (Narcotic) Safety Information [...] is not lasting long enough, call yo doctor. *Do not break or crush your [...] re gular, soft bowel movements. Naloxone Nasal [place] Instructions Naloxone nasal spray Brand Name: Narcanahy What is this medicine? NALOXONE (nal OX [...] of a narcotic overdose. Talk to your surgical elastic knitter hand frame regarding the use of this medicine in children. While this drug may be prescribed for chi ldren as young as newborns for selected conditions, precautions do apply. What side effects may I notice from receiving this medicine? Side effects that you should report to your doctor or health laboratory animal caretaker a s soon as possible: allergic reactions like skin rash, itching or hives, swelling of the face, li ps, or tongue breathing problems fast, irregular heartbeat high blood pressure pain that was controlled by narcotic pain medicine seizures Side effects that usually do not require medical attention (report to your docto r or health laboratory animal caretaker if they continue or are bothersome): anxious [...] phone number of your doctor or health laboratory animal caretaker and loc al hospital ready. You may need to have additional doses of this medicine. Each nasal spray contains a single dose. Some emergencies may require additional dose s. After use, bring the treated person to the nearest hospital or call 911. Make brush re the treating health laboratory animal caretaker knows that the person has received an [...] Dr العلي in 2-3 weeks. Please call [phone] to schedule that follow up appointment or [phone] upon discharge.Should you have a question or concern regarding your orthopedic care or injuries please ca ll our nurse's line at [phone]. Our clinic is located on the 2nd floor of the Orthopedic Building on [facility], across from the [place] [facility]. T he clinic address is [address] [facility], [address] Provider EBER العلي T [[id number]] Location Orthopedic Clinic Complete if patient is going to a Custodial Facility PT/OT/FAMILY PRACTICE DOCTOR eval and treat. I certify that the patient requires skilled care Yes The patient's stay is expected to be less than 30 days Yes I will be in charge of patient in long term No Current Discharge Medication List CONTINUE these [...] Disposition Code Departure Means Destination Disposition Ambulance Custodial Facility documented in this encounter Progress Notes * Africa Obregon RN - 05/11/2021 8:16 AM CDT Tere Sahu discharged on 05/11/2021. Equipment Removed: Telepack. Discharge instructions reviewed with patient. Valuables returned: Personal Items / Valuables: Valuables/Belongings sent home with family/friends Denture Type: Full upper, Full lower Where Are Valuables Stored?: with pt in room. Home medications: . Functional assessment at discharge complete: Yes . 0816: RN gave report to WANDA Salazar at [facility]. Scheduled transport at 0900. Skin: R hip surgical incision - clean, dry and intact. Xerogorm, gauze, softroll intac t. Surrounding skin has trace edema but otherwise CDI. Stage 1 on coccyx is open to air. Placed barrier cream. Skin is warm and pink. N o drainage. R arm skin tear. [place] and moist. Surrounding skin is dry and intact. Wound adhes kermit bandage placed. Bandage is CDI. Groin MASD. [place] and moist. Placed barrier cream. Surrounding skin [...] injuries please call our nurse's line at [phone]. Our clinic is located on the 2nd floor of the Orthopedic Building on [facility], [facility]. The clinic addr ess is [address] [facility], [place] [address] She needs to call [phone] to schedule that follow up appointment or upon discharge. DISPO: per primary SHITAL Pineda Orthopedic Surgery Voalte/[id number] S: No acute events. [...] toes to proximal thigh. Active Wounds Wounds 05/05/212147 Abrasion Left Eye [...] Wound Type:: Agree With My Assessment? Yes 05/06/21 1826 Wound Dressing Status Intact 05/09/212099 Wound Dressing [...] Base Assessment Clean;Dry;Red 05/09/212099 Surrounding Skin Assessment Dry;Flaky;[place];Excoriated 05/09/212099 Wound Site Closure Open to Air [...] Drainage Amount None 05/09/212099 Wound Base Assessment Clean;Moist;[place] 05/09/212099 Surrounding Skin Assessment Intact;[place];Red 05/09/212099 Wound Site Closure None 05/09/212099 Wound Status (Wound Team Only) Being Treated 05/09/21 1450 Number of days: 1 Resulted Micro Last 72 Hrs No results found Output by Drain (mL) 05/05/21 0701 - 05/05/21 1900 05/05/21 190 - 05/06/21 0700 05/06/21 0701 - 05/06/21 1900 05/06/21 190 - 05/07/21 0700 05/07/21 0701 - 0750 [...] 4.5 4.3 CL 105 104 103 CO2 BUN 14 CR 0.97 0.90 0.89 GLU 87 69* [...] --robaxin 500mg BID --oxycodone 5-15mg q4hr PRN --FLAT GRINDER OPERATOR Celebrex --FLAT GRINDER OPERATOR gabapentin 100mg BID; 200mg QHS Cardiovascular HTN, HLD --FLAT GRINDER OPERATOR simvastatin --holding FLAT GRINDER OPERATOR bumex Hemodynamically stable See vital signs summary [...] GI bleeding. --WBC 6.0(6.4); afebrile Endocrine Osteoporosis --FLAT GRINDER OPERATOR Fosamax states she takes on Wednesdays Musculoskelatal [...] results, abhijit Santos APRN-TIFFANIE Trauma Team Pager: [phone] * Tl hRoades - 05/09/2021 12:49 PM CDT Reason for Visit: Microsoft Application Developeroswaldo chiang Rajni/Samaritan: Sikh Source of Purpose/Meaning: Mrs. Sahu stated she [...] her family. Interventions/Plan: I was able to antique repairer to Mrs. Sahu by being present and l istening to her share about her health, being afraid to get an IV, and her karthik rns with leaving the hospital to soon. I shared words of encouragement and praye d for Mrs. Sahu and the IV team. The spiritual care team is available as needed, 08/04, through the [employer] switchb oard ([phone]). For a response within 24 hours, please submit an order in O2 fo r a audio visual specialist consult. * Edyta Francis RN - 05/09/2021 [...] to see patient at scheduled time with vocational rehabilitation specialist. Patient with another discipline for extended period of time and IV team arrives to room. OT will con tinue to follow. Therapist: Marlyn Holcomb OTR/Miri [id number] Date: 05/09/2021 * Demario Eason PA-C - [...] --robaxin 500mg BID --oxycodone 5-15mg q4hr PRN --FLAT GRINDER OPERATOR Celebrex --FLAT GRINDER OPERATOR gabapentin 100mg BID; 200mg QHS Cardiovascular HTN, HLD --FLAT GRINDER OPERATOR simvastatin --holding FLAT GRINDER OPERATOR bumex Hemodynamically stable See vital signs summary [...] afebrile. No signs of infection Endocrine Osteoporosis --FLAT GRINDER OPERATOR Fosamax states she takes on Wednesdays Hyperglycemia; [...] last encounter, lab results, abhijit Eason PA-C 6599 Trauma Team Pager: [phone] * Karen Winkler, PT - 05/08/2021 11:31 [...] Walker;Wheelchair-manual (hospital bed) Prior Function Level Of [place]: Independent with ADLs and functional transfers;Independen t [...] Discharge Recommendations Recommendation: Inpatient setting Therapist: VALENTINE Jackson/iMri [id number] Date: 05/08/2021 * Patricia Alfaro APRN-NP - 05/08/2021 9:31 AM CDT OT inquiring if brijesh is ok. Brijesh is fine from an orthopedic perspective. T Dominic SENIOR FRONT END ENGINEER-C Orthopedic Trauma Services Voalte * Dana Tineo [...] --robaxin 500mg BID --oxycodone 5-15mg q4hr PRN --FLAT GRINDER OPERATOR Celebrex --FLAT GRINDER OPERATOR gabapentin 100mg BID; 200mg QHS Cardiovascular HTN, HLD --FLAT GRINDER OPERATOR simvastatin --holding FLAT GRINDER OPERATOR bumex Hemodynamically stable See vital signs summary [...] afebrile. No signs of infection Endocrine Osteoporosis --FLAT GRINDER OPERATOR Fosamax states she takes on Wednesdays Hyperglycemia; [...] last encounter, lab results, abhijit Eason PA-C 9945 Trauma Team Pager: [phone] * Annemarie Francis, PT - 05/07/2021 10:36 AM CDT PHYSICAL THERAPY ASSESSMENT Name: Tere Sahu : 1945 Age: 75 [...] Walker;Wheelchair-manual (hospital bed) Prior Function Level Of [place]: Independent with ADLs and functional transfers;Independen t [...] Recommendations Recommendation: Inpatient setting Therapist: VALENTINE Jackson/Miri [id number] Date: 05/07/2021 * Lon Calderón MD - [...] and OT consults Chronic neuropathy - cont FLAT GRINDER OPERATOR gabapentin HLD - cont FLAT GRINDER OPERATOR simvastatin Noted hyperglycemia this am - likely [...] Ana Rosa r Range BP: 99/56 (05/07 0700) Temp: 36.4 C (97.6 F) (05/07 0700) Pulse: 80 (05/06 1900) Respirations: 17 PER MINUTE (05/07 0700) SpO2: 95 % (05/07 0700) SpO2 Pulse: 69 (05/06 1826) BP: (86-121)/(52-83) [...] Review: No new radiology. Lon Calderón MD, [facility] Clinical Rehabilitation Clerk Internal Medicine, [facility] Medicine Pager: [phone] * Ignacio Aguilar MD - 05/07/2021 7:50 [...] in 2-3 weeks. She needs to call [phone] to schedule that follow up appointment upon discharge. DISPO: Continue inpatient. Ignacio Aguilar MD [id number] S: No acute events. Pain controlled. Tolerating [...] Drainage Amount None 05/06/212199 Wound Base Assessment Clean;Dry;Intact;[place] 05/06/212199 Surrounding Skin Assessment Dry;Intact 05/06/212199 Number [...] Drainage Amount Scant 05/06/212199 Wound Base Assessment Bleeding;Clean;Dry;[place] 05/06/212199 Surrounding Skin Assessment Dry;Intact 05/06/212199 Wound Site Closure Wound Adhesive Bandage 05/06/212199 Number of days: 0 Resulted Micro Last 72 Hrs No results found Output by Drain (mL) 05/05/21 0701 - 05/05/21 1900 05/05/21 190 - 05/06/21 0700 05/06/21 0701 - 05/06/21 [...] (Hosp) Hyponatremia (Hosp) Trauma * Charis Santos APRN-SENIOR FRONT END ENGINEER - 05/07/2021 7:18 AM CDT Trauma Surgery [...] --robaxin 500mg BID --oxycodone 5-15mg q4hr PRN --FLAT GRINDER OPERATOR Celebrex --FLAT GRINDER OPERATOR gabapentin 100mg BID; 200mg QHS Cardiovascular HTN, HLD --FLAT GRINDER OPERATOR simvastatin --holding FLAT GRINDER OPERATOR bumex Hemodynamically stable See vital signs summary [...] afebrile. No signs of infection Endocrine Osteoporosis --FLAT GRINDER OPERATOR Fosamax states she takes on Wednesdays Hyperglycemia; [...] last encounter, lab results, abhijit Santos APRN, [facility]- 7946 Trauma Team Pager: [phone] * Fleiberto Bianchi MD - 05/06/2021 5:52 PM CDT [...] in 2-3 weeks. She needs to call [phone] to schedule that follow up appointment upon discharge. Feliberto Bianchi MD #[id number] * Charis Santos APRN-SENIOR FRONT END ENGINEER - 05/06/2021 8:56 AM CDT Trauma Surgery [...] care; PT/OT and pain control post operatively. SWATI and BRYANNA followin g for discharge planning needs; anticipate placement needs at time of d/c. Patient discussed with Dr. Swenson during rounds. I have reviewed pertinent labs, medications, radiology, and diagnostic procedure s including: active problem list, medication list, allergies, family history, so cial history, health maintenance, notes from last encounter, lab results, abhijit Santos APRN-SENIOR FRONT END ENGINEER Trauma Team Pager: [phone] * Carmelita Cordova, PT - 05/06/2021 7:25 [...] Posted, needs consent Ignacio Aguilar MD P [phone] * Jessica Banegas RT - 05/05/2021 10:27 [...] range of motion C-spine cleared clinically Liat Yuong MD Pager: [phone] * Kelsey Richardson - 05/05/2021 7:07 PM CDT Trauma Activation Type: Ad. Type 2 Trauma - Fall Patient's Name: Tere Sahu Date of (): 1945 Patient/Family Encounter: Observed patient while she was in the Trauma [place]. Christian Preference: Unknown. Intervention/Plan: Observed patient but did not have opportunity to speak with h er directly. ED staff will contact for Microsoft Application Developer support when family arrives if t hey require pastoral care. The spiritual care team is available as needed, 08/04, through the [employer] switchb oard ([phone]). For a response within 24 hours, please submit an order in O2 fo r a audio visual specialist consult. documented in this encounter H&P Notes * Charis Santos APRN-TIFFANIE - 05/07/2021 4:13 PM CDT Tertiary Trauma [...] one year would be optional. Charis Santos APRN-TIFFANIE * Meghan Lopez MD - 05/05/2021 6:49 PM CDT Trauma History and Physical Examination 05/05/2021 Tere Sahu [id number] Admission Date: 05/05/2021 __ HPI: Tere Sahu is a 75 y.o. year old female activated as a Type [address] sustaining a mechanical fall onto her head earlier today. She was initially evaluated at a hospital in [place], [place] where she received CXR and plain [...] this patient . Meghan Lopez MD Pager: [phone] Associated attestation - Demond Paige MD - [...] unit supply cart, can be requested from [employer] [id number].-- Wounds 05/09/21 1450 Moisture associated skin damage [...] Drainage Amount None 05/09/211449 Wound Base Assessment Moist;[place] 05/09/211449 Surrounding Skin Assessment Intact;[place];Red 05/09/211449 Wound Site Closure None 05/09/211449 Wound Status (Wound Team Only) Being Treated 05/09/211449 Number of days: 0 Our service will sign off at this time. Aleksandra Ponce RN, BSN, CWON Wound/Ostomy Nursing Consult Service Available via Voalte text or [facility] Contact Team "Emery Wheel Molder" after 4:00pm M-/weekends/holidays * Lon Calderón MD - 05/06/2021 9:18 [...] - she carries a 0.4% risk of AK or cardiac arrest intraop and post op per the officer captain perioperative risk calculator - EKG ordered - pain control per primary - PT and OT Chronic neuropathy - would cont FLAT GRINDER OPERATOR gabapentin HLD - would resume FLAT GRINDER OPERATOR statin Hypocalcemia, hypomag - replacement ordered by primary History of Present Illness: Terecheryl Sahu is a 75 y.o. female who [...] Social Gatherings with Friends and Family: Attends Christian Services: Active Member of Clubs or Organizations: [...] (PROTONIX) tablet 40 mg, 40 mg, Oral, QDAY() polyethylene glycol 3350 (MIRALAX) packet 17 g, 17 g, Oral, QDAY potassium chloride SR (K-DUR) tablet 40 mEq, 40 mEq, Oral, ONCE senna/docusate (SENOKOT-S) tablet 1 tablet, 1 tablet, Oral, BID Continuous Infusions: lactated ringers infusion 75 mL/hr at 05/05/212300 PRN and Respiratory Meds:acetaminophen Q4H PRN, fentaNYL [...] CDT Associated Order(s): CONSULT ORTHOPEDIC SURGERY PHYSICIAN [facility] Orthopedic Consult Note Admission Date: 05/05/2021 Chief [...] medicine consult for evaluation of medical co-morbidities -2uPPSYCHIATRIC held for OR -Diet: Okay for diet now from orthopedic perspective. Please keep NPO midnight -Pain control/medical management per primary -Imaging: RLE CT scan and knee films ordered Patient discussed with staff surgeon Dr. العلي who directed plan of care. During normal business hours, please contact Patricia Alfaro, Yuridia Aparicio or Maura Bianchi . At all other times, contact the orthopedic surgery resident iphone developer for any questions or concerns. Hiren Rodriguez MD [id number] History of Present Illness: Tere Sahu is [...] in this encounter ED Notes * Aris Sullivan DO - 05/05/2021 6:51 PM CDT Tere Sahu is a 75 y.o. female. Chief Complaint: Chief Complaint Patient presents with Fall transfer from [facility]. History of Present Illness: This is [...] decisions were done at the discretion of [facility] trauma team/attending. Pt care transferred to [...] of Emergency Medicine Voalte preferred | Callback [phone] ATTESTATION I personally observed the resident performing [...] Info or Referral Discharge Planning Discharge Planning: Custodial Facility SWATI confirmed pt is stable for [...] Selected Continued Care - Admitted Since 05/05/2021 [facility] Destination Coordination complete. Service Provider Selected Services Address Phone Fax Patient Preferred [facility] [address] [facility], [place] [address] * Care Plan - Kelvin Seymour RN [...] Mayra Roman - 05/10/2021 11:42 AM CDT COVER MAKING MACHINE OPERATOR Note: Arranged stretcher transport with [facility] Legal Secretary Receptionist for pt to DC to [facility] [place] on 05/11 at 9am per the request from SWATI Sau[place]o. [facility] to pay. Notified Nurse and [facility]. Mayra Roman Glassie For additional assistance please contact [facility] *[phone] * Case Mgmt DC Plan - Farida Lindo - 05/10/2021 9:34 AM CDT Case Management Progress Note NAME:Tere Sahu :[birth year] AGE: 75 y.o. ADMISSION DATE: 05/05/2021 DAYS ADMITTED: LOS: 5 days Todays Date: 05/10/2021 Plan Dc to [facility] at 9am tomorrow via [employer]. Interventions Support Info or Referral Discharge Planning Discharge Planning: Custodial Facility SW reached out to [facility], they confirmed having pt's referral and are curre ntly checking pt's financials. UPDATE SW updated by [facility], they are able to accept pt and can have pt transfer t omorrow. SW tasked COVER MAKING MACHINE OPERATOR to arrange transport (stretcher). SW updated medical [...] the patient. * Care Plan - Teodora Luque, RN - 05/10/2021 2:49 AM CDT Problem: Discharge Planning Goal: Participation in plan of care Outcome: Goal Ongoing Participation in Plan of Care: Involve patient/caregiver in care planning neela on making Goal: Knowledge regarding plan of [...] Janina Abbott - 05/09/2021 5:21 PM CDT COVER MAKING MACHINE OPERATOR Note: Delivered a Medicare SNF list to Pt, explained the list. Pt looked at list and r equested that I send a referral to the facility listed below., updated [facility], Lisa Cleary that referral was sent [facility] [address], [place] [address] Janina Abbott Glassie * Case Mgmt DC Plan - Mayra Roman - 05/09/2021 10:28 AM CDT COVER MAKING MACHINE OPERATOR Note: Called [facility] in [place], [place] to follow up on the SNF referral per the reque st from MIRACLE Dobbs. COVER MAKING MACHINE OPERATOR spoke to Do and was informed that she spoke t o Fay this morning stating that they will have to decline the referral due t o transportation issues due to pt needing several follow up appts in and not enough staff to provide the transportation. Mayra Roman Glassie * Case Mgmt DC Plan - Fay Cleary LMSW - 05/09/2021 9:32 AM CDT Case Management Progress Note NAME:Tere Sahu :[birth year] AGE: 75 y.o. ADMISSION DATE: 05/05/2021 DAYS ADMITTED: LOS: 4 days Todays Date: 05/09/2021 Plan Discharge to inpatient setting pending facility acceptance. Interventions Support Info or Referral Discharge Planning Discharge Planning: Custodial Facility SWATI tasked COVER MAKING MACHINE OPERATOR to follow up on SNF referral with [facility] in [place], [place]. [facility] reports [facility] is not able to accept due to pt needing follow up ap pointments in [place] and not being able to provide transportation to [facility]. SWATI spoke with pt to provide update. She is agreeable to reviewing list of add itional facilities. SWATI tasked COVER MAKING MACHINE OPERATOR to deliver SNF list from Medicare with quality measure ratings. SWATI will plan to follow up with pt [...] selected for the patient. Fay Cleary LMSW Planimeter Operator Desk: [phone] Pager: [phone] * Care Plan - Teodora Luque RN [...] treatment * Case Mgmt DC Plan - Mayra Roman - 05/08/2021 1:34 PM CDT COVER MAKING MACHINE OPERATOR Note: Faxed pt's initial SNF referral to [facility] per the request fro maura Cleary LMSW. Mayra Roman Glassie * Case Mgmt DC Plan - Fay Cleary LMSW - 05/08/2021 10:59 AM CDT Case Management Progress Note NAME:Tere Sahu :[birth year] AGE: 75 y.o. ADMISSION DATE: 05/05/2021 DAYS ADMITTED: LOS: 3 days Todays Date: 05/08/2021 Plan Discharge to inpatient setting pending facility acceptance. Interventions Support Info or Referral Discharge Planning Discharge Planning: Custodial Facility SW reviewed EMR. Pt requiring AX2 for transfers. PT/OT recommending inpatient setting. Per EMR pt has had prior stay at [facility] ([place], [place]). SW tasked COVER MAKING MACHINE OPERATOR to send initial referral to SNF. SW appreciates COVER MAKING MACHINE OPERATOR assistance. Medication Needs Financial Legal Other Disposition [...] selected for the patient. Fay Cleary LMSW Planimeter Operator Desk: [phone] Pager: [phone] * Care Plan - Teodora Luque RN [...] 75 y.o. female : 1945 MRN#: [id number] DATE OF OPERATION: 05/06/2021 Date: 05/06/2021 Preoperative [...] Implant Name Type Inv. Item Serial No. Manager Fund Lot No. LRB No. Used Action PLATE CURVE 301MM STAINLESS ST 4.5MM SCR 14 HL RT - [id number] PLATE CURVE [address] 4.5MM SCR 14 [address] 414 DEPUY SYNTHES CO X Right 1 Implant ed SCREW BONE 5MM 10MM LCP STAINLESS STEEL T25 CONDYLE VARIABLE - S0.010 SCRE W BONE 5MM 10MM LCP STAINLESS STEEL T25 CONDYLE VARIABLE 02.010 DEPUY SYNTHE S CO X Right 2 Implanted SCREW BONE 5MM 12MM LCP STAINLESS STEEL T25 CONDYLE VARIABLE - [id number] SCRE W BONE 5MM 12MM LCP STAINLESS STEEL T25 CONDYLE VARIABLE 02.012 DEPUY SYNTHE S CO X Right 1 Implanted SCREW BONE 5MM 60MM VA-LCP STAINLESS STEEL 3.5MM [place] - S0 SCREW HATTIE NE 5MM 60MM VA-LCP STAINLESS STEEL 3.5MM [place] 02 DEPUY SYNTHES CO X R ight 2 [...] PACU - stable Feliberto Bianchi MD Pager [phone] Associated attestation - Eber العلي MD - 05/08/2021 10:49 PM CDT I saw and evaluated the patient. Discussed with resident and agree with darshana rascon's findings and plan as documented in the [...] distal femur fracture without intercondylar extension CPT: 97961 ATTENDING SURGEON: Eber العلي MD RESIDENT SURGEON: [...] optimize healing. She will follow-up w hao me in 2 to 3 weeks for wound [...] total of more than 16 minutes in [id number] discus eduardo of patient condition, prognosis, treatment [...] trauma a ctivation / trauma transfer to [facility] from [facility] after falling at her home. Patient [...] for Post-Acute Facility, As sist PRN with SW/NCM Services Patient believes she will likely need to discharge to a facility before returning home. She is interested in [facility] in [place], [place] where she has stayed before. Patient has DME (ramp, wheelchair, walker, ho spital bed). Patient Address/Phone Tere Fieldsadon [address] [place] [address] [address] [facility] [address] (home) Emergency Contact Extended Emergency Contact Information Primary Emergency Contact: [place] Relation: Life Partner Preferred language: KOREAN Tab Cutter needed? No Healthcare Directive Healthcare Directive: No, [...] (Patient states she still works as a [employer]i abiodun for [employer]". She has one adult child who lives in . She drives occasi onally. Ambulates with RW.) Cognitive Abilities Cognitive Abilities: Alert and Oriented, Participates in decision making, Unders tands nature of health condition Financial Resources Coverage Primary Insurance: Medicare (SSN: [id number]) Additional Coverage: RX Source of Income Source Of Income: SSI, Employed Financial Assistance Needed? No Psychosocial Needs Mental Health Mental Health History: No Substance Use History Substance Use History Screen: No Audit C = 0 Cage Aid = 0 Current/Previous Services PCP Tomasz Edwards MD at Pharmacy No Pharmacies Listed Durable Medical Equipment Durable Medical Equipment at home: Hospital Bed, Roller Walker, Wheelchair ([facility]) Home Health Receiving home health: No Hemodialysis [...] care?: Following hip surgery; facility was in [place], [place] Would patient return for future services?: Yes OT: No FAMILY PRACTICE DOCTOR: No Custodial Facility/[facility] SNF: Yes When did patient receive care?: 2007 (?) Patient states she spent 30 days at [facility] in [place], [place]. Has also stayed at a swing bed in [facility]. Her f irst choice would be to return to [facility] Would patient return for future services?: Yes Inpatient Rehab IPR: Yes When did patient receive care?: Had rehab while at [facility] Would patient return for future services?: Yes [...] Nazanin Taylor RN, BSN Trauma & Burn Bit Welder Pager: [phone] * Care Plan - Sammy Stroud RN [...] integrity intact Outcome: Goal Ongoing Flowsheets (Taken 05/06/202115) Skin integrity intact: Assess nutrition Promote nutrition [...] Goals Outcome: Goal Ongoing Flowsheets (Taken 05/06/2021 001) Progress toward pain management goals: Progress toward [...] wishes: None Liat Young MD Team Pager: [phone] * Procedures (Immed Post or Bedside) - Meghan Lopez MD - 05/05/2021 7:01 PM CDT 05/05/2021 Tere Adelina [phone] Attending of Record: Dr. Paige Performing Provider: [...] Glucose, POC 90 70 - 100 MG/DL MAIN LAB Specimen Performing Organization Address [facility] Code P juliet Number MAIN LAB [address] [place] [address] * POC GLUCOSE (05/10/2021 11:35 AM CDT) Glucose, POC 96 70 - 100 MG/DL MAIN LAB Specimen Performing Organization Address City/[facility] P juliet Number MAIN LAB [address] [place] [address] * PHOSPHORUS (05/10/2021 6:33 AM CDT) Phosphorus 3.1 2.0 - 4.5 MG/DL MAIN LAB Specimen Blood Performing Organization Address City/[facility]/ZIP Code P juliet Number KU MAIN LAB [address] [place] [address] * MAGNESIUM (05/10/2021 6:33 AM CDT) Magnesium 2.0 1.6 - 2.6 mg/dL [facility] MAIN LAB Specimen Blood Performing Organization Address City/State/ZIP Code P juliet Number [facility] MAIN LAB [address] [place] [address] * CBC (05/10/2021 6:33 AM CDT) White Blood 6.0 4.5 - 11.0 K/UL [facility] MAIN LAB Cells RBC 2.49 (L) 4.0 - 5.0 M/UL [facility] MAIN LAB Hemoglobin 8.2 (L) 12.0 - 15.0 GM/DL K[facility] MAIN LAB Hematocrit 24.5 (L) 36 - 45 % [facility] MAIN LAB MCV 98.4 80 - 100 FL [facility] MAIN LAB MCH 33.0 26 - 34 PG KU MAIN LAB MCHC 33.6 32.0 - 36.0 G/DL K[facility] MAIN LAB RDW 13.8 11 - 15 % [facility] MAIN LAB Platelet Count 292 150 - 400 K/UL K[facility] MAIN LAB MPV 7.7 7 - 11 FL [facility] MAIN LAB Specimen Performing Organization Address City/[facility]/ZIP Code P juliet Number KU MAIN LAB [address] [place] [address] * BASIC METABOLIC PANEL (05/10/2021 6:33 AM CDT) Sodium 129 (L) 137 - 147 MMOL/L [...] >60 >60 mL/min [facility] MAIN LAB Comment: Norwegian The eGFR is not validated f or use in drug dosing adjustments. Continue to use estimated creatinine clearance per dosing reference text. Please contact the Clinical Pharmacist for questions. eGFR >60 >60 mL/min [facility] MAIN LAB Norwegian Comment: The eGFR is not validated for use in drug dosing adjustments. Continue to use estimated creatinine clearance per dosing reference text. Please contact the Clinical Pharmacist for questions. Specimen Performing Organization Address City/State/ZIP Code P juliet Number KU MAIN LAB [address] [place] [address] * BLOOD GASES, ARTERIAL (05/09/2021 11:43 AM [...] Blood, arterial - Blood Performing Organization Address [facility] P juliet Number KU MAIN LAB [address] [place] [address] * CBC (05/09/2021 11:43 AM CDT) White [...] KU MAIN LAB Specimen Performing Organization Address City/[facility]/ZIP Code P juliet Number KU MAIN LAB [address] [place] [address] * PHOSPHORUS (05/09/2021 6:13 AM CDT) Phosphorus 3.1 2.0 - 4.5 MG/DL K[facility] MAIN LAB Specimen Blood Performing Organization Address City/[facility]/ZIP Code P juliet Number KU MAIN LAB [address] [place] [id number] * MAGNESIUM (05/09/2021 6:13 AM CDT) Magnesium 2.1 1.6 - 2.6 mg/dL K[facility] MAIN LAB Specimen Blood Performing Organization Address City/State/ZIP Code P juliet Number KU MAIN LAB [address] [place] [address] * BASIC METABOLIC PANEL (05/09/2021 6:13 AM [...] >60 >60 mL/min [facility] MAIN LAB Comment: Norwegian The eGFR is not validated f or use in drug dosing adjustments. Continue to use estimated creatinine clearance per dosing reference text. Please contact the Clinical Pharmacist for questions. eGFR >60 >60 mL/min [facility] MAIN LAB Norwegian Comment: The eGFR is not validated for use in drug dosing adjustments. Continue to use estimated creatinine clearance per dosing reference text. Please contact the Clinical Pharmacist for questions. Specimen Performing Organization Address [facility] P juliet Number K[facility] MAIN LAB [address] [place] [address] * US DOPPLER VENOUS W EXTRM LEFT [...] Organization Address City/State/ZIP Code P juliet Number RAD RESULTS * PHOSPHORUS (05/08/2021 6:55 AM CDT) Phosphorus 3.1 2.0 - 4.5 MG/DL K[facility] MAIN LAB Specimen Blood Performing Organization Address City/State/ZIP Code P juliet Number MAIN LAB [address] [place] [address] * MAGNESIUM (05/08/2021 6:55 AM CDT) Magnesium 2.0 1.6 - 2.6 mg/dL K[facility] MAIN LAB Specimen Blood Performing Organization Address City/State/ZIP Code P juliet Number [facility] MAIN LAB [address] [place] [address] * CBC (05/08/2021 6:55 AM CDT) White [...] KU MAIN LAB Specimen Performing Organization Address City/[facility] P juliet Number K[facility] MAIN LAB [address] [place] [id number] * BASIC METABOLIC PANEL (05/08/2021 6:55 AM [...] (L) >60 mL/min [facility] MAIN LAB Comment: Norwegian The eGFR is not validated f or use in drug dosing adjustments. Continue to use estimated creatinine clearance per dosing reference text. Please contact the Clinical Pharmacist for questions. eGFR >60 >60 mL/min [facility] MAIN LAB Norwegian Comment: The eGFR is not validated for use in drug dosing adjustments. Continue to use estimated creatinine clearance per dosing reference text. Please contact the Clinical Pharmacist for questions. Specimen Performing Organization Address [facility]/ZIP Code P juliet Number KU MAIN LAB [address] [place] [id number] * PHOSPHORUS (05/07/2021 3:36 AM CDT) Phosphorus 4.2 2.0 - 4.5 MG/DL [facility] MAIN LAB Specimen Blood Performing Organization Address City/[facility] P juliet Number [facility] MAIN LAB [address] [place] [address] * MAGNESIUM (05/07/2021 3:36 AM CDT) Magnesium 2.0 1.6 - 2.6 mg/dL K[facility] MAIN LAB Specimen Blood Performing Organization Address City/[facility] P juliet Number K[facility] MAIN LAB [address] [place] [address] * CBC (05/07/2021 3:36 AM CDT) White [...] LAB MCHC 34.4 32.0 - 36.0 G/DL K[facility] MAIN LAB RDW 13.9 11 - 15 % K[facility] MAIN LAB Platelet Count 255 150 - 400 K/UL K[facility] MAIN LAB MPV 8.1 7 - 11 FL [facility] MAIN LAB Specimen Performing Organization Address [facility] P juliet Number KU MAIN LAB [address] [place] [address] * BASIC METABOLIC PANEL (05/07/2021 3:36 AM [...] >60 >60 mL/min [facility] MAIN LAB Comment: Norwegian The eGFR is not validated f or use in drug dosing adjustments. Continue to use estimated creatinine clearance per dosing reference text. Please contact the Clinical Pharmacist for questions. eGFR >60 >60 mL/min [facility] MAIN LAB Norwegian Comment: The eGFR is not validated for use in drug dosing adjustments. Continue to use estimated creatinine clearance per dosing reference text. Please contact the Clinical Pharmacist for questions. Specimen Performing Organization Address City/[facility]/ZIP Code P juliet Number KU MAIN LAB [address] [place] [phone] * FLUORO MOBILE IN OR (05/06/2021 5:38 PM CDT) Specimen Narrative Performed At This order has been auto finalized and does not conta in a result. CHRISAIN RAD Performing Organization Address City/[facility] Code P juliet Number DARRIUS RAD * PHOSPHORUS (05/06/2021 6:54 AM CDT) Phosphorus 3.7 2.0 - 4.5 MG/DL K[facility] MAIN LAB Specimen Performing Organization Address [facility] Code P juliet Number KU MAIN LAB [address] [place] [address] * MAGNESIUM (05/06/2021 6:54 AM CDT) Magnesium 0.9 (LL) 1.6 - 2.6 mg/dL MAIN LAB Comment: CRITICAL VALUE CALLED TO AND READ BACK BY/TIME/ANTHONY GUILLEN at 05/06/2021 08:32:18 by 918 Specimen Performing Organization Address City/[facility]/ZIP Code P juliet Number K[facility] MAIN LAB [address] [place] [address] * CREATINE KINASE-CPK (05/06/2021 6:54 AM CDT) Creatine Kinase 115 21 - 215 U/L [facility] MAIN LAB Specimen Performing Organization Address City/[facility]/ZIP Code P juliet Number [facility] MAIN LAB [address] [place] [address] * BETA-HCG (05/06/2021 6:54 AM CDT) Beta-HCG,Serum 2 <5 U/L [facility] MAIN LAB Specimen Performing Organization Address [facility]/ZIP Code P juliet Number [facility] MAIN LAB [address] [place] [address] * ALCOHOL LEVEL (05/06/2021 6:54 AM CDT) Alcohol <10 MG/DL [facility] MAIN LAB Specimen Performing Organization Address City/State/ZIP Code P juliet Number [facility] MAIN LAB [address] [place] [address] * CBC (05/06/2021 6:54 AM CDT) White [...] [facility] MAIN LAB Specimen Performing Organization Address [facility] Code P juliet Number [facility] MAIN LAB [address] [place] [address] * BASIC METABOLIC PANEL (05/06/2021 6:54 AM [...] >60 >60 mL/min [facility] MAIN LAB Comment: Norwegian The eGFR is not validated f or use in drug dosing adjustments. Continue to use estimated creatinine clearance per dosing reference text. Please contact the Clinical Pharmacist for questions. eGFR >60 >60 mL/min [facility] MAIN LAB Norwegian Comment: The eGFR is not validated for use in drug dosing adjustments. Continue to use estimated creatinine clearance per dosing reference text. Please contact the Clinical Pharmacist for questions. Specimen Performing Organization Address City/State/ZIP Code P juliet Number [facility] MAIN LAB [address] [place] [address] * KNEE 1 OR 2 VIEWS RIGHT [...] be in part developmental. Correlate for point tere mcfarland. 2. No evidence of additional acute fa [...] be in part developmental. Correlate for point tere mcfarland. 2. No evidence of additional acute fa [...] RESULTS Finalized by Arnaldo Najera M.D. on 021 8:11 PM. Dictated by Arnaldo Najera M.D. [...] (05/05/2021 6:26 PM CDT) Units Ordered 2 [facility] MAIN LAB Crossmatch 05/08/2021,2359 [facility] MAIN LAB Expires Record Check 2ND TYPE REQUIRED [facility] MAIN LAB ABO/RH(D) A POS [facility] MAIN LAB Antibody Screen NEG [facility] MAIN LAB Specimen Endocervical Performing Organization Address City/State/ZIP Code P juliet Number [facility] MAIN LAB [address] [place] [address] * CBC (05/05/2021 6:26 PM CDT) White [...] MCH 33.2 26 - 34 PG [facility] LAB MCHC 33.5 32.0 - 36.0 G/DL [facility] LAB RDW 13.7 11 - 15 % [facility] MAIN LAB Platelet Count 351 150 - 400 K/UL [facility] LAB MPV 8.5 7 - 11 FL [facility] LAB Specimen Blood Performing Organization Address City/[facility] Code P juliet Number [facility] MAIN LAB [address] [place] [phone] * GENERAL RAD CHEST EXTERNAL IMAGING (05/05/2021 [...] Injury, other and unspecified, unspecif ied site Other closed fracture of distal end of right femur, initial encounter (HCC) Fall, initial encounter Hyponatremia Hyposmolality and/or hyponatremia Hypomagnesemia Disorders of magnesium metabolism Hypocalcemia Acute blood loss anemia Acute posthemorrhagic anemia Impaired mobility and ADLs Mechanical problems with limbs Acute pain due to trauma Osteoporosis Osteoporosis, unspecified Closed fracture of right distal femur ( HCC) Closed fracture of unspecified part of lower end of femur documented in this encounter Admitting Diagnoses Diagnosis Trauma Injury, other and unspecified, unspecif ied site documented in this encounter Administered Medications Action Date Dose Rate Site Medication Order MAR Action 05/11/2021 6:42 AM CDT 1,000 mg acetaminophen (TYLENOL EXTRA STRENGTH) Given tablet 1,000 mg 1,000 mg, Oral, EVERY 6 HOURS, First dose (after last modification) on 05/06/21 at 1600, Until Discontinued, TOTAL ACETAMINOPHEN DOSE [...] 1,000 mg Given 05/06/2021 10:46 PM CDT 05/06/2021 10:57 AM CDT 650 mg acetaminophen (TYLENOL) tablet 650 mg Given 650 mg, Oral, EVERY 4 HOURS PRN, Starting on Sat05/05/21 at 2146, Until 05/06/21 at 1136, Pain non-opioid: may be used alone or in combination wit h opioid analgesia, TOTAL ACETAMINOPHEN DOSE NOT TO EXCEED 4GM DAILY 650 mg Given 05/05/2021 11:01 PM CDT 05/10/2021 6:35 AM CDT 70 [...] mg, Oral, EVERY MORNING, First dose on 05/06/21 at 1030, Until Discontinued, Each tablet delivers 200m g elemental Calcium 1,900 mg Given 05/10/2021 8:28 AM CDT 1,900 mg Given 05/09/2021 9:30 AM CDT 1,900 mg Given 05/08/2021 10:04 AM CDT 1,900 mg Given 05/07/2021 9:57 AM CDT 1,900 mg Given 05/06/2021 9:43 AM CDT 05/06/2021 9:37 AM CDT 1 g 110 mL/hr calcium gluconate 1 g in sodium chloride Given - New 0.9% (NS) 110 mL IVPB (MB+) Bag 1 g, Intravenous, 110 mL, Administer over 60 Minutes, ONCE, 1 dose, On 05/06/21 at 1015, Infuse each 1gm over 1 0 minutes 05/07/2021 9:51 AM CDT 1 g 660 mL/hr calcium gluconate 1 g in sodium chloride Given - New 0.9% (NS) 110 mL IVPB (MB+) Bag 1 g, Intravenous, 110 mL, Administer over 10 Minutes, ONCE, 1 dose, On Sat05/07/21 at 0815, Infuse each 1gm over 1 0 minutes -- Please adjust duration accordingly. 05/10/2021 8:31 AM CDT 1 g 660 mL/hr calcium gluconate 1 g in sodium chloride Given - New 0.9% (NS) 110 mL IVPB (MB+) Bag 1 g, Intravenous, 110 mL, Administer over 10 Minutes, ONCE, 1 dose, On Sat05/10/21 at 0900, Infuse each 1gm over 1 0 minutes -- Please adjust duration accordingly. 05/07/2021 9:58 AM CDT 2 g ceFAZolin (ANCEF) IVP 2 g Given 2 g, Intravenous, EVERY 8 HOURS, 2 doses, First dose on Sat05/07/21 at 0000, Last dose on Sat05/07/21 at 0800, IV PUSH -- RECONSTITUTE each 1 g vial b y adding 10 mLs of STERILE WATER (SW) 2 g Given 05/07/2021 3:53 AM CDT 05/11/2021 8:22 AM CDT 200 [...] mg Abdomen:RLQ Given 05/06/2021 10:47 PM CDT 05/05/2021 9:07 PM CDT 50 mcg fentaNYL citrate PF (SUBLIMAZE) Given injection 25-50 mcg 25-50 mcg, Intravenous, EVERY 1 HOUR PRN, Starting on Sat05/05/21 at 2030, Until 05/06/21 at 1136, Pain Injectable 05/05/2021 7:46 PM CDT 50 mcg fentaNYL citrate PF (SUBLIMAZE) Given injection 50 mcg 50 mcg, Intravenous, ONCE, 1 dose, On Sat05/05/21 at 1930 05/11/2021 8:22 AM CDT 100 mg gabapentin [...] 200 mg Given 05/05/2021 11:01 PM CDT 05/06/2021 5:24 PM CDT lactated ringers infusion Given - New 1,000 mL, Intravenous, at 75 mL/hr, Bag CONTINUOUS, Starting on Sat05/05/21 at 2200, Until Sat05/07/21 at 2159 75 mL/hr Given - New Bag 05/06/2021 12:09 PM CDT 75 mL/hr Given - New Bag 05/05/2021 11:01 PM CDT 05/08/2021 4:27 AM CDT 1,000 mL 20 mL/hr lactated ringers infusion Given - New 1,000 mL, 1,000 mL, Intravenous, at 20 Bag mL/hr, CONTINUOUS, Starting on Sat05/06/21 at 1315, Until Sat05/08/21 at 1314, Pre-Op 20 mL/hr Dose/Rate Change 05/06/2021 1:35 PM CDT 05/08/2021 3:22 AM CDT 1,000 mL 999 mL/hr lactated ringers infusion Given - New 1,000 mL, 1,000 mL, Intravenous, at 999 Bag mL/hr, BOLUS, 1 dose, On Sat05/08/21 at 0330 05/09/2021 7:43 PM CDT 500 mL 500 mL/hr lactated ringers infusion Given - New 1,000 mL, 500 mL, Intravenous, at 500 Bag mL/hr, BOLUS, 1 dose, On Sat05/09/21 at 1900 05/11/2021 8:22 AM CDT 400 mg magnesium [...] 400 mg Given 05/06/2021 9:43 AM CDT 05/06/2021 9:37 AM CDT 1 g 25 mL/hr magnesium sulfate 1 g/D5W 100 mL IVPB Given - New 1 g, Intravenous, 100 mL, Administer Bag over 4 Hours, EVERY 4 HOURS, 1 dose, First dose on 05/06/21 at 1000, Each 1gm delivers 8.1 mEq Magnesium. 05/06/2021 4:00 PM CDT 1 g magnesium sulfate 1 g/D5W 100 mL IVPB Given 1 g, Intravenous, 100 mL, Administer over 4 Hours, EVERY 4 HOURS, 1 dose, First dose on 05/06/21 at 1400, Each 1gm delivers 8.1 mEq Magnesium. 1 g 25 mL/hr Given - New Bag 05/06/2021 1:17 PM CDT 05/06/2021 6:33 PM CDT 1 g 25 mL/hr magnesium sulfate 1 g/D5W 100 mL IVPB Given - New 1 g, Intravenous, 100 mL, Administer Bag over 4 Hours, EVERY 4 HOURS, 1 dose, First dose on 05/06/21 at 1800, Each 1gm delivers 8.1 mEq Magnesium. 05/06/2021 10:44 PM CDT 1 g 25 mL/hr magnesium sulfate 1 g/D5W 100 mL IVPB Given - New 1 g, Intravenous, 100 mL, Administer Bag over 4 Hours, EVERY 4 HOURS, 1 dose, First dose on 05/06/21 at 2200, Each 1gm delivers 8.1 mEq Magnesium. 05/10/2021 9:11 PM CDT 500 mg methocarbamoL [...] 500 mg Given 05/06/2021 1:43 PM CDT 05/06/2021 6:15 PM CDT 4 mg ondansetron (ZOFRAN) injection 4 mg Given 4 mg, Intravenous, ONCE PRN, 1 dose, Starting on 05/06/21 at 1813, Until 05/06/21 at 1815, Other..., nausea/vomiting, First line agent., DO NOT ADMINISTER if given within the last six hours., PACU (only) 05/10/2021 7:15 PM CDT 4 mg ondansetron (ZOFRAN) injection 4 mg Given 4 mg, Intravenous, EVERY 6 HOURS PRN, Starting on Sat05/09/21 at 1315, Until Letty 05/11/21 at 1128, Nausea/Vomiting Injectable 4 mg Given 05/10/2021 11:10 AM CDT 05/11/2021 3:33 AM CDT 10 mg oxyCODONE (ROXICODONE) tablet 5-15 mg Given 5-15 mg, Oral, EVERY 4 HOURS PRN, Starting on Sat05/05/21 at 2146, Until Letty 05/11/21 at 1128, Pain PO 15 mg Given [...] 40 mg Given 05/05/2021 11:01 PM CDT 05/07/2021 9:59 AM CDT 17 g polyethylene glycol 3350 (MIRALAX) Given packet 17 g 17 g, Oral, DAILY, First dose on 05/06/21 at 0900, Until Discontinued, 8. 5 GRAMS = 0.5 PACKET 17 GRAMS = 1 PACKET 34 GRAMS = 2 PACKETS 05/10/2021 8:27 AM CDT 34 g polyethylene glycol 3350 (MIRALAX) Given packet 34 g 34 g (2 packet), Oral, DAILY, First dos e (after last modification) on Sat 1 at 0900, Until Discontinued, 8.5 GRAMS = 0.5 PACKET 17 GRAMS = 1 PACKET 34 GRAMS = 2 PACKETS 05/06/2021 9:43 AM CDT 40 mEq potassium chloride SR (K-DUR) tablet 40 Given mEq 40 mEq, Oral, ONCE, 1 dose, On 05/06/21 at 0900, - Tablet may be dispersed in water. Place tab in 30 mL of water for 40-60 seconds. - Gently swirl until fully dispersed. If particles remain after admin, add small amount of water and admin remaining content. - DO NOT CRUSH. Tablet may be split in half. Give with meal or full glass of water 05/07/2021 9:57 AM CDT 1 tablet senna/docusate (SENOKOT-S) tablet 1 Given tablet 1 tablet, Oral, TWICE DAILY, First dose on Sat05/05/21 at 2200, Until Discontinued, Hold for loose stools 1 tablet Given 05/06/2021 10:45 PM CDT 1 tablet Given 05/06/2021 9:43 AM CDT 1 tablet Given 05/05/2021 11:01 PM CDT 05/10/2021 9:10 PM CDT 2 tablets senna/docusate (SENOKOT-S) tablet 2 Given tablet 2 tablet, Oral, TWICE DAILY, First dose (after last modification) on Sat 1 at 2100, Until Discontinued, Hold for loose stools 2 tablets Given 05/10/2021 8:28 AM CDT 2 tablets Given 05/09/2021 9:06 PM CDT 2 tablets Given 05/09/2021 9:30 AM CDT 05/10/2021 9:10 PM CDT 10 mg simvastatin (ZOCOR) tablet 10 mg Given 10 mg, Oral, AT BEDTIME DAILY, First dose on Sat05/07/21 at 2100, Until Discontinued, NURSING: Please educate patient and document: Avoid taking grapefruit juice. 10 mg Given 05/09/2021 9:06 PM CDT 10 mg Given 05/08/2021 8:25 PM CDT 10 mg Given 05/07/2021 8:55 PM CDT 05/08/2021 10:03 AM CDT 1,000 mL 150 mL/hr sodium chloride 0.9 % infusion Given - New 1,000 mL, 1,000 mL, Intravenous, at 150 Bag mL/hr, CONTINUOUS, Starting on Sat05/08/21 at 0815, Until Sat05/08/21 at 1011 05/07/2021 3:53 AM CDT 20 mL WATER FOR INJECTION, STERILE IJ SOLN Given (Cabinet Override) NOW, 1 dose, On Sat05/07/21 at 0200, Created by cabinet override, Created by cabinet override 05/07/2021 3:53 AM CDT 20 mL WATER FOR INJECTION, STERILE IJ SOLN Given (Cabinet Override) NOW, 1 dose, On 05/07/21 at 0200, Created by cabinet override, Created by cabinet override documented in this encounter Discontinued Medications Start Date End Date Medication Sig Discontinue Reason 05/11/2021 aspirin 81 mg chewable Chew 81 mg tablet by mouth daily. Take with food. 05/11/2021 acetaminophen (TYLENOL) Take 325 mg 325 mg tablet by mouth every 4 hours as needed for Pain. 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 05/11/2021 gabapentin (NEURONTIN) Take 200 mg Removed from 100 mg capsule by mouth at FLAT GRINDER OPERATOR Med List bedtime daily. documented as of [...] as needed for Pain. 05/11/[address] ([facility]) Take 40 mg by 0 40 mg [...] Yoselin Flores RN)0642 (Given - Provider: Yoselin Flores RN) acetaminophen (TYLENOL EXTRA STRENGTH) 0111 (Med Not Given tablet 1,000 mg - Provider: Teodora 1,000 mg, Oral, EVERY 6 HOURS, First Rebel RN - Sheridan son: dose (after last modification) on Sat Patient 05/06/21 at 1600, Until Discontinued, sleeping)0929 ( Given TOTAL ACETAMINOPHEN DOSE NOT TO EXCEED - Provider: Prateek floers 4GM DAILY WNADA Dunham)1401 (Given - Provider: Carlene Dunham RN)2106 [...] RN) 0822 (Given - Provider: Africa Obregon RN) calcium citrate (CALCITRATE) tablet 0930 (Given - 1,900 mg Provider: Carlene Roland,900 mg, Oral, EVERY MORNING, First Charla RN) dose on 05/06/21 at 1030, Until Discontinued, Each tablet delivers [...] RN)2110 (Given - Provider: Yoselin Flores RN) 08 (Given - Provider: Africa Obregon RN) enoxaparin (LOVENOX) syringe 30 mg 1213 [...] NOTE: This is a HIGH ALERT Medication. 0828 (Given - Provider: Kelvin Seymour RN)1111 (Given - Provider: Kelvin Seymour RN) 08 (Given - Provider: Africa Obregon RN) gabapentin (NEURONTIN) capsule 100 mg 0930 (Given - 100 mg, Oral, TWICE DAILY, First dose on Provider: Prateek flores 05/06/21 at 0800, Until Discontinued WANDA Dunham) 140 (Given - Provider: Carlene Dunham RN) 2109 (Given - Provider: Yoselin Flores RN) gabapentin (NEURONTIN) capsule 200 mg 2106 (Given - 200 mg, Oral, AT BEDTIME DAILY, First Provider: Salazar a dose on Sat05/05/21 at 2100, Until WANDA Luque) Discontinued lactated ringers infusion (COMPLETED) 1942 (Given - New 1,000 mL, 500 mL, Intravenous, at 500 Bag - Provider : mL/hr, BOLUS, 1 dose, On Sat05/09/21 at Carlene perez RN) 1900 08 (Given - Provider: Kelvin Seymour RN)2109 (Given - Provider: Yoselin Flores RN) 821 (Given - Provider: Africa Obregon RN) magnesium oxide (MAGOX) tablet 400 mg 30 (Given - 400 mg, Oral, TWICE DAILY, First dose on Provider: Prateek White 05/06/21 at 0945, Until Discontinued, WANDA Dunham )2106 Delivers 241.3mg elemental magnesium per (Given - Pr ovider: damaris Luque RN) 827 (Given - Provider: Kelvin Seymour RN)2110 (Given - Provider: Yoselin Flores RN) 899 (Due - Provider: Boni Torresont inue) methocarbamoL (ROBAXIN) tablet 500 mg 929 (Given - 500 mg, Oral, TWICE DAILY, First dose on Provider: Prateek White 05/06/21 at 1245, Until Discontinued WANDA Dunham) 2105 (Given - Provider: Teodora Luque RN) 2110 (Given - Provider: Yoselin Flores RN) [...] WANDA Dunham - (after last modification) on Sat05/08/21 Reason: Loo se at 0900, Until Discontinued, 8.5 GRAMS = stools) 0.5 PACKET 17 GRAMS = 1 PACKET 34 GRAMS = 2 PACKETS 0828 (Given - Provider: Kelvin Seymour RN)2109 (Given - Provider: Yoselin Flores, WANDA) 0823 (Med Not Given - Provider: Africa middleton RN - Reason: Loose stools) senna/docusate (SENOKOT-S) tablet 2 0930 (Given - tablet Provider: Carlene 2 tablet, Oral, TWICE DAILY, First dose WANDA Dunham) 2105 (after last modification) on 05/07/21 (Given - Pr ovider: at 2100, Until Discontinued, Hold for Teodora Luque RN ) loose stools 2109 (Given - Provider: Yoselin Flores, WANDA) simvastatin (ZOCOR) tablet 10 mg 2105 (Given - 10 mg, Oral, AT BEDTIME DAILY, First Provider: Teodora dose on 05/07/21 at 2100, Until WANDA Luque) Discontinued, NURSING: Please educate patient and document: [...] RN)2105 (Med Not Given - Provider: Teodora Luque, RN - Reason: Patient Refused)2117 (Given - Provider: Tedoora Luque, RN) documented in this encounter Orders First Ordered Date Medications Ordered That Might Not Have Count Last Ordered Date Been Administered alendronate (FOSAMAX) tablet 70 mg 2 WATER FOR INJECTION, STERILE IJ SOLN 1 0 05/07/2021 (Cabinet Override) acetaminophen (TYLENOL) tablet 650 mg 1 05/06/2021 calcium carbonate (OS-RANDAL) tablet 1,250 1 05/06/2021 mg 05/05/2021 FENTANYL CITRATE (PF) 50 MCG/ML IJ SOLN 2 05/06/2021 (Cabinet Override) fentaNYL citrate PF (SUBLIMAZE) 1 2020 injection 25 mcg HYDROmorphone injection (DILAUDID) 0.5 1 05/06/2021 mg HYDROmorphone injection (DILAUDID) 1 mg 1 05/06/2021 oxyCODONE (ROXICODONE) tablet 5-10 mg 1 05/06/2021 vancomycin (VANCOCIN) injection 1 2020 ondansetron (ZOFRAN) injection 4-8 mg 1 05/05/2021 First Ordered Date Procedures Count Last Ordered [...] Ordered Date DISCHARGE PATIENT NOW [facility] First Ordered Date Equipment Count [...]
--- OUTSIDE RECORDS SUMMARY | 2021-07-05 14:11 | XMS REPORT | Encounter Summary ---
Author Author [facility] Organization [facility] Address Unknown Phone Unavailable Care Team Providers Care Drop Wire Builder Name Role Phone Tomasz Edwards MD PCP Reason for Referral * Radiology Services (Routine) Referred By Contact Referred To Contact Status Reason Specialty Diagnoses / Procedures Eber العلي MD [address] [place] [address] New Request Radiology Diagnoses S/P ORIF (open reduction internal fixation) fracture P rocedures FEMUR 2 VIEWS RIGHT Electronically signed by Eber العلي MD at Reason for Visit * Radiology Services (Routine) Referred By Contact Referred To Contact Status Reason Specialty Diagnoses / Procedures Eber العلي MD [address] [place] [address] New Request Radiology Diagnoses S/P ORIF (open reduction internal fixation) fracture P rocedures FEMUR 2 VIEWS RIGHT Encounter Details Care Team Description Date Type Department Eber العلي MD [address] [place] [address] [phone] Arrived 06/28/2021 Hospital Imaging: [facility] [place] [address] [facility]. [address] [place] [address] Social History Date Tobacco Use Types Packs/Day Years Used Never Smoker Smokeless Tobacco: Never Used Comments Alcohol Use Standard Drinks/Week Not Currently 0 (1 standard drink = 0.6 o z pure alcohol) Sex Assigned at Date Recorded Not on file Date Recorded COVID-19 Exposure Response 06/28/2021 10:48 AM CDT In the last month, have [...] mg iron-400 by mouth mcg tab daily. documented as of this encounter Discharge Disposition [...] Procedure Name Priority Date/Time Associated Diag nosis FEMUR 2 VIEWS RIGHT Routine 06/28/2021 S/P ORIF ( open reduction 11:05 AM CDT internal fixation) fracture documented in this encounter Results * FEMUR 2 VIEWS RIGHT (06/28/2021 11:05 AM CDT) Specimen Right Impressions Performed At 1. Interval removal of the lateral thigh skin stapl es, with right proximal [facility] RESULTS femoral bipolar hemiarthroplasty unchan ged, in standard alignment. 2. Long segment lateral plate and scr ew fixation about the femur traverses a mildly displaced, internally fixed dist al diametaphyseal fracture with minimal progressive healing since prior. No new fracture or evident hardware complication. 3. Mild degenerative changes of the k nee. Osteopenia. Finalized by Saud Pop M.D. on 12:35 PM. Dictated by Saud Pop M.D. on 06/28/2021 12:34 PM. Narrative Performed At Exam: FEMUR 2 VIEWS RIGHT [facility] RESULTS CLINICAL INDICATION: 75 years S/p R dis stefanie femur ORIF 05/06 COMPARISON: Right femur radiographs fro m 05/31/2021. Procedure Note Interface, Radiant Results - 06/28/2021 12:38 PM CDT Exam: FEMUR 2 VIEWS RIGHT CLINICAL INDICATION: 75 years S/p R distal femur ORIF 05/06 COMPARISON: Right femur radiographs from 05/31/2021. IMPRESSION 1. Interval removal of the lateral thig h skin geovany, with right proximal femoral bipolar hemiarthroplasty unchanged, in standard alignment. 2. Long segment lateral plate and screw fixation about the femur traverses a mildly displaced, internally fixed distal diametaphyseal fracture with minimal progressive healing since prior. No new fracture or evident hardware complication. 3. Mild degenerative changes of the kne e. Osteopenia. Finalized by Saud Pop M.D. on 06/28/2021 12:35 PM. Dictated by Saud Pop M.D. on 06/28/2021 12:34 PM. Performing Organization Address City/State/ZIP Code P [...]
--- OUTSIDE RECORDS SUMMARY | 2021-07-05 14:11 | XMS REPORT | Encounter Summary ---
Author Author [facility] Organization [facility] Address Unknown Phone Unavailable Care Team Providers Care Inspector Of Dredging Name Role Phone Tomasz Edwards MD PCP Reason for Referral * Radiology Services (Routine) Referred By Contact Referred To Contact Status Reason Specialty Diagnoses / Procedures Eber العلي MD [address] [place] [address] New Request Radiology Diagnoses S/P ORIF (open reduction internal fixation) fracture P rocedures KNEE 3 VIEWS RIGHT Electronically signed by Eber العلي MD at * Radiology Services (Routine) Referred By Contact Referred To Contact Status Reason Specialty Diagnoses / Procedures Eber العلي MD [address] [place] [address] New Request Radiology Diagnoses S/P ORIF (open reduction internal fixation) fracture P rocedures FEMUR 2 VIEWS RIGHT Electronically signed by Eber العلي MD at Encounter Details Care Team Description Date Type Department Eber العلي MD [address] [place] [address] [phone] S/P ORIF (open reduction internal fixati on) fracture (Primary Dx) 06/27/2021 Orders Only Orthopedics and Spo rts Medicine: Main [place], [facility] [address] [facility] [place] [address] Social History Date Tobacco Use [...] as of this encounter Plan of Treatment Order Schedule Name Type Priority Associated Diag noses Expected: 06/27/2021, Expires: 2 KNEE 3 VIEWS RIGHT Imaging Routine S/P ORIF (o pen reduction internal fixation) fracture documented as of this encounter Goals Goal Patient Associated Recent Progress Patient-Stat Aut hor Goal Type Problems ed? GOAL General On track (05/08/2021 No Flores coleman, 11:29 AM CDT) WANDA Dunaway Note: Get well documented as of this encounter Results * FEMUR 2 VIEWS RIGHT (06/28/2021 11:05 AM CDT) Specimen Right Impressions Performed At 1. Interval removal of the lateral thigh skin stapl es, with right proximal [facility] RESULTS femoral bipolar hemiarthroplasty unchan gemona, in standard alignment. 2. Long segment lateral [...]
--- OUTSIDE RECORDS SUMMARY | 2021-07-05 14:11 | XMS REPORT | Clinical Summary ---
Author Author [facility] Organization [facility] Address Unknown Phone Unavailable Care Team Providers Care Top Hat Body Maker Name Role Phone Self, Tomasz BREEN PCP Source Comments Some departments are not documenting in the electronic medical record. If you d o not see the information that you expected, contact Release of Information in [facility] [employer] Information Management department at [phone] for further assistan ce in locating additional records.[facility] Allergies Comments Active Allergy Reactions Severity Noted Date Barley DIARRHEA Low 05/08/2021 Oat Flour DIARRHEA Low 05/08/2021 Penicillins UNKNOWN Low 05/05/2021 Wheat Flour DIARRHEA Low 05/08/2021 Medications End Date Status Medication Sig Dispensed Refills Start Date Active gabapentin (NEURONTIN) Take 1 0 100 mg capsule capsule by mouth every morning and 1 in the afternoon then take 2 capsules at bedtime. Active alendronate (FOSAMAX) 70 Take 70 mg by 0 mg tablet mouth every 7 days. Take at least 30 minutes before breakfast with plain water. Do not lie down for 30 minutes. Active simvastatin (ZOCOR) 10 mg Take 10 mg by 0 tablet mouth at bedtime daily. Active bumetanide (BUMEX) 2 mg Take 2 mg by 0 tablet mouth daily. Active cholecalciferol (VITAMIN Take 1,000 0 D-3) 1,000 units tablet Units by mouth daily. Active calcium carbonate/vitamin Take 1 tablet 0 D-3 (OSCAL-500+D) 1250 by mouth mg/200 unit tablet daily. Calcium Carb 1250mg delivers 500mg elemental Ca Active vitamins, multi Take 1 tablet 0 w/minerals 9 mg iron-400 by mouth mcg tab daily. Active potassium chloride SR Take 1 tablet 0 (K-DUR) 20 mEq tablet by mouth daily. Take with a meal and a full glass of water. Active pantoprazole DR Take 40 mg by 0 (PROTONIX) 40 mg tablet mouth daily. Active acetaminophen (TYLENOL Take two 0 02 EXTRA STRENGTH) 500 mg tablets by 1 tablet mouth every 6 hours as needed for Pain. Max of 4,000 mg of acetaminophen in 24 hours. Active calcium citrate Take two 100 tablet 0 (CALCITRATE) 950 mg tablets by 1 tablet mouth every morning. Active celecoxib (CELEBREX) 200 Take one 90 capsule 0 0 mg capsuleIndications: capsule by 1 postoperative acute pain mouth daily. Indications: acute pain following an operation Active magnesium oxide (MAGOX) Take one 180 tablet 0 400 mg (241.3 mg tablet by 1 magnesium) tablet mouth twice daily. Active methocarbamoL (ROBAXIN) Take one 0 500 mg tablet tablet by 1 mouth twice daily. Active oxyCODONE (ROXICODONE) 5 Take one 30 tablet 0 0 mg tablet tablet to 1 three tablets by mouth every 4 hours as needed Active polyethylene glycol 3350 Take two 12 each 0 0 (MIRALAX) 17 g packet packets by 1 mouth daily. Active senna/docusate Take two 90 tablet 0 (SENOKOT-S) 8.6/50 mg tablets by 1 tablet mouth twice daily. Active naloxone (NARCAN) 4 Insert one 2 each 0 mg/actuation nasal spray spray into 1 nose as directed as Needed. 06/08/2021 aspirin EC 81 mg tablet Take one 90 tablet 0 tablet by 1 mouth twice daily for 28 days. Take with food. Active Problems Problem Noted Date Acute pain due to trauma 05/07/2021 Osteoporosis 05/07/2021 Closed fracture of right distal femur 05/07/2021 Impaired mobility and ADLs 05/07/2021 Acute blood loss anemia 05/07/2021 Hypocalcemia 05/07/2021 Hypomagnesemia 05/07/2021 Hyponatremia 05/07/2021 Fall 05/05/2021 Trauma 05/05/2021 Encounters Care Team Description Date Type Specialty Eber العلي MD Arrived 06/28/2021 Hospital Radiology Encounter Eber العلي MD S/P ORIF (open reduction internal fixati on) fracture (Primary Dx) 06/28/2021 Office Visit Orthopedic Surgery 06/28/2021 Travel Eber العلي MD S/P ORIF (open reduction internal fixati on) fracture (Primary Dx) 06/27/2021 Orders Only Orthopedic Surgery Eber العلي MD 05/31/2021 Hospital Radiology Encounter Yuridia Aparicio PA-C S/P ORIF (open reduction internal fixati on) fracture (Primary Dx) 05/31/2021 Office Visit Orthopedic Surgery Eber العلي MD General Question 05/31/2021 Telephone Orthopedic Surgery 05/31/2021 Travel Eber العلي MD OPEN TREATMENT SUPRACONDYLAR/ TRANSCONDY LAR FEMORAL FRACTURE WITH INTERNAL FIXATION 05/06/2021 Surgery Digna Ashraf MD Kessen, Jacob W, DEMARCUS 05/06/2021 Anesthesia Event Demond Paige MD 05/05/2021 Hospital Radiology Encounter Demond Paige MD 05/05/2021 Hospital Radiology Encounter RoyalDemond nguyễn MD 05/05/2021 Hospital Radiology Encounter [place], Andrew G, DO Fall 05/05/2021 Hospital - Encounter 05/11/2021 05/05/2021 Hospital Radiology Encounter 05/05/2021 Hospital Radiology Encounter 05/05/2021 Hospital Radiology Encounter 05/05/2021 Hospital Radiology Encounter 05/05/2021 Travel from Last 3 Months Surgical History Surgery Date Site/Laterality Comments FEMUR FRACTURE SURGERY 05/06/2021 Leg Upper/Right OPEN T REATMENT SUPRACONDYLAR/ TRANSCONDYLAR FEMORAL FRACTURE WITH INTERNAL FIXATION performed by Eber العلي MD at [facility] OR Medical devices from this surgery are i n the Implants section. Medical History Medical History Date Comments Hyperlipidemia TIA (transient ischemic attack) GERD (gastroesophageal reflux disease) Hypertension Osteoporosis Social History Date Tobacco Use Types Packs/Day [...] or suspected to have Coronavirus / COVID-19? Last Filed Vital Signs Reading Time Taken Comments Vital Sign 116/55 05/11/2021 6:43 AM CDT Blood Pressure 61 05/11/2021 6:43 AM CDT Pulse 36.5 C (97.7 F) 05/11/2021 6:43 AM CDT Temperature - - Respiratory Rate 99% 05/11/2021 6:43 AM CDT Oxygen Saturation - - Inhaled Oxygen Concentration 58.5 kg (129 lb) 06/28/2021 11:27 AM CDT Weight 149.9 cm (4' 11") 06/28/2021 11:27 AM CDT Height 26.05 06/28/2021 11:27 AM CDT Body Mass Index Plan of Treatment Health Maintenance Due Date Last Done Comments MEDICARE ANNUAL WELLNESS 1944 VISIT DTAP/TDAP VACCINES (1 - 1962 Tdap) HEPATITIS C SCREENING 1962 PHYSICAL (COMPREHENSIVE) 1962 EXAM SHINGLES RECOMBINANT 1994 VACCINE (1 of 2) OSTEOPOROSIS 2009 SCREENING/MONITORING PNEUMONIA (PPSV23) 2009 VACCINE (1 of 1 - PPSV23) INFLUENZA VACCINE Completed 06/20/2021, 06/20/2021, 06/28/2020 Goals Goal Patient Associated Recent Progress Patient-Stat Aut hor Goal Type Problems ed? GOAL General On track (05/08/2021 No Flores coleman, 11:29 AM CDT) WANDA Dunaway Note: Get well Implants Device Identifier Shelf Expiration Date Model / Serial / L ot Implanted Type Area Manufactur er 05/06/2022 02.124.414 / [id number] / X Plate Curve 301mm Stainless St Right: Femur DEPUY 4.5mm Scr 14 Hl Rt - S0.124.414 [employer] Implanted: Qty: 1 on 05/06/2021 by Eber العلي MD at [facility] 05/06/2022 02.231.010 / [id number] / X Screw Bone 5mm 10mm Lcp Stainless Right: Femur DEP UY Steel T25 Condyle Variable - [employer] [id number] Implanted: Qty: 2 on 05/06/2021 by Eber العلي MD at [facility] 05/06/2022 [id number] / [id number] / X Screw Bone 5mm 12mm Lcp Stainless Right: Femur DEP UY Steel T25 Condyle Variable - [employer] [id number] Implanted: Qty: 1 on 05/06/2021 by Eber العلي MD at [facility] 05/06/2022 02.231.660 / [id number] / X Screw Bone 5mm 60mm Va-Lcp Right: Femur DEPUY Stainless Steel 3.5mm Hexagon - [employer] [id number] Implanted: Qty: 2 on 05/06/2021 by bEer العلي MD at [facility] 05/06/2022 [id number] / [id number] / X Screw Bone 5mm 3.5mm 65mm Lcp Right: Femur DEPUY Stainless Steel Condylar - [employer] [id number] Implanted: Qty: 3 on 05/06/2021 by Eber العلي MD at [facility] 05/06/2022 [id number] / [id number] / X Screw Bone 5mm 3.5mm 70mm Lcp Right: Femur DEPUY Stainless Steel Condylar - [employer] [id number] Implanted: Qty: 1 on 05/06/2021 by Eber العلي MD at [facility] 214.830 / 214.830 / X Screw Bone 4.5mm 8mm 30mm Lcp Right: Femur DEPUY Stainless Steel Periarticular - [employer] [id number] Implanted: Qty: 3 on 05/06/2021 by Eber العلي MD at [facility] 05/06/2022 214.836 / 214.836 / X Screw Bone 4.5mm 8mm 36mm Lcp Right: Femur DEPUY Stainless Steel Periarticular - [employer] [id number] Implanted: Qty: 1 on 05/06/2021 by Eber العلي MD at [facility] Procedures Comments Procedure Name Priority Date/Time Associated Diag nosis FEMUR 2 VIEWS RIGHT Routine 06/28/2021 S/P ORIF ( open reduction 11:05 AM CDT internal fixation) fracture KNEE 1 OR 2 VIEWS RIGHT Routine 05/31/2021 S/P OR IF (open reduction 9:35 AM CDT internal fixation) fracture FEMUR 2 VIEWS RIGHT Routine 05/31/2021 S/P ORIF ( open reduction 9:35 AM CDT internal fixation) fracture POC GLUCOSE 05/10/2021 5:30 PM CDT POC GLUCOSE 05/10/2021 11:35 AM CDT HC PHOSPHOROUS, SERUM Routine 05/10/2021 6:33 AM CDT HC MAGNESIUM Routine 05/10/2021 6:33 AM CDT HC BASIC METABOLIC PANEL Routine 05/10/2021 6:33 AM CDT HC CBC,AUTOMATED Routine 05/10/2021 6:33 AM CDT HC BLOOD Routine 05/09/2021 GASES;(CALCULATED 02) 11:43 AM CDT HC CBC,AUTOMATED 05/09/2021 11:43 AM CDT CONSULT IV THERAPY TEAM Routine 05/09/2021 11:27 AM CDT HC PHOSPHOROUS, SERUM Routine 05/09/2021 6:13 AM CDT HC MAGNESIUM Routine 05/09/2021 6:13 AM CDT HC BASIC METABOLIC PANEL Routine 05/09/2021 6:13 AM CDT US DOPPLER VENOUS W EXTRM Routine 05/08/2021 LEFT 4:22 PM CDT HC PHOSPHOROUS, SERUM Routine 05/08/2021 6:55 AM CDT HC MAGNESIUM Routine 05/08/2021 6:55 AM CDT HC BASIC METABOLIC PANEL Routine 05/08/2021 6:55 AM CDT HC CBC,AUTOMATED Routine 05/08/2021 6:55 AM CDT HC PHOSPHOROUS, SERUM Routine 05/07/2021 3:36 AM CDT HC MAGNESIUM Routine 05/07/2021 3:36 AM CDT HC BASIC METABOLIC PANEL Routine 05/07/2021 3:36 AM CDT HC CBC,AUTOMATED Routine 05/07/2021 3:36 AM CDT CONSULT IV THERAPY TEAM Routine 05/07/2021 2:07 AM CDT FLUORO MOBILE IN OR Routine 05/06/2021 5:38 PM CDT OPEN TREATMENT 05/06/2021 Trauma SUPRACONDYLAR/ 3:24 PM CDT TRANSCONDYLAR FEMORAL FRACTURE WITHOUT INTERCONDYLAR EXTENSION WITH/WITHOUT INTERNAL FIXATION HC PHOSPHOROUS, SERUM 05/06/2021 6:54 AM CDT HC MAGNESIUM 05/06/2021 6:54 AM CDT HC CK(CPK OR CREATINE 05/06/2021 KINASE) 6:54 AM CDT HC BETA-HCG; QUANT 05/06/2021 6:54 AM CDT HC ALCOHOL 05/06/2021 6:54 AM CDT HC BASIC METABOLIC PANEL Routine 05/06/2021 6:54 AM CDT HC CBC,AUTOMATED Routine 05/06/2021 6:54 AM CDT CONSULT IV [...] STAT 05/05/2021 CONTRAST 6:[address] MAXIFACIAL/SINUS WO STAT 05/05/2021 CONTRAST 6:[address] HEAD WO CONTRAST STAT 05/05/2021 6:56 PM CDT CHEST SINGLE VIEW STAT 05/05/2021 6:40 PM CDT TYPE & CROSSMATCH STAT 05/05/2021 6:26 PM CDT HC CBC,AUTOMATED STAT 05/05/2021 6:26 PM CDT GENERAL RAD [...] CDT TELEMETRY STRIPS-SCAN 05/05/2021 12:00 AM CDT from Last 3 Months Results * FEMUR 2 VIEWS RIGHT (06/28/2021 11:05 AM CDT) Only the most recent of 2 results within the time period is included. Specimen Right Impressions Performed At 1. Interval [...] ORIF 05/06 COMPARISON: Right femur radiographs fro 05/31/2021. Procedure Note Interface, Radiant Results - [...] P juliet Number [facility] RESULTS * KNEE 1 OR 2 VIEWS RIGHT (05/31/2021 9:35 AM CDT) Only the most recent of 2 results within the time period is included. Specimen Impressions Performed At 1. Interval ORIF [...] P juliet Number [facility] RESULTS * POC GLUCOSE (05/10/2021 5:30 PM CDT) Only the most recent of 2 results within the time period is included. Glucose, POC 90 70 - 100 MG/DL [facility] Specimen Performing Organization Address City/State/ZIP Code P juliet Number [facility] [address] [place] [address] * CBC (05/10/2021 6:33 AM CDT) Only the most recent of 6 results within the time period is included. White Blood 6.0 4.5 - 11.0 K/UL [...] [facility] Specimen Performing Organization Address City/[facility]/ZIP Code P juliet Number [facility] [address] [place] [address] * PHOSPHORUS (05/10/2021 6:33 AM CDT) Only the most recent of 5 results within the time period is included. Phosphorus 3.1 2.0 - 4.5 MG/DL [facility] Specimen Blood Performing Organization Address City/[facility] Code P juliet Number [facility] [address] [place] [address] * MAGNESIUM (05/10/2021 6:33 AM CDT) Only the most recent of 5 results within the time period is included. Magnesium 2.0 1.6 - 2.6 mg/dL [facility] Specimen Blood Performing Organization Address City/[facility] P juliet Number [facility] [address] [place] [address] * BASIC METABOLIC PANEL (05/10/2021 6:33 AM CDT) Only the most recent of 5 results within the time period is included. Sodium 129 (L) 137 - 147 MMOL/L [...] >60 >60 mL/min [facility] Comment: [facility] The eGFR is not validated f or use in drug dosing adjustments. Continue to use estimated creatinine clearance per dosing reference text. Please contact the Clinical Pharmacist for questions. eGFR >60 >60 mL/min [facility] Comment: The eGFR is not validated for use in drug dosing adjustments. Continue to use estimated creatinine clearance per dosing reference text. Please contact the Clinical Pharmacist for questions. Specimen Performing Organization Address City/State/ZIP Code P juliet Number MAIN [facility] [address] [place] [address] * BLOOD GASES, ARTERIAL (05/09/2021 11:43 AM CDT) pH-Arterial 7.45 7.35 - 7.45 [facility] pCO2-Arterial 33 (L) 35 - 45 MMHG [facility] pO2-Arterial 83 80 - 100 MMHG [facility] Base 0.7 MMOL/L [facility] Deficit-Arteria l O2 Sat-Arterial 94.4 (L) 95 - 99 % [facility] Bicarbonate-ART 23.8 21 - 28 MMOL/L [facility] -[place] Specimen Blood, arterial - Blood Performing Organization Address City/[facility]/ZIP Code P juliet Number MAIN LAB [address] [place] [address] * US DOPPLER VENOUS W EXTRM LEFT [...] on 05/08/2021 4:19 PM. Performing Organization Address City/[facility]/ZIP Code P juliet Number [facility] RESULTS * FLUORO MOBILE IN OR (05/06/2021 5:38 PM CDT) Specimen Narrative Performed At This order has been auto finalized and does not conta in a result. [facility] Performing Organization Address City/[facility]/ZIP Code P juliet [facility] * BETA-HCG (05/06/2021 6:54 AM CDT) Beta-HCG,Serum 2 <5 U/L [facility] Specimen Performing Organization Address [facility]/ZIP Code P juliet Number MAIN LAB [address] [place] [address] * CREATINE KINASE-CPK (05/06/2021 6:54 AM CDT) Creatine Kinase 115 21 - 215 U/L [facility] Specimen Performing Organization Address [facility]/ZIP Code P juliet Number [facility] [address] [place] [address] * ALCOHOL LEVEL (05/06/2021 6:54 AM CDT) Alcohol <10 MG/DL [facility] Specimen Performing Organization Address [facility]/ZIP Code P juliet Number MAIN LAB [address] [place] [address] * CT LOWER EXTREM WO CONT RIGHT [...] CHEST FINDINGS: Evaluation of the mediastinum and afrzad, including the vasculature and for lymphadenopathy, is [...] coronal reformations were obtained of the cervi keon spine and facial bones. Comparison: None FINDINGS: [...] also be in part developmental. Correlate for dallin tere mcfarland. 2. No evidence of additional [...] coronal reformations were obtained of the cervi keon spine and facial bones. Comparison: None FINDINGS: [...] coronal reformations were obtained of the cervi keon spine and facial bones. Comparison: None FINDINGS: [...] P juliet Number [facility] [address] [place] [address] * GENERAL RAD CHEST EXTERNAL IMAGING (05/05/2021 12:15 AM CDT) Specimen Narrative Performed At This order has been auto finalized and does not contain a result. * GENERAL RAD LOWER EXT EXTERNAL IMAGING (05/05/2021 12:10 AM CDT) Only the most recent of 3 results within the time period is included. Specimen Narrative Performed At This order has [...] ot available. Ordered by an unspecified provider. 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 needed
--- OUTSIDE RECORDS SUMMARY | 2021-07-05 14:11 | XMS REPORT | Encounter Summary ---
Author Author [facility] Organization [facility] Address Unknown Phone Unavailable Care Team Providers Care Health Care Consultant Name Role Phone Self, Tomasz BREEN PCP Reason for Referral * Consult, Test & Treat (Routine) Referred By Contact Referred To Contact Status Reason Specialty Diagnoses / Procedures Eber العلي MD [address] [place] [address] Closed Specialty Services Diagnoses Required S/P ORIF (open reduction internal fixation) fracture Comments 1-3 times per week for 12 weeks -R LE-WBAT/ROMAT-compressive wrap to R thigh, avoid adhesive tape -S/p R distal femur ORIF 05/06 Electronically signed by Eber العلي MD at Reason for Visit * Reason Comments Post Operative Visit * Consult, Test & Treat (Routine) Referred By Contact Referred To Contact Status Reason Specialty Diagnoses / Procedures New Request Diagnoses Right leg pain Encounter Details Care Team Description Date Type Department Eber العلي MD [address] [place] [address] S/P ORIF (open reduction internal fixati on) fracture (Primary Dx) 06/28/2021 Office Visit Orthopedics and Spo rts Medicine: Main [place], [facility] [address] [place] [address] Social History Date Tobacco Use [...] 06/28/2021 11:27 AM CDT Body Mass Index documented in [...] * Patient Instructions* Jada Cody RN - 06/28/2021 11:40 AM CDT Please do not hesitate to contact my office with any questions. Dr. Eber العلي | Orthopedic Surgeon, Trauma [facility] | | [address] [place], [place] [address] Irma Wang, RN, BSN | Ambulatory Clinic RN Regulator Operator | [facility] | | [email or web address] [address] | [place], [place] [address] documented in this encounter Progress Notes * Eber العلي MD - 06/28/2021 11:40 AM CDT S/p R distal femur ORIF 05/06 Doing well. Has had some clear drainage from the right lateral thigh where she states that she scratched herself while applying hand lotion several weeks ago. She states that she has been draining clear fluid since then. The patient stat es that this happens frequently over the past 3 years including on her contralat eral leg anytime she bumps or has a minor trauma to it because of the significan t edema in her lower extremities and will drain copious amounts of clear fluid.. Has been compliant with post op instructions. Denies any wound issues. No fever s, chills or sweats. denies numbness, tingling or paresthesias. PE: There were no vitals filed for this visit. RLE: incisions well healed, no erythema, patient has a small pinpoint superficia l puncture just posterior to one of her percutaneous incisions on the lateral th igh that is draining completely clear fluid., minimal ttp, ROM limited 2/2 pain and stiffness. NVI distally XR: stable hardware and alignment, interval healing A/p: s/p R distal femur ORIF 05/06 -The smallest tear in her skin today was closed with a Dermabond. We will cover this with a 4 x 4 gauze and a compressive Mihir wrap. Avoid adhesive tape as the patient is sensitive to this. -This point we can begin progressive weightbearing as tolerated on the right low er extremity with a rolling walker. -PT/OT -Pain control -Follow up 6 weeks with xrays documented in this encounter Plan of Treatment Order Schedule Name Type Priority Associated Diag noses Ordered: 06/28/2021 AMB REFERRAL TO PHYSICAL Outpatient Routine S/P O RIF (open reduction THERAPY Referral internal fixation) fracture documented as of this [...]
--- OUTSIDE RECORDS SUMMARY | 2021-07-05 14:11 | XMS REPORT | Encounter Summary ---
Author Author [facility] Organization [facility] Address Unknown Phone Unavailable Care Team Providers Care Library Manager Name Role Phone Tomasz Edwards MD PCP Reason for Visit * Auth/Cert Referred By Contact Referred To Contact Status Reason Specialty Diagnoses / Procedures Diagnoses Trauma fall Encounter Details Care Team Description Date Type Department Digna Ashraf MD [address] [address] [phone] Travis Wolf CRNA [address] [address] [phone] 05/06/2021 Anesthesia Operating Room: [address] [place] [address] Anesthesia Record Responsible Anesthesiologist Anesthesia Start Time Anesthesi a Stop Time Procedure Name Digna Ashraf MD 05/06/21 1525 05/06/21 1800 OPEN TREATMENT SUPRACONDYLAR/ TRANSCONDYLAR FEMORAL FRACTURE WITH INTERNAL FIXATION (Right Leg Upper) Date Time Event Comment 1340 AN Equip Check 2020 1524 Out of Pre Procedure 1524 In Room 1525 Anes Start 1526 An Start Data 1530 An Induction The patient was ree valuated immediately before moderate or deep sedation use and before anesthesia induction. 1531 An Intubation 1535 Quick Note EKG is occasionally picking up T wave 1540 Anesthesia Ready 1540 Antibiotic Given 1550 1604 Proc Start 1643 An Surgeon on Cuff 1735 An Surgeon on Cuff 1758 An Extubation 1800 an stop data 1800 Handoff to RN I completed my SBAR handoff to the receiving nurse. 1800 An Stop Meds Name Total fentaNYL PF (SUBLIMAZE) injection 100 mcg lidocaine PF 2% 100mg/5mL vial 40 mg propofol (DIPRIVAN) 200 mg/ 20 mL 70 mg injection (VIAL) rocuronium (ZEMURON) injection 40 mg ondansetron (ZOFRAN) injection 4 mg dexamethasone (DECADRON) 4 mg/mL 4 mg injection phenylephrine (BRENDEN-SYNEPHRINE) 0.1 mg/mL 700 mcg injection syr sugammadex (BRIDION) 100 mg/mL iv soln 130 mg artificial tears (GENTEAL TEARS; BION 2 drop TEARS) single dose solution ceFAZolin (ANCEF) 2 g calcium chloride vial 0.5 g phenylephrine (BRENDEN-SYNEPHRINE) 10 mg in 4.63 mg sodium chloride 0.9% (NS) 250 mL IV dri p (std conc) magnesium sulfate 1 g/D5W 100 mL IVPB 1 g lactated ringers infusion 1,350 mL * Name O2 N2O Inspired N2O Sevoflurane Inspired Sevoflurane * No blood administrations on file. Removal Type Details Placement 05/07/21216 by Morenita Burton RN Peripheral 05/05/21; 2006; RN; L; Hand; 20 G; 1; 05/05/212006 by ANIYA Boyce 05/07/21; 021 WANDA Brenner 05/07/21 0710 by Morenita Burton RN Indwelling 05/05/21; 214; Unit (Comment) (ED); 0 05/05/21 214 by Kayode Urinary Regular (Two-way); 05/07/21; 0710 WANDA Michaud Catheter 05/11/21 0928 by Brian, Renal Nurse Wounds 05/05/21; 2148; Abrasion; Left; Eye; 0 05/05/21 214 by Kayode 05/11/21; 0928 WANDA Michaud 05/06/21 1758 by Noemí Garcia SRNA ETT 05/06/21; 1531; Ventilated by mask (1); 05/06/21 1531 by Jose Direct laryngoscopy; Single-Lumen, STANFORD Dowd Cuffed; ETT Size: 7mm; Mac; Blade Size: 3; Oral; 1-Full view of the glottis; 1 insertion attempt; Auscultation, ETCO2 Detector; Taped at Gums: 20 centimeters ; 05/06/21; 1758 05/11/21 0928 by Brian, Renal Nurse Wounds 05/06/21; 1754; Surgical incision; Leg; 05/06/21 1754 by [place], 05/11/21; 0928 WANDA Deras 05/10/21 08 by Kelvin Seymour RN [place] 05/06/21; 1803; Right; Leg; 05/10/21; 05/06/21 180 by Drake Lomas 0820 WANDA Quintana documented in this encounter Social History Date Tobacco Use Types Packs/Day [...] Status Date of Assessment Functional Status Response 05/05/2021 Does the patient have a hearing impairment: No documented as of this encounter OR Notes * Anesthesia Postprocedure Evaluation - Bernard Hines MD - 05/06/2021 6:22 PM CDT Post-Anesthesia Evaluation Name: Tere Sahu : 1945 Age: 75 y.o. Sex: female Procedure Information Anesthesia Start Date/Time: 05/06/21 1525 Procedure: OPEN TREATMENT SUPRACONDYLAR/ TRANSCONDYLAR FEMORAL FRACTURE WITH IN TERNAL FIXATION (Right Leg Upper) Location: MAIN OR 36 / Main OR/Periop Surgeons: Eber العلي MD Post-Anesthesia Vitals BP: 115/66 (05/06 180) Temp: 36.6 C (97.9 F) (05/06 180) Pulse: 67 (05/06 180) Respirations: 10 PER MINUTE (05/06 180) SpO2: 98 % (05/06 180) Vitals Value Taken Time BP 115/66 05/06/21 1803 Temp 36.6 C (97.9 F) 05/06/21 180 Pulse 67 05/06/21 180 Respirations 10 PER MINUTE 05/06/211802 SpO2 98 % 05/06/211802 Post Anesthesia Evaluation Note Evaluation location: pre/post Patient participation: recovered; patient participated in evaluation Level of consciousness: alert Pain management: adequate Hydration: normovolemia Temperature: 36.0C - 38.4C Airway patency: adequate Perioperative Events Post-op nausea and vomiting: nausea; resolved Postoperative Status Cardiovascular status: hemodynamically stable Respiratory status: spontaneous ventilation Perioperative Events Perioperative Event: No Emergency Case Activation: No * Anesthesia Preprocedure Evaluation - Renée Chiu MD - 05/06/2021 2:06 PM CDT Anesthesia Pre-Procedure Evaluation Name: Tere Sahu : 1945 Age: 75 y.o. Sex: female Procedure Info: Procedure Information Date/Time: 05/06/21 1545 Procedure: OPEN TREATMENT SUPRACONDYLAR/ TRANSCONDYLAR FEMORAL FRACTURE WITH IN TERNAL FIXATION (Right Leg Upper) Location: MAIN OR 36 / Main OR/Periop Surgeons: Eber العلي MD Physical Assessment Vital Signs (last filed in past 24 hours): BP: 96/61 (05/06 1400) Temp: 37 C (98.6 F) (05/06 1335) Pulse: 72 (05/06 1400) Respirations: 12 PER MINUTE (05/06 1400) SpO2: 98 % (05/06 1400) Height: 149.9 cm (59") (05/05 2226) Weight: 60.9 kg (134 lb 4.2 oz) (05/05 2226) Patient History Allergies Allergen Reactions Pcn [Penicillins] UNKNOWN Current Medications Medication Directions alendronate (FOSAMAX) 70 mg tablet Take 70 mg by mouth every 7 days. Take at [address] 30 minutes before breakfast with plain water. Do not lie down for 30 minutes. aspirin 81 mg chewable tablet Chew 81 mg by mouth daily. Take with food. bumetanide (BUMEX) 2 mg tablet Take 2 mg by mouth daily. gabapentin (NEURONTIN) 100 mg capsule Take 200 mg by mouth at bedtime daily. gabapentin (NEURONTIN) 100 mg capsule Take 100 mg by mouth twice daily. omeprazole DR (PRILOSEC) 40 mg capsule Take 40 mg by mouth daily before breakfas t. simvastatin (ZOCOR) 10 mg tablet Take 10 mg by mouth at bedtime daily. Review of Systems/Medical History Patient summary reviewed Nursing notes reviewed Pertinent labs reviewed PONV Screening: Female gender, Non-smoker and Postoperative opioids No history of anesthetic complications No family history of anesthetic complications Pulmonary Not a current smoker Asthma (as child) no COPD No sleep apnea Cardiovascular Exercise tolerance: >4 METS No pacemaker No valvular problems/murmurs No past UT, No coronary artery bypass graft No PTCA No dysrhythmias DVT () Hyperlipidemia GI/Hepatic/Renal GERD, well controlled No hx of liver disease No renal disease Electrolyte problem (hypomagnesemia, hypocalcemia, currently being replaced on floor) Neuro/Psych No seizures 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 Abdominal Findings: Not obese Neurological Findings: Alert and oriented x 3 Constitutional findings: No acute distress Diagnostic Tests Hematology: Lab Results Component Value Date HGB 10.2 05/06/2021 HCT 29.5 05/06/2021 PLTCT 302 05/06/2021 WBC 7.4 05/06/2021 MCV 95.8 05/06/2021 MCH 33.2 05/06/2021 MCHC 34.6 05/06/2021 MPV 8.5 05/06/2021 RDW 13.7 05/06/2021 General Chemistry: Lab Results Component Value Date NA 134 05/06/2021 K 3.6 05/06/2021 CL 104 05/06/2021 CO2 23 05/06/2021 GAP 7 05/06/2021 BUN 9 05/06/2021 CR 0.57 05/06/2021 GLU 75 05/06/2021 CA 5.7 05/06/2021 MG 0.9 05/06/2021 PO4 3.7 05/06/2021 Coagulation: No results found for: PT, PTT, INR Anesthesia Plan ASA score: 3 Plan: general and regional for postoperative pain Induction method: intravenous NPO status: acceptable Informed Consent Anesthetic plan and risks discussed with patient. Use of blood products discussed with patient Blood Consent: consented Plan discussed with: anesthesiologist, resident, SWEATER OPERATOR and surgeon/proceduralist. documented in this encounter Plan of Treatment Not on filedocumented as of this encounter Goals Goal Patient Associated Recent Progress Patient-Stat Aut hor Goal Type Problems ed? GOAL General On track (05/08/2021 No Flores coleman, 11:29 AM CDT) WANDA Dunaway Note: Get well documented as of this encounter Visit Diagnoses Not on filedocumented in this encounter Administered Medications Action Date Dose Rate Site Medication Order MAR Action 05/06/2021 3:31 PM CDT 2 drops artificial tears single dose ophthalmic Given solution Both Eyes, INTRA-PROCEDURE MED, Startin g on 05/06/21 at 1531, Until 05/06/21 at 1800, Anesthesia Intra-op 05/06/2021 3:40 PM CDT 0.5 g calcium chloride injection Given Intravenous, INTRA-PROCEDURE MED, Starting on 05/06/21 at 1540, Until 05/06/21 at 1800, Anesthesia Intra-o p 05/06/2021 3:40 PM CDT 2 g ceFAZolin (ANCEF) injection Given Intravenous, INTRA-PROCEDURE MED, Starting on 05/06/21 at 1540, Until 05/06/21 at 1800, Anesthesia Intra-o p 05/06/2021 3:40 PM CDT 4 mg dexamethasone (DECADRON) injection Given Intravenous, INTRA-PROCEDURE MED, Starting on 05/06/21 at 1540, Until 05/06/21 at 1800, Anesthesia Intra-o p 05/06/2021 5:58 PM CDT 25 mcg fentaNYL citrate PF (SUBLIMAZE) Given injection Intravenous, INTRA-PROCEDURE MED, Starting on 05/06/21 at 1530, Until 05/06/21 at 1800, Anesthesia Intra-o p 25 mcg Given 05/06/2021 5:09 PM CDT 50 mcg Given 05/06/2021 3:30 PM CDT 05/06/2021 5:24 PM CDT lactated ringers infusion Given - New 1,000 mL, Intravenous, at 75 mL/hr, Bag CONTINUOUS, Starting on Sat05/05/21 at 2200, Until Sat05/07/21 at 2159 75 mL/hr Given - New Bag 05/06/2021 12:09 PM CDT 75 mL/hr Given - New Bag 05/05/2021 11:01 PM CDT 05/06/2021 3:30 PM CDT 40 mg lidocaine PF 20 mg/mL (2 %) injection Given Intravenous, INTRA-PROCEDURE MED, Starting on 05/06/21 at 1530, Until 05/06/21 at 1800, Anesthesia Intra-o p 05/06/2021 4:00 PM CDT 1 g magnesium sulfate 1 g/D5W 100 mL IVPB Given 1 g, Intravenous, 100 mL, Administer over 4 Hours, EVERY 4 HOURS, 1 dose, First dose on 05/06/21 at 1400, Each 1gm delivers 8.1 mEq Magnesium. 1 g 25 mL/hr Given - New Bag 05/06/2021 1:17 PM CDT 05/06/2021 5:36 PM CDT 4 mg ondansetron (ZOFRAN) injection Given Intravenous, INTRA-PROCEDURE MED, Starting on 05/06/21 at 1736, Until 05/06/21 at 1800, Anesthesia Intra-o p 05/06/2021 5:23 PM CDT 0.3 mcg/kg/min 27.405 mL/hr phenylephrine (BRENDEN-SYNEPHRINE) 10 mg in Dose/Rate sodium chloride 0.9% (NS) 250 mL IV drip Change (std conc) 250 mL, Intravenous, INTRA-PROCEDURE MED(CONT), Starting on 05/06/21 at 1550, Until 05/06/21 at 1800, Anesthesia Intra-op 0.5 mcg/kg/min 45.675 mL/hr Dose/Rate Change 05/06/2021 5:18 PM CDT 0.7 mcg/kg/min 63.945 mL/hr Dose/Rate Change 05/06/2021 5:11 PM CDT 0.9 mcg/kg/min 82.215 mL/hr Dose/Rate Change 05/06/2021 4:06 PM CDT 0.7 mcg/kg/min 63.945 mL/hr Dose/Rate Change 05/06/2021 4:01 PM CDT 0.5 mcg/kg/min 45.675 mL/hr Dose/Rate Change 05/06/2021 3:59 PM CDT 0.3 mcg/kg/min 27.405 mL/hr Given - New Bag 05/06/2021 3:50 PM CDT 05/06/2021 5:43 PM CDT 100 mcg phenylephrine (BRENDEN-SYNEPHRINE) injection Given syringe Intravenous, INTRA-PROCEDURE MED, Starting on 05/06/21 at 1545, Until 05/06/21 at 1800, Anesthesia Intra-o p 100 mcg Given 05/06/2021 5:31 PM CDT 100 mcg Given 05/06/2021 4:56 PM CDT 100 mcg Given 05/06/2021 3:48 PM CDT 100 mcg Given 05/06/2021 3:45 PM CDT 100 mcg Given 05/06/2021 3:37 PM CDT 100 mcg Given 05/06/2021 3:34 PM CDT 05/06/2021 3:30 PM CDT 70 mg propofol (DIPRIVAN) injection Given Intravenous, INTRA-PROCEDURE MED, Starting on 05/06/21 at 1530, Until 05/06/21 at 1800, Anesthesia Intra-o p 05/06/2021 3:30 PM CDT 40 mg rocuronium injection Given Intravenous, INTRA-PROCEDURE MED, Starting on 05/06/21 at 1530, Until 05/06/21 at 1800, Anesthesia Intra-o p 05/06/2021 5:51 PM CDT 130 mg sugammadex (BRIDION) injection Given Intravenous, INTRA-PROCEDURE MED, Starting on 05/06/21 at 1751, Until 05/06/21 at 1800, Anesthesia Intra-o p documented in this encounter Additional Health Concerns Assessment Noted Time A fall risk assessment has been completed for the pat ient 05/06/2021 10:00 PM CDT documented as of this encounter
--- OUTSIDE RECORDS SUMMARY | 2021-07-05 14:11 | XMS REPORT | Encounter Summary ---
Author Author [facility] Organization [facility] Address Unknown Phone Unavailable Care Team Providers Care Casing Cooker Name Role Phone Self, Tomasz BREEN PCP Encounter Details Care Team Description Date Type Department 06/28/2021 Travel Social History Date Tobacco Use Types [...]
--- NOTE | 2021-07-05 15:08 | ED General ---
General Chief Complaint: General Problems/Pain Stated Complaint: BI LAT LEG BLOOD CLOTS Nursing Triage Note: TO ED PER W/C FROM WOUND CARE WITH HARITHA LOWER EXT CLOTS. PATIENT HAS DRESSING ON L LEG THAT IS SUNG AND WAS CHANGED IN WOUND CARE. PATIENT FEET ARE COOL TO TOUCH AND UPPER LEG IS WARM TO TOUCH. SWELLING IN UPPER R THIGH. PATIENT HAD A FEMUR FX IN APR. PATIENT LIVES [facility]. PATIENT GIVES POOR PMH Source of Information: Patient Exam Limitations: No Limitations (JESSICA HERNANDEZ APRN) History of Present Illness Date Seen by Provider: Jul 05, 2021 Time Seen by Provider: 15:06 Initial Comments To ER from wound care with reports of recently diagnosed DVT bilateral lower extremity. She recently had a right femur fracture, she is from [facility] but is residing in the correction in [facility]. This was an outpatient ultrasound done at Dr. Posadas's clinic today. 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 She is not currently on any anticoagulation. She denies any chest pain or shortness of breath. Timing/Duration: 1-2 Days Severity: Moderate Associated Systoms: Denies Symptoms (JESSICA HERNANDEZ APRN) Allergies and Home Medications Allergies Coded Allergies: Penicillins (Verified Allergy, Mild, Hives, 08/24/20) Sulfa (Sulfonamide Antibiotics) (Verified Allergy, Mild, Hives, 08/24/20) adhesive tape (Verified Allergy, Mild, Hives, 08/24/20) barley (Verified Allergy, Unknown, 08/24/20) gluten (Verified Allergy, Unknown, 08/24/20) oats (Verified Allergy, Unknown, 08/24/20) streptomycin (Verified Allergy, Unknown, non effective, 08/24/20) sulfadiazine (Verified Allergy, Unknown, non effective, 08/24/20) wheat (Verified Allergy, Unknown, 08/24/20) Patient Home Medication List Home Medication List Reviewed: Yes (JESSICA HERNANDEZ APRN) Alendronate Sodium (Alendronate Sodium) 70 Mg Tablet, 70 MG PO WEEK, (Reported) Entered as Reported by: ELIESER MELÉNDEZ on 07/21/19 1329 Apixaban (Eliquis) 5 Mg Tablet, 5 MG PO BID Prescribed by: JESSICA HERNANDEZ on 07/05/21 1558 Bumetanide (Bumetanide) 2 Mg Tablet, 2 MG PO DAILY, (Reported) Entered as Reported by: ELIESER MELÉNDEZ on 07/21/19 1329 Cholecalciferol (Vitamin D3) (Vitamin D3) 10 Mcg Capsule, 10 MCG PO DAILY, (Reported) Entered as Reported by: PHILLIP MARTIN on 08/24/20 1112 Ferrous Sulfate (Iron) 325 Mg Tablet, 325 MG PO DAILY, (Reported) Entered as Reported by: PHILLIP MARTIN on 08/24/20 1112 Fexofenadine HCl (Fexofenadine HCl) 180 Mg Tablet, 180 MG PO DAILY, (Reported) Entered as Reported by: ELIESER MELÉNDEZ on 07/21/19 1329 Gabapentin (Gabapentin) 600 Mg Tablet, 600 MG PO TID, (Reported) Entered as Reported by: NANCI LEYVA on 10/17/20 1327 Hydrocodone/Acetaminophen (Hydrocodone-Acetamin 5-325 mg) 1 Each Tablet, 1 EACH PO Q4H Prescribed by: ANNIA PERSON on 01/21/21 1538 Naproxen Sodium (Aleve) 220 Mg Tablet, 220 MG PO PRN, (Reported) Entered as Reported by: PHILLIP MARTIN on 08/24/20 1112 Omeprazole (Omeprazole) 40 Mg Capsule.dr, 40 MG PO DAILY, (Reported) Entered as Reported by: ELIESER MELÉNDEZ on 07/21/19 1329 Simvastatin (Simvastatin) 10 Mg Tablet, 10 MG PO HS, (Reported) Entered as Reported by: ELIESER MELÉNDEZ on 07/21/19 1329 Sucralfate (Carafate) 1 Gm Tablet, 1 GM PO QID Prescribed by: KEVIN FELICIANO on 08/29/20 1106 Review of Systems Review of Systems Constitutional: see HPI EENTM: see HPI Respiratory: see HPI, cough Cardiovascular: no symptoms reported Genitourinary: no symptoms reported Musculoskeletal: no symptoms reported Skin: no symptoms reported Psychiatric/Neurological: No Symptoms Reported Hematologic/Lymphatic: No Symptoms Reported Immunological/Allergic: no symptoms reported (JESSICA HERNANDEZ APRN) Past Onfcnfq-Tmucpk-Pvawpe Hx Patient Social History Tobacco Use?: No (JESSICA HERNANDEZ APRN) Immunizations Up To Date Tetanus Booster (TDap): Unknown First/Initial COVID19 Vaccinat: NOVEMBER Second COVID19 Vaccination Brenden: NOVEMBER COVID19 Vaccine Project 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 (JESSICA HERNANDEZ APRN) Seasonal Allergies Seasonal Allergies: Yes (JESSICA HERNANDEZ APRN) Past Medical History Surgeries: Yes (R total hip, hiatal hernia, L HIP FX, WRIST FX, CTR) Gallbladder, Tonsillectomy Respiratory: Yes (allergy induced asthma) Currently Using CPAP: No Currently Using BIPAP: No Cardiac: Yes High Cholesterol Neurological: No Sexually Transmitted Disease: No HIV/AIDS: No Genitourinary: No Gastrointestinal: Yes (gluten allergy) Gastroesophageal Reflux Musculoskeletal: Yes Osteoporosis, Arthritis, Fractures Endocrine: No HEENT: Yes (cataracts removed, dentures) Cataract Cancer: No Psychosocial: No Integumentary: No Blood Disorders: Yes (anemia-PT STATES SHE IS "ALLERIGIC") Adverse Reaction/Blood Tranf: Yes (ELEVATED TEMP, CARDIAC ARREST) (JESSICA HERNANDEZ APRN) Physical Exam Vital Signs Vital Signs - First Documented 07/05/21 07/05/21 14:11 16:30 Temp 36.3 Pulse 83 Resp 18 B/P (MAP) 109/60 (76) Pulse Ox 98 O2 Delivery Room Air (TOMMY GARRETT MD) Vital Signs Capillary Refill : (JESSICA HERNANDEZ APRN) Height, Weight, BMI Height: '" Weight: lbs. oz. kg; 25.00 BMI Method: General Appearance: No Apparent Distress, WD/WN, Other (She is without tachycardia hypotension or hypoxia to suggest a significantly sized PE.) Eyes: Bilateral Eye Normal Inspection, Bilateral Eye PERRL, Bilateral Eye EOMI Neck: Full Range of Motion, Normal Inspection Respiratory: No Accessory Muscle Use, No Respiratory Distress Cardiovascular: Regular Rate, Rhythm, Normal Peripheral Pulses Gastrointestinal: Normal Bowel Sounds, Non Tender, Soft Extremity: Normal Capillary Refill, Normal Inspection, Other (edema ble, wound left lower leg covered with dressing. ) Neurologic/Psychiatric: Alert, Oriented x3 Skin: Normal Color, Warm/Dry (JESSICA HERNANDEZ APRN) Progress/Results/Core Measures Suspected Sepsis SIRS Temperature: Pulse: 83 Respiratory Rate: Laboratory Tests 07/05/21 15:03: White Blood Count 10.6 Blood Pressure 109 /60 Mean: 76 Laboratory Tests 07/05/21 15:03: Creatinine 0.73, Platelet Count 297, Total Bilirubin 0.2 (JESSICA HERNANDEZ APRN) Results/Orders Lab Results Laboratory Tests Test 07/05/21 15:03 Range/Units White Blood Count 10.6 4.3-11.0 10^3/uL Red Blood Count 3.56 L 3.80-5.11 10^6/uL Hemoglobin 12.0 11.5-16.0 g/dL Hematocrit 37 35-52 % Mean Corpuscular Volume 105 H 80-99 fL Mean Corpuscular Hemoglobin 34 25-34 pg Mean Corpuscular Hemoglobin Concent 32 32-36 g/dL Red Cell Distribution Width 15.5 H 10.0-14.5 % Platelet Count 297 130-400 10^3/uL Mean Platelet Volume 9.7 9.0-12.2 fL Immature Granulocyte % (Auto) 0 % Neutrophils (%) (Auto) 66 42-75 % Lymphocytes (%) (Auto) 26 12-44 % Monocytes (%) (Auto) 7 0-12 % Eosinophils (%) (Auto) 1 0-10 % Basophils (%) (Auto) 1 0-10 % Neutrophils # (Auto) 7.0 1.8-7.8 X 10^3 Lymphocytes # (Auto) 2.8 1.0-4.0 X 10^3 Monocytes # (Auto) 0.7 0.0-1.0 X 10^3 Eosinophils # (Auto) 0.1 0.0-0.3 10^3/uL Basophils # (Auto) 0.1 0.0-0.1 10^3/uL Immature Granulocyte # (Auto) 0.0 0.0-0.1 10^3/uL Sodium Level 133 L 135-145 MMOL/L Potassium Level 4.0 3.6-5.0 MMOL/L Chloride Level 99 98-107 MMOL/L Carbon Dioxide Level 22 21-32 MMOL/L Anion Gap 12 5-14 MMOL/L Blood Urea Nitrogen 24 H 7-18 MG/DL Creatinine 0.73 0.60-1.30 MG/DL Estimat Glomerular Filtration Rate 78 BUN/Creatinine Ratio 33 Glucose Level 94 70-105 MG/DL Calcium Level 8.3 L 8.5-10.1 MG/DL Corrected Calcium 9.5 8.5-10.1 MG/DL Total Bilirubin 0.2 0.1-1.0 MG/DL Aspartate Amino Transf (AST/SGOT) 76 H 5-34 U/L Alanine Aminotransferase (ALT/SGPT) 49 0-55 U/L Alkaline Phosphatase 210 H 40-136 U/L Total Protein 8.2 6.4-8.2 GM/DL Albumin 2.5 L 3.2-4.5 GM/DL (TOMMY GARRETT MD) Vital Signs/I&O 07/05/21 07/05/21 14:11 16:30 Temp 36.3 Pulse 83 83 Resp 18 B/P (MAP) 109/60 (76) 114/56 Pulse Ox 98 O2 Delivery Room Air (TOMMY GARRETT MD) Vital Signs/I&O Capillary Refill : (JESSICA HERNANDEZ APRN) Blood Pressure Mean: 76 Departure Impression Primary Impression: DVT, bilateral lower limbs Disposition: HOME, SELF-CARE Condition: Stable Departure-Patient Inst. Decision time for Depature: 15:32 (JESSICA HERNANDEZ APRN) Referrals: LÓPEZ SPRAGUE MD (PCP/Family) Primary Care Physician Patient Instructions: Deep Vein Thrombosis (DVT) ED, Going Home on Blood Thinners Add. Discharge Instructions: 1. Return to ER for any concerns. Follow-up with your doctor next week. Take the blood thinner as directed. All discharge instructions reviewed with patient and/or family. Voiced understanding. Scripts Apixaban (Eliquis) 5 Mg Tablet 5 MG PO BID for 30 Days, #74 TAB TAKE 2 TABLETS BID X 7 DAYS, THEN 1 TABLET BID Prov: JESSICA HERNANDEZ APRN 07/05/21 ATTENDING PHYSICIAN NOTE: I was physically present as attending physician in the emergency department during the care of this patient, but I was not directly involved in the decision making or delivery of care for this patient. (TOMMY GARRETT MD) Copy Copies To 1: LÓPEZ SPRAGUE MD, PETER J APRN Jul 05, 2021 15:08 TOMMY GARRETT MD Jul 06, 2021 06:14
[2021-07-05 15:16] LABS: BASOPHILS # (AUTO) 0.1 10^3/uL (0.0-0.1); BASOPHILS % (AUTO) 1 % (0-10); EOSINOPHILS # (AUTO) 0.1 10^3/uL (0.0-0.3); EOSINOPHILS % (AUTO) 1 % (0-10); HEMATOCRIT 37 % (35-52); LYMPHOCYTES # (AUTO) 2.8 X 10^3 (1.0-4.0); LYMPHOCYTES % (AUTO) 26 % (12-44); MEAN CORPUSCULAR HEMOGLOBIN 34 pg (25-34); MEAN CORPUSCULAR HGB CONC 32 g/dL (32-36); MEAN CORPUSCULAR VOLUME 105 fL (80-99); MEAN PLATELET VOLUME 9.7 fL (9.0-12.2); MONOCYTES # (AUTO) 0.7 X 10^3 (0.0-1.0); MONOCYTES % (AUTO) 7 % (0-12); NEUTROPHILS % (AUTO) 66 % (42-75); PLATELET COUNT 297 10^3/uL (130-400); WHITE BLOOD COUNT 10.6 10^3/uL (4.3-11.0)
[2021-07-05 15:34] LABS: ALBUMIN 2.5 GM/DL (3.2-4.5); BILIRUBIN,TOTAL 0.2 MG/DL (0.1-1.0); CALCIUM 8.3 MG/DL (8.5-10.1); CREATININE SERUM 0.73 MG/DL (0.60-1.30); TOTAL PROTEIN 8.2 GM/DL (6.4-8.2)
[2021-07-05] MEDS ORDERED: APIX5TAB PO (15:58)
[2021-07-05 16:30] VITALS: BP 114/56
[2021-07-05] MEDS ORDERED: APIXABAN 5 MG (ELIQUIS) TABLET PO SCH ×2 (16:30→21:00)
== END 2021-07-05 16:29 | disposition home or self-care (01) ==
LOC: EDUNIT# 14:03 → ER 14:05
DX: I82.403 Acute embolism and thrombosis of unspecified deep veins of lower extremity, bilateral (principal); K21.9 Gastro-esophageal reflux disease without esophagitis; E78.00 Pure hypercholesterolemia, unspecified; Z79.899 Other long term (current) drug therapy
CPT/HCPCS: 36415; 80053; 85025

== ENCOUNTER → 2021-07-12 | Outpatient (CLI) | payer MEDICARE, OTHER ==
[~2021-07-12] MED LIST changes: +APIX5TAB PO
== END ==
LOC: WOUNDCARE 10:28
PROVIDERS: ATTEND Family Medicine
DX: I89.0 Lymphedema, not elsewhere classified (principal); I70.242 Atherosclerosis of native arteries of left leg with ulceration of calf; L97.222 Non-pressure chronic ulcer of left calf with fat layer exposed; I82.402 Acute embolism and thrombosis of unspecified deep veins of left lower extremity
CPT/HCPCS: 99213

== ENCOUNTER → 2021-07-19 | Outpatient (CLI) | payer MEDICARE, OTHER | LOC: WOUNDCARE 10:07 | PROVIDERS: ATTEND Family Medicine | DX: I89.0 Lymphedema, not elsewhere classified (principal); I70.242 Atherosclerosis of native arteries of left leg with ulceration of calf; L97.222 Non-pressure chronic ulcer of left calf with fat layer exposed; I82.492 Acute embolism and thrombosis of other specified deep vein of left lower extremity; L03.116 Cellulitis of left lower limb; I96 Gangrene, not elsewhere classified | CPT/HCPCS: 11042; 11045; A4649; G0463 ==

== ENCOUNTER → 2021-07-26 | Outpatient (CLI) | payer MEDICARE, OTHER | LOC: WOUNDCARE 10:07 | PROVIDERS: ATTEND Family Medicine | DX: I89.0 Lymphedema, not elsewhere classified (principal); I70.242 Atherosclerosis of native arteries of left leg with ulceration of calf; L97.222 Non-pressure chronic ulcer of left calf with fat layer exposed; I82.492 Acute embolism and thrombosis of other specified deep vein of left lower extremity; L03.116 Cellulitis of left lower limb; I96 Gangrene, not elsewhere classified | CPT/HCPCS: 11042; 11045; A4649; G0463 ==

== ENCOUNTER → 2021-08-02 | Outpatient (CLI) | payer MEDICARE, OTHER | LOC: WOUNDCARE 07:55 | PROVIDERS: ATTEND Family Medicine | DX: I89.0 Lymphedema, not elsewhere classified (principal); I70.242 Atherosclerosis of native arteries of left leg with ulceration of calf; L97.222 Non-pressure chronic ulcer of left calf with fat layer exposed; I82.492 Acute embolism and thrombosis of other specified deep vein of left lower extremity; L03.116 Cellulitis of left lower limb; I96 Gangrene, not elsewhere classified | CPT/HCPCS: 11042; 11045; A6197; G0463 ==

== ENCOUNTER → 2021-08-09 | Outpatient (CLI) | payer MEDICARE, OTHER | LOC: WOUNDCARE 09:55 | PROVIDERS: ATTEND Family Medicine | DX: I89.0 Lymphedema, not elsewhere classified (principal); I96 Gangrene, not elsewhere classified; I70.242 Atherosclerosis of native arteries of left leg with ulceration of calf; L97.222 Non-pressure chronic ulcer of left calf with fat layer exposed; I82.492 Acute embolism and thrombosis of other specified deep vein of left lower extremity; L03.116 Cellulitis of left lower limb; I87.332 Chronic venous hypertension (idiopathic) with ulcer and inflammation of left lower extremity | CPT/HCPCS: 15271; 15272; G0463 ==

== ENCOUNTER → 2021-08-16 | Outpatient (CLI) | payer MEDICARE, OTHER | LOC: WOUNDCARE 10:06 | PROVIDERS: ATTEND Family Medicine | DX: I89.0 Lymphedema, not elsewhere classified (principal); I70.242 Atherosclerosis of native arteries of left leg with ulceration of calf; L97.222 Non-pressure chronic ulcer of left calf with fat layer exposed; I82.492 Acute embolism and thrombosis of other specified deep vein of left lower extremity; I87.332 Chronic venous hypertension (idiopathic) with ulcer and inflammation of left lower extremity; I96 Gangrene, not elsewhere classified | CPT/HCPCS: 15272; 15275; G0463 ==

== ENCOUNTER → 2021-08-23 | Outpatient (CLI) | payer MEDICARE, OTHER | LOC: WOUNDCARE 08:59 | PROVIDERS: ATTEND Family Medicine | DX: I89.0 Lymphedema, not elsewhere classified (principal); I96 Gangrene, not elsewhere classified; I70.242 Atherosclerosis of native arteries of left leg with ulceration of calf; L97.222 Non-pressure chronic ulcer of left calf with fat layer exposed; I82.492 Acute embolism and thrombosis of other specified deep vein of left lower extremity; I87.332 Chronic venous hypertension (idiopathic) with ulcer and inflammation of left lower extremity | CPT/HCPCS: 15271; A6021; G0463 ==

== ENCOUNTER → 2021-08-30 | Outpatient (CLI) | payer MEDICARE, OTHER | LOC: WOUNDCARE 08:41 | PROVIDERS: ATTEND Family Medicine | DX: I89.0 Lymphedema, not elsewhere classified (principal); I70.242 Atherosclerosis of native arteries of left leg with ulceration of calf; L97.222 Non-pressure chronic ulcer of left calf with fat layer exposed; I82.492 Acute embolism and thrombosis of other specified deep vein of left lower extremity; I87.332 Chronic venous hypertension (idiopathic) with ulcer and inflammation of left lower extremity; I96 Gangrene, not elsewhere classified | CPT/HCPCS: 15271; G0463 ==

== ENCOUNTER → 2021-09-06 | Outpatient (CLI) | payer MEDICARE, OTHER | LOC: WOUNDCARE 08:44 | PROVIDERS: ATTEND Family Medicine | DX: I89.0 Lymphedema, not elsewhere classified (principal); I70.242 Atherosclerosis of native arteries of left leg with ulceration of calf; L97.222 Non-pressure chronic ulcer of left calf with fat layer exposed; I82.402 Acute embolism and thrombosis of unspecified deep veins of left lower extremity; I87.332 Chronic venous hypertension (idiopathic) with ulcer and inflammation of left lower extremity; I96 Gangrene, not elsewhere classified | CPT/HCPCS: 15271; G0463 ==

== ENCOUNTER → 2021-09-13 | Outpatient (CLI) | payer MEDICARE, OTHER | LOC: WOUNDCARE 08:55 | PROVIDERS: ATTEND Family Medicine | DX: I89.0 Lymphedema, not elsewhere classified (principal); I70.242 Atherosclerosis of native arteries of left leg with ulceration of calf; L97.222 Non-pressure chronic ulcer of left calf with fat layer exposed; I82.492 Acute embolism and thrombosis of other specified deep vein of left lower extremity; I87.332 Chronic venous hypertension (idiopathic) with ulcer and inflammation of left lower extremity; I96 Gangrene, not elsewhere classified | CPT/HCPCS: 11043; 15271; G0463 ==

== ENCOUNTER → 2021-09-20 | Outpatient (CLI) | payer MEDICARE, OTHER | LOC: WOUNDCARE 08:41 | PROVIDERS: ATTEND Family Medicine | DX: I89.0 Lymphedema, not elsewhere classified (principal); I70.242 Atherosclerosis of native arteries of left leg with ulceration of calf; L97.222 Non-pressure chronic ulcer of left calf with fat layer exposed; I82.492 Acute embolism and thrombosis of other specified deep vein of left lower extremity; I87.332 Chronic venous hypertension (idiopathic) with ulcer and inflammation of left lower extremity; I96 Gangrene, not elsewhere classified | CPT/HCPCS: 15271; G0463 ==

== ENCOUNTER → 2021-09-27 | Outpatient (CLI) | payer MEDICARE, OTHER | LOC: WOUNDCARE 08:51 | PROVIDERS: ATTEND Family Medicine | DX: I89.0 Lymphedema, not elsewhere classified (principal); I70.242 Atherosclerosis of native arteries of left leg with ulceration of calf; L97.222 Non-pressure chronic ulcer of left calf with fat layer exposed; I82.492 Acute embolism and thrombosis of other specified deep vein of left lower extremity; I87.332 Chronic venous hypertension (idiopathic) with ulcer and inflammation of left lower extremity; I96 Gangrene, not elsewhere classified | CPT/HCPCS: 11042; G0463 ==

== ENCOUNTER → 2021-10-04 | Outpatient (CLI) | payer MEDICARE, OTHER | LOC: WOUNDCARE 08:50 | PROVIDERS: ATTEND Family Medicine | DX: I89.0 Lymphedema, not elsewhere classified (principal); L97.222 Non-pressure chronic ulcer of left calf with fat layer exposed; I70.242 Atherosclerosis of native arteries of left leg with ulceration of calf; I82.492 Acute embolism and thrombosis of other specified deep vein of left lower extremity; I87.332 Chronic venous hypertension (idiopathic) with ulcer and inflammation of left lower extremity; Z68.25 Body mass index [BMI] 25.0-25.9, adult | CPT/HCPCS: 11042; G0463 ==

== ENCOUNTER → 2021-10-11 | Outpatient (CLI) | payer MEDICARE, OTHER | LOC: WOUNDCARE 08:58 | PROVIDERS: ATTEND Family Medicine | DX: I89.0 Lymphedema, not elsewhere classified (principal); I70.242 Atherosclerosis of native arteries of left leg with ulceration of calf; L97.222 Non-pressure chronic ulcer of left calf with fat layer exposed; I82.492 Acute embolism and thrombosis of other specified deep vein of left lower extremity; I87.332 Chronic venous hypertension (idiopathic) with ulcer and inflammation of left lower extremity | CPT/HCPCS: 99212 ==

== ENCOUNTER → 2021-10-31 | Outpatient (CLI) | payer MEDICARE, OTHER ==
--- NOTE | 2021-10-31 12:08 | Diagnostic Imaging Report ---
HISTORY: Left great toe pain. TECHNIQUE: Three views of the left toes. COMPARISON: None. FINDINGS: There is diffuse osteopenia. No acute fracture is seen. There is deformity of the 3rd metatarsal neck from remote trauma. There are mild degenerative changes in the midfoot. No cortical erosions are seen. IMPRESSION: Chronic findings in the left foot with no acute osseous abnormality seen. Dictated by: Dictated on workstation # [id number]
== END ==
LOC: RAD FS 09:28
PROVIDERS: ATTEND Family Medicine
DX: M79.675 Pain in left toe(s) (principal)
CPT/HCPCS: 73660

== ENCOUNTER → 2023-01-29 | Outpatient (CLI) | payer MEDICARE, OTHER ==
[~2023-01-29] MED LIST changes: -FEXO-46 PO; +NF-ALLE180 PO
[2023-01-29 11:19] LABS: ABG BASE EXCESS 6.1 MMOL/L (-2.5-2.5); ABG OXYGEN SATURATION 97 % (94-100); ABG PCO2 43 MMHG (35-45); ABG PH 7.46 (7.37-7.43); ABG PO2 86 MMHG (79-93); ABG TCO2 31.9 MMOL/L (21.0-31.0)
[2023-01-29 11:20] LABS: ALLENS TEST OK; INSPIRED O2 ROOM AIR; PATIENT TEMP 36.7C; VENTILATOR NO
[2023-01-29 11:44] LABS: ALBUMIN 3.7 GM/DL (3.2-4.5); BILIRUBIN,TOTAL 0.3 MG/DL (0.1-1.0); CALCIUM 9.6 MG/DL (8.5-10.1); CREATININE SERUM 0.76 MG/DL (0.60-1.30); POTASSIUM 4.5 MMOL/L (3.6-5.0); TOTAL PROTEIN 7.8 GM/DL (6.4-8.2)
== END ==
LOC: LAB FS 10:32
PROVIDERS: ATTEND Family Medicine
DX: E87.8 Other disorders of electrolyte and fluid balance, not elsewhere classified (principal); I10 Essential (primary) hypertension
CPT/HCPCS: 36415; 80053; 82805